=== PATIENT | female | born 1930 | race Caucasian/White ===

== ENCOUNTER 2016-06-25 04:08 | Emergency (ER) | payer MEDICARE, OTHER ==
[2016-06-25] MEDS ORDERED: ONDANSETRON 4 MG/2 ML VIAL IVP STA (04:25)
[2016-06-25] MEDS ORDERED: SODIUM CHLORIDE 0.9% 1,000 ML IV ONE (04:25)
--- NOTE | 2016-06-25 04:28 | ED ---
General Adult HPI - General Chief complaint: Nausea/Vomiting/Diarrhea Stated complaint: N/V/D, headache, weakness Time Seen by Provider: 06/25/16 04:12 Source: patient, family Mode of arrival: ambulatory Limitations: no limitations - History of Present Illness Initial comments: Is an 86-year-old female with a history of CAD who presents emergency department for generalized fatigue, nausea, vomiting, and diarrhea. She states that she has been feeling ill over the last couple of days however the vomiting and diarrhea started tonight. She states that she's had too many episodes of vomiting that she can count. She states the same with diarrhea. No dark or bloody stools. No blood in the vomit. She denies any abdominal discomfort however does admit to some cramping at times. No pain. She states that she has not had any syncopal episodes. No chest pain or shortness of breath. No fevers or chills. No dysuria or hematuria. She admits to normal urinary output. No recent antibiotic use. No other complaints. - Related Data Home Medications Medication Instructions Recorded Confirmed Levothyroxine Sodium [Synthroid] 88 mcg PO AC-BRKFST 07/19/14 10/03/15 Warfarin Sodium [Coumadin] 3 mg PO HS 01/30/15 10/03/15 Lisinopril [Zestril] 2.5 mg PO AC-LUNCH 01/31/15 10/03/15 amLODIPine [Norvasc] 1.25 mg PO DAILY 01/31/15 10/03/15 Aspirin 81 mg PO Q2D 09/29/15 10/03/15 Atorvastatin [Lipitor] 40 mg PO AC-LUNCH 09/29/15 10/03/15 Metoprolol Tartrate 25 mg PO DAILY 09/29/15 10/03/15 Warfarin Sodium [Coumadin] 4.5 mg PO SUWE 09/29/15 10/03/15 Previous Rx's Medication Instructions Recorded Clopidogrel [Plavix] 75 mg PO DAILY #90 tab 08/18/14 Escitalopram [Lexapro] 5 mg PO DAILY #30 tab 01/31/15 Meclizine [Antivert] 25 mg PO TID PRN #20 tab 06/25/16 Ondansetron Odt [Zofran Odt] 4 mg PO Q8HR PRN #12 tab 06/25/16 Allergies Allergy/AdvReac Type Severity Reaction Status Date / Time No Known Allergies Allergy Verified 06/25/16 04:15 Review of Systems ROS Statement: Those systems with pertinent positive or pertinent negative responses have been documented in the HPI. ROS Other: All systems not noted in ROS Statement are negative. Past Medical History Past Medical History: Atrial Fibrillation, Coronary Artery Disease (CAD), Chest Pain / Angina, Hyperlipidemia, Hypertension, Thyroid Disorder Additional Past Medical History / Comment(s): Pt has IBS. 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 Bruising on skin. Cataract L eye. History of Any Multi-Drug Resistant Organisms: None Reported Past Surgical History: Appendectomy, Section, Heart Catheterization With Stent, Hysterectomy Additional Past Surgical History / Comment(s): Hx. of left breast biopsy, HEART CATH WITH STENT. RT FEMORAL endartrectomy,HEMATOMA REMOVAL. Past Anesthesia/Blood Transfusion Reactions: No Reported Reaction Date of Last Stent Placement:: 08-17-14 Past Psychological History: No Psychological Hx Reported Smoking Status: Never smoker Past Alcohol Use History: None Reported Past Drug Use History: None Reported - Past Family History Son(s) Family Medical History: Hearing Disorder / Deafness Daughter(s) Family Medical History: Hearing Disorder / Deafness Father Family Medical History: Cancer Additional Family Medical History / Comment(s): Unknown General Exam - General Exam Comments Initial Comments: Constitutional: Awake alert Appears comfortable Head: Normocephalic atraumatic Eyes: no conjunctival injection No scleral icterus EOMI Neck: No JVD Supple Heart: Tachycardia normal S1-S2 no murmurs Lungs: Clear to auscultation bilaterally No wheezing No rales Abdomen: Soft nondistended nontender Extremities: Non edematous DP pulses intact Radial pulses intact Neuro: A&Ox3 No focal neurologic deficits Psych: Appropriate mood and affect Limitations: no limitations Course Vital Signs 06/25/16 04:12 Temperature 98.7 F Pulse Rate 117 H Respiratory 22 Rate Blood Pressure 137/74 O2 Sat by Pulse 96 Oximetry EKG Findings - EKG Comments: EKG Findings:: EKG showing atrial fibrillation with a rate of 92. Right bundle branch block. No ST segment changes or T-wave inversions. QTC 504. Other intervals are normal. QRS is slightly widened 138. No ectopy. Medical Decision Making - Medical Decision Making This is an 86-year-old female presents emergency department for nausea, vomiting , or diarrhea. She is given 1 L of fluid, Zofran. She had complete resolution of her nausea. She was able tolerate sipping on fluids at bedside. The patient did ambulate to the bathroom and back under her own power. Urinalysis was unremarkable. Labwork was also unremarkable except for elevated INR. The patient was advised to skip her next 1-2 doses of Coumadin and have her INR rechecked her primary doctor. Patient does complain of having intermittent episodes of vertigo and also her legs giving out which of been going on for months. I did give her an Antivert which she stated helped improve her symptoms slightly. I'm going to give her Dr. De Leon to follow-up with for these complaints. This time I feel that the patient is likely suffering from a viral illness. A mini give her Zofran for home. She has no abdominal tenderness on examination and thus imaging is not warranted at this time. The patient's heart rate did improve to the 80s to 90s on monitoring. It would occasionally going to the low 100s however this is likely due to the atrial fibrillation. I did tell her that if she has worsening or changing symptoms she can return the emergency Department. Otherwise she is to follow-up with her primary doctor. All questions were answered. - Lab Data Result diagrams: 06/25/16 04:44 06/25/16 04:44 Lab Results 06/25/16 06/25/16 06/25/16 Range/Units 04:44 04:44 04:44 WBC 7.2 (3.8-10.6) k/uL RBC 4.88 (3.80-5.40) m/uL Hgb 14.5 (11.4-16.0) gm/dL Hct 45.1 (34.0-46.0) % MCV 92.6 (80.0-100.0) fL MCH 29.7 (25.0-35.0) pg MCHC 32.1 (31.0-37.0) g/dL RDW 14.1 (11.5-15.5) % Plt Count 252 (150-450) k/uL Neutrophils % 88 % Lymphocytes % 6 % Monocytes % 5 % Eosinophils % 1 % Basophils % 0 % Neutrophils # 6.3 (1.3-7.7) k/uL Lymphocytes # 0.4 L (1.0-4.8) k/uL Monocytes # 0.3 (0-1.0) k/uL Eosinophils # 0.1 (0-0.7) k/uL Basophils # 0.0 (0-0.2) k/uL PT (9.0-12.0) sec INR (<1.1) APTT (22.0-30.0) sec Sodium 143 (137-145) mmol/L Potassium 3.9 (3.5-5.1) mmol/L Chloride 105 (98-107) mmol/L Carbon Dioxide 27 (22-30) mmol/L Anion Gap 11 mmol/L BUN 19 H (7-17) mg/dL Creatinine 0.79 (0.52-1.04) mg/dL Est GFR (MDRD) Af Amer >60 (>60 ml/min/1.73 sqM) Est GFR (MDRD) Non-Af >60 (>60 ml/min/1.73 sqM) Glucose 154 H (74-99) mg/dL Plasma Lactic Acid [place] 1.7 (0.7-2.0) mmol/L Calcium 8.5 (8.4-10.2) mg/dL Magnesium 1.9 (1.6-2.3) mg/dL Total Bilirubin 1.1 (0.2-1.3) mg/dL AST 40 H (14-36) U/L ALT 46 (9-52) U/L Alkaline Phosphatase 64 (38-126) U/L Total Protein 6.7 (6.3-8.2) g/dL Albumin 3.7 (3.5-5.0) g/dL Amylase 43 (30-110) U/L Lipase 59 (23-300) U/L Urine Color Urine Appearance (Clear) Urine pH (5.0-8.0) Ur Specific [place] (1.001-1.035) Urine Protein (Negative) Urine Glucose (UA) (Negative) Urine Ketones (Negative) Urine Blood (Negative) Urine Nitrate (Negative) Urine Bilirubin (Negative) Urine Urobilinogen (<2.0) mg/dL Ur Leukocyte Esterase (Negative) Urine RBC (0-5) /hpf Urine WBC (0-5) /hpf Ur Squamous Epith Cells (0-4) /hpf Urine Mucus (None) /hpf 06/25/16 06/25/16 Range/Units 04:44 05:20 WBC (3.8-10.6) k/uL RBC (3.80-5.40) m/uL Hgb (11.4-16.0) gm/dL Hct (34.0-46.0) % MCV (80.0-100.0) fL MCH (25.0-35.0) pg MCHC (31.0-37.0) g/dL RDW (11.5-15.5) % Plt Count (150-450) k/uL Neutrophils % % Lymphocytes % % Monocytes % % Eosinophils % % Basophils % % Neutrophils # (1.3-7.7) k/uL Lymphocytes # (1.0-4.8) k/uL Monocytes # (0-1.0) k/uL Eosinophils # (0-0.7) k/uL Basophils # (0-0.2) k/uL PT 80.2 H (9.0-12.0) sec INR 7.7 H* (<1.1) APTT 32.9 H (22.0-30.0) sec Sodium (137-145) mmol/L Potassium (3.5-5.1) mmol/L Chloride (98-107) mmol/L Carbon Dioxide (22-30) mmol/L Anion Gap mmol/L BUN (7-17) mg/dL Creatinine (0.52-1.04) mg/dL Est GFR (MDRD) Af Amer (>60 ml/min/1.73 sqM) Est GFR (MDRD) Non-Af (>60 ml/min/1.73 sqM) Glucose (74-99) mg/dL Plasma Lactic Acid [place] (0.7-2.0) mmol/L Calcium (8.4-10.2) mg/dL Magnesium (1.6-2.3) mg/dL Total Bilirubin (0.2-1.3) mg/dL AST (14-36) U/L ALT (9-52) U/L Alkaline Phosphatase (38-126) U/L Total Protein (6.3-8.2) g/dL Albumin (3.5-5.0) g/dL Amylase (30-110) U/L Lipase (23-300) U/L Urine Color Yellow Urine Appearance Clear (Clear) Urine pH 5.5 (5.0-8.0) Ur Specific [place] 1.019 (1.001-1.035) Urine Protein Negative (Negative) Urine Glucose (UA) Negative (Negative) Urine Ketones Negative (Negative) Urine Blood Small H (Negative) Urine Nitrate Negative (Negative) Urine Bilirubin Negative (Negative) Urine Urobilinogen <2.0 (<2.0) mg/dL Ur Leukocyte Esterase Trace H (Negative) Urine RBC 8 H (0-5) /hpf Urine WBC 5 (0-5) /hpf Ur Squamous Epith Cells 2 (0-4) /hpf Urine Mucus Rare H (None) /hpf Disposition Clinical Impression: Nausea vomiting and diarrhea, Vertigo Disposition: HOME SELF-CARE Condition: Stable Instructions: Acute Nausea and Vomiting (ED), Vertigo (ED) Prescriptions: Meclizine [Antivert] 25 mg PO TID PRN #20 tab PRN Reason: Dizziness Ondansetron Odt [Zofran Odt] 4 mg PO Q8HR PRN #12 tab PRN Reason: Nausea Referrals: Jennyfer Cabello MD [Primary Care Provider] - 1-2 days Uri De Leon MD [STAFF PHYSICIAN] - 1-2 days
[2016-06-25 04:55] LABS: Basophils % (A) 0 %; CH 30.3; CHCM 32.9; Eosinophils # (A) 0.1 k/uL (0-0.7); Eosinophils % (A) 1 %; HCT 45.1 % (34.0-46.0); HDW 2.34; HGB 14.5 gm/dL (11.4-16.0); Luc # (Auto) 0.05; Luc % (Auto) 1; Lymphocytes # (A) 0.4 k/uL (1.0-4.8); Lymphocytes % (A) 6 %; MCH 29.7 pg (25.0-35.0); MCHC 32.1 g/dL (31.0-37.0); MCV 92.6 fL (80.0-100.0); Mean Platelet Volume 7.5; Monocytes # (A) 0.3 k/uL (0-1.0); Monocytes % (A) 5 %; Neutrophils # (A) 6.3 k/uL (1.3-7.7); Neutrophils % (A) 88 %; RBC 4.88 m/uL (3.80-5.40); RDW 14.1 % (11.5-15.5); WBC 7.2 k/uL (3.8-10.6); WBC (Perox) 7.18
[2016-06-25 05:06] LABS: ALT 46 U/L (9-52); AST 40 U/L (14-36); Alkaline Phosphatase 64 U/L (38-126); Amylase 43 U/L (30-110); Anion Gap 11 mmol/L; Blood Urea Nitrogen 19 mg/dL (7-17); Calcium 8.5 mg/dL (8.4-10.2); Carbon Dioxide 27 mmol/L (22-30); Chloride 105 mmol/L (98-107); Glucose 154 mg/dL (74-99); Magnesium 1.9 mg/dL (1.6-2.3); Non-African American GFR(MDRD) >60 (>60 ml/min/1.73 sqM); Potassium 3.9 mmol/L (3.5-5.1); Sodium 143 mmol/L (137-145); Total Bilirubin 1.1 mg/dL (0.2-1.3); Total Protein 6.7 g/dL (6.3-8.2)
[2016-06-25 05:11] LABS: Partial Thromboplastin Time 32.9 sec (22.0-30.0); Prothrombin Time 80.2 sec (9.0-12.0)
[2016-06-25 05:15] LABS: INR 7.7 (<1.1)
[2016-06-25] MEDS ORDERED: MECLIZINE 12.5 MG TAB PO STA (05:29)
[2016-06-25 05:34] LABS: Appearance,Urine Clear (Clear); Bilirubin,Urine Negative (Negative); Glucose,Urine (UA) Negative (Negative); Ketones,Urine Negative (Negative); Leukocyte Esterase,Urine Trace (Negative); Mucus,Urine Rare /hpf; Nitrite,Urine Negative (Negative); PH, Urine 5.5 (5.0-8.0); Particle Count 2085; Protein,Urine Negative (Negative); RBC,Urine 8 /hpf (0-5); Specific Gravity,Urine 1.019 (1.001-1.035); Squamous Epithelial Cell,Urine 2 /hpf (0-4); UA Billing (MACRO vs. MICRO) MICRO; Urobilinogen,Urine <2.0 mg/dL (<2.0); WBC,Urine 5 /hpf (0-5)
[2016-06-25 06:03] VITALS: BP 167/78; PULSE 78; RESP 18; TEMP 98
== END 2016-06-25 06:08 | disposition home or self-care (01) ==
LOC: EC 04:08
DX: R11.2 Nausea with vomiting, unspecified (principal); R19.7 Diarrhea, unspecified; R42 Dizziness and giddiness; I25.10 Atherosclerotic heart disease of native coronary artery without angina pectoris; I11.9 Hypertensive heart disease without heart failure; Z95.5 Presence of coronary angioplasty implant and graft; Z79.899 Other long term (current) drug therapy; Z79.01 Long term (current) use of anticoagulants; Z79.82 Long term (current) use of aspirin; Z79.02 Long term (current) use of antithrombotics/antiplatelets; I48.91 Unspecified atrial fibrillation; E07.9 Disorder of thyroid, unspecified; E78.5 Hyperlipidemia, unspecified
CPT/HCPCS: 36415; 93005; 80053; 82150; 83605; 83690; 83735; 85025; 85610; 85730; 81001; 87086; 99284; 96374; 96361; J2405

== ENCOUNTER 2016-06-26 18:26 | Inpatient (IN) | payer MEDICARE, OTHER ==
[2016-06-26] MEDS ORDERED: IPRATROPIUM-ALBUTEROL 3 ML NEB INHALATION STA (18:47)
[2016-06-26] MEDS ORDERED: ACETAMINOPHEN IV (For NPO) 1,000 MG in SALINE 100 100ML.BAG IVPB STA (18:47)
[2016-06-26] MEDS ORDERED: IBUPROFEN IV 600 MG in SODIUM CHLORIDE 0.9% 250 ML IV STA (18:47)
--- NOTE | 2016-06-26 18:56 | ED ---
General Adult HPI - General Source: patient, RN notes reviewed Mode of arrival: wheelchair Limitations: no limitations <Willy Lozano - Last Filed: 06/26/16 21:02> <Willy Cesar - Last Filed: 06/27/16 00:03> - General Chief complaint: Chest Pain Stated complaint: SVETLANA Time Seen by Provider: 06/26/16 18:40 - History of Present Illness Initial comments: This is an 86-year-old female who presents to the emergency department complaining of difficulty breathing and feeling extremely weak. Patient states she was in the emergency department yesterday for nausea vomiting and diarrhea. Patient also complete of dizziness chest today. Patient states those symptoms have resolved however today she started having significant discomfort breath and started feeling extremely weak and fatigued. Patient states she has had a slight cough but no sputum production. Patient denies any knowledge of a fever. Patient states she does have some chest discomfort at this time. Patient states she has a past medical history of atrial fibrillation for which she is on Coumadin. Patient states she was told to stop the Coumadin and she has stopped currently. Patient denies any lightheadedness or dizziness. Patient states she does have aches all over her body. She denies any current abdominal pain or nausea. (Willy Lozano) - Related Data Home Medications Medication Instructions Recorded Confirmed Levothyroxine Sodium [Synthroid] 88 mcg PO AC-BRKFST 07/19/14 10/03/15 Lisinopril [Zestril] 2.5 mg PO AC-LUNCH 01/31/15 10/03/15 amLODIPine [Norvasc] 1.25 mg PO DAILY 01/31/15 10/03/15 Aspirin 81 mg PO DAILY PRN 09/29/15 06/26/16 Atorvastatin [Lipitor] 40 mg PO AC-LUNCH 09/29/15 10/03/15 Metoprolol Tartrate 25 mg PO DAILY 09/29/15 10/03/15 Previous Rx's Medication Instructions Recorded Clopidogrel [Plavix] 75 mg PO DAILY #90 tab 08/18/14 Escitalopram [Lexapro] 5 mg PO DAILY #30 tab 01/31/15 Meclizine [Antivert] 25 mg PO TID PRN #20 tab 06/25/16 Ondansetron Odt [Zofran Odt] 4 mg PO Q8HR PRN #12 tab 06/25/16 Allergies Allergy/AdvReac Type Severity Reaction Status Date / Time No Known Allergies Allergy Verified 06/26/16 18:38 Review of Systems ROS Other: All systems not noted in ROS Statement are negative. <Willy Lozano - Last Filed: 06/26/16 21:02> ROS Other: All systems not noted in ROS Statement are negative. <Willy Cesar - Last Filed: 06/27/16 00:03> ROS Statement: Those systems with pertinent positive or pertinent negative responses have been documented in the HPI. Past Medical History Past Medical History: Atrial Fibrillation, Coronary Artery Disease (CAD), Chest Pain / Angina, Hyperlipidemia, Hypertension, Thyroid Disorder Additional Past Medical History / Comment(s): Pt has IBS. 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 Bruising on skin. Cataract L eye. History of Any Multi-Drug Resistant Organisms: None Reported Past Surgical History: Appendectomy, Section, Heart Catheterization With Stent, Hysterectomy Additional Past Surgical History / Comment(s): Hx. of left breast biopsy, HEART CATH WITH STENT. RT FEMORAL endartrectomy,HEMATOMA REMOVAL. Past Anesthesia/Blood Transfusion Reactions: No Reported Reaction Date of Last Stent Placement:: 08-17-14 Past Psychological History: No Psychological Hx Reported Smoking Status: Never smoker Past Alcohol Use History: None Reported Past Drug Use History: None Reported - Past Family History Son(s) Family Medical History: Hearing Disorder / Deafness Daughter(s) Family Medical History: Hearing Disorder / Deafness Father Family Medical History: Cancer Additional Family Medical History / Comment(s): Unknown <Willy Lozano - Last Filed: 06/26/16 21:02> General Exam Limitations: no limitations <Willy Lozano - Last Filed: 06/26/16 21:02> General appearance: alert, in no apparent distress Head exam: Present: atraumatic, normocephalic, normal inspection Eye exam: Present: normal appearance, PERRL, EOMI. Absent: scleral icterus, conjunctival injection, periorbital swelling ENT exam: Present: normal exam, mucous membranes moist Neck exam: Present: normal inspection. Absent: tenderness, meningismus, lymphadenopathy Respiratory exam: Present: normal lung sounds bilaterally. Absent: respiratory distress, wheezes, rales, rhonchi, stridor Cardiovascular Exam: Present: regular rate, normal rhythm, normal heart sounds. Absent: systolic murmur, diastolic murmur, rubs, gallop, clicks GI/Abdominal exam: Present: soft, normal bowel sounds. Absent: distended, tenderness, guarding, rebound, rigid Extremities exam: Present: normal inspection, full ROM, normal capillary refill. Absent: tenderness, pedal edema, joint swelling, calf tenderness Back exam: Present: normal inspection Neurological exam: Present: alert, oriented X3, CN II-XII intact Psychiatric exam: Present: normal affect, normal mood Skin exam: Present: warm, dry, intact, normal color. Absent: rash <Willy Cesar - Last Filed: 06/27/16 00:03> - General Exam Comments Initial Comments: GENERAL: Patient is well-developed and well-nourished. Patient is nontoxic and well- hydrated and is in moderate distress. ENT: Neck is soft and supple. No significant lymphadenopathy is noted. Oropharynx is clear. Moist mucous membranes. Neck has full range of motion without eliciting any pain. EYES: The sclera were anicteric and conjunctiva were pink and moist. Extraocular movements were intact and pupils were equal round and reactive to light. Eyelids were unremarkable. PULMONARY: Unlabored respirations. Good breath sounds bilaterally. No audible rales rhonchi or wheezing was noted. CARDIOVASCULAR: She is tachycardic at about 130 beats a minute ABDOMEN: Soft and nontender with normal bowel sounds. No palpable organomegaly was noted. There is no palpable pulsatile mass. SKIN: Skin is clear with no lesions or rashes and otherwise unremarkable. NEUROLOGIC: Patient is alert and oriented x3. Cranial nerves II through XII are grossly intact. Motor and sensory are also intact. Normal speech, volume and content. Symmetrical smile. MUSCULOSKELETAL: Normal extremities with adequate strength and full range of motion. No lower extremity swelling or edema. No calf tenderness. LYMPHATICS: No significant lymphadenopathy is noted PSYCHIATRIC: Normal psychiatric evaluation. (Willy Lozano) Course <Willy Lozano - Last Filed: 06/26/16 21:02> <Willy Cesar - Last Filed: 06/27/16 00:03> Vital Signs 06/26/16 06/26/16 06/26/16 18:39 18:56 19:09 Temperature 105.0 F H Pulse Rate 130 H 116 H 114 H Respiratory 24 20 Rate Blood Pressure 176/118 170/77 O2 Sat by Pulse 91 L 96 Oximetry 06/26/16 06/26/16 06/26/16 19:27 20:09 20:51 Temperature 104.3 F H 102.6 F H 101 F H Pulse Rate 115 H 100 95 Respiratory 16 16 16 Rate Blood Pressure 139/63 120/55 123/57 O2 Sat by Pulse 95 95 96 Oximetry 06/26/16 06/26/16 21:42 23:21 Temperature 100.8 F H 98.6 F Pulse Rate 84 90 Respiratory 16 16 Rate Blood Pressure 131/66 130/58 O2 Sat by Pulse 96 97 Oximetry - Reevaluation(s) Reevaluation #1: 06/27/16 00:02 Patient ER from yesterday day and visit from yesterday evaluated (Willy Cesar) Reevaluation #2: 06/27/16 00:02 Patient feeling better with fever control symptom control (Willy Cesar) Medical Decision Making - Lab Data Result diagrams: 06/26/16 18:50 06/26/16 18:50 <Willy Lozano - Last Filed: 06/26/16 21:02> - Lab Data Result diagrams: 06/26/16 18:50 06/26/16 18:50 - Radiology Data Radiology results: report reviewed (Chest x-ray two-view shows multiple pulmonary edema, CT pelvis shows air in the biliary tree, ultrasounds with no cholecystitis also with evidential air in the biliary tree), image reviewed <Willy Cesar - Last Filed: 06/27/16 00:03> - Medical Decision Making EKG shows atrial fibrillation with rapid ventricular response at 121 bpm QRS is under 28 QT interval 3:30 QTC is 468. Compared to an old EKG patient had a trip fibrillation the past. I went back in to reevaluate the patient she was having no pain and she stated she felt considerably better but certainly not back to her baseline. Dr. Cesar taking over the care of this patient at 9 PM (Willy Lozano) 86 female female in the ER for evaluation. Patient with chest pain will admit for evaluation and and reevaluation of chest pain, cardiac evaluation and repeat troponins, no ST elevation at this time. Patient's fundi fever of unknown origin, there the biliary tree which we'll consult surgery, facial be admitted for prophylactic antibiotics IV fluid and kept nothing by mouth ( Willy Cesar) - Lab Data Lab Results 06/26/16 06/26/16 06/26/16 Range/Units 18:50 18:50 18:50 WBC 8.0 (3.8-10.6) k/uL RBC 4.65 (3.80-5.40) m/uL Hgb 13.9 (11.4-16.0) gm/dL Hct 42.5 (34.0-46.0) % MCV 91.4 (80.0-100.0) fL MCH 29.9 (25.0-35.0) pg MCHC 32.7 (31.0-37.0) g/dL RDW 14.2 (11.5-15.5) % Plt Count 203 (150-450) k/uL Neutrophils % 84 % Lymphocytes % 11 % Monocytes % 4 % Eosinophils % 0 % Basophils % 0 % Neutrophils # 6.7 (1.3-7.7) k/uL Lymphocytes # 0.9 L (1.0-4.8) k/uL Monocytes # 0.3 (0-1.0) k/uL Eosinophils # 0.0 (0-0.7) k/uL Basophils # 0.0 (0-0.2) k/uL PT (9.0-12.0) sec INR (<1.1) APTT (22.0-30.0) sec Sodium (137-145) mmol/L Potassium (3.5-5.1) mmol/L Chloride (98-107) mmol/L Carbon Dioxide (22-30) mmol/L Anion Gap mmol/L BUN (7-17) mg/dL Creatinine (0.52-1.04) mg/dL Est GFR (MDRD) Af Amer (>60 ml/min/1.73 sqM) Est GFR (MDRD) Non-Af (>60 ml/min/1.73 sqM) Glucose (74-99) mg/dL Plasma Lactic Acid [place]um[place] 1.2 (0.7-2.0) mmol/L Calcium (8.4-10.2) mg/dL Total Bilirubin (0.2-1.3) mg/dL AST (14-36) U/L ALT (9-52) U/L Alkaline Phosphatase (38-126) U/L Total Creatine Kinase 72 (30-135) U/L CK-MB (CK-2) 1.2 (0.0-2.4) ng/mL CK-MB (CK-2) Rel Index 1.7 Troponin I 0.051 H* (0.000-0.034) ng/mL NT-Pro-B Natriuret Pep pg/mL Total Protein (6.3-8.2) g/dL Albumin (3.5-5.0) g/dL Cortisol ug/dL Urine Color Urine Appearance (Clear) Urine pH (5.0-8.0) Ur Specific [place] (1.001-1.035) Urine Protein (Negative) Urine Glucose (UA) (Negative) Urine Ketones (Negative) Urine Blood (Negative) Urine Nitrate (Negative) Urine Bilirubin (Negative) Urine Urobilinogen (<2.0) mg/dL Ur Leukocyte Esterase (Negative) Urine RBC (0-5) /hpf Urine WBC (0-5) /hpf Urine Bacteria (None) /hpf Hyaline Casts (0-2) /lpf Urine Mucus (None) /hpf Influenza Type A RNA (Not Detectd) Influenza Type B (PCR) (Not Detectd) 06/26/16 06/26/16 06/26/16 Range/Units 18:50 18:50 18:50 WBC (3.8-10.6) k/uL RBC (3.80-5.40) m/uL Hgb (11.4-16.0) gm/dL Hct (34.0-46.0) % MCV (80.0-100.0) fL MCH (25.0-35.0) pg MCHC (31.0-37.0) g/dL RDW (11.5-15.5) % Plt Count (150-450) k/uL Neutrophils % % Lymphocytes % % Monocytes % % Eosinophils % % Basophils % % Neutrophils # (1.3-7.7) k/uL Lymphocytes # (1.0-4.8) k/uL Monocytes # (0-1.0) k/uL Eosinophils # (0-0.7) k/uL Basophils # (0-0.2) k/uL PT 42.6 H (9.0-12.0) sec INR 4.3 (<1.1) APTT 32.8 H (22.0-30.0) sec Sodium 136 L (137-145) mmol/L Potassium 3.6 (3.5-5.1) mmol/L Chloride 102 (98-107) mmol/L Carbon Dioxide 24 (22-30) mmol/L Anion Gap 10 mmol/L BUN 12 (7-17) mg/dL Creatinine 0.80 (0.52-1.04) mg/dL Est GFR (MDRD) Af Amer >60 (>60 ml/min/1.73 sqM) Est GFR (MDRD) Non-Af >60 (>60 ml/min/1.73 sqM) Glucose 129 H (74-99) mg/dL Plasma Lactic Acid [place] (0.7-2.0) mmol/L Calcium 7.9 L (8.4-10.2) mg/dL Total Bilirubin 0.8 (0.2-1.3) mg/dL AST 31 (14-36) U/L ALT 38 (9-52) U/L Alkaline Phosphatase 55 (38-126) U/L Total Creatine Kinase (30-135) U/L CK-MB (CK-2) (0.0-2.4) ng/mL CK-MB (CK-2) Rel Index Troponin I (0.000-0.034) ng/mL NT-Pro-B Natriuret Pep 3320 pg/mL Total Protein 6.3 (6.3-8.2) g/dL Albumin 3.5 (3.5-5.0) g/dL Cortisol 40 ug/dL Urine Color Urine Appearance (Clear) Urine pH (5.0-8.0) Ur Specific [place] (1.001-1.035) Urine Protein (Negative) Urine Glucose (UA) (Negative) Urine Ketones (Negative) Urine Blood (Negative) Urine Nitrate (Negative) Urine Bilirubin (Negative) Urine Urobilinogen (<2.0) mg/dL Ur Leukocyte Esterase (Negative) Urine RBC (0-5) /hpf Urine WBC (0-5) /hpf Urine Bacteria (None) /hpf Hyaline Casts (0-2) /lpf Urine Mucus (None) /hpf Influenza Type A RNA (Not Detectd) Influenza Type B (PCR) (Not Detectd) 06/26/16 06/26/16 06/26/16 Range/Units 19:00 19:25 20:08 WBC (3.8-10.6) k/uL RBC (3.80-5.40) m/uL Hgb (11.4-16.0) gm/dL Hct (34.0-46.0) % MCV (80.0-100.0) fL MCH (25.0-35.0) pg MCHC (31.0-37.0) g/dL RDW (11.5-15.5) % Plt Count (150-450) k/uL Neutrophils % % Lymphocytes % % Monocytes % % Eosinophils % % Basophils % % Neutrophils # (1.3-7.7) k/uL Lymphocytes # (1.0-4.8) k/uL Monocytes # (0-1.0) k/uL Eosinophils # (0-0.7) k/uL Basophils # (0-0.2) k/uL PT (9.0-12.0) sec INR (<1.1) APTT (22.0-30.0) sec Sodium (137-145) mmol/L Potassium (3.5-5.1) mmol/L Chloride (98-107) mmol/L Carbon Dioxide (22-30) mmol/L Anion Gap mmol/L BUN (7-17) mg/dL Creatinine (0.52-1.04) mg/dL Est GFR (MDRD) Af Amer (>60 ml/min/1.73 sqM) Est GFR (MDRD) Non-Af (>60 ml/min/1.73 sqM) Glucose (74-99) mg/dL Plasma Lactic Acid [place] (0.7-2.0) mmol/L Calcium (8.4-10.2) mg/dL Total Bilirubin (0.2-1.3) mg/dL AST (14-36) U/L ALT (9-52) U/L Alkaline Phosphatase (38-126) U/L Total Creatine Kinase (30-135) U/L CK-MB (CK-2) (0.0-2.4) ng/mL CK-MB (CK-2) Rel Index Troponin I (0.000-0.034) ng/mL NT-Pro-B Natriuret Pep pg/mL Total Protein (6.3-8.2) g/dL Albumin (3.5-5.0) g/dL Cortisol ug/dL Urine Color Yellow Urine Appearance Cloudy H (Clear) Urine pH 5.0 (5.0-8.0) Ur Specific [place] 1.011 (1.001-1.035) Urine Protein Trace H (Negative) Urine Glucose (UA) Negative (Negative) Urine Ketones Negative (Negative) Urine Blood Small H (Negative) Urine Nitrate Negative (Negative) Urine Bilirubin Negative (Negative) Urine Urobilinogen <2.0 (<2.0) mg/dL Ur Leukocyte Esterase Negative (Negative) Urine RBC 1 (0-5) /hpf Urine WBC 1 (0-5) /hpf Urine Bacteria Occasional H (None) /hpf Hyaline Casts 1 (0-2) /lpf Urine Mucus Rare H (None) /hpf Influenza Type A RNA Not Detected Not Detected (Not Detectd) Influenza Type B (PCR) Not Detected Not Detected (Not Detectd) Critical Care Time Critical Care Time: Yes Total Critical Care Time: 31 <Willy Cesar - Last Filed: 06/27/16 00:03> Disposition <Willy Lozano - Last Filed: 06/26/16 21:02> <Willy Cesar - Last Filed: 06/27/16 00:03> Clinical Impression: Fever, Fever of unknown origin, Pneumobilia, Hx of cardiac catheterization, Chest pain Disposition: ADMITTED IP TO THIS HOSP Condition: Fair Referrals: Jennyfer Cabello MD [Primary Care Provider] - 1-2 days
[2016-06-26] MEDS: SODIUM CHLORIDE 0.9% 500 ML IV SCH ×2 (19:00→20:15)
[2016-06-26 19:17] LABS: Basophils % (A) 0 %; CH 30.2; CHCM 33.2; Eosinophils % (A) 0 %; HCT 42.5 % (34.0-46.0); HDW 2.41; HGB 13.9 gm/dL (11.4-16.0); INR 4.3 (<1.1); Luc # (Auto) 0.04; Luc % (Auto) 1; Lymphocytes # (A) 0.9 k/uL (1.0-4.8); Lymphocytes % (A) 11 %; MCH 29.9 pg (25.0-35.0); MCHC 32.7 g/dL (31.0-37.0); MCV 91.4 fL (80.0-100.0); Mean Platelet Volume 7.3; Monocytes # (A) 0.3 k/uL (0-1.0); Monocytes % (A) 4 %; Neutrophils # (A) 6.7 k/uL (1.3-7.7); Neutrophils % (A) 84 %; Partial Thromboplastin Time 32.8 sec (22.0-30.0); Prothrombin Time 42.6 sec (9.0-12.0); RBC 4.65 m/uL (3.80-5.40); RDW 14.2 % (11.5-15.5)
[2016-06-26 19:28] LABS: ALT 38 U/L (9-52); AST 31 U/L (14-36); Alkaline Phosphatase 55 U/L (38-126); Anion Gap 10 mmol/L; Blood Urea Nitrogen 12 mg/dL (7-17); Calcium 7.9 mg/dL (8.4-10.2); Carbon Dioxide 24 mmol/L (22-30); Chloride 102 mmol/L (98-107); Glucose 129 mg/dL (74-99); Non-African American GFR(MDRD) >60 (>60 ml/min/1.73 sqM); Potassium 3.6 mmol/L (3.5-5.1); Sodium 136 mmol/L (137-145); Total Bilirubin 0.8 mg/dL (0.2-1.3); Total Protein 6.3 g/dL (6.3-8.2)
[2016-06-26 19:33] LABS: Appearance,Urine Cloudy (Clear); Bacteria,Urine Occasional /hpf; Bilirubin,Urine Negative (Negative); Glucose,Urine (UA) Negative (Negative); Ketones,Urine Negative (Negative); Leukocyte Esterase,Urine Negative (Negative); Mucus,Urine Rare /hpf; Nitrite,Urine Negative (Negative); Particle Count 12296; Protein,Urine Trace (Negative); RBC,Urine 1 /hpf (0-5); Specific Gravity,Urine 1.011 (1.001-1.035); UA Billing (MACRO vs. MICRO) MICRO; Urobilinogen,Urine <2.0 mg/dL (<2.0); WBC,Urine 1 /hpf (0-5)
[2016-06-26] MEDS ORDERED: LEVOFLOXACIN 750MG-D5W PMX 750 MG in DEXTROSE/WATER 1 150ML.BAG IVPB STA (19:49)
[2016-06-26 19:58] LABS: Creatine Kinase MB 1.2 ng/mL (0.0-2.4)
--- NOTE | 2016-06-26 19:59 | XR ---
EXAMINATION TYPE: XR chest 2V DATE OF EXAM: 06/26/2016 7:49 PM HISTORY: Chest pain and shortness of breath. REFERENCE: Previous study dated 01/30/2015. FINDINGS: Lung volumes are prominent. The heart is enlarged. Pleural spaces are clear. There is vascu lar congestion without mini edema. IMPRESSION: 1. COPD. 2. CARDIOMEGALY. 3. MILD VASCULAR CONGESTION.
[2016-06-26 20:03] LABS: Troponin I 0.051 ng/mL (0.000-0.034)
[2016-06-26] MEDS ORDERED: FUROSEMIDE 10 MG/ML 2 ML VIAL IV STA (20:52)
[2016-06-26] MEDS ORDERED: RX INFO: IV CONTRAST WAS GIVEN 1 EACH MISC MISCELLANE PRN (21:00)
--- NOTE | 2016-06-26 21:54 | CT ---
EXAMINATION TYPE: CT abdomen pelvis w con DATE OF EXAM: 06/26/2016 9:42 PM REFERENCE: Previous study dated 03/03/2013. HISTORY: Pain HISTORY: generalized pain REFERENCE: NONE CT DLP: 516.3 mGy Automated exposure control for dose reduction was used. TECHNIQUE: Helical acquisition through the abdomen and pelvis was obtained following the oral ingesti on of without Oral Contrast and following intravenous administration of 100 mL of Omnipaque 300. The data was reformatted in axial, coronal and sagittal projections. Delayed images were also obtained. FINDINGS: There are very small, bilateral pleural effusions. There is atelectatic change present at both lung bases. There is some groundglass opacity in the right middle lobe. There is cardiomegaly. There is no pericardial fluid. Within the abdomen, there is evidence of pneumobilia. This was not present previously. The spleen and gallbladder appear normal. Both adrenal glands appear normal. Both kidneys demonstrate function and appear morphologically normal. The pancreas is somewhat atrophic. There is extensive vascular calcification throughout the visualized arterial tree. There is no signif icant retroperitoneal, iliac or inguinal adenopathy. The uterus and ovaries are not visualized. The bladder is unremarkable. There is some mucosal thickening involving the distal sigmoid colon. There is no significant divertic ular change and I do not see radiographic evidence of diverticulosis. The appendix is not visualized. There is mild gaseous distention of the right side of the colon and to a lesser extent the left side of the colon. No obstructing lesion is seen. Small bowel loops are unremarkable. No free fluid and no free air is seen. There is minor hypertrophic spondylosis within the spine. IMPRESSION: 1. PNEUMOBILIA. THE ETIOLOGY OF THIS IS NOT READILY APPARENT BASED ON THIS EXAMINATION. 2. CARDIOMEGALY. 3. MUCOSAL THICKENING INVOLVING THE DISTAL SIGMOID COLON. PLEASE CORRELATE CLINICALLY TO EXCLUDE COLI TIS. 4. DEGENERATIVE CHANGES WITHIN THE SPINE. 6. CARDIOMEGALY. 7. MINIMAL GROUNDGLASS OPACITY IN THE RIGHT MIDDLE LOBE MAY REPRESENT EARLY PNEUMONITIS. 8. TINY, BILATERAL PLEURAL EFFUSIONS.
[2016-06-26] MEDS ORDERED: AMPICILLIN-SULBACTAM 3 GM in SODIUM CHLORIDE 0.9% 100 ML IVPB STA (22:23)
[2016-06-26] MEDS ORDERED: SODIUM CHLORIDE 0.9% 500 ML IV STA (22:23)
[2016-06-26] MEDS ORDERED: SODIUM CHLORIDE 0.9% 1,000 ML IV STA ×2 (22:23)
--- NOTE | 2016-06-26 23:33 | US ---
EXAMINATION TYPE: US abdomen limited DATE OF EXAM: 06/26/2016 11:15 PM COMPARISON: 09/15/2014 CLINICAL HISTORY: Pain. 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 Echogenic areas throughout the liver probably related to air in the biliary tree that is evident on t he CT scan of 06/26/2016. Hepatic metastatic disease is not excluded but this is not evident on the re cent CT scan. There is a hyperechoic rounded area in the upper pole right kidney consistent with a lipoma that is e vident on the recent CT scan. No hydronephrosis in the right kidney.
[2016-06-27] MEDS ORDERED: SODIUM CHLORIDE 0.9% 1,000 ML IV STA
[2016-06-27] MEDS ORDERED: SODIUM CHLORIDE 0.9% 500 ML IV STA
[2016-06-27] MEDS ORDERED: NITROGLYCERIN SL TABS 0.4 MG TAB SUBLINGUAL PRN (00:03)
[2016-06-27] MEDS ORDERED: MORPHINE SULFATE 4 MG/ML SYRINGE IV PRN (00:03)
[2016-06-27] MEDS ORDERED: ASPIRIN 81 MG CHEW PO STA (00:03)
[2016-06-27 01:07] LABS: Glucose,Whole Blood 119 mg/dL (75-99)
[2016-06-27 01:25] LABS: Creatine Kinase MB 1.3 ng/mL (0.0-2.4)
[2016-06-27 01:49] LABS: Troponin I 0.062 ng/mL (0.000-0.034)
[2016-06-27] MEDS: ACETAMINOPHEN IV (For NPO) 1,000 MG in EMPTY BAG 1 BAG IVPB SCH ×3 (03:22→11:49)
[2016-06-27 06:56] LABS: CH 29.9; CHCM 32.1; HCT 39.6 % (34.0-46.0); HDW 2.42; HGB 12.8 gm/dL (11.4-16.0); Immature Gran Flag Marked; MCH 30.3 pg (25.0-35.0); MCHC 32.4 g/dL (31.0-37.0); MCV 93.6 fL (80.0-100.0); Mean Platelet Volume 7.7; RBC 4.23 m/uL (3.80-5.40); RDW 14.1 % (11.5-15.5); WBC 7.6 k/uL (3.8-10.6); WBC (Perox) 7.83
[2016-06-27 07:36] LABS: Anion Gap 10 mmol/L; Blood Urea Nitrogen 11 mg/dL (7-17); Calcium 7.1 mg/dL (8.4-10.2); Carbon Dioxide 22 mmol/L (22-30); Chloride 104 mmol/L (98-107); Glucose 98 mg/dL (74-99); Magnesium 1.4 mg/dL (1.6-2.3); Non-African American GFR(MDRD) >60 (>60 ml/min/1.73 sqM); Phosphorous 2.3 mg/dL (2.5-4.5); Potassium 3.2 mmol/L (3.5-5.1); Sodium 136 mmol/L (137-145)
[2016-06-27 07:41] LABS: Creatine Kinase MB 1.6 ng/mL (0.0-2.4)
[2016-06-27 07:45] LABS: Troponin I 0.049 ng/mL (0.000-0.034)
[2016-06-27] MEDS: AMPICILLIN-SULBACTAM 3 GM in SODIUM CHLORIDE 0.9% 100 ML IVPB SCH ×4 (07:45→23:03)
[2016-06-27] MEDS ORDERED: Magnesium Replacement Protocol 1 EACH MISC MISCELLANE PRN (08:19)
[2016-06-27] MEDS ORDERED: Potassium Replacement Protocol 1 EACH MISC MISCELLANE PRN (08:20)
[2016-06-27 08:21] LABS: Add Differential Manual Differential
[2016-06-27 08:27] LABS: Nucleated Red Blood Cells 0 /100 WBC (0-0); Total Cells Counted 200
[2016-06-27 08:28] LABS: Polychromasia Present; Toxic Granulation Present; Toxic Vacuolation Present
[2016-06-27] MEDS: MAGNESIUM SULFATE-D5W PMX 1 GM in DEXTROSE/WATER 1 100ML.BAG IVPB SCH ×3 (09:00→11:02)
[2016-06-27] MEDS: POTASSIUM CHLORIDE 10 MEQ in WATER FOR INJECTION 1 100ML.BAG IVPB SCH (09:00)
[2016-06-27] MEDS: POTASSIUM CHLORIDE 10 MEQ, LIDOCAINE 2% INJ 10 MG in SODIUM CHLORIDE 0.9% 100 ML IV SCH ×2 (10:03→11:02)
--- NOTE | 2016-06-27 10:32 | ECHOF ---
Referral Reason:chf MEASUREMENTS -------- HEIGHT: 167.6 cm WEIGHT: 72.6 kg BP: 95/49 IVSd: 1.2 cm (0.6 - 1.1) LVIDd: 4.8 cm (3.9 - 5.3) LVPWd: 1.3 cm (0.6 - 1.1) IVSs: 2.1 cm LVIDs: 2.3 cm LVPWs: 1.6 cm Ao Diam: 2.7 cm (2.0 - 3.7) AV Cusp: 1.4 cm (1.5 - 2.6) LA Diam: 3.9 cm (2.7 - 3.8) MV EXCURSION: 14.924 mm (> 18.000) MV EF SLOPE: 112 mm/s (70 - 150) EPSS: 0.5 cm MV E Michael: 1.14 m/s MV DecT: 300 ms MV A Michael: 0.21 m/s MV E/A Ratio: 5.41 AV maxP.60 mmHg AV meanP.52 mmHg AR PHT: 473 ms RAP: 5.00 mmHg RVSP: 33.70 mmHg FINDINGS -------- Sinus rhythm. This was a technically good study. There is mild concentric left ventricular hypertrophy. Overall left ventricular systolic function is low-normal with, an EF between 50 - 55 %. The right ventricle is normal in size and function. The left atrium is normal in size. The right atrium is normal in size. There is mild aortic regurgitation. There is mild aortic stenosis present. Peak/mean gradient across the Aortic Valve is 20.60mmHg / 12.52mmHg. The mitral valve leaflets are mildly thickened. Mild mitral regurgitation is present. Severe tricuspid regurgitation present. The right ventricular systolic pressure, as measured by Doppler, is 33.70mmHg. Pulmonic valve appears structurally normal. The aortic root size is normal. The pericardium is normal. CONCLUSIONS -------- 1. Sinus rhythm. 2. Peak/mean gradient across the Aortic Valve is 20.60mmHg / 12.52mmHg. 3. The mitral valve leaflets are mildly thickened. 4. Mild mitral regurgitation is present. 5. Severe tricuspid regurgitation present. 6. The right ventricular systolic pressure, as measured by Doppler, is 33.70mmHg. 7. Pulmonic valve appears structurally normal. 8. The aortic root size is normal. 9. The pericardium is normal. 10. This was a technically good study. 11. There is mild concentric left ventricular hypertrophy. 12. Overall left ventricular systolic function is low-normal with, an EF between 50 - 55 %. 13. The right ventricle is normal in size and function. 14. The left atrium is normal in size. 15. The right atrium is normal in size. 16. There is mild aortic regurgitation. 17. There is mild aortic stenosis present. INVENTORY AND PRICING ASSOCIATE: Rosio Davey RDCS
[2016-06-27] MEDS ORDERED: LACTATED RINGERS 1,000 ML IV SCH ×2 (12:15→19:30)
--- NOTE | 2016-06-27 12:26 | P.GSCN ---
History of Present Illness Consult date: 06/27/16 Reason for Consult: Acute abdominal pain, hypotension History of present illness: This 86-year-old female who is admitted Dr. karin olvera. Patient had complaints of abdominal pain and nausea on admission through the emergency room last night. She is in the ICU as a selective care overflow. Patient has developed significant abdominal pain. She states it hurts when she moves. The pain is she worse compared to her admission. Past Medical History Past Medical History: Atrial Fibrillation, Coronary Artery Disease (CAD), Chest Pain / Angina, Hyperlipidemia, Hypertension, Thyroid Disorder Additional Past Medical History / Comment(s): Pt has IBS. 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 Bruising on skin. Cataract L eye. History of Any Multi-Drug Resistant Organisms: None Reported Past Surgical History: Appendectomy, Section, Heart Catheterization With Stent, Hysterectomy Additional Past Surgical History / Comment(s): Hx. of left breast biopsy, HEART CATH WITH STENT. RT FEMORAL endartrectomy,HEMATOMA REMOVAL. Past Anesthesia/Blood Transfusion Reactions: No Reported Reaction Date of Last Stent Placement:: 08-17-14 Past Psychological History: No Psychological Hx Reported Smoking Status: Never smoker Past Alcohol Use History: None Reported Past Drug Use History: None Reported - Past Family History Son(s) Family Medical History: Hearing Disorder / Deafness Daughter(s) Family Medical History: Hearing Disorder / Deafness Father Family Medical History: Cancer Additional Family Medical History / Comment(s): Unknown Medications and Allergies Home Medications Medication Instructions Recorded Confirmed Type Levothyroxine Sodium [Synthroid] 88 mcg PO AC-BRKFST 07/19/14 06/27/16 History Aspirin 81 mg PO DAILY PRN 09/29/15 06/26/16 History Metoprolol Tartrate 12.5 mg PO BID 09/29/15 06/27/16 History Rosuvastatin Calcium [Crestor] 10 mg PO HS 06/27/16 06/27/16 History Allergies Allergy/AdvReac Type Severity Reaction Status Date / Time No Known Allergies Allergy Verified 06/26/16 18:38 Surgical - Exam Vital Signs Temp Pulse Resp BP Pulse Ox 105.0 F H 130 H 24 176/118 91 L 06/26/16 18:39 06/26/16 18:39 06/26/16 18:39 06/26/16 18:39 06/26/16 18:39 - General well developed, no distress - Eyes PERRL - ENT normal pinna - Neck no masses - Respiratory normal expansion - Cardiovascular Rhythm: regular - Abdomen Abdomen soft. There is rebound tenderness. There is pain when the bed is removed. Abdomen: soft Results - Labs 06/27/16 06:27 06/27/16 06:27 Abnormal Lab Results - Last 24 Hours (Table) 06/27/16 06/27/16 06/27/16 Range/Units 00:29 01:04 06:27 Plt Count (150-450) k/uL Lymphocytes # (Manual) (1.0-4.8) k/uL Sodium (137-145) mmol/L Potassium (3.5-5.1) mmol/L POC Glucose (mg/dL) 119 H (75-99) mg/dL Calcium (8.4-10.2) mg/dL Phosphorus (2.5-4.5) mg/dL Magnesium (1.6-2.3) mg/dL Troponin I 0.062 H* 0.049 H* (0.000-0.034) ng/mL 06/27/16 06/27/16 Range/Units 06:27 06:27 Plt Count 140 L (150-450) k/uL Lymphocytes # (Manual) 0.4 L (1.0-4.8) k/uL Sodium 136 L (137-145) mmol/L Potassium 3.2 L (3.5-5.1) mmol/L POC Glucose (mg/dL) (75-99) mg/dL Calcium 7.1 L (8.4-10.2) mg/dL Phosphorus 2.3 L (2.5-4.5) mg/dL Magnesium 1.4 L (1.6-2.3) mg/dL Troponin I (0.000-0.034) ng/mL Diabetes panel 06/27/16 Range/Units 06:27 Sodium 136 L (137-145) mmol/L Potassium 3.2 L (3.5-5.1) mmol/L Chloride 104 (98-107) mmol/L Carbon Dioxide 22 (22-30) mmol/L BUN 11 (7-17) mg/dL Creatinine 0.79 (0.52-1.04) mg/dL Glucose 98 (74-99) mg/dL Calcium 7.1 L (8.4-10.2) mg/dL Calcium panel 06/27/16 Range/Units 06:27 Calcium 7.1 L (8.4-10.2) mg/dL Phosphorus 2.3 L (2.5-4.5) mg/dL Pituitary panel 06/27/16 Range/Units 06:27 Sodium 136 L (137-145) mmol/L Potassium 3.2 L (3.5-5.1) mmol/L Chloride 104 (98-107) mmol/L Carbon Dioxide 22 (22-30) mmol/L BUN 11 (7-17) mg/dL Creatinine 0.79 (0.52-1.04) mg/dL Glucose 98 (74-99) mg/dL Calcium 7.1 L (8.4-10.2) mg/dL Adrenal panel 06/27/16 Range/Units 06:27 Sodium 136 L (137-145) mmol/L Potassium 3.2 L (3.5-5.1) mmol/L Chloride 104 (98-107) mmol/L Carbon Dioxide 22 (22-30) mmol/L BUN 11 (7-17) mg/dL Creatinine 0.79 (0.52-1.04) mg/dL Glucose 98 (74-99) mg/dL Calcium 7.1 L (8.4-10.2) mg/dL - Imaging CT scan - abdomen: report reviewed Assessment and Plan Plan: Hypotension, sepsis. Patient will receive IV fluid bolus. Her coagulopathy will be repaired. Given the fact that she's had some diarrhea stool for C. diff should be checked. Once the patient is fluid resuscitation be reevaluated. If she still shows evidence of peritoneal signs we will take her to the operating room for exposure laparotomy..
--- NOTE | 2016-06-27 12:48 | P.HPIM ---
History of Present Illness H&P Date: 06/27/16 Chief Complaint: Abdominal pain and diarrhea Patient is an 86-year-old female who presented to [facility] emergency room due to abdominal pain and diarrhea, patient states that her symptoms started 5 days prior to admission and has been worsening. She denies any nausea or vomiting, she was complaining of feeling weak and fatigued she had occasional cough. Patient has a known history of atrial fibrillation she was maintained on Coumadin however 4 days ago she was told her INR was elevated and she was told to stop Coumadin her INR on presentation to emergency room was still slightly elevated at 4. Past Medical History Past Medical History: Atrial Fibrillation, Coronary Artery Disease (CAD), Chest Pain / Angina, Hyperlipidemia, Hypertension, Thyroid Disorder Additional Past Medical History / Comment(s): Pt has IBS. 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 Bruising on skin. Cataract L eye. History of Any Multi-Drug Resistant Organisms: None Reported Past Surgical History: Appendectomy, Section, Heart Catheterization With Stent, Hysterectomy Additional Past Surgical History / Comment(s): Hx. of left breast biopsy, HEART CATH WITH STENT. RT FEMORAL endartrectomy,HEMATOMA REMOVAL. Past Anesthesia/Blood Transfusion Reactions: No Reported Reaction Date of Last Stent Placement:: 08-17-14 Past Psychological History: No Psychological Hx Reported Smoking Status: Never smoker Past Alcohol Use History: None Reported Past Drug Use History: None Reported - Past Family History Son(s) Family Medical History: Hearing Disorder / Deafness Daughter(s) Family Medical History: Hearing Disorder / Deafness Father Family Medical History: Cancer Additional Family Medical History / Comment(s): Unknown Medications and Allergies Home Medications Medication Instructions Recorded Confirmed Type Levothyroxine Sodium [Synthroid] 88 mcg PO AC-BRKFST 07/19/14 06/27/16 History Aspirin 81 mg PO DAILY PRN 09/29/15 06/26/16 History Metoprolol Tartrate 12.5 mg PO BID 09/29/15 06/27/16 History Rosuvastatin Calcium [Crestor] 10 mg PO HS 06/27/16 06/27/16 History Allergies Allergy/AdvReac Type Severity Reaction Status Date / Time No Known Allergies Allergy Verified 06/26/16 18:38 Physical Exam Vitals: Vital Signs Temp Pulse Pulse Resp BP BP Pulse Ox 06/27/16 08:00 99.4 F 93 18 96/56 96 06/27/16 06:10 98 22 85/55 98 06/27/16 06:00 103 H 23 85/55 99 06/27/16 05:50 102 H 22 85/51 98 06/27/16 05:40 95 21 87/54 98 06/27/16 05:30 99 20 87/54 98 06/27/16 05:20 102 H 22 100/60 98 06/27/16 05:10 103 H 20 91/50 99 06/27/16 05:00 100 19 91/50 99 06/27/16 04:50 102 H 21 99/48 99 06/27/16 04:40 93 21 92/41 98 06/27/16 04:30 100 16 92/41 98 06/27/16 04:20 99 27 H 87/48 100 06/27/16 04:10 100 25 H 78/42 94 L 06/27/16 04:00 98.3 F 95 87 18 94 L 06/27/16 03:50 103 H 20 95 06/27/16 03:40 104 H 23 98 06/27/16 03:36 100 33 H 06/27/16 03:20 103 H 21 99 06/27/16 03:10 95 21 98 06/27/16 03:00 99 19 99 06/27/16 02:50 83 19 99 06/27/16 02:40 96 19 100 06/27/16 02:30 100 21 100 06/27/16 02:20 77 22 99 06/27/16 02:10 88 24 99 06/27/16 02:00 99 22 99 06/27/16 01:50 84 21 99 06/27/16 01:40 94 20 113/48 98 06/27/16 01:30 76 20 113/48 99 06/27/16 01:20 87 28 H 113/48 99 06/27/16 01:10 98.3 F 94 87 24 113/48 98 06/27/16 01:08 91 23 99 06/27/16 01:04 97.6 F 85 16 110/54 06/27/16 00:37 98.3 F 87 20 113/48 99 Intake and Output 06/26/16 06/27/16 06/27/16 22:59 06:59 14:59 Intake Total 500 Balance 500 Intake: IV 500 Sodium Chloride 0.9% 1, 500 000 ml @ 100 mls/hr IV . Q10H STA Rx#:[id number] Other: Voiding Method Toilet Toilet # Voids 1 # Bowel Movements 1 Weight 73.1 kg 73.1 kg Patient Weight 06/28/16 06:59 Weight 73.1 kg In general patient is alert and oriented 3 in no apparent distress HEENT head normocephalic and atraumatic Neck is supple no JVD no goiter no lymphadenopathy Chest exam reveals a clear respiratory sounds no crackles no wheezing Cardiac exam reveals regular heart sounds S1 and S2 no gallops no murmurs Abdomen exam reveals significant tenderness, diffuse, there is some rebound and guarding no rigidity, bowel sounds present in all 4 quadrants Extremity exam reveals no edema no cyanosis or clubbing Neurological examination reveals no gross focal deficits Results CBC & Chem 7: 06/27/16 06:27 06/27/16 06:27 Labs: Abnormal Lab Results - Last 24 Hours (Table) 06/27/16 06/27/16 06/27/16 Range/Units 00:29 01:04 06:27 Plt Count (150-450) k/uL Lymphocytes # (Manual) (1.0-4.8) k/uL Sodium (137-145) mmol/L Potassium (3.5-5.1) mmol/L POC Glucose (mg/dL) 119 H (75-99) mg/dL Calcium (8.4-10.2) mg/dL Phosphorus (2.5-4.5) mg/dL Magnesium (1.6-2.3) mg/dL Troponin I 0.062 H* 0.049 H* (0.000-0.034) ng/mL 06/27/16 06/27/16 Range/Units 06:27 06:27 Plt Count 140 L (150-450) k/uL Lymphocytes # (Manual) 0.4 L (1.0-4.8) k/uL Sodium 136 L (137-145) mmol/L Potassium 3.2 L (3.5-5.1) mmol/L POC Glucose (mg/dL) (75-99) mg/dL Calcium 7.1 L (8.4-10.2) mg/dL Phosphorus 2.3 L (2.5-4.5) mg/dL Magnesium 1.4 L (1.6-2.3) mg/dL Troponin I (0.000-0.034) ng/mL Thrombosis Risk Factor Assmnt - Choose All That Apply Any of the Below Risk Factors Present?: Yes Each Factor Represents 1 point: Age 41-60 years Thrombosis Risk Factor Assessment Total Risk Factor Score: 1 Thrombosis Risk Factor Assessment Level: Low Risk Assessment and Plan Plan: #1 abdominal pain, with diarrhea, apparently patient had nausea and vomiting few days prior at this time there is no diarrhea no nausea or vomiting patient is still having significant abdominal pain with guarding computed tomography scan of the abdomen and pelvis revealed evidence of pneumobilia. Patient is maintained on IV antibiotic Unasyn and Levaquin, surgical consultation has been requested. #2 hypotension patient is receiving IV fluid she has good renal output will monitor closely, critical care consultation was requested #3 slightly elevated troponin level, echo cardiogram done reveals good ejection fraction of 50-60% cardiology consult was requested #4 underlying history of atrial fibrillation maintained on Coumadin INR slightly elevated at 4 will be corrected prior to any surgical procedure #5 CODE STATUS full code discussed with patient
[2016-06-27] MEDS: MORPHINE SULFATE 2 MG/ML SYRINGE IVP PRN ×2 (12:51→15:58)
[2016-06-27 13:28] LABS: CH 30.3; CHCM 32.6; HCT 37.2 % (34.0-46.0); HDW 2.47; Immature Gran Flag Moderate; MCH 30.1 pg (25.0-35.0); MCHC 32.2 g/dL (31.0-37.0); MCV 93.3 fL (80.0-100.0); RBC 3.98 m/uL (3.80-5.40); RDW 14.2 % (11.5-15.5); WBC (Perox) 11.04
[2016-06-27 13:41] LABS: ALT 35 U/L (9-52); AST 22 U/L (14-36); Alkaline Phosphatase 40 U/L (38-126); Anion Gap 8 mmol/L; Blood Urea Nitrogen 11 mg/dL (7-17); Calcium 7.1 mg/dL (8.4-10.2); Carbon Dioxide 22 mmol/L (22-30); Chloride 104 mmol/L (98-107); Glucose 141 mg/dL (74-99); Non-African American GFR(MDRD) >60 (>60 ml/min/1.73 sqM); Potassium 3.8 mmol/L (3.5-5.1); Sodium 134 mmol/L (137-145); Total Protein 4.7 g/dL (6.3-8.2)
[2016-06-27 13:50] LABS: Partial Thromboplastin Time 51.1 sec (22.0-30.0); Prothrombin Time 52.7 sec (9.0-12.0)
[2016-06-27 13:57] LABS: INR 5.3 (<1.1)
[2016-06-27] MEDS ORDERED: PHYTONADIONE 10 MG in SODIUM CHLORIDE 0.9% 50 ML IVPB STA ×2 (14:21→14:32)
--- NOTE | 2016-06-27 14:29 | P.CNPUL ---
History of Present Illness Consult date: 06/27/16 Requesting physician: Mik Daniel Reason for consult: other (Critical care management) Chief complaint: Abdominal pain, weakness History of present illness: This is a very pleasant 86-year-old female patient who follows with Dr. Cabello as her primary care physician. She does have a history of coronary artery disease with previous cardiac catheterization and stent placement, atrial fibrillation anticoagulated with warfarin, hypertension, hyperlipidemia, hypothyroidism. No previous pulmonary disease. She is a lifelong nonsmoker. No history of asthma or emphysema. She had presented here to the emergency room 2 days in a row for complaints of abdominal discomfort lower extremity weakness and fatigue. She also had issues with nausea, vomiting and diarrhea. Her chest x-ray revealed evidence of cardiomegaly and mild vascular congestion. Small bilateral pleural effusions with atelectatic changes at the bases and some groundglass opacity in the right middle lobe. There is noted mucosal thickening involving the distal sigmoid colon. An ultrasound of the abdomen revealed no evidence of gallstones or dilated ducts. There was some echogenic areas throughout the liver probably related to air in the biliary tree. Hepatic metastatic disease is not entirely excluded. She is seen in consultation today in the intensive care unit. She has been seen and evaluated by Dr. Vergara. She did require some IV fluid boluses for hypotension and suspected sepsis. Her INR was supratherapeutic and is currently 5.3. She may require exploratory laparotomy and her INR will be reversed with vitamin K and fresh frozen plasma. Review of Systems 14 point review of system was conducted. All negative other than as mentioned in the HPI. Past Medical History Past Medical History: Atrial Fibrillation, Coronary Artery Disease (CAD), Chest Pain / Angina, Hyperlipidemia, Hypertension, Thyroid Disorder Additional Past Medical History / Comment(s): Pt has IBS. 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 Bruising on skin. Cataract L eye. History of Any Multi-Drug Resistant Organisms: None Reported Past Surgical History: Appendectomy, Section, Heart Catheterization With Stent, Hysterectomy Additional Past Surgical History / Comment(s): Hx. of left breast biopsy, HEART CATH WITH STENT. RT FEMORAL endartrectomy,HEMATOMA REMOVAL. Past Anesthesia/Blood Transfusion Reactions: No Reported Reaction Date of Last Stent Placement:: 08-17-14 Past Psychological History: No Psychological Hx Reported Smoking Status: Never smoker Past Alcohol Use History: None Reported Past Drug Use History: None Reported - Past Family History Son(s) Family Medical History: Hearing Disorder / Deafness Daughter(s) Family Medical History: Hearing Disorder / Deafness Father Family Medical History: Cancer Additional Family Medical History / Comment(s): Unknown Medications and Allergies Home Medications Medication Instructions Recorded Confirmed Type Levothyroxine Sodium [Synthroid] 88 mcg PO AC-BRKFST 07/19/14 06/27/16 History Aspirin 81 mg PO DAILY PRN 09/29/15 06/26/16 History Metoprolol Tartrate 12.5 mg PO BID 09/29/15 06/27/16 History Rosuvastatin Calcium [Crestor] 10 mg PO HS 06/27/16 06/27/16 History Allergies Allergy/AdvReac Type Severity Reaction Status Date / Time No Known Allergies Allergy Verified 06/26/16 18:38 Physical Exam Vitals: Vital Signs Temp Pulse Pulse Resp BP BP Pulse Ox 06/27/16 13:00 84 18 104/51 98 06/27/16 12:00 98.6 F 86 20 93/54 98 06/27/16 11:00 76 19 98/53 98 06/27/16 10:00 87 17 83/50 97 06/27/16 09:00 89 14 87/48 96 06/27/16 08:00 99.4 F 93 18 96/56 96 06/27/16 06:10 98 22 85/55 98 06/27/16 06:00 103 H 23 85/55 99 06/27/16 05:50 102 H 22 85/51 98 06/27/16 05:40 95 21 87/54 98 06/27/16 05:30 99 20 87/54 98 06/27/16 05:20 102 H 22 100/60 98 06/27/16 05:10 103 H 20 91/50 99 06/27/16 05:00 100 19 91/50 99 06/27/16 04:50 102 H 21 99/48 99 06/27/16 04:40 93 21 92/41 98 06/27/16 04:30 100 16 92/41 98 06/27/16 04:20 99 27 H 87/48 100 06/27/16 04:10 100 25 H 78/42 94 L 06/27/16 04:00 98.3 F 95 87 18 94 L 06/27/16 03:50 103 H 20 95 06/27/16 03:40 104 H 23 98 06/27/16 03:36 100 33 H 06/27/16 03:20 103 H 21 99 06/27/16 03:10 95 21 98 06/27/16 03:00 99 19 99 06/27/16 02:50 83 19 99 06/27/16 02:40 96 19 100 06/27/16 02:30 100 21 100 06/27/16 02:20 77 22 99 06/27/16 02:10 88 24 99 06/27/16 02:00 99 22 99 06/27/16 01:50 84 21 99 06/27/16 01:40 94 20 113/48 98 06/27/16 01:30 76 20 113/48 99 06/27/16 01:20 87 28 H 113/48 99 06/27/16 01:10 98.3 F 94 87 24 113/48 98 06/27/16 01:08 91 23 99 06/27/16 01:04 97.6 F 85 16 110/54 06/27/16 00:37 98.3 F 87 20 113/48 99 Intake and Output 06/26/16 06/27/16 06/27/16 22:59 06:59 14:59 Intake Total 500 2000 Output Total 575 Balance 500 1425 Intake: IV 500 400 Sodium Chloride 0.9% 1, 500 400 000 ml @ 100 mls/hr IV . Q10H [facility] Rx#:[id number] Intake, IV Titration 1600 Amount ACETAMINOPHEN IV (For NPO 100 ) 1,000 mg In Empty Bag 1 bag @ 400 mls/hr IVPB Q6HR [facility] Rx#:[id number] Lactated Ringers 1,000 ml 1000 @ 999 mls/hr IV .Q1H1M [facility] Rx#:[id number] Magnesium Sulfate-D5w Pmx 300 1 gm In Dextrose/Water 1 100ml.bag @ 100 mls/hr IVPB Q1H [facility] Rx#: [id number] Potassium Chloride 10 meq 200 Lidocaine 2% Inj 10 mg In Sodium Chloride 0.9% 100 ml @ 100 mls/hr IV Q1HR [facility] Rx#:[id number] Output: Urine 575 Other: Voiding Method Toilet Indwelling Catheter # Voids 1 # Bowel Movements 1 Weight 73.1 kg 73.1 kg Patient Weight 06/28/16 06:59 Weight 73.1 kg GENERAL EXAM: Alert, in slight distress secondary to abdominal pain. HEAD: Normocephalic. EYES: Normal reaction of pupils, equal size. NOSE: Clear with pink turbinates. THROAT: No erythema or exudates. NECK: No masses, no JVD. CHEST: No chest wall deformity. LUNGS: Equal air entry with no crackles, wheeze, rhonchi or dullness. CVS: S1 and S2 normal with no audible murmurs, irregular rhythm. ABDOMEN: Soft, tender to palpation, positive guarding. Extremities: There is no significant peripheral edema. No clubbing, no cyanosis. Peripheral pulses are intact. Results - Laboratory Findings CBC and BMP: 06/27/16 13:10 06/27/16 13:10 PT/INR, D-dimer PT 52.7 sec (9.0-12.0) H 06/27/16 13:10 INR 5.3 (<1.1) H* 06/27/16 13:10 Abnormal lab findings: Abnormal Labs 06/27/16 06/27/16 06/27/16 00:29 01:04 06:27 Plt Count Lymphocytes # (Manual) PT INR APTT Sodium Potassium Glucose POC Glucose (mg/dL) 119 H Calcium Phosphorus Magnesium Troponin I 0.062 H* 0.049 H* Total Protein Albumin 06/27/16 06/27/16 06/27/16 06:27 06:27 13:10 Plt Count 140 L 138 L Lymphocytes # (Manual) 0.4 L PT INR APTT Sodium 136 L Potassium 3.2 L Glucose POC Glucose (mg/dL) Calcium 7.1 L Phosphorus 2.3 L Magnesium 1.4 L Troponin I Total Protein Albumin 06/27/16 06/27/16 13:10 13:10 Plt Count Lymphocytes # (Manual) PT 52.7 H INR 5.3 H* APTT 51.1 H Sodium 134 L Potassium Glucose 141 H POC Glucose (mg/dL) Calcium 7.1 L Phosphorus Magnesium Troponin I Total Protein 4.7 L Albumin 2.3 L - Diagnostic Findings Chest x-ray: image reviewed Assessment and Plan Plan: Impression: #1 Acute abdominal pain possibly related to colitis. #2 Hypotension secondary to sepsis. #3 Atrial fibrillation anticoagulated with warfarin, supra therapeutic. #4 Coagulopathy secondary to warfarin. #5 Coronary artery disease with previous stent placement. #6 Hyperlipidemia. #7 Hypertension. #8 Hypothyroidism. Plan: The patient was seen and evaluated by Dr. Smith. Her chest x-ray, abdominal CAT scans and labs were reviewed. Surgical services is on the case and may be taking her to the OR for exploratory laparotomy. Her INR will be reversed with vitamin K 10 mg and fresh frozen plasma. In the interim we'll continue to follow make further recommendations based on her clinical status. We'll continue to monitor her here closely in the intensive care unit.
[2016-06-27 14:32] LABS: Add Differential Manual Differential
[2016-06-27 14:37] LABS: Manual Review Performed; Metamyelocytes % 7.5 %; Nucleated Red Blood Cells 0 /100 WBC (0-0); Total Cells Counted 200
[2016-06-27 14:38] LABS: Toxic Granulation Present; Toxic Vacuolation Present
--- NOTE | 2016-06-27 16:41 | PN ---
Sonny Hess was admitted to the hospital with abdominal and upper chest discomfort, finally her discomfort is now settled in the abdomen. She appears to have an acute abdomen. Cardiology was consulted because she complained of chest discomfort. Troponins are borderline at 0.062 and 0.049. Electrolytes have been normal. Renal function has been normal. Liver function is normal. White count is normal. Hemoglobin is normal. At this time, she denies any chest discomfort. Her main complaint is severe abdominal pain and diarrhea which started 5 days prior to admission and this has been gradually worsening. Currently she does not complain of any nausea or vomiting but she feels weak. In addition, her Coumadin level was high and she has a hematoma in her leg. Past history of atrial fibrillation and coronary artery disease, coronary stenting and dyslipidemia. She also has history of pulmonary hypertension. LV function has been normal. PAST SURGICAL HISTORY: Appendectomy, section. Cardiac catheterization with stenting. She also had a stent in the right femoral ( ) endarterectomy and hematoma. Home medications are: 1. Levothyroxine. 2. Aspirin. 3. Metoprolol. 4. Crestor. ALLERGIES: No known drug allergies. On examination, her blood pressure is around 96( ) mm of Hg. Normal heart rate. No arrhythmia. Head and neck examination normal. Heart sounds S1, S2 are soft. Breath sounds are normal. ABDOMEN: Quite tender with guarding and rebound. ( ) in the lower right quadrant. IMPRESSION: 1. Borderline troponins ( ). 2. Known coronary disease, status post coronary stenting. 3. Acute abdomen. Suggest: Proceed with abdominal surgery. Coumadin may be reversed for the surgery. Continue cardiac medications for now and jody and postoperatively.
[2016-06-27] MEDS: HYDROmorphone 1 MG/ML 1 ML SYRINGE IVP PRN ×2 (18:36→20:54)
[2016-06-27 19:09] LABS: INR 1.9 (<1.1); Prothrombin Time 18.4 sec (9.0-12.0)
[2016-06-27] MEDS: SODIUM CHLORIDE 0.9% 1,000 ML IV SCH (19:57)
[2016-06-27] MEDS ORDERED: LEVOFLOXACIN 750MG-D5W PMX 750 MG in DEXTROSE/WATER 1 150ML.BAG IVPB SCH (20:00)
[2016-06-28] MEDS: HYDROmorphone 1 MG/ML 1 ML SYRINGE IVP PRN ×3 (03:22→19:59)
[2016-06-28] MEDS: SODIUM CHLORIDE 0.9% 1,000 ML IV SCH ×2 (03:22→12:10)
[2016-06-28] MEDS: AMPICILLIN-SULBACTAM 3 GM in SODIUM CHLORIDE 0.9% 100 ML IVPB SCH ×3 (05:17→17:41)
[2016-06-28 08:21] LABS: INR 1.3 (<1.1); Prothrombin Time 12.6 sec (9.0-12.0)
[2016-06-28] MEDS: PANTOPRAZOLE 40 MG/10 ML VIAL IVP SCH (08:21)
--- NOTE | 2016-06-28 08:26 | P.PN ---
Progress Note - Text The patient received FFP and fluid hydration overnight. She states her pain is still significant. The pain is now localized in the epigastric and right upper quadrant. She still has rebound and guarding with her pain. The patient was taken for exploratory laparotomy this morning.
[2016-06-28 08:44] LABS: ALT 37 U/L (9-52); AST 23 U/L (14-36); Alkaline Phosphatase 59 U/L (38-126); Amylase 65 U/L (30-110); Anion Gap 8 mmol/L; Blood Urea Nitrogen 14 mg/dL (7-17); Calcium 7.9 mg/dL (8.4-10.2); Carbon Dioxide 27 mmol/L (22-30); Chloride 106 mmol/L (98-107); Cholesterol 98 mg/dL (<200); Glucose 100 mg/dL (74-99); HDL Cholesterol 41 mg/dL (40-60); Magnesium 2.2 mg/dL (1.6-2.3); Non-African American GFR(MDRD) >60 (>60 ml/min/1.73 sqM); Potassium 3.7 mmol/L (3.5-5.1); Sodium 141 mmol/L (137-145); Total Bilirubin 1.1 mg/dL (0.2-1.3); Total Protein 5.4 g/dL (6.3-8.2); Triglycerides 82 mg/dL (<150)
[2016-06-28] MEDS ORDERED: ASPIRIN 325 MG TAB PO SCH (09:00)
[2016-06-28 09:14] LABS: CH 30.1; CHCM 32.3; HCT 34.6 % (34.0-46.0); HDW 2.54; HGB 11.2 gm/dL (11.4-16.0); Immature Gran Flag Marked; MCH 30.1 pg (25.0-35.0); MCHC 32.2 g/dL (31.0-37.0); MCV 93.5 fL (80.0-100.0); RDW 14.4 % (11.5-15.5); WBC (Perox) 8.58
[2016-06-28] MEDS ORDERED: MIDAZOLAM 2 MG/2 ML VIAL ONE (10:24)
[2016-06-28] MEDS ORDERED: ROCURONIUM BROMIDE 10 MG/ML 10 ML VIAL IV ONE (10:24)
[2016-06-28] MEDS ORDERED: LIDOCAINE 1% INJ 10MG/ML (20 ML MDV) ONE (10:24)
[2016-06-28] MEDS ORDERED: PROPOFOL 10 MG/ML 20 ML VIAL IV ONE (10:24)
[2016-06-28] MEDS ORDERED: LACTATED RINGERS 1,000 ML IV ONE ×2 (10:24)
[2016-06-28] MEDS ORDERED: fentaNYL (PF) 50 MCG/ML 2 ML AMP ONE (10:24)
[2016-06-28] MEDS ORDERED: SUCCINYLCHOLINE CHLORIDE 100 MG/5 ML SYR IV ONE (10:24)
--- NOTE | 2016-06-28 10:27 | P.PN ---
Subjective Principal diagnosis: Pneumobilia This is a very pleasant 86-year-old female patient who follows with Dr. Cabello as her primary care physician. She does have a history of coronary artery disease with previous cardiac catheterization and stent placement, atrial fibrillation anticoagulated with warfarin, hypertension, hyperlipidemia, hypothyroidism. No previous pulmonary disease. She is a lifelong nonsmoker. No history of asthma or emphysema. She had presented here to the emergency room 2 days in a row for complaints of abdominal discomfort lower extremity weakness and fatigue. She also had issues with nausea, vomiting and diarrhea. Her chest x-ray revealed evidence of cardiomegaly and mild vascular congestion. Small bilateral pleural effusions with atelectatic changes at the bases and some groundglass opacity in the right middle lobe. There is noted mucosal thickening involving the distal sigmoid colon. An ultrasound of the abdomen revealed no evidence of gallstones or dilated ducts. There was some echogenic areas throughout the liver probably related to air in the biliary tree. Hepatic metastatic disease is not entirely excluded. She is seen again today 06/28/2016 in follow-up. She is awake and alert in no acute distress. She still has some lingering abdominal discomfort. Her INR is been corrected to 1.3. The plan is for exploratory laparotomy this morning. She denies any worsening shortness of breath, cough or congestion. She is maintaining good O2 saturations on the upper 90s on 2 L/m per nasal cannula. Currently afebrile. Dynamically stable. Not on pressors. He is eating 0.9 normal saline at 100 mL's per hour. Currently treated with Unasyn and Levaquin. Objective - Vital Signs Vital signs: Vital Signs Temp 98.5 F 06/28/16 08:30 Pulse 92 06/28/16 09:00 Resp 14 06/28/16 09:00 BP 124/65 06/28/16 09:00 Pulse Ox 98 06/28/16 09:00 Intake & Output 06/27/16 06/28/16 06/28/16 18:59 06:59 18:59 Intake Total 3578 3289 703 Output Total 1325 415 85 Balance 2826 5169 618 Weight 73.1 kg 78.2 kg Intake: IV 750 1575 375 Ampicillin-Sulbactam 3 gm 100 In Sodium Chloride 0.9% 100 ml @ 100 mls/hr IVPB Q6HR [facility] Rx#:[id number] Sodium Chloride 0.9% 1, 750 100 000 ml @ 100 mls/hr IV . Q10H [facility] Rx#:[id number] Sodium Chloride 0.9% 1, 1375 375 000 ml @ 125 mls/hr IV . Q8H [facility] Rx#:[id number] Intake, IV Titration 1750 1100 Amount ACETAMINOPHEN IV (For NPO 100 ) 1,000 mg In Empty Bag 1 bag @ 400 mls/hr IVPB Q6HR [facility] Rx#:[id number] Ampicillin-Sulbactam 3 gm 100 100 In Sodium Chloride 0.9% 100 ml @ 100 mls/hr IVPB Q6HR [facility] Rx#:[id number] Lactated Ringers 1,000 ml 1000 @ 999 mls/hr IV .Q1H1M [facility] Rx#:[id number] Lactated Ringers 1,000 ml 1000 @ 999 mls/hr IV .Q1H1M [facility] Rx#:[id number] Magnesium Sulfate-D5w Pmx 300 1 gm In Dextrose/Water 1 100ml.bag @ 100 mls/hr IVPB Q1H [facility] Rx#: [id number] Phytonadione 10 mg In 50 Sodium Chloride 0.9% 50 ml @ 100 mls/hr IVPB ONCE [facility] Rx#:[id number] Potassium Chloride 10 meq 200 Lidocaine 2% Inj 10 mg In Sodium Chloride 0.9% 100 ml @ 100 mls/hr IV Q1HR [facility] Rx#:[id number] Blood Product 1078 614 328 Ffp 24 Cpd Unit 312 [id number] Ffp 24 Cpd Unit 307 [id number] Ffp 24 Cpd Unit 327 [id number] Ffp 24 Cpd Unit 0 328 [id number] Output: Urine 1325 415 85 Other: Voiding Method Indwelling Catheter Indwelling Catheter Indwelling Catheter - Exam GENERAL EXAM: Alert, comfortable in no apparent distress. HEAD: Normocephalic. EYES: Normal reaction of pupils, equal size. NOSE: Clear with pink turbinates. THROAT: No erythema or exudates. NECK: No masses, no JVD. CHEST: No chest wall deformity. LUNGS: Equal air entry with no crackles, wheeze, rhonchi or dullness. CVS: S1 and S2 normal with no audible murmurs, regular rhythm. ABDOMEN: Slightly distended, normal bowel sounds, no guarding or rigidity. SPINE: No scoliosis or deformity SKIN: No rashes CENTRAL NERVOUS SYSTEM: No focal deficits, tone is normal in all 4 extremities. Extremities: There is no significant peripheral edema. No clubbing, no cyanosis. Peripheral pulses are intact - Labs CBC & Chem 7: 06/28/16 07:57 06/28/16 07:57 Labs: Abnormal Lab Results - Last 24 Hours (Table) 06/27/16 06/27/16 06/27/16 Range/Units 13:10 13:10 13:10 RBC (3.80-5.40) m/uL Hgb (11.4-16.0) gm/dL Plt Count 138 L (150-450) k/uL PT 52.7 H (9.0-12.0) sec INR 5.3 H* (<1.1) APTT 51.1 H (22.0-30.0) sec Sodium 134 L (137-145) mmol/L Glucose 141 H (74-99) mg/dL Calcium 7.1 L (8.4-10.2) mg/dL Total Protein 4.7 L (6.3-8.2) g/dL Albumin 2.3 L (3.5-5.0) g/dL 06/27/16 06/28/16 06/28/16 Range/Units 18:46 07:57 07:57 RBC (3.80-5.40) m/uL Hgb (11.4-16.0) gm/dL Plt Count (150-450) k/uL PT 18.4 H 12.6 H (9.0-12.0) sec INR (<1.1) APTT (22.0-30.0) sec Sodium (137-145) mmol/L Glucose 100 H (74-99) mg/dL Calcium 7.9 L (8.4-10.2) mg/dL Total Protein 5.4 L (6.3-8.2) g/dL Albumin 2.8 L (3.5-5.0) g/dL 06/28/16 Range/Units 07:57 RBC 3.70 L (3.80-5.40) m/uL Hgb 11.2 L (11.4-16.0) gm/dL Plt Count 113 L (150-450) k/uL PT (9.0-12.0) sec INR (<1.1) APTT (22.0-30.0) sec Sodium (137-145) mmol/L Glucose (74-99) mg/dL Calcium (8.4-10.2) mg/dL Total Protein (6.3-8.2) g/dL Albumin (3.5-5.0) g/dL Assessment and Plan Plan: Impression: #1 Acute abdominal pain possibly related to pneumobilia and suspected colitis. #2 Hypotension secondary to sepsis, stable. #3 Atrial fibrillation anticoagulated with warfarin, currently on hold, reversed for pending surgery. #4 Coagulopathy secondary to warfarin, reverse. #5 Coronary artery disease with previous stent placement. #6 Hyperlipidemia. #7 Hypertension. #8 Hypothyroidism. Plan: The patient was seen and evaluated by Dr. Howard. Her INR has been reversed to normal currently at 1.3. The plan is for exploratory laparotomy today. We'll continue to follow her postoperatively as well. She remains on bronchodilators as needed. Continue IV antibiotics in the form of Levaquin and Unasyn. We'll continue to follow make further recommendations based on her clinical status.
[2016-06-28 10:34] LABS: Add Differential Manual Differential
[2016-06-28 10:36] LABS: Nucleated Red Blood Cells 0 /100 WBC (0-0); Total Cells Counted 100
[2016-06-28 10:38] LABS: Manual Review Performed
[2016-06-28 11:35] LABS: ABG Base Excess -4.2 mmol/L; ABG HCO3 18 mmol/L (21-25); ABG Oxygen Saturation 99.7 % (94-97); ABG PCO2 23 mmHg (35-45); ABG PO2 238 mmHg (83-108)
--- NOTE | 2016-06-28 11:37 | P.PN ---
Subjective Patient presented to emergency room with abdominal pain and diarrhea. Computed tomography scan of the and pelvis revealed evidence of pneumobilia. Patient is scheduled for an exploratory laparotomy today. She remains in the ICU. She received vitamin K and FFP to reverse her INR. Patient still complaining of abdominal pain. Denies any vomiting. Denies any further episodes diarrhea. Denies any chest pain or shortness of breath. Objective - Vital Signs Vital signs: Vital Signs Temp 98.5 F 06/28/16 08:30 Pulse 98 06/28/16 10:00 Resp 13 06/28/16 10:00 BP 143/84 06/28/16 10:00 Pulse Ox 98 06/28/16 10:00 Intake & Output 06/27/16 06/28/16 06/28/16 18:59 06:59 18:59 Intake Total 3578 3289 828 Output Total 1325 415 115 Balance 2253 2874 713 Weight 73.1 kg 78.2 kg Intake: IV 750 1575 500 Ampicillin-Sulbactam 3 gm 100 In Sodium Chloride 0.9% 100 ml @ 100 mls/hr IVPB Q6HR [facility] Rx#:[id number] Sodium Chloride 0.9% 1, 750 100 000 ml @ 100 mls/hr IV . Q10H [facility] Rx#:[id number] Sodium Chloride 0.9% 1, 1375 500 000 ml @ 125 mls/hr IV . Q8H [facility] Rx#:[id number] Intake, IV Titration 1750 1100 Amount ACETAMINOPHEN IV (For NPO 100 ) 1,000 mg In Empty Bag 1 bag @ 400 mls/hr IVPB Q6HR [facility] Rx#:[id number] Ampicillin-Sulbactam 3 gm 100 100 In Sodium Chloride 0.9% 100 ml @ 100 mls/hr IVPB Q6HR [facility] Rx#:[id number] Lactated Ringers 1,000 ml 1000 @ 999 mls/hr IV .Q1H1M [facility] Rx#:[id number] Lactated Ringers 1,000 ml 1000 @ 999 mls/hr IV .Q1H1M [facility] Rx#:[id number] Magnesium Sulfate-D5w Pmx 300 1 gm In Dextrose/Water 1 100ml.bag @ 100 mls/hr IVPB Q1H [facility] Rx#: [id number] Phytonadione 10 mg In 50 Sodium Chloride 0.9% 50 ml @ 100 mls/hr IVPB ONCE [facility] Rx#:[id number] Potassium Chloride 10 meq 200 Lidocaine 2% Inj 10 mg In Sodium Chloride 0.9% 100 ml @ 100 mls/hr IV Q1HR [facility] Rx#:[id number] Blood Product 1078 614 328 Ffp 24 Cpd Unit 312 [id number] Ffp 24 Cpd Unit 307 [id number] Ffp 24 Cpd Unit 327 [id number] Ffp 24 Cpd Unit 0 328 [id number] Output: Urine 1325 415 115 Other: Voiding Method Indwelling Catheter Indwelling Catheter Indwelling Catheter - Exam Head normocephalic Neck supple Lungs clear to auscultation bilaterally no wheezing or crackles Heart regular rate and rhythm S1-S2, no rub or gallop Abdomen is soft nondistended positive bowel sounds diffuse tenderness with guarding present Extremities no edema Neuro alert and orientated to 3 - Labs CBC & Chem 7: 06/28/16 07:57 06/28/16 07:57 Labs: Abnormal Lab Results - Last 24 Hours (Table) 06/27/16 06/27/16 06/27/16 Range/Units 13:10 13:10 13:10 RBC (3.80-5.40) m/uL Hgb (11.4-16.0) gm/dL Plt Count 138 L (150-450) k/uL Lymphocytes # (Manual) (1.0-4.8) k/uL PT 52.7 H (9.0-12.0) sec INR 5.3 H* (<1.1) APTT 51.1 H (22.0-30.0) sec Sodium 134 L (137-145) mmol/L Glucose 141 H (74-99) mg/dL Calcium 7.1 L (8.4-10.2) mg/dL Total Protein 4.7 L (6.3-8.2) g/dL Albumin 2.3 L (3.5-5.0) g/dL 06/27/16 06/28/16 06/28/16 Range/Units 18:46 07:57 07:57 RBC (3.80-5.40) m/uL Hgb (11.4-16.0) gm/dL Plt Count (150-450) k/uL Lymphocytes # (Manual) (1.0-4.8) k/uL PT 18.4 H 12.6 H (9.0-12.0) sec INR (<1.1) APTT (22.0-30.0) sec Sodium (137-145) mmol/L Glucose 100 H (74-99) mg/dL Calcium 7.9 L (8.4-10.2) mg/dL Total Protein 5.4 L (6.3-8.2) g/dL Albumin 2.8 L (3.5-5.0) g/dL 06/28/16 Range/Units 07:57 RBC 3.70 L (3.80-5.40) m/uL Hgb 11.2 L (11.4-16.0) gm/dL Plt Count 113 L (150-450) k/uL Lymphocytes # (Manual) 0.8 L (1.0-4.8) k/uL PT (9.0-12.0) sec INR (<1.1) APTT (22.0-30.0) sec Sodium (137-145) mmol/L Glucose (74-99) mg/dL Calcium (8.4-10.2) mg/dL Total Protein (6.3-8.2) g/dL Albumin (3.5-5.0) g/dL Assessment and Plan Plan: #1 abdominal pain, with diarrhea, apparently patient had nausea and vomiting few days prior at this time there is no diarrhea no nausea or vomiting patient is still having significant abdominal pain with guarding computed tomography scan of the abdomen and pelvis revealed evidence of pneumobilia. Patient is maintained on IV antibiotic Unasyn and Levaquin. Scheduled for exploratory laparotomy today #2 hypotension secondary to sepsis: Stable. Improved with IV fluids #3 slightly elevated troponin level, echo cardiogram done reveals good ejection fraction of 50-60% . Evaluated by cardiology and cleared to proceed with surgery. #4 underlying history of atrial fibrillation maintained on Coumadin in at home. Coumadin currently on hold. Coagulopathy resolved. INR reversed with FFP and vitamin K #5 CODE STATUS full code
--- NOTE | 2016-06-28 12:57 | P.OP ---
Date of Procedure: 06/28/16 Preoperative Diagnosis: Acute abdomen Postoperative Diagnosis: Ischemic hepatic flexure of the right colon Procedure(s) Performed: Repair of umbilical hernia Lysis of adhesions Small bowel resection Right colectomy Anesthesia: SANDRA Surgeon: Dex Butler Estimated Blood Loss (ml): 100 Pathology: other (Small bowel, right colon) Condition: stable Disposition: ICU Operative Findings: Ischemia with necrosis of retroperitoneal hepatic flexure of the right colon Description of Procedure: Patient's placed on the operative table in the supine position. She received general anesthesia. Her abdomen was prepped and draped usual sterile fashion. The abdomen was entered through midline incision. The patient a previous midline scar. There were dense adhesions to the anterior abdominal wall. These were lysed using sharp dissection. An enterotomy was made in the small bowel. This was repaired with 3-0 silk. There were extensive adhesions throughout the abdomen. Using sharp dissection the adhesions were lysed. There was some serosanguineous ascites. There was no obvious perforation. At this point the stomach was examined this appeared normal. The posterior aspect of the stomach and lesser sac were entered. This appeared viable. At this point the small bowel was run. There was an area where the small bowel seromuscular appeared to be nonviable from the enteral lysis. At this point a 3 cm section of small bowel resected. The bowel was transected proximally distally with the [place] stapler. And then a [id number] functional end-to-end staple anastomosis created using the [place] and TA stapler. The cecum appeared normal. In the hepatic flexure area there appeared to be edema. The hepatic flexure was taken down and there appeared to be necrosis of the retroperitoneal portion of the hepatic flexure. At this point the transverse colon was proximally transected and then the terminal ileum was transected with the GI stapler. The mesentery the bowel was taken between the LigaSure device. The terminal ileum and proximal transverse colon were then reanastomosed in a [id number] functional end-to-end staple anastomosis. The [place] and TA stapler was used. This point the abdomen was irrigated. There is no bleeding seen. The fascia was closed loop #1 PDS suture. The skin was closed biju. Patient was sent to the ICU on the ventilator in stable condition.
[2016-06-28] MEDS ORDERED: D5-0.45% NACL WITH KCL 20MEQ/L 1,000 ML IV SCH (13:30)
--- NOTE | 2016-06-28 13:49 | XR ---
EXAMINATION TYPE: XR chest 1V confirm line plcmt DATE OF EXAM: 06/28/2016 1:37 PM COMPARISON: 06/26/2016 HISTORY: Line placement TECHNIQUE: Single frontal view of the chest is obtained. FINDINGS: ET tube is approximately 4 cm above petra. NG tube noted. Central line seen overlying the SVC. Surgical biju overlying the abdomen. No pneumothorax. Bilateral infiltrate and small effusions, underlying COPD, cardiomegaly noted. Arthr opathy of the shoulders and diffuse osteopenia noted. IMPRESSION: 1. Central line and ET tube appear in good position. 2. Bilateral infiltrate and small effusion.
[2016-06-28 13:50] LABS: ABG Base Excess -2.1 mmol/L; ABG HCO3 22 mmol/L (21-25); ABG PCO2 34 mmHg (35-45); ABG PH 7.42 (7.35-7.45); ABG PO2 393 mmHg (83-108); ABG TCO2 23 mmol/L (19-24)
[2016-06-28 14:02] LABS: Anion Gap 9 mmol/L; Basophils % (A) 0 %; Blood Urea Nitrogen 15 mg/dL (7-17); CH 30.4; CHCM 32.9; Calcium 7.8 mg/dL (8.4-10.2); Carbon Dioxide 24 mmol/L (22-30); Chloride 108 mmol/L (98-107); Eosinophils % (A) 0 %; Glucose 104 mg/dL (74-99); HDW 2.62; Luc # (Auto) 0.07; Luc % (Auto) 1; Lymphocytes # (A) 1.3 k/uL (1.0-4.8); Lymphocytes % (A) 16 %; MCH 31.1 pg (25.0-35.0); MCHC 33.4 g/dL (31.0-37.0); MCV 93.2 fL (80.0-100.0); Mean Platelet Volume 8.8; Monocytes # (A) 0.3 k/uL (0-1.0); Monocytes % (A) 4 %; Neutrophils # (A) 6.2 k/uL (1.3-7.7); Neutrophils % (A) 79 %; Non-African American GFR(MDRD) >60 (>60 ml/min/1.73 sqM); Potassium 3.7 mmol/L (3.5-5.1); RBC 3.86 m/uL (3.80-5.40); RDW 14.5 % (11.5-15.5); Sodium 141 mmol/L (137-145); WBC 7.9 k/uL (3.8-10.6); WBC (Perox) 8.32
[2016-06-28] MEDS ORDERED: HYDROmorphone 1 MG/ML 1 ML SYRINGE IVP STA (14:29)
[2016-06-28] MEDS ORDERED: LACTATED RINGERS 1,000 ML IV SCH (15:15)
[2016-06-28] MEDS: LEVOTHYROXINE IVP 100 MCG/5 ML VIAL IV SCH (16:08)
[2016-06-28] MEDS: SODIUM CHLORIDE 0.9% 1,000 ML with POTASSIUM CHLORIDE 20 MEQ IV SCH ×2 (17:40)
[2016-06-28 19:10] LABS: ABG Base Excess -0.6 mmol/L; ABG HCO3 24 mmol/L (21-25); ABG PCO2 42 mmHg (35-45); ABG PH 7.37 (7.35-7.45); ABG PO2 107 mmHg (83-108); ABG TCO2 25 mmol/L (19-24)
[2016-06-28] MEDS: IPRATROPIUM-ALBUTEROL 3 ML NEB INHALATION PRN (19:25)
[2016-06-28] MEDS: FAMOTIDINE 20 MG/2 ML VIAL IV SCH (19:59)
[2016-06-28] MEDS: HEPARIN SODIUM,PORCINE 5,000 UNIT/ML 1 ML VIAL SQ SCH (19:59)
[2016-06-28] MEDS: LEVOFLOXACIN 750MG-D5W PMX 750 MG in DEXTROSE/WATER 1 150ML.BAG IVPB SCH (20:00)
[2016-06-28] MEDS ORDERED: CHLORHEXIDINE GLUCONATE 15 ML CUP MUCOUS MEM SCH (21:00)
[2016-06-28] MEDS: DILTIAZEM 125 MG in SODIUM CHLORIDE 0.9% 100 ML IV SCH (21:25)
[2016-06-29] MEDS: HYDROmorphone 1 MG/ML 1 ML SYRINGE IVP PRN (01:47)
[2016-06-29] MEDS: SODIUM CHLORIDE 0.9% 1,000 ML with POTASSIUM CHLORIDE 20 MEQ IV SCH ×4 (01:47→10:51)
[2016-06-29] MEDS: AMPICILLIN-SULBACTAM 3 GM in SODIUM CHLORIDE 0.9% 100 ML IVPB SCH ×4 (01:47→17:28)
[2016-06-29 05:40] LABS: Basophils % (A) 0 %; CH 29.8; Eosinophils % (A) 0 %; HCT 31.5 % (34.0-46.0); HDW 2.63; HGB 10.2 gm/dL (11.4-16.0); Luc # (Auto) 0.13; Luc % (Auto) 2; Lymphocytes # (A) 0.9 k/uL (1.0-4.8); Lymphocytes % (A) 10 %; MCH 30.4 pg (25.0-35.0); MCHC 32.3 g/dL (31.0-37.0); MCV 93.8 fL (80.0-100.0); Mean Platelet Volume 8.3; Monocytes # (A) 0.4 k/uL (0-1.0); Monocytes % (A) 5 %; Neutrophils # (A) 6.8 k/uL (1.3-7.7); Neutrophils % (A) 83 %; RBC 3.36 m/uL (3.80-5.40); RDW 14.4 % (11.5-15.5); WBC 8.2 k/uL (3.8-10.6); WBC (Perox) 9.05
[2016-06-29 05:49] LABS: INR 1.2 (<1.1)
[2016-06-29 06:07] LABS: Anion Gap 5 mmol/L; Blood Urea Nitrogen 15 mg/dL (7-17); Calcium 7.5 mg/dL (8.4-10.2); Carbon Dioxide 27 mmol/L (22-30); Chloride 108 mmol/L (98-107); Glucose 114 mg/dL (74-99); Magnesium 2.1 mg/dL (1.6-2.3); Non-African American GFR(MDRD) >60 (>60 ml/min/1.73 sqM); Phosphorous 2.2 mg/dL (2.5-4.5); Potassium 4.2 mmol/L (3.5-5.1); Sodium 140 mmol/L (137-145)
[2016-06-29] MEDS: LEVOTHYROXINE IVP 100 MCG/5 ML VIAL IV SCH (06:37)
--- NOTE | 2016-06-29 07:32 | XR ---
EXAMINATION TYPE: XR chest 1V portable DATE OF EXAM: 06/29/2016 6:31 AM COMPARISON: 06/28/2016 HISTORY: Shortness of breath TECHNIQUE: Single frontal view of the chest is obtained. FINDINGS: ET tube removed. NG tube stable and good position. Bilateral infiltrate and pleural effusi on noted. Cardiomegaly and COPD noted. Diffuse osteopenia and arthropathy of the shoulders. Central l ine stable. IMPRESSION: 1. ET tube removal. 2. COPD with bilateral infiltrate and small effusion stable. Mild central venous congestion not exclu ded. Correlate clinically.
[2016-06-29] MEDS: FAMOTIDINE 20 MG/2 ML VIAL IV SCH ×2 (09:16→09:22)
[2016-06-29] MEDS: PANTOPRAZOLE 40 MG/10 ML VIAL IVP SCH (09:16)
[2016-06-29] MEDS: HEPARIN SODIUM,PORCINE 5,000 UNIT/ML 1 ML VIAL SQ SCH ×2 (09:16→20:13)
[2016-06-29] MEDS ORDERED: SODIUM PHOSPHATE 10 MMOL in SODIUM CHLORIDE 0.9% 250 ML IVPB ONE (10:00)
--- NOTE | 2016-06-29 10:08 | P.PN ---
Progress Note - Text Patient underwent right colectomy with small bowel resection yesterday. She is awake alert. Vitals are stable. No fever. Abdomen shows usual postoperative tenderness but mild distention. INR. Her graft wbc's normal. Hemoglobin 10.2. Urine output is improving especially this morning. Impression stable postop. Critical condition yet in view of her advanced age and major surgery. Recommendation continued NG tube IV fluids and close monitoring.
--- NOTE | 2016-06-29 11:34 | P.PN ---
Subjective Principal diagnosis: Pneumobilia This is a very pleasant 86-year-old female patient who follows with Dr. Cabello as her primary care physician. She does have a history of coronary artery disease with previous cardiac catheterization and stent placement, atrial fibrillation anticoagulated with warfarin, hypertension, hyperlipidemia, hypothyroidism. No previous pulmonary disease. She is a lifelong nonsmoker. No history of asthma or emphysema. She had presented here to the emergency room 2 days in a row for complaints of abdominal discomfort lower extremity weakness and fatigue. She also had issues with nausea, vomiting and diarrhea. Her chest x-ray revealed evidence of cardiomegaly and mild vascular congestion. Small bilateral pleural effusions with atelectatic changes at the bases and some groundglass opacity in the right middle lobe. There is noted mucosal thickening involving the distal sigmoid colon. An ultrasound of the abdomen revealed no evidence of gallstones or dilated ducts. There was some echogenic areas throughout the liver probably related to air in the biliary tree. Hepatic metastatic disease is not entirely excluded. She is seen again today 06/29/2016 in follow-up. She was found to have ischemia with necrosis of the retroperitoneal hepatic flexure of the right colon and is status post right colectomy, small bowel resection lysis of adhesions and repair of a umbilical hernia. This is postoperative day #1. She is seen again today in follow-up in the intensive care unit. She is awake and alert in no acute distress. Blood and urine cultures reveal no growth to date. No leukocytosis. Hemoglobin stable at 10.2. She is on Unasyn and Levaquin. He is afebrile. Hemodynamically stable. Maintaining good O2 saturations in the high 90s on 2 L/m per nasal cannula. She is pulling approximately 750 MLS on her incentive spirometer. She did require Cardizem drip at 5 mg per hour for nature fibrillation with a rapid ventricular response. She does have a history of atrial fibrillation. She is maintained on 0.9 normal saline with 20 mEq of potassium at 125 MLS per hour. Nasogastric tube remains in place. Objective - Vital Signs Vital signs: Vital Signs Temp 98.2 F 06/29/16 08:00 Pulse 93 06/29/16 10:00 Resp 12 06/29/16 10:00 BP 117/70 06/29/16 10:00 Pulse Ox 96 06/29/16 10:00 Intake & Output 06/28/16 06/29/16 06/29/16 18:59 06:59 18:59 Intake Total 3453 646 39 Output Total 440 315 110 Balance 3013 331 -71 Weight 83.6 kg Intake: IV 1500 146 39 0.9 normal saline at KVO 50 110 30 0.9 normal saline for 30 36 9 pressure bag Ampicillin-Sulbactam 3 gm 100 In Sodium Chloride 0.9% 100 ml @ 100 mls/hr IVPB Q6HR [facility] Rx#:[id number] Sodium Chloride 0.9% 1, 520 000 ml @ 125 mls/hr IV . Q8H [facility] Rx#:[id number] Intake, IV Titration 1625 500 Amount D5-0.45% NaCl with KCl 500 20Meq/l 1,000 ml @ 125 mls/hr IV .Q8H [facility] Rx#: [id number] Lactated Ringers 1,000 ml 1000 @ 999 mls/hr IV .Q1H1M [facility] Rx#:[id number] Sodium Chloride 0.9% 1, 125 500 000 ml @ 125 mls/hr IV . Q8H5M [facility] with Potassium Chloride 20 meq Rx#: [id number] Blood Product 328 Ffp 24 Cpd Unit 328 [id number] Output: Urine 390 315 110 Estimated Blood Loss 50 Other: Voiding Method Indwelling Catheter Indwelling Catheter Indwelling Catheter ABP, PAP, CO, CI - Last Documented Arterial Blood Pressure 122/115 - Exam GENERAL EXAM: Alert, comfortable in no apparent distress. HEAD: Normocephalic. EYES: Normal reaction of pupils, equal size. NOSE: Clear with pink turbinates. Left nare nasogastric tube secured in place. THROAT: No erythema or exudates. NECK: No masses, no JVD. CHEST: No chest wall deformity. LUNGS: Equal air entry with no crackles, wheeze, rhonchi or dullness. CVS: S1 and S2 normal with no audible murmurs, irregular rhythm. ABDOMEN: Slightly distended, hypoactive bowel sounds, no guarding or rigidity. Dressing dry and intact. SPINE: No scoliosis or deformity SKIN: No rashes CENTRAL NERVOUS SYSTEM: No focal deficits, tone is normal in all 4 extremities. Extremities: There is no significant peripheral edema. No clubbing, no cyanosis. Peripheral pulses are intact - Labs CBC & Chem 7: 06/29/16 05:30 06/29/16 05:30 Labs: Abnormal Lab Results - Last 24 Hours (Table) 06/28/16 06/28/16 06/28/16 Range/Units 11:15 13:40 13:40 RBC (3.80-5.40) m/uL Hgb (11.4-16.0) gm/dL Hct (34.0-46.0) % Plt Count 141 L (150-450) k/uL Lymphocytes # (1.0-4.8) k/uL ABG pH 7.50 H (7.35-7.45) ABG pCO2 23 L (35-45) mmHg ABG pO2 238 H (83-108) mmHg ABG HCO3 18 L (21-25) mmol/L ABG Total CO2 (19-24) mmol/L ABG O2 Saturation 99.7 H (94-97) % ABG Hematocrit 24 L (34.0-46.0) % Chloride 108 H (98-107) mmol/L Glucose 104 H (74-99) mg/dL Calcium 7.8 L (8.4-10.2) mg/dL Phosphorus (2.5-4.5) mg/dL 06/28/16 06/28/16 06/29/16 Range/Units 13:40 18:57 05:30 RBC 3.36 L (3.80-5.40) m/uL Hgb 10.2 L (11.4-16.0) gm/dL Hct 31.5 L (34.0-46.0) % Plt Count (150-450) k/uL Lymphocytes # 0.9 L (1.0-4.8) k/uL ABG pH (7.35-7.45) ABG pCO2 34 L (35-45) mmHg ABG pO2 393 H (83-108) mmHg ABG HCO3 (21-25) mmol/L ABG Total CO2 25 H (19-24) mmol/L ABG O2 Saturation 100.0 H 98.0 H (94-97) % ABG Hematocrit (34.0-46.0) % Chloride (98-107) mmol/L Glucose (74-99) mg/dL Calcium (8.4-10.2) mg/dL Phosphorus (2.5-4.5) mg/dL 06/29/16 Range/Units 05:30 RBC (3.80-5.40) m/uL Hgb (11.4-16.0) gm/dL Hct (34.0-46.0) % Plt Count (150-450) k/uL Lymphocytes # (1.0-4.8) k/uL ABG pH (7.35-7.45) ABG pCO2 (35-45) mmHg ABG pO2 (83-108) mmHg ABG HCO3 (21-25) mmol/L ABG Total CO2 (19-24) mmol/L ABG O2 Saturation (94-97) % ABG Hematocrit (34.0-46.0) % Chloride 108 H (98-107) mmol/L Glucose 114 H (74-99) mg/dL Calcium 7.5 L (8.4-10.2) mg/dL Phosphorus 2.2 L (2.5-4.5) mg/dL Assessment and Plan Plan: Impression: #1 Acute abdominal pain possibly related to pneumobilia and suspected colitis. Status post exploratory laparotomy and was found to have ischemia with necrosis of retroperitoneal hepatic flexure of the right colon. She is status post right colectomy, small bowel resection, lysis of adhesions and repair of umbilical hernia. This is postoperative day #1. #2 Hypotension secondary to sepsis, stable. #3 Atrial fibrillation anticoagulated with warfarin, currently on hold, reversed for pending surgery. #4 Coagulopathy secondary to warfarin, reverse. #5 Coronary artery disease with previous stent placement. #6 Hyperlipidemia. #7 Hypertension. #8 Hypothyroidism. Plan: The patient was seen and evaluated by Dr. Howard. She was successfully extubated yesterday afternoon. This morning's chest x-ray was reviewed. There is some mild central venous congestion and small bilateral effusions. We'll continue with bronchodilators, antibiotics. She remains on heparin subcutaneous for DVT prophylaxis and Protonix for GI prophylaxis. Her anticoagulation will need to be addressed once cleared by surgical services to resume her warfarin. She remains on a Cardizem drip for rate control. We'll continue to monitor her here in the intensive care unit another 24 hours. We' ll continue to follow make further recommendations based on her clinical status. She is again encouraged regarding the increased use of the incentive spirometer and cough and deep breathing exercises.
--- NOTE | 2016-06-29 13:09 | P.PN ---
Subjective Principal diagnosis: abdominal pain Patient is an 86-year-old female admitted to [facility] with abdominal pain and diarrhea computed tomography scan of the abdomen and pelvis revealed evidence of pneumobilia. Patient underwent exploratory laparotomy and was found to have necrosis of the hepatic flexure of the right colon, she underwent right colectomy, partial small bowel resection and lysis of adhesions and repair of umbilical hernia. Today patient remains in the intensive care unit, she had atrial fibrillation was rapid ventricular response she was given Cardizem drip. Currently she is maintained on oxygen 2 L via nasal cannula and is tolerating well Objective - Vital Signs Vital signs: Vital Signs Temp 98.2 F 06/29/16 08:00 Pulse 95 06/29/16 13:00 Resp 27 H 06/29/16 13:00 BP 139/67 06/29/16 13:00 Pulse Ox 97 06/29/16 13:00 Intake & Output 06/28/16 06/29/16 06/29/16 18:59 06:59 18:59 Intake Total 3453 646 328 Output Total 440 315 190 Balance 3013 331 138 Weight 83.6 kg Intake: IV 1500 146 78 0.9 normal saline at KVO 50 110 60 0.9 normal saline for 30 36 18 pressure bag Ampicillin-Sulbactam 3 gm 100 In Sodium Chloride 0.9% 100 ml @ 100 mls/hr IVPB Q6HR [facility] Rx#:[id number] Sodium Chloride 0.9% 1, 520 000 ml @ 125 mls/hr IV . Q8H [facility] Rx#:[id number] Intake, IV Titration 1625 500 250 Amount D5-0.45% NaCl with KCl 500 20Meq/l 1,000 ml @ 125 mls/hr IV .Q8H [facility] Rx#: [id number] Lactated Ringers 1,000 ml 1000 @ 999 mls/hr IV .Q1H1M [facility] Rx#:[id number] Sodium Chloride 0.9% 1, 125 500 000 ml @ 125 mls/hr IV . Q8H5M [facility] with Potassium Chloride 20 meq Rx#: [id number] Sodium Phosphate 10 mmol 250 In Sodium Chloride 0.9% 250 ml @ 125 mls/hr IVPB ONCE ONE Rx#:[id number] Blood Product 328 Ffp 24 Cpd Unit 328 [id number] Output: Urine 390 315 190 Estimated Blood Loss 50 Other: Voiding Method Indwelling Catheter Indwelling Catheter Indwelling Catheter ABP, PAP, CO, CI - Last Documented Arterial Blood Pressure 122/115 - Exam In general patient is alert and oriented 3 answering questions appropriately HEENT head normocephalic and atraumatic Neck is supple no JVD no goiter no lymphadenopathy Chest exam reveals a few scattered crackles no wheezing Cardiac exam reveals regular heart sounds no gallops no murmurs Abdomen is soft nontender no organomegaly was normal bowel sounds Extremity exam reveals no edema no cyanosis or clubbing - Labs CBC & Chem 7: 06/29/16 05:30 06/29/16 05:30 Labs: Abnormal Lab Results - Last 24 Hours (Table) 06/28/16 06/28/16 06/28/16 Range/Units 13:40 13:40 13:40 RBC (3.80-5.40) m/uL Hgb (11.4-16.0) gm/dL Hct (34.0-46.0) % Plt Count 141 L (150-450) k/uL Lymphocytes # (1.0-4.8) k/uL ABG pCO2 34 L (35-45) mmHg ABG pO2 393 H (83-108) mmHg ABG Total CO2 (19-24) mmol/L ABG O2 Saturation 100.0 H (94-97) % Chloride 108 H (98-107) mmol/L Glucose 104 H (74-99) mg/dL Calcium 7.8 L (8.4-10.2) mg/dL Phosphorus (2.5-4.5) mg/dL 06/28/16 06/29/16 06/29/16 Range/Units 18:57 05:30 05:30 RBC 3.36 L (3.80-5.40) m/uL Hgb 10.2 L (11.4-16.0) gm/dL Hct 31.5 L (34.0-46.0) % Plt Count (150-450) k/uL Lymphocytes # 0.9 L (1.0-4.8) k/uL ABG pCO2 (35-45) mmHg ABG pO2 (83-108) mmHg ABG Total CO2 25 H (19-24) mmol/L ABG O2 Saturation 98.0 H (94-97) % Chloride 108 H (98-107) mmol/L Glucose 114 H (74-99) mg/dL Calcium 7.5 L (8.4-10.2) mg/dL Phosphorus 2.2 L (2.5-4.5) mg/dL Assessment and Plan Plan: #1 abdominal pain, with diarrhea, apparently patient had nausea and vomiting few days prior at this time there is no diarrhea no nausea or vomiting patient is still having significant abdominal pain with guarding computed tomography scan of the abdomen and pelvis revealed evidence of pneumobilia. Patient is maintained on IV antibiotic Unasyn and Levaquin, surgical consultation has been requested. She underwent exploratory laparotomy and had evidence of necrosis of the right colon and underwent right colectomy, partial small bowel resection , axis of adhesions, and repair of the umbilical hernia. Patient is doing well postoperatively #2 hypotension, resolved patient is receiving IV fluid she has good renal output will monitor closely, critical care consultation was requested #3 slightly elevated troponin level, echo cardiogram done reveals good ejection fraction of 50-60% cardiology consult was requested, patient was evaluated by cardiology and cleared for surgery #4 underlying history of atrial fibrillation maintained on Coumadin INR slightly elevated at 4 will be corrected prior to any surgical procedure #6 atrial fibrillation was rapid ventricular response requiring Cardizem drip, heart rate is well-controlled at this time #5 CODE STATUS full code
[2016-06-29] MEDS: 0.9% NACL WITH KCL 20 MEQ/L 1,000 ML IV SCH (18:46)
[2016-06-29] MEDS: DILTIAZEM 125 MG in SODIUM CHLORIDE 0.9% 100 ML IV SCH (18:46)
[2016-06-30] MEDS: AMPICILLIN-SULBACTAM 3 GM in SODIUM CHLORIDE 0.9% 100 ML IVPB SCH ×4 (00:30→18:47)
[2016-06-30] MEDS: 0.9% NACL WITH KCL 20 MEQ/L 1,000 ML IV SCH ×3 (00:30→12:43)
[2016-06-30] MEDS: HYDROmorphone 1 MG/ML 1 ML SYRINGE IVP PRN ×4 (00:45→20:39)
[2016-06-30] MEDS: LEVOTHYROXINE IVP 100 MCG/5 ML VIAL IV SCH (05:08)
[2016-06-30 05:17] LABS: Basophils % (A) 0 %; CH 29.8; CHCM 31.6; Eosinophils % (A) 0 %; HCT 29.7 % (34.0-46.0); HDW 2.71; HGB 9.1 gm/dL (11.4-16.0); Hypochromasia Slight; Luc # (Auto) 0.15; Luc % (Auto) 2; Lymphocytes # (A) 0.8 k/uL (1.0-4.8); Lymphocytes % (A) 11 %; MCH 29.2 pg (25.0-35.0); MCHC 30.8 g/dL (31.0-37.0); MCV 94.8 fL (80.0-100.0); Mean Platelet Volume 8.3; Monocytes # (A) 0.4 k/uL (0-1.0); Monocytes % (A) 5 %; Neutrophils % (A) 82 %; RBC 3.13 m/uL (3.80-5.40); RDW 14.5 % (11.5-15.5); WBC 7.4 k/uL (3.8-10.6); WBC (Perox) 7.45
[2016-06-30 05:30] LABS: Anion Gap 8 mmol/L; Blood Urea Nitrogen 15 mg/dL (7-17); Calcium 7.8 mg/dL (8.4-10.2); Carbon Dioxide 25 mmol/L (22-30); Chloride 114 mmol/L (98-107); Glucose 104 mg/dL (74-99); Magnesium 2.1 mg/dL (1.6-2.3); Non-African American GFR(MDRD) >60 (>60 ml/min/1.73 sqM); Potassium 4.2 mmol/L (3.5-5.1); Sodium 147 mmol/L (137-145)
[2016-06-30 05:36] LABS: INR 1.2 (<1.1); Prothrombin Time 11.6 sec (9.0-12.0)
--- NOTE | 2016-06-30 07:49 | XR ---
EXAMINATION TYPE: XR chest 1V portable DATE OF EXAM: 06/30/2016 7:11 AM COMPARISON: 06/29/2016 HISTORY: Tube placement TECHNIQUE: Single frontal view of the chest is obtained. FINDINGS: ET tube removed. NG tube stable and good position. Bilateral infiltrate and pleural effusi on noted. Cardiomegaly and COPD noted. Diffuse osteopenia and arthropathy of the shoulders. Central l ine stable. IMPRESSION: 1. COPD with bilateral infiltrate and small effusion stable. Mild central venous congestion not exclu ded. Correlate clinically
[2016-06-30] MEDS: HEPARIN SODIUM,PORCINE 5,000 UNIT/ML 1 ML VIAL SQ SCH ×2 (08:11→21:15)
[2016-06-30] MEDS: PANTOPRAZOLE 40 MG/10 ML VIAL IVP SCH (08:12)
[2016-06-30] MEDS ORDERED: cloNIDine 0.1 MG/24HR PATCH 1 PATCH PATCH TRANSDERM SCH (09:00)
--- NOTE | 2016-06-30 10:06 | P.PN ---
Subjective Progress note dated 06/30/2016 This is a 86-year-old female who was found have ischemia with necrosis of the of breath. He'll hepatic flexure of the right colon. Status post colectomy. Postop day #2. Doing relatively well. We will cut her IVs down to 50 mL now her pH is got lots of fluid retention. We'll give her 1 shot of Lasix 40 iv. currently she is getting o2 at 2 l. her 0.9 iv use with 20 of kcl at 125. we' ll cut back to 50. she's also on cardizem drip for a. fib of 5 mg an hour. he can be transferred out to [address] [place] [id number]. again and turn down her iv fluids and give her lasix 40 mg iv push 1. other that she doing relatively well. doing pretty well on her incentive spirometer. Objective - Vital Signs Vital signs: Vital Signs Temp 98.4 F 06/30/16 04:00 Pulse 85 06/30/16 07:00 Resp 16 06/30/16 07:00 BP 173/91 06/30/16 07:00 Pulse Ox 93 L 06/30/16 07:00 Intake & Output 06/29/16 06/30/16 06/30/16 18:59 06:59 18:59 Intake Total 1910.75 1706.750 138 Output Total 408 705 60 Balance 1502.75 1001.750 78 Weight 86.9 kg Intake: IV 1554 1529 138 0.9 normal saline at KVO 120 111 10 0.9 normal saline for 64 43 3 pressure bag 0.9% NaCl with KCl 20 Meq 1370 1375 125 /l 1,000 ml @ 125 mls/hr IV .Q8H [facility] Rx#:[id number] Intake, IV Titration 356.75 177.750 Amount Diltiazem 125 mg In 106.75 52.750 Sodium Chloride 0.9% 100 ml @ 5 MG/HR 5 mls/hr IV .Q24H [facility]NA Rx#:[id number] Sodium Phosphate 10 mmol 250 125 In Sodium Chloride 0.9% 250 ml @ 125 mls/hr IVPB ONCE ONE Rx#:[id number] Output: Urine 408 705 60 Other: Voiding Method Indwelling Catheter Indwelling Catheter ABP, PAP, CO, CI - Last Documented Arterial Blood Pressure 122/115 - Exam No acute distress, oriented 3. Next Wearing nasal O2. HEENT examination is grossly unremarkable. Mucous membranes are moist. Neck supple. Full range of motion. No adenopathy. Cardiovascular examination reveals regular rhythm rate. S1-S2 normal. Heart rate about 80. Lungs reveal some bibasilar crackles. Breath sounds slightly diminished. Abdomen soft. Extremities reveal some edema. She's got some upper semi-and lower extremities edema with anasarca. - Labs CBC & Chem 7: 06/30/16 05:00 06/30/16 05:15 Labs: Abnormal Lab Results - Last 24 Hours (Table) 06/30/16 06/30/16 Range/Units 05:00 05:15 RBC 3.13 L (3.80-5.40) m/uL Hgb 9.1 L (11.4-16.0) gm/dL Hct 29.7 L (34.0-46.0) % MCHC 30.8 L (31.0-37.0) g/dL Lymphocytes # 0.8 L (1.0-4.8) k/uL Sodium 147 H (137-145) mmol/L Chloride 114 H (98-107) mmol/L Glucose 104 H (74-99) mg/dL Calcium 7.8 L (8.4-10.2) mg/dL Assessment and Plan (1) S/P colectomy Status: Acute (2) Hypercholesterolemia Status: Acute (3) Hypertension Status: Acute (4) Unstable angina pectoris Status: Acute Plan: Plan The patient can be transferred out of the unit. Will get her a bit over on 6 selective. The patient was IV will be turned on the 50 mL an hour. We'll give the Lasix to give the patient Lasix 40 iv push times one. Additional recommendations suggestions are forthcoming. Prognosis is guarded. No pulmonary issues at this time. Time with Patient: Less than 30
[2016-06-30] MEDS ORDERED: FUROSEMIDE 10 MG/ML 4 ML VIAL IV STA (10:32)
--- NOTE | 2016-06-30 12:59 | P.PN ---
Subjective Principal diagnosis: abdominal pain Patient is an 86-year-old female admitted to [facility] with abdominal pain and diarrhea computed tomography scan of the abdomen and pelvis revealed evidence of pneumobilia. Patient underwent exploratory laparotomy and was found to have necrosis of the hepatic flexure of the right colon, she underwent right colectomy, partial small bowel resection and lysis of adhesions and repair of umbilical hernia. Today patient remains in the intensive care unit, she had atrial fibrillation was rapid ventricular response she was given Cardizem drip. Currently she is maintained on oxygen 2 L via nasal cannula and is tolerating well Objective - Vital Signs Vital signs: Vital Signs Temp 97.9 F 06/30/16 08:00 Pulse 101 H 06/30/16 11:00 Resp 10 L 06/30/16 11:00 BP 156/65 06/30/16 11:00 Pulse Ox 93 L 06/30/16 11:00 Intake & Output 06/29/16 06/30/16 06/30/16 18:59 06:59 18:59 Intake Total 1910.75 1706.750 678 Output Total 408 705 840 Balance 1502.75 1001.750 -162 Weight 86.9 kg Intake: IV 1554 1529 678 0.9 normal saline at KVO 120 111 60 0.9 normal saline for 64 43 18 pressure bag 0.9% NaCl with KCl 20 Meq 1370 1375 600 /l 1,000 ml @ 125 mls/hr IV .Q8H [facility]NA Rx#:[id number] Intake, IV Titration 356.75 177.750 Amount Diltiazem 125 mg In 106.75 52.750 Sodium Chloride 0.9% 100 ml @ 5 MG/HR 5 mls/hr IV .Q24H [facility]NA Rx#:[id number] Sodium Phosphate 10 mmol 250 125 In Sodium Chloride 0.9% 250 ml @ 125 mls/hr IVPB ONCE ONE Rx#:[id number] Output: Urine 408 705 840 Other: Voiding Method Indwelling Catheter Indwelling Catheter ABP, PAP, CO, CI - Last Documented Arterial Blood Pressure 122/115 - Exam In general patient is alert and oriented 3 answering questions appropriately HEENT head normocephalic and atraumatic Neck is supple no JVD no goiter no lymphadenopathy Chest exam reveals a few scattered crackles no wheezing Cardiac exam reveals regular heart sounds no gallops no murmurs Abdomen is soft, with mild diffuse tenderness, no organomegaly was normal bowel sounds Extremity exam reveals mild edema no cyanosis or clubbing - Labs CBC & Chem 7: 06/30/16 05:00 06/30/16 05:15 Labs: Abnormal Lab Results - Last 24 Hours (Table) 06/30/16 06/30/16 Range/Units 05:00 05:15 RBC 3.13 L (3.80-5.40) m/uL Hgb 9.1 L (11.4-16.0) gm/dL Hct 29.7 L (34.0-46.0) % MCHC 30.8 L (31.0-37.0) g/dL Lymphocytes # 0.8 L (1.0-4.8) k/uL Sodium 147 H (137-145) mmol/L Chloride 114 H (98-107) mmol/L Glucose 104 H (74-99) mg/dL Calcium 7.8 L (8.4-10.2) mg/dL Assessment and Plan Plan: #1 abdominal pain, with diarrhea, apparently patient had nausea and vomiting few days prior at this time there is no diarrhea no nausea or vomiting patient is still having significant abdominal pain with guarding computed tomography scan of the abdomen and pelvis revealed evidence of pneumobilia. Patient is maintained on IV antibiotic Unasyn and Levaquin, surgical consultation has been requested. She underwent exploratory laparotomy and had evidence of necrosis of the right colon and underwent right colectomy, partial small bowel resection , axis of adhesions, and repair of the umbilical hernia. Patient is doing well postoperatively #2 hypotension, resolved patient is receiving IV fluid she has good renal output will monitor closely, critical care consultation was requested #3 slightly elevated troponin level, echo cardiogram done reveals good ejection fraction of 50-60% cardiology consult was requested, patient was evaluated by cardiology and cleared for surgery #4 underlying history of atrial fibrillation maintained on Coumadin INR slightly elevated at 4 will be corrected prior to any surgical procedure #5 CODE STATUS full code #6 atrial fibrillation was rapid ventricular response requiring Cardizem drip, heart rate is well-controlled at this time #7 poor nutritional status was discussed with surgery starting treatment TPN patient still has NG tube in
--- NOTE | 2016-06-30 15:53 | P.PN ---
Progress Note - Text The patient is stable. Does have A. fib with rapid rate at about 100 beats a minute. She is otherwise awake. No fever. Abdomen is soft. Mild diffuse tenderness but no guarding or rebound. Incision looks good. Urine output is good about 500 amalgams last 8 hours. WBC is normal at 7400 hemoglobin 9.1. Recommendation continued medical management. Cardiology wishes to placed the patient on low-dose heparin which is reasonable particularly that she's had ischemic changes the to the colon.
--- NOTE | 2016-06-30 16:24 | PN ---
Sonny Hess underwent abdominal surgery yesterday. She underwent a right colectomy with small bowel resection. She is alert and oriented, but her blood pressure is quite elevated. She otherwise is reasonably comfortable. She is extubated. Breath sounds are reduced bilaterally. Heart sounds S1, S2 are normal, but irregular. Extremities are warm. She has lower extremity sequential compressions for DVT prophylaxis. She is also on heparin 5000 q.12. The main issue at this time has been hypertension and blood pressure control. Since she is unable to swallow she has not received any of her medications. IMPRESSION: 1. Hypertension. 2. Known coronary artery disease status post coronary stenting. SUGGEST: Clonidine patch TTS 1 until she can swallow and then we will switch to her oral medications once again. Her rhythm is irregular and she is in atrial fibrillation and is on low-dose IV Cardizem 5 mg an hour. I will continue this for now.
[2016-06-30] MEDS: DILTIAZEM 125 MG in SODIUM CHLORIDE 0.9% 100 ML IV SCH (18:50)
[2016-06-30] MEDS: LEVOFLOXACIN 750MG-D5W PMX 750 MG in DEXTROSE/WATER 1 150ML.BAG IVPB SCH (20:39)
[2016-07-01] MEDS: AMPICILLIN-SULBACTAM 3 GM in SODIUM CHLORIDE 0.9% 100 ML IVPB SCH ×4 (00:30→18:51)
[2016-07-01] MEDS: LEVOTHYROXINE IVP 100 MCG/5 ML VIAL IV SCH (05:09)
[2016-07-01 05:11] LABS: Basophils % (A) 0 %; CH 29.7; CHCM 31.6; Eosinophils % (A) 0 %; HDW 2.72; HGB 9.8 gm/dL (11.4-16.0); Hypochromasia Slight; Luc # (Auto) 0.21; Luc % (Auto) 3; Lymphocytes # (A) 0.9 k/uL (1.0-4.8); Lymphocytes % (A) 13 %; MCH 29.8 pg (25.0-35.0); MCHC 31.6 g/dL (31.0-37.0); MCV 94.4 fL (80.0-100.0); Mean Platelet Volume 7.6; Monocytes # (A) 0.4 k/uL (0-1.0); Monocytes % (A) 6 %; Neutrophils # (A) 5.2 k/uL (1.3-7.7); Neutrophils % (A) 77 %; RBC 3.29 m/uL (3.80-5.40); RDW 14.5 % (11.5-15.5); WBC 6.7 k/uL (3.8-10.6); WBC (Perox) 6.85
[2016-07-01] MEDS: HYDROmorphone 1 MG/ML 1 ML SYRINGE IVP PRN ×4 (05:11→18:54)
[2016-07-01 05:18] LABS: INR 1.4 (<1.1); Prothrombin Time 13.4 sec (9.0-12.0)
[2016-07-01 05:23] LABS: ALT 53 U/L (9-52); AST 80 U/L (14-36); Alkaline Phosphatase 65 U/L (38-126); Anion Gap 10 mmol/L; Blood Urea Nitrogen 15 mg/dL (7-17); Carbon Dioxide 29 mmol/L (22-30); Chloride 110 mmol/L (98-107); Glucose 99 mg/dL (74-99); Non-African American GFR(MDRD) >60 (>60 ml/min/1.73 sqM); Phosphorous 2.4 mg/dL (2.5-4.5); Potassium 3.5 mmol/L (3.5-5.1); Sodium 149 mmol/L (137-145); Total Bilirubin 2.2 mg/dL (0.2-1.3); Total Protein 5.1 g/dL (6.3-8.2)
[2016-07-01] MEDS ORDERED: Potassium Replacement Protocol 1 EACH MISC MISCELLANE PRN (05:39)
[2016-07-01] MEDS ORDERED: POTASSIUM CHLORIDE 20 MEQ in WATER FOR INJECTION 1 100ML.BAG IVPB ONE (05:39)
[2016-07-01] MEDS: IPRATROPIUM-ALBUTEROL 3 ML NEB INHALATION PRN ×4 (07:27→21:02)
[2016-07-01] MEDS ORDERED: cloNIDine 0.1 MG/24HR PATCH 1 PATCH PATCH TRANSDERM SCH (08:00)
--- NOTE | 2016-07-01 08:45 | XR ---
EXAMINATION TYPE: XR chest 1V portable DATE OF EXAM: 07/01/2016 6:37 AM COMPARISON: 06/30/2016 HISTORY: Tube placement TECHNIQUE: Single frontal view of the chest is obtained. FINDINGS: Heart is enlarged bilateral pleural effusion and consolidation. NG tube and central line n oted. No pneumothorax. Arthropathy of the shoulders. IMPRESSION: 1. Bilateral infiltrate and small effusion. Findings stable.
[2016-07-01] MEDS: 0.9% NACL WITH KCL 20 MEQ/L 1,000 ML IV SCH (09:04)
[2016-07-01] MEDS: HEPARIN SODIUM,PORCINE 5,000 UNIT/ML 1 ML VIAL SQ SCH ×2 (09:05→21:20)
[2016-07-01] MEDS: PANTOPRAZOLE 40 MG/10 ML VIAL IVP SCH (09:05)
--- NOTE | 2016-07-01 11:49 | P.PN ---
Subjective Patient is an 86-year-old female admitted with acute abdomen and found to have ischemic hepatic flexure of the right colon. Patient is status post repair of umbilical hernia; lysis of adhesions; small bowel resection; and right colectomy , postop day #3. Patient is evaluated and intensive care unit where she is currently lying in bed. Patient denies chills, fevers, nausea, or vomiting. Incisional pain controlled. Patient denies flatus or bowel movements. Nasogastric tube to low intermittent suction with minimal output per nurse, no documented output noted in chart. Urine output adequate. Afebrile. WBC 6.7. Hemoglobin stable at 9.8. Objective - Vital Signs Vital signs: Vital Signs Temp 97.7 F 07/01/16 08:00 Pulse 100 07/01/16 11:13 Resp 12 07/01/16 09:00 BP 176/92 07/01/16 09:00 Pulse Ox 95 07/01/16 09:00 Intake & Output 06/30/16 07/01/16 07/01/16 18:59 06:59 18:59 Intake Total 1128.25 654 70 Output Total 3890 860 125 Balance -2761.75 -206 -55 Weight 98.6 kg 98.6 kg Intake: IV 1056 654 70 0.9 normal saline at KVO 120 80 20 0.9 normal saline for 36 24 pressure bag 0.9% NaCl with KCl 20 Meq 900 550 50 /l 1,000 ml @ 125 mls/hr IV .Q8H [facility] Rx#:[id number] Intake, IV Titration 72.25 Amount Diltiazem 125 mg In 72.25 Sodium Chloride 0.9% 100 ml @ 5 MG/HR 5 mls/hr IV .Q24H [facility] Rx#:[id number] Output: Urine 3890 860 125 Other: Voiding Method Indwelling Catheter Indwelling Catheter Indwelling Catheter ABP, PAP, CO, CI - Last Documented Arterial Blood Pressure 122/115 - Exam GENERAL: Pt awake and alert, well-nourished, and in no acute distress. ENT: Dry mucous membranes. Nasogastric tube to low intermittent suction. LUNGS: Breath sounds with rhonchi and faint expiratory wheezes to auscultation bilaterally. HEART: Heart S1, S2, no S3 or S4. Irregularly irregular. No murmurs, rubs or gallops. ABDOMEN: Soft, obese, mild incisional tenderness, nondistended, active bowel sounds. No guarding, no rebound. No masses or organomegaly appreciated. Abdominal incision intact. NEUROLOGICAL: Pt oriented x 3. - Labs CBC & Chem 7: 07/01/16 05:00 07/01/16 05:00 Labs: Abnormal Lab Results - Last 24 Hours (Table) 07/01/16 07/01/16 07/01/16 Range/Units 05:00 05:00 05:00 RBC 3.29 L (3.80-5.40) m/uL Hgb 9.8 L (11.4-16.0) gm/dL Hct 31.0 L (34.0-46.0) % Lymphocytes # 0.9 L (1.0-4.8) k/uL PT 13.4 H (9.0-12.0) sec Sodium 149 H (137-145) mmol/L Chloride 110 H (98-107) mmol/L Calcium 8.0 L (8.4-10.2) mg/dL Phosphorus 2.4 L (2.5-4.5) mg/dL Total Bilirubin 2.2 H (0.2-1.3) mg/dL AST 80 H (14-36) U/L ALT 53 H (9-52) U/L Total Protein 5.1 L (6.3-8.2) g/dL Albumin 2.4 L (3.5-5.0) g/dL Assessment and Plan Plan: Impression: 1. Acute abdominal pain, present on admission, secondary to ischemic hepatic flexure of the right colon status post repair of umbilical hernia; lysis of adhesions; small bowel resection; and right colectomy on 06/28/2016. Plan: 1. Discontinue nasogastric tube. Start patient on a full liquid diet. Increase activity. Continue supportive treatment and pain management. Continue incentive spirometry 10 times an hour while awake. Continue medical management. The above impression and plan have been discussed and directed by Dr. Butler. Nicol AYALA acting as scribe for Dr. Butler.
--- NOTE | 2016-07-01 12:28 | P.PN ---
Subjective Patient is doing fairly well today. Her pain is well controlled. Heart rate remained well-controlled currently on IV Cardizem. Objective - Vital Signs Vital signs: Vital Signs Temp 97.7 F 07/01/16 08:00 Pulse 100 07/01/16 11:13 Resp 12 07/01/16 09:00 BP 176/92 07/01/16 09:00 Pulse Ox 95 07/01/16 09:00 Intake & Output 06/30/16 07/01/16 07/01/16 18:59 06:59 18:59 Intake Total 1128.25 654 70 Output Total 3890 860 125 Balance -2761.75 -206 -55 Weight 98.6 kg 98.6 kg Intake: IV 1056 654 70 0.9 normal saline at KVO 120 80 20 0.9 normal saline for 36 24 pressure bag 0.9% NaCl with KCl 20 Meq 900 550 50 /l 1,000 ml @ 125 mls/hr IV .Q8H [facility] Rx#:[id number] Intake, IV Titration 72.25 Amount Diltiazem 125 mg In 72.25 Sodium Chloride 0.9% 100 ml @ 5 MG/HR 5 mls/hr IV .Q24H [facility] Rx#:[id number] Output: Urine 3890 860 125 Other: Voiding Method Indwelling Catheter Indwelling Catheter Indwelling Catheter ABP, PAP, CO, CI - Last Documented Arterial Blood Pressure 122/115 - Exam General: The patient is awake and alert, in no distress Eye: there is normal conjunctiva bilaterally. Neck: The neck is supple, there is no JVD. Cardiovascular: Normal S1-S2, no S3-S4, no murmurs. Respiratory: Lungs clear to auscultation bilaterally Gastrointestinal: Abdomen is soft, nontender. Abdominal binder in place. Surgical incision appears healing well. Musculoskeletal: There is no pedal edema. Neurological:. Speech is normal. Skin: Skin is warm and dry - Labs CBC & Chem 7: 07/01/16 05:00 07/01/16 05:00 Labs: Abnormal Lab Results - Last 24 Hours (Table) 07/01/16 07/01/16 07/01/16 Range/Units 05:00 05:00 05:00 RBC 3.29 L (3.80-5.40) m/uL Hgb 9.8 L (11.4-16.0) gm/dL Hct 31.0 L (34.0-46.0) % Lymphocytes # 0.9 L (1.0-4.8) k/uL PT 13.4 H (9.0-12.0) sec Sodium 149 H (137-145) mmol/L Chloride 110 H (98-107) mmol/L Calcium 8.0 L (8.4-10.2) mg/dL Phosphorus 2.4 L (2.5-4.5) mg/dL Total Bilirubin 2.2 H (0.2-1.3) mg/dL AST 80 H (14-36) U/L ALT 53 H (9-52) U/L Total Protein 5.1 L (6.3-8.2) g/dL Albumin 2.4 L (3.5-5.0) g/dL Assessment and Plan Plan: #1 right colon ischemia with necrosis status post exploratory laparotomy and right colectomy, partial small bowel resection, and repair of the umbilical hernia. Patient is doing well postoperatively #2 hypotension, resolved patient is receiving IV fluid which will be switched to D5 half-normal saline secondary to hypernatremia #3 slightly elevated troponin level on presentation most likely thrombotic troponin leak , echo cardiogram done reveals good ejection fraction of 50-60% cardiology consult was requested, patient was evaluated by cardiology #4 underlying history of atrial fibrillation maintained on Coumadin at home currently heart rate not well controlled maintained on IV Cardizem. Cardiology following #5 CODE STATUS full code Plan for today: Discontinue NG tube and consider starting clear liquids. Change IV fluid to D5/half-normal saline. Replaced electrolytes as needed. Continue ICU care. Wean off Cardizem drip as directed by cardiology. Repeat lab work in the morning.
[2016-07-01] MEDS ORDERED: ENALAPRILAT 1.25 MG/ML 1 ML VIAL IVP PRN (13:55)
--- NOTE | 2016-07-01 14:01 | P.PN ---
Subjective 86-year-old female patient who is postop day #3 following a right colectomy. 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 The estimated blood loss was 100 mL. Postop, the patient was brought into the intensive care unit and the patient was extubated without any major difficulties. The patient was briefly hypotensive and the patient responded to IV fluids and she is on no pressors. In fact she has hypertensive at this point. She has an underlying chronic atrial fibrillation and she is still on a Cardizem drip for now at 5 mg an hour. NG tube is still in place and the total amount of output from the NG tube is around 100 over the past 24 hours. Bowel sounds are hypoactive the surgical wound site is currently intact and clean. No drains are present in the abdomen. The right second is not elevated at 6.7. Hemoglobin stable at 9.8. The patient is on a combination of Levaquin and Unasyn he had the patient was diuresed yesterday with a 40 mg of IV Lasix and she is a negative balance of 2.9 L over the past 24 hours. She is currently on a maintenance fluids of 50 mL an hour of half normal saline with D5 water. No flatus. Hypoactive bowel sounds. Objective - Vital Signs Vital signs: Vital Signs Temp 98.0 F 07/01/16 12:00 Pulse 119 H 07/01/16 13:00 Resp 16 07/01/16 13:00 BP 160/77 07/01/16 11:00 Pulse Ox 94 L 07/01/16 13:00 Intake & Output 06/30/16 07/01/16 07/01/16 18:59 06:59 18:59 Intake Total 1128.25 654 370 Output Total 3890 860 325 Balance -2761.75 -206 45 Weight 98.6 kg 98.6 kg Intake: IV 1056 654 370 0.9 normal saline at KVO 120 80 20 0.9 normal saline for 36 24 pressure bag 0.9% NaCl with KCl 20 Meq 900 550 50 /l 1,000 ml @ 125 mls/hr IV .Q8H [facility] Rx#:[id number] 0.9% NaCl with KCl 20 Meq 200 /l 1,000 ml @ 50 mls/hr IV .Q20H [facility] Rx#: [id number] Potassium Chloride 20 meq 100 In Water For Injection 1 100ml.bag @ 50 mls/hr IVPB ONCE ONE Rx#: [id number] Intake, IV Titration 72.25 Amount Diltiazem 125 mg In 72.25 Sodium Chloride 0.9% 100 ml @ 5 MG/HR 5 mls/hr IV .Q24H [facility] Rx#:[id number] Output: Urine 3890 860 325 Other: Voiding Method Indwelling Catheter Indwelling Catheter Indwelling Catheter ABP, PAP, CO, CI - Last Documented Arterial Blood Pressure 122/115 - Exam Head exam was generally normal. There was no scleral icterus or corneal arcus. Mucous membranes were moist.Neck was supple and without jugular venous distension, thyromegaly, or carotid bruits. Carotids were easily palpable bilaterally. There was no adenopathy. The patient has a right IJ triple-lumen catheter in place and the patient also has an NG tube in place. Lung sounds are diminished in lung bases bilaterally along with some scattered rhonchi and some scattered external wheeze.Cardiac exam revealed the PMI to be normally situated and sized. The rhythm was irregular and no extrasystoles were noted during several minutes of auscultation. The first and second heart sounds were normal and physiologic splitting of the second heart sound was noted. There were no murmurs, rubs, clicks, or gallops. The heart rhythm is irregular secondary to atrial fibrillation. Abdomen is soft and nontender. Surgical wound site is dry clean and intact. Bowel sounds are hypoactive. There is no direct tenderness. No rebound tenderness or guarding.Examination of the extremities revealed easily palpable radial, femoral and pedal pulses. There was no cyanosis, clubbing and there is +1 edema in both upper and lower oximetry is bilaterally. Neurologically the patient is awake and alert and her exam is nonfocal. - Labs CBC & Chem 7: 07/01/16 05:00 07/01/16 05:00 Labs: Abnormal Lab Results - Last 24 Hours (Table) 07/01/16 07/01/16 07/01/16 Range/Units 05:00 05:00 05:00 RBC 3.29 L (3.80-5.40) m/uL Hgb 9.8 L (11.4-16.0) gm/dL Hct 31.0 L (34.0-46.0) % Lymphocytes # 0.9 L (1.0-4.8) k/uL PT 13.4 H (9.0-12.0) sec Sodium 149 H (137-145) mmol/L Chloride 110 H (98-107) mmol/L Calcium 8.0 L (8.4-10.2) mg/dL Phosphorus 2.4 L (2.5-4.5) mg/dL Total Bilirubin 2.2 H (0.2-1.3) mg/dL AST 80 H (14-36) U/L ALT 53 H (9-52) U/L Total Protein 5.1 L (6.3-8.2) g/dL Albumin 2.4 L (3.5-5.0) g/dL Assessment and Plan Plan: Assessment #1 right colon ischemia with necrosis status post exploratory laparotomy and right colectomy, partial small bowel resection, and repair of the umbilical hernia. Patient is doing well postoperatively. #2 hypotension, resolved and the patient is hypertensive at this point #3 slightly elevated troponin level on presentation most likely thrombotic troponin leak , echo cardiogram done reveals good ejection fraction of 50-60% cardiology consult was requested, patient was evaluated by cardiology #4 atrial fibrillation maintained on Coumadin at home currently heart rate not well controlled maintained on IV Cardizem. #5 hyperchloremic hypernatremia, currently on D5 water at the rate of 50 mL an hour. #6 edema involving the upper and lower extremity, improved with Lasix and the patient is negative fluid balance #7 postoperative bilateral pleural effusions #8 coronary artery disease #9 hyperlipidemia #10 hypothyroidism # 11 irritable bowel disease Plan Agree on the fluid changed to D5 half-normal. Monitor the sodium level. Keep the patient nothing by mouth for another 24 hours. Keep the NG tube in place. Assess for bowel activity and flatus. Continue the Unasyn and Levaquin as broad -spectrum antibiotic coverage. Continue the Cardizem drip at 5 mg an hour. Add Vasotec for blood pressure control at a dose of 2.5 mg every 6 hours. Continue clonidine patch. Keep the patient ICU for another 24 hours.
[2016-07-01] MEDS: DEXTROSE 5%-0.45% NACL 1,000 ML IV SCH (14:44)
--- NOTE | 2016-07-01 15:34 | CDI ---
In responding to this query, please exercise your independent professional judgment. The [facility] Coding Staff and Clinical Documentation Specialists appreciate your assistance in clarifying documentation, maintaining compliance with coding guidelines, accurately documenting patients condition and capturing severity of illness. The fact that a question is asked does not imply that any particular answer is desired or expected. Communication forms are a method of clarifying documentation and are not made part of the Legal Health Record. Thank you in advance for your clarification. Last Revision, April [address] [place] [address] Documentation Clarification Form Date: 07/01/2016 3:17:00 PM From: Anitra Smiley Admit Date: 06/27/2016 12:03:00 AM Patient Name: Sonny Hess Visit Number: [id number] Dr. Mary Patel Sepsis is documented in the notes by Pulmonary and Surgical consults on 06/27 thru 06/29. History/Risk Factors: Atrial Fibrillation Coumadin Clinical Indicators: Patient presented with abdominal pain, diarrhea, nausea and vomiting per H& P Patient found to have Ischemia with necrosis of hepatic flexure of right colon per Surgical Consult Vitals on admission: temp 105.0, hr 130, rr 24, bp 176/118, sats 91% on room air Blood pressure dropped on day of admission to 80's over 50's Hypotension documented in H&P WBC on admission 8.0, lactic acid 1.2 Blood cultures: negative (preliminary report) Treatment: Consult: Surgical ICU placement IV fluid boluses Antibiotics: IV Ampicillin, IV Levaquin Surgical repair of bowel In your professional opinion, can you please clarify if these findings signify one of the following conditions, whether the condition is POA, and cause, if known? SIRS, without underlying infectious process Sepsis Severe Sepsis Septic Shock Unable to determine Other, please specify Please document in your progress notes and discharge summary in order to capture severity of illness and risk of mortality. Include clinical findings that support your diagnosis. FYI: Press F11 to launch patient chart. Place X here if this finding has no clinical significance, is not applicable or if you are not able to provide any additional documentation. ANITRA
--- NOTE | 2016-07-01 21:16 | PN ---
Mrs. Hess is status post surgery. Her blood pressure diastolic blood pressure is ( ) systolic still 166 millimeters of Hg. She got IV Lasix and today on my examination she has rhonchorous breath sounds bilaterally with crackles bilaterally. She received IV fluids perioperatively. She is on clonidine patch, total of TTS 2 for her blood pressure. She was just started on oral fluids this evening. She also has atrial fibrillation and was on IV Cardizem for rate control. We have not started her oral medication at this time. She is mildly short of breath. She does not complain of any chest discomfort. She has some abdominal discomfort. On examination, heart sounds are irregular. Breath sounds are rhonchorous bilaterally with decreased breath sounds and crackles at the bases. ABDOMEN: Mildly tender. IMPRESSION: 1. The patient is status post colectomy. 2. History of atrial fibrillation. 3. History of hypertension. 4. Coronary artery disease. SUGGEST: At this time, she has just been started on oral ( ) and I would wait for at least 24 hours before starting oral medications since the absorption may be erratic. I will continue clonidine patch for at least 24 hours more. IV Cardizem for rate control and 20 mg of Lasix IV for diuresis today.
[2016-07-01] MEDS ORDERED: FUROSEMIDE 10 MG/ML 2 ML VIAL IV STA (21:23)
[2016-07-01] MEDS: DILTIAZEM 125 MG in SODIUM CHLORIDE 0.9% 100 ML IV SCH (22:48)
[2016-07-02] MEDS: AMPICILLIN-SULBACTAM 3 GM in SODIUM CHLORIDE 0.9% 100 ML IVPB SCH ×5 (01:05→22:34)
[2016-07-02] MEDS: DEXTROSE 5%-0.45% NACL 1,000 ML IV SCH (01:06)
[2016-07-02] MEDS: HYDROmorphone 1 MG/ML 1 ML SYRINGE IVP PRN ×3 (05:44→20:48)
[2016-07-02] MEDS: LEVOTHYROXINE IVP 100 MCG/5 ML VIAL IV SCH (06:52)
--- NOTE | 2016-07-02 08:17 | XR ---
EXAMINATION TYPE: XR chest 1V portable DATE OF EXAM: 07/02/2016 7:13 AM COMPARISON: Prior chest x-ray June HISTORY: Shortness of breath TECHNIQUE: Single frontal view of the chest is obtained. FINDINGS: Right jugular central venous catheter is stable, NG tube has been removed. Basilar density obscures the right and left hemidiaphragm similar to prior exam. There are overlying cardiac leads. No evident pneumothorax. Heart size is likely enlarged although patient is rotated. Interstitium is m ildly increased. Postop changes noted in the abdomen. IMPRESSION: Probable basilar atelectasis, possible associated effusion, correlate to exclude edema, pneumonia. There may be a component of volume overload, pulmonary venous hypertension and interstitia l edema. Postop changes.
[2016-07-02] MEDS: PANTOPRAZOLE 40 MG/10 ML VIAL IVP SCH (08:33)
[2016-07-02] MEDS: HEPARIN SODIUM,PORCINE 5,000 UNIT/ML 1 ML VIAL SQ SCH ×2 (08:33→20:48)
[2016-07-02 09:13] LABS: Basophils % (A) 0 %; CH 29.6; CHCM 31.5; Eosinophils % (A) 0 %; HCT 33.8 % (34.0-46.0); HDW 2.64; HGB 10.4 gm/dL (11.4-16.0); Hypochromasia Slight; Luc # (Auto) 0.25; Luc % (Auto) 3; Lymphocytes # (A) 1.1 k/uL (1.0-4.8); Lymphocytes % (A) 14 %; MCH 29.1 pg (25.0-35.0); MCHC 30.8 g/dL (31.0-37.0); MCV 94.5 fL (80.0-100.0); Mean Platelet Volume 7.1; Monocytes # (A) 0.3 k/uL (0-1.0); Monocytes % (A) 4 %; Neutrophils # (A) 6.3 k/uL (1.3-7.7); Neutrophils % (A) 79 %; RBC 3.58 m/uL (3.80-5.40); RDW 14.6 % (11.5-15.5); WBC (Perox) 9.01
[2016-07-02 09:22] LABS: ALT 57 U/L (9-52); AST 83 U/L (14-36); Alkaline Phosphatase 94 U/L (38-126); Anion Gap 9 mmol/L; Blood Urea Nitrogen 11 mg/dL (7-17); Calcium 7.7 mg/dL (8.4-10.2); Carbon Dioxide 32 mmol/L (22-30); Chloride 103 mmol/L (98-107); Glucose 153 mg/dL (74-99); Non-African American GFR(MDRD) >60 (>60 ml/min/1.73 sqM); Potassium 3.2 mmol/L (3.5-5.1); Sodium 144 mmol/L (137-145); Total Bilirubin 1.7 mg/dL (0.2-1.3); Total Protein 5.3 g/dL (6.3-8.2)
[2016-07-02] MEDS ORDERED: FUROSEMIDE 10 MG/ML 4 ML VIAL IV STA (09:57)
--- NOTE | 2016-07-02 11:22 | P.PN ---
Objective - Vital Signs Vital signs: Vital Signs Temp 98.9 F 07/02/16 04:00 Pulse 110 H 07/02/16 04:00 Resp 18 07/02/16 04:00 BP 119/98 07/02/16 04:00 Pulse Ox 92 L 07/02/16 04:00 Intake & Output 07/01/16 07/02/16 07/02/16 18:59 06:59 18:59 Intake Total 670 1140 120 Output Total 500 2825 Balance 170 -1685 120 Weight 98.6 kg 86 kg Intake: IV 670 1015 0.9 normal saline at KVO 20 0.9 normal saline for 15 pressure bag 0.9% NaCl with KCl 20 Meq 50 /l 1,000 ml @ 125 mls/hr IV .Q8H [facility] Rx#:[id number] 0.9% NaCl with KCl 20 Meq 200 /l 1,000 ml @ 50 mls/hr IV .Q20H [facility] Rx#: [id number] Ampicillin-Sulbactam 3 gm 100 In Sodium Chloride 0.9% 100 ml @ 100 mls/hr IVPB Q6HR [facility] Rx#:[id number] Dextrose 5%-0.45% NaCl 1, 300 900 000 ml @ 75 mls/hr IV . [id number] [facility] Rx#:[id number] Potassium Chloride 20 meq 100 In Water For Injection 1 100ml.bag @ 50 mls/hr IVPB ONCE ONE Rx#: [id number] Intake, IV Titration 125 Amount Diltiazem 125 mg In 125 Sodium Chloride 0.9% 100 ml @ 5 MG/HR 5 mls/hr IV .Q24H [facility] Rx#:[id number] Oral 120 Output: Urine 500 2825 Straight 500 Other: Voiding Method Indwelling Catheter Indwelling Catheter # Bowel Movements 0 ABP, PAP, CO, CI - Last Documented Arterial Blood Pressure 122/115 - Labs CBC & Chem 7: 07/02/16 08:48 07/02/16 08:48 Labs: Abnormal Lab Results - Last 24 Hours (Table) 07/02/16 07/02/16 Range/Units 08:48 08:48 RBC 3.58 L (3.80-5.40) m/uL Hgb 10.4 L (11.4-16.0) gm/dL Hct 33.8 L (34.0-46.0) % MCHC 30.8 L (31.0-37.0) g/dL Potassium 3.2 L (3.5-5.1) mmol/L Carbon Dioxide 32 H (22-30) mmol/L Glucose 153 H (74-99) mg/dL Calcium 7.7 L (8.4-10.2) mg/dL Total Bilirubin 1.7 H (0.2-1.3) mg/dL AST 83 H (14-36) U/L ALT 57 H (9-52) U/L Total Protein 5.3 L (6.3-8.2) g/dL Albumin 2.4 L (3.5-5.0) g/dL Assessment and Plan Plan: #1 right colon ischemia with necrosis status post exploratory laparotomy and right colectomy, partial small bowel resection, and repair of the umbilical hernia. Patient is doing well postoperatively #2 hypotension, with hypovolemic shock, resolved with IV fluids. #3 slightly elevated troponin level on presentation most likely thrombotic troponin leak , echo cardiogram done reveals good ejection fraction of 50-60% cardiology consult was requested, patient was evaluated by cardiology #4 underlying history of atrial fibrillation maintained on Coumadin at home currently heart rate not well controlled maintained on IV Cardizem. Cardiology following #5 CODE STATUS full code Plan for today: Discontinue IV fluids. Give 1 dose of IV Lasix secondary to pulmonary edema and congestion. Diet as directed by surgery. Incentive spirometry at bedside. Repeat lab work in the morning.
--- NOTE | 2016-07-02 13:01 | P.PN ---
Subjective 86-year-old female patient who is postop day #3 following a right colectomy. 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 The estimated blood loss was 100 mL. Postop, the patient was brought into the intensive care unit and the patient was extubated without any major difficulties. The patient was briefly hypotensive and the patient responded to IV fluids and she is on no pressors. In fact she has hypertensive at this point. She has an underlying chronic atrial fibrillation and she is still on a Cardizem drip for now at 5 mg an hour. NG tube is still in place and the total amount of output from the NG tube is around 100 over the past 24 hours. Bowel sounds are hypoactive the surgical wound site is currently intact and clean. No drains are present in the abdomen. The right second is not elevated at 6.7. Hemoglobin stable at 9.8. The patient is on a combination of Levaquin and Unasyn he had the patient was diuresed yesterday with a 40 mg of IV Lasix and she is a negative balance of 2.9 L over the past 24 hours. She is currently on a maintenance fluids of 50 mL an hour of half normal saline with D5 water. No flatus. Hypoactive bowel sounds. On 07/02/2016, the patient is being seen in follow-up in the patient is postop day 4 following a right colectomy. NG tube has been removed. She states that she has passed some liquidy bowel movement. Surgical wound site is dry clean and intact. The patient is having some noisy breathing and a congested cough lasting wheezes mainly due to upper airway secretions. The chest x-ray showing small better pleural effusion slightly worse on the right which is essentially the same compared to yesterday. The patient was given already a dose of Lasix 40 mg IV push and this is in addition to the yesterday's Lasix dose which resulted to a 2.9 L of diuresis. We'll continue diuretics follow 24 hours P monitor the sodium level. Condition is stable for now. Objective - Vital Signs Vital signs: Vital Signs Temp 97.0 F L 07/02/16 08:00 Pulse 99 07/02/16 11:52 Resp 18 07/02/16 11:52 BP 122/73 07/02/16 08:00 Pulse Ox 93 L 07/02/16 08:00 Intake & Output 07/01/16 07/02/16 07/02/16 18:59 06:59 18:59 Intake Total 670 1140 120 Output Total 500 2825 Balance 170 -1685 120 Weight 98.6 kg 86 kg 86 kg Intake: IV 670 1015 0.9 normal saline at KVO 20 0.9 normal saline for 15 pressure bag 0.9% NaCl with KCl 20 Meq 50 /l 1,000 ml @ 125 mls/hr IV .Q8H [facility] Rx#:[id number] 0.9% NaCl with KCl 20 Meq 200 /l 1,000 ml @ 50 mls/hr IV .Q20H [facility] Rx#: [id number] Ampicillin-Sulbactam 3 gm 100 In Sodium Chloride 0.9% 100 ml @ 100 mls/hr IVPB Q6HR [facility] Rx#:[id number] Dextrose 5%-0.45% NaCl 1, 300 900 000 ml @ 75 mls/hr IV . [id number] [facility] Rx#:[id number] Potassium Chloride 20 meq 100 In Water For Injection 1 100ml.bag @ 50 mls/hr IVPB ONCE ONE Rx#: [id number] Intake, IV Titration 125 Amount Diltiazem 125 mg In 125 Sodium Chloride 0.9% 100 ml @ 5 MG/HR 5 mls/hr IV .Q24H [facility] Rx#:[id number] Oral 120 Output: Urine 500 2825 Straight 500 Other: Voiding Method Indwelling Catheter Indwelling Catheter Indwelling Catheter # Bowel Movements 0 ABP, PAP, CO, CI - Last Documented Arterial Blood Pressure 122/115 - Exam Head exam was generally normal. There was no scleral icterus or corneal arcus. Mucous membranes were moist.Neck was supple and without jugular venous distension, thyromegaly, or carotid bruits. Carotids were easily palpable bilaterally. There was no adenopathy. The patient has a right IJ triple-lumen catheter in place and the patient also has an NG tube in place. Lung sounds are diminished in lung bases bilaterally along with some scattered rhonchi and some scattered external wheeze.Cardiac exam revealed the PMI to be normally situated and sized. The rhythm was irregular and no extrasystoles were noted during several minutes of auscultation. The first and second heart sounds were normal and physiologic splitting of the second heart sound was noted. There were no murmurs, rubs, clicks, or gallops. The heart rhythm is irregular secondary to atrial fibrillation. Abdomen is soft and nontender. Surgical wound site is dry clean and intact. Bowel sounds are hypoactive. There is no direct tenderness. No rebound tenderness or guarding.Examination of the extremities revealed easily palpable radial, femoral and pedal pulses. There was no cyanosis, clubbing and there is +1 edema in both upper and lower oximetry is bilaterally. Neurologically the patient is awake and alert and her exam is nonfocal. - Labs CBC & Chem 7: 07/02/16 08:48 07/02/16 08:48 Labs: Abnormal Lab Results - Last 24 Hours (Table) 07/02/16 07/02/16 Range/Units 08:48 08:48 RBC 3.58 L (3.80-5.40) m/uL Hgb 10.4 L (11.4-16.0) gm/dL Hct 33.8 L (34.0-46.0) % MCHC 30.8 L (31.0-37.0) g/dL Potassium 3.2 L (3.5-5.1) mmol/L Carbon Dioxide 32 H (22-30) mmol/L Glucose 153 H (74-99) mg/dL Calcium 7.7 L (8.4-10.2) mg/dL Total Bilirubin 1.7 H (0.2-1.3) mg/dL AST 83 H (14-36) U/L ALT 57 H (9-52) U/L Total Protein 5.3 L (6.3-8.2) g/dL Albumin 2.4 L (3.5-5.0) g/dL Assessment and Plan Plan: Assessment #1 right colon ischemia with necrosis status post exploratory laparotomy and right colectomy, partial small bowel resection, and repair of the umbilical hernia. Patient is doing well postoperatively. On 07/02/2069 the patient is being seen in follow-up. The patient is slowly recovering. Surgical wound site is clean and intact and the patient is passing flatus. We will be some gradual increase in her oral intake. She is currently on ice chips and minimal liquid intake. #2 Small bilateral pleural effusion slightly worse on the right along with some upper airway secretions, these are probably related to fluid overload and the patient is being diuresed gently. She is and is a significant negative fluid balance. #3 slightly elevated troponin level on presentation most likely thrombotic troponin leak , echo cardiogram done reveals good ejection fraction of 50-60% cardiology consult was requested, patient was evaluated by cardiology #4 atrial fibrillation maintained on Coumadin at home currently heart rate not well controlled maintained on IV Cardizem. #5 hyperchloremic hypernatremia, currently on D5 water at the rate of 50 mL an hour. #6 edema involving the upper and lower extremity, improved with Lasix and the patient is negative fluid balance, improving #7 postoperative bilateral pleural effusions, stable on today's chest x-ray #8 coronary artery disease #9 hyperlipidemia #10 hypothyroidism # 11 irritable bowel disease Plan Continue the Lasix. The patient was given a dose of Lasix 40 mg IV push. Monitor the urine output. Monitor electrolytes. Encourage use of incentive spirometer. Chest x-ray was reviewed. Advance diet slowly. Surgeries on the case. We'll continue to follow.
--- NOTE | 2016-07-02 13:21 | P.PN ---
Subjective Patient is an 86-year-old female admitted with acute abdomen and found to have ischemic hepatic flexure of the right colon. Patient is status post repair of umbilical hernia; lysis of adhesions; small bowel resection; and right colectomy , postop day #4. Patient has been moved out of the intensive care unit to [facility] care unit where she is currently sitting up in a chair. Patient complains of feeling weak. Patient complains of loose, nonproductive cough. Patient denies chills, fevers, nausea, or vomiting. Incisional pain controlled. Patient denies flatus or bowel movements. Patient tolerating a full liquid diet. Urine output adequate. Afebrile. WBC 8.0. Hemoglobin stable at 10.4. Objective - Vital Signs Vital signs: Vital Signs Temp 97.0 F L 07/02/16 08:00 Pulse 99 07/02/16 11:52 Resp 18 07/02/16 11:52 BP 122/73 07/02/16 08:00 Pulse Ox 93 L 07/02/16 08:00 Intake & Output 07/01/16 07/02/16 07/02/16 18:59 06:59 18:59 Intake Total 670 1140 120 Output Total 500 2825 Balance 170 -1685 120 Weight 98.6 kg 86 kg 86 kg Intake: IV 670 1015 0.9 normal saline at KVO 20 0.9 normal saline for 15 pressure bag 0.9% NaCl with KCl 20 Meq 50 /l 1,000 ml @ 125 mls/hr IV .Q8H [facility] Rx#:[id number] 0.9% NaCl with KCl 20 Meq 200 /l 1,000 ml @ 50 mls/hr IV .Q20H [facility] Rx#: [id number] Ampicillin-Sulbactam 3 gm 100 In Sodium Chloride 0.9% 100 ml @ 100 mls/hr IVPB Q6HR [facility] Rx#:[id number] Dextrose 5%-0.45% NaCl 1, 300 900 000 ml @ 75 mls/hr IV . [id number] [facility] Rx#:[id number] Potassium Chloride 20 meq 100 In Water For Injection 1 100ml.bag @ 50 mls/hr IVPB ONCE ONE Rx#: [id number] Intake, IV Titration 125 Amount Diltiazem 125 mg In 125 Sodium Chloride 0.9% 100 ml @ 5 MG/HR 5 mls/hr IV .Q24H [facility] Rx#:[id number] Oral 120 Output: Urine 500 2825 Straight 500 Other: Voiding Method Indwelling Catheter Indwelling Catheter Indwelling Catheter # Bowel Movements 0 ABP, PAP, CO, CI - Last Documented Arterial Blood Pressure 122/115 - Exam GENERAL: Pt awake and alert, well-nourished, and in no acute distress. ENT: Moist mucous membranes. LUNGS: Breath sounds with rhonchi and faint expiratory wheezes to auscultation bilaterally. HEART: Heart S1, S2, no S3 or S4. Irregularly irregular. No murmurs, rubs or gallops. ABDOMEN: Soft, obese, mild incisional tenderness, nondistended, active bowel sounds. No guarding, no rebound. No masses or organomegaly appreciated. Abdominal incision intact. NEUROLOGICAL: Pt oriented x 3. - Labs CBC & Chem 7: 07/02/16 08:48 07/02/16 08:48 Labs: Abnormal Lab Results - Last 24 Hours (Table) 07/02/16 07/02/16 Range/Units 08:48 08:48 RBC 3.58 L (3.80-5.40) m/uL Hgb 10.4 L (11.4-16.0) gm/dL Hct 33.8 L (34.0-46.0) % MCHC 30.8 L (31.0-37.0) g/dL Potassium 3.2 L (3.5-5.1) mmol/L Carbon Dioxide 32 H (22-30) mmol/L Glucose 153 H (74-99) mg/dL Calcium 7.7 L (8.4-10.2) mg/dL Total Bilirubin 1.7 H (0.2-1.3) mg/dL AST 83 H (14-36) U/L ALT 57 H (9-52) U/L Total Protein 5.3 L (6.3-8.2) g/dL Albumin 2.4 L (3.5-5.0) g/dL Assessment and Plan Plan: Impression: 1. Acute abdominal pain, present on admission, secondary to ischemic hepatic flexure of the right colon status post repair of umbilical hernia; lysis of adhesions; small bowel resection; and right colectomy on 06/28/2016. Plan: 1. Continue full liquid diet. Continue current medications. Increase activity. Continue supportive treatment and pain management. Continue incentive spirometry 10 times an hour while awake. Continue medical management. The above impression and plan have been discussed and directed by Dr. Butler. Nicol AYALA acting as scribe for Dr. Butler.
[2016-07-02] MEDS ORDERED: POTASSIUM CHLORIDE 20 MEQ in WATER FOR INJECTION 1 100ML.BAG IVPB ONE (15:44)
[2016-07-02] MEDS ORDERED: Potassium Replacement Protocol 1 EACH MISC MISCELLANE PRN ×2 (15:44)
--- NOTE | 2016-07-02 16:42 | P.PN ---
Subjective Principal diagnosis: Colectomy This is an 86-year-old female who is postop day 3 following a right colectomy. She was found to have bowel necrosis and ischemic bowel at the level of the right hemicolon. Patient was initially in the intensive care unit , currently is being followed on the telemetry unit. Patient has underlying chronic atrial fibrillation and is currently on a Cardizem drip at 5 mg per hour. Patient was initiated on full liquid diet today but is still not taking oral medications. Sitting up in the chair at the time of my examination, her main complaint is that she feels tired, otherwise no complaints. Objective - Vital Signs Vital signs: Vital Signs Temp 98.0 F 07/02/16 12:00 Pulse 120 H 07/02/16 12:00 Resp 16 07/02/16 12:00 BP 122/73 07/02/16 08:00 Pulse Ox 94 L 07/02/16 12:00 Intake & Output 07/01/16 07/02/16 07/02/16 18:59 06:59 18:59 Intake Total 670 1140 1320 Output Total 500 2825 Balance 170 -1685 1320 Weight 98.6 kg 86 kg 86 kg Intake: IV 670 1015 100 0.9 normal saline at KVO 20 0.9 normal saline for 15 pressure bag 0.9% NaCl with KCl 20 Meq 50 /l 1,000 ml @ 125 mls/hr IV .Q8H [facility] Rx#:[id number] 0.9% NaCl with KCl 20 Meq 200 /l 1,000 ml @ 50 mls/hr IV .Q20H [facility] Rx#: [id number] Ampicillin-Sulbactam 3 gm 100 100 In Sodium Chloride 0.9% 100 ml @ 100 mls/hr IVPB Q6HR [facility] Rx#:[id number] Dextrose 5%-0.45% NaCl 1, 300 900 000 ml @ 75 mls/hr IV . [id number] [facility] Rx#:[id number] Potassium Chloride 20 meq 100 In Water For Injection 1 100ml.bag @ 50 mls/hr IVPB ONCE ONE Rx#: [id number] Intake, IV Titration 125 180 Amount Dextrose 5%-0.45% NaCl 1, 30 000 ml @ 75 mls/hr IV . [id number] [facility] Rx#:[id number] Diltiazem 125 mg In 125 Sodium Chloride 0.9% 100 ml @ 5 MG/HR 5 mls/hr IV .Q24H [facility] Rx#:[id number] Levofloxacin 750Mg-D5w 150 Pmx 750 mg In Dextrose/ Water 1 150ml.bag @ 100 mls/hr IVPB Q48H [facility] Rx#: [id number] Oral 1040 Output: Urine 500 2825 Straight 500 Other: Voiding Method Indwelling Catheter Indwelling Catheter Indwelling Catheter # Bowel Movements 0 ABP, PAP, CO, CI - Last Documented Arterial Blood Pressure 122/115 - Exam PHYSICAL EXAMINATION: HEENT: Head is atraumatic, normocephalic. Pupils equal, round. Neck is supple. There is no elevated jugular venous pressure. HEART EXAMINATION: Heart S1 and S2 irregularly irregular CHEST EXAMINATION: Lungs reveal diminished air entry with scattered coarse rhonchi throughout. Right triple-lumen catheter in place. ABDOMEN: Soft, nontender. Bowel sounds are heard. No organomegaly noted. EXTREMITIES: 2+ peripheral pulses with 1+ evidence of peripheral edema and no calf tenderness noted. NEUROLOGIC patient is awake, alert and oriented -3. . - Labs CBC & Chem 7: 07/02/16 08:48 07/02/16 08:48 Labs: Abnormal Lab Results - Last 24 Hours (Table) 07/02/16 07/02/16 Range/Units 08:48 08:48 RBC 3.58 L (3.80-5.40) m/uL Hgb 10.4 L (11.4-16.0) gm/dL Hct 33.8 L (34.0-46.0) % MCHC 30.8 L (31.0-37.0) g/dL Potassium 3.2 L (3.5-5.1) mmol/L Carbon Dioxide 32 H (22-30) mmol/L Glucose 153 H (74-99) mg/dL Calcium 7.7 L (8.4-10.2) mg/dL Total Bilirubin 1.7 H (0.2-1.3) mg/dL AST 83 H (14-36) U/L ALT 57 H (9-52) U/L Total Protein 5.3 L (6.3-8.2) g/dL Albumin 2.4 L (3.5-5.0) g/dL Assessment and Plan (1) S/P right colectomy Status: Acute (2) Bilateral pleural effusion Status: Acute (3) Chronic a-fib Status: Acute (4) CAD (coronary artery disease) Status: Acute (5) Hyperlipemia Status: Acute (6) Hypertension Status: Acute (7) Weakness Status: Acute Plan: From cardiology's perspective, we'll continue the patient on her current medications. Once she is able to take her oral medications, we will switch her over to those. Overall she is progressing well. DNP note has been reviewed, I agree with a documented findings and plan of care. Patient was seen and examined.
[2016-07-02] MEDS: LEVOFLOXACIN 750MG-D5W PMX 750 MG in DEXTROSE/WATER 1 150ML.BAG IVPB SCH (20:47)
[2016-07-02] MEDS: METOPROLOL TARTRATE 12.5 MG TAB PO SCH (20:48)
[2016-07-02] MEDS: ATORVASTATIN 20 MG TAB PO SCH (20:48)
[2016-07-03] MEDS: HYDROmorphone 1 MG/ML 1 ML SYRINGE IVP PRN ×3 (00:03→21:49)
[2016-07-03] MEDS: LEVOTHYROXINE 88 MCG TAB PO SCH (06:26)
[2016-07-03] MEDS: AMPICILLIN-SULBACTAM 3 GM in SODIUM CHLORIDE 0.9% 100 ML IVPB SCH ×4 (06:26→23:49)
[2016-07-03] MEDS: PANTOPRAZOLE 40 MG TABLET PO SCH (08:16)
[2016-07-03] MEDS: HEPARIN SODIUM,PORCINE 5,000 UNIT/ML 1 ML VIAL SQ SCH ×2 (08:16→21:52)
[2016-07-03] MEDS: METOPROLOL TARTRATE 12.5 MG TAB PO SCH (08:16)
[2016-07-03] MEDS ORDERED: Potassium Replacement Protocol 1 EACH MISC MISCELLANE PRN ×3 (08:34→23:26)
[2016-07-03] MEDS ORDERED: POTASSIUM CHLORIDE 20 MEQ in WATER FOR INJECTION 1 100ML.BAG IVPB ONE ×2 (09:00→16:08)
[2016-07-03] MEDS: IPRATROPIUM-ALBUTEROL 3 ML NEB INHALATION PRN ×2 (11:27→21:28)
--- NOTE | 2016-07-03 12:30 | P.PN ---
Subjective Patient is doing fairly well today. No events overnight Objective - Vital Signs Vital signs: Vital Signs Temp 97.5 F L 07/03/16 11:20 Pulse 94 07/03/16 11:39 Resp 14 07/03/16 11:20 BP 124/67 07/03/16 11:20 Pulse Ox 96 07/03/16 11:20 Intake & Output 07/02/16 07/03/16 07/03/16 18:59 06:59 18:59 Intake Total 1680 560 660 Output Total 6000 400 Balance -4320 160 660 Weight 86 kg 83.8 kg Intake: IV 100 440 0.9 normal saline for 40 pressure bag Ampicillin-Sulbactam 3 gm 100 In Sodium Chloride 0.9% 100 ml @ 100 mls/hr IVPB Q6HR [facility] Rx#:[id number] Dextrose 5%-0.45% NaCl 1, 400 000 ml @ 75 mls/hr IV . [id number] [facility] Rx#:[id number] Intake, IV Titration 180 100 Amount Ampicillin-Sulbactam 3 gm 100 In Sodium Chloride 0.9% 100 ml @ 100 mls/hr IVPB Q6HR [facility] Rx#:[id number] Dextrose 5%-0.45% NaCl 1, 30 000 ml @ 75 mls/hr IV . [id number] [facility] Rx#:[id number] Levofloxacin 750Mg-D5w 150 Pmx 750 mg In Dextrose/ Water 1 150ml.bag @ 100 mls/hr IVPB Q48H [facility] Rx#: [id number] Oral 1400 120 560 Output: Urine 6000 400 Straight 400 Other: Voiding Method Indwelling Catheter Indwelling Catheter Indwelling Catheter # Bowel Movements 0 ABP, PAP, CO, CI - Last Documented Arterial Blood Pressure 122/115 - Exam General: The patient is awake and alert, in no distress Eye: there is normal conjunctiva bilaterally. Neck: The neck is supple, there is no JVD. Cardiovascular: Normal S1-S2, no S3-S4, no murmurs. Respiratory: Lungs clear to auscultation bilaterally Gastrointestinal: Abdomen is soft, nontender. Abdominal binder in place. Surgical incision appears healing well. Musculoskeletal: There is no pedal edema. Neurological:. Speech is normal. Skin: Skin is warm and dry - Labs CBC & Chem 7: 07/02/16 08:48 07/03/16 05:50 Labs: Abnormal Lab Results - Last 24 Hours (Table) 07/03/16 Range/Units 05:50 Potassium 3.2 L (3.5-5.1) mmol/L Assessment and Plan Plan: #1 right colon ischemia with necrosis status post exploratory laparotomy and right colectomy, partial small bowel resection, and repair of the umbilical hernia. Patient is doing well postoperatively #2 hypotension, with hypovolemic shock, resolved with IV fluids. #3 slightly elevated troponin level on presentation most likely thrombotic troponin leak , echo cardiogram done reveals good ejection fraction of 50-60% cardiology consult was requested, patient was evaluated by cardiology #4 underlying history of atrial fibrillation maintained on Coumadin at home. Cardiology following and adjusting her regimen as needed #5 CODE STATUS full code Plan for today: Will be given 1 dose of IV Lasix as ordered by cardiology. PT/ OT evaluation. Replace potassium per protocol. Diet as directed by surgery. Incentive spirometry at bedside. Repeat lab work in the morning.
--- NOTE | 2016-07-03 14:03 | P.PN ---
Subjective Principal diagnosis: Colectomy This is an 86-year-old female who is postop day 3 following a right colectomy. She was found to have bowel necrosis and ischemic bowel at the level of the right hemicolon. Patient was initially in the intensive care unit , currently is being followed on the telemetry unit. Patient has underlying chronic atrial fibrillation. She is taking oral medications today. We will increase her beta sary to 25 mg one tablet by mouth twice a day, give her 40 mg of IV Lasix now and start her on Lasix 40 mg a daily. Decrease the clonidine as well today. Objective - Vital Signs Vital signs: Vital Signs Temp 97.5 F L 07/03/16 11:20 Pulse 97 07/03/16 12:00 Resp 14 07/03/16 12:00 BP 124/67 07/03/16 11:20 Pulse Ox 96 07/03/16 11:20 Intake & Output 07/02/16 07/03/16 07/03/16 18:59 06:59 18:59 Intake Total 1680 560 660 Output Total 6000 400 Balance -4320 160 660 Weight 86 kg 83.8 kg Intake: IV 100 440 0.9 normal saline for 40 pressure bag Ampicillin-Sulbactam 3 gm 100 In Sodium Chloride 0.9% 100 ml @ 100 mls/hr IVPB Q6HR [facility] Rx#:[id number] Dextrose 5%-0.45% NaCl 1, 400 000 ml @ 75 mls/hr IV . [id number] [facility] Rx#:[id number] Intake, IV Titration 180 100 Amount Ampicillin-Sulbactam 3 gm 100 In Sodium Chloride 0.9% 100 ml @ 100 mls/hr IVPB Q6HR [facility] Rx#:[id number] Dextrose 5%-0.45% NaCl 1, 30 000 ml @ 75 mls/hr IV . [id number] [facility] Rx#:[id number] Levofloxacin 750Mg-D5w 150 Pmx 750 mg In Dextrose/ Water 1 150ml.bag @ 100 mls/hr IVPB Q48H [facility] Rx#: [id number] Oral 1400 120 560 Output: Urine 6000 400 Straight 400 Other: Voiding Method Indwelling Catheter Indwelling Catheter Indwelling Catheter # Bowel Movements 0 ABP, PAP, CO, CI - Last Documented Arterial Blood Pressure 122/115 - Exam PHYSICAL EXAMINATION: HEENT: Head is atraumatic, normocephalic. Pupils equal, round. Neck is supple. There is no elevated jugular venous pressure. HEART EXAMINATION: Heart S1 and S2 irregularly irregular CHEST EXAMINATION: Lungs reveal diminished air entry with scattered coarse rhonchi throughout. Right triple-lumen catheter in place. ABDOMEN: Soft, nontender. Bowel sounds are heard. No organomegaly noted. EXTREMITIES: 2+ peripheral pulses with 1+ evidence of peripheral edema and no calf tenderness noted. NEUROLOGIC patient is awake, alert and oriented -3. . - Labs CBC & Chem 7: 07/02/16 08:48 07/03/16 05:50 Labs: Abnormal Lab Results - Last 24 Hours (Table) 07/03/16 Range/Units 05:50 Potassium 3.2 L (3.5-5.1) mmol/L Assessment and Plan (1) S/P right colectomy Status: Acute (2) Bilateral pleural effusion Status: Acute (3) Chronic a-fib Status: Acute (4) CAD (coronary artery disease) Status: Acute (5) Hyperlipemia Status: Acute (6) Hypertension Status: Acute (7) Weakness Status: Acute Plan: From cardiology's perspective, we'll continue the patient on her current medications we will increase beta sary to 25 twice a day, give 40 mg of IV Lasix now, start the patient on Lasix 40 mg daily. Add losartan to her medication regime and decrease the dose of clonidine. DNP note has been reviewed, I agree with a documented findings and plan of care. Patient was seen and examined.
[2016-07-03] MEDS ORDERED: FUROSEMIDE 10 MG/ML 4 ML VIAL IV STA (14:04)
--- NOTE | 2016-07-03 15:12 | P.PN ---
Subjective 86-year-old female patient who is postop day #3 following a right colectomy. 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 The estimated blood loss was 100 mL. Postop, the patient was brought into the intensive care unit and the patient was extubated without any major difficulties. The patient was briefly hypotensive and the patient responded to IV fluids and she is on no pressors. In fact she has hypertensive at this point. She has an underlying chronic atrial fibrillation and she is still on a Cardizem drip for now at 5 mg an hour. NG tube is still in place and the total amount of output from the NG tube is around 100 over the past 24 hours. Bowel sounds are hypoactive the surgical wound site is currently intact and clean. No drains are present in the abdomen. The right second is not elevated at 6.7. Hemoglobin stable at 9.8. The patient is on a combination of Levaquin and Unasyn he had the patient was diuresed yesterday with a 40 mg of IV Lasix and she is a negative balance of 2.9 L over the past 24 hours. She is currently on a maintenance fluids of 50 mL an hour of half normal saline with D5 water. No flatus. Hypoactive bowel sounds. On 07/02/2016, the patient is being seen in follow-up in the patient is postop day 4 following a right colectomy. NG tube has been removed. She states that she has passed some liquidy bowel movement. Surgical wound site is dry clean and intact. The patient is having some noisy breathing and a congested cough lasting wheezes mainly due to upper airway secretions. The chest x-ray showing small better pleural effusion slightly worse on the right which is essentially the same compared to yesterday. The patient was given already a dose of Lasix 40 mg IV push and this is in addition to the yesterday's Lasix dose which resulted to a 2.9 L of diuresis. We'll continue diuretics follow 24 hours P monitor the sodium level. Condition is stable for now. On 07/03/2016 the patient is being seen in follow-up H is postop day #5 following a right colectomy. She is taking some ensure at the bedside. Her congested cough is still present although less severe compared to yesterday. She is weak and she has a weak cough. She is working physical therapy. The patient was given another dose of Lasix yesterday and her net fluid balance over the past 48 hours has been more than 6 L negative. No reported chills. No fever. The cough remains congested yet she is unable to bring up much of sputum at this point. On the incentive spirometer she has pulled up 750 Objective - Vital Signs Vital signs: Vital Signs Temp 97.5 F L 07/03/16 11:20 Pulse 97 07/03/16 12:00 Resp 14 07/03/16 12:00 BP 124/67 07/03/16 11:20 Pulse Ox 96 07/03/16 11:20 Intake & Output 07/02/16 07/03/16 07/03/16 18:59 06:59 18:59 Intake Total 1680 560 660 Output Total 6000 400 Balance -4320 160 660 Weight 86 kg 83.8 kg Intake: IV 100 440 0.9 normal saline for 40 pressure bag Ampicillin-Sulbactam 3 gm 100 In Sodium Chloride 0.9% 100 ml @ 100 mls/hr IVPB Q6HR [facility] Rx#:[id number] Dextrose 5%-0.45% NaCl 1, 400 000 ml @ 75 mls/hr IV . [id number] [facility] Rx#:[id number] Intake, IV Titration 180 100 Amount Ampicillin-Sulbactam 3 gm 100 In Sodium Chloride 0.9% 100 ml @ 100 mls/hr IVPB Q6HR [facility] Rx#:[id number] Dextrose 5%-0.45% NaCl 1, 30 000 ml @ 75 mls/hr IV . [id number] [facility] Rx#:[id number] Levofloxacin 750Mg-D5w 150 Pmx 750 mg In Dextrose/ Water 1 150ml.bag @ 100 mls/hr IVPB Q48H [facility] Rx#: [id number] Oral 1400 120 560 Output: Urine 6000 400 Straight 400 Other: Voiding Method Indwelling Catheter Indwelling Catheter Indwelling Catheter # Bowel Movements 0 ABP, PAP, CO, CI - Last Documented Arterial Blood Pressure 122/115 - Exam Head exam was generally normal. There was no scleral icterus or corneal arcus. Mucous membranes were moist.Neck was supple and without jugular venous distension, thyromegaly, or carotid bruits. Carotids were easily palpable bilaterally. There was no adenopathy. The patient has a right IJ triple-lumen catheter in place and the patient also has an NG tube in place. Lung sounds are diminished in lung bases bilaterally along with some scattered rhonchi and some scattered external wheeze.Cardiac exam revealed the PMI to be normally situated and sized. The rhythm was irregular and no extrasystoles were noted during several minutes of auscultation. The first and second heart sounds were normal and physiologic splitting of the second heart sound was noted. There were no murmurs, rubs, clicks, or gallops. The heart rhythm is irregular secondary to atrial fibrillation. Abdomen is soft and nontender. Surgical wound site is dry clean and intact. Bowel sounds are hypoactive. There is no direct tenderness. No rebound tenderness or guarding.Examination of the extremities revealed easily palpable radial, femoral and pedal pulses. There was no cyanosis, clubbing and there is +1 edema in both upper and lower oximetry is bilaterally. Neurologically the patient is awake and alert and her exam is nonfocal. - Labs CBC & Chem 7: 07/02/16 08:48 07/03/16 05:50 Labs: Abnormal Lab Results - Last 24 Hours (Table) 07/03/16 Range/Units 05:50 Potassium 3.2 L (3.5-5.1) mmol/L Assessment and Plan Plan: Assessment #1 right colon ischemia with necrosis status post exploratory laparotomy and right colectomy, partial small bowel resection, and repair of the umbilical hernia. Patient is doing well postoperatively. On 07/02/2069 the patient is being seen in follow-up. The patient is slowly recovering. Surgical wound site is clean and intact and the patient is passing flatus. We will be some gradual increase in her oral intake. She is currently on ice chips and minimal liquid intake. On 07/03/2016, the patient is postop day #5. She remains hemodynamically stable. She remains weak. Oral intake is being gradually advanced and she is taking a short period surgical wound site is dry clean and intact. She is passing gas/flatus without any bowel movements. #2 Small bilateral pleural effusion slightly worse on the right along with some upper airway secretions, these are probably related to fluid overload and the patient is being diuresed gently. On 07/03/2016 the patient is in considerable amount of negative fluid balance. She has diuresed more than 4 L 4 yesterday and she had developed some mild hypokalemia. #3 slightly elevated troponin level on presentation most likely thrombotic troponin leak , echo cardiogram done reveals good ejection fraction of 50-60% cardiology consult was requested, patient was evaluated by cardiology #4 atrial fibrillation maintained on Coumadin at home currently heart rate not well controlled maintained on IV Cardizem. #5 hypokalemia, diuretic induced and the potassium level is being replaced and supplemented #6 edema involving the upper and lower extremity, improved with Lasix and the patient is negative fluid balance, improving #7 postoperative bilateral pleural effusions, stable on today's chest x-ray #8 coronary artery disease #9 hyperlipidemia #10 hypothyroidism # 11 irritable bowel disease Plan Continue the Lasix. Monitor the potassium and replace. Advance diet. Aggressive physical therapy. Pulmonate toileting. Use of incentive spirometer. Repeat chest x-ray in a.m. We'll continue to follow.
--- NOTE | 2016-07-03 15:15 | CDI ---
In responding to this query, please exercise your independent professional judgment. The [facility] Coding Staff and Clinical Documentation Specialists appreciate your assistance in clarifying documentation, maintaining compliance with coding guidelines, accurately documenting patients condition and capturing severity of illness. The fact that a question is asked does not imply that any particular answer is desired or expected. Communication forms are a method of clarifying documentation and are not made part of the Legal Health Record. Thank you in advance for your clarification. Last Revision, April 2015 Alice Tucker [address] [place] [address] Documentation Clarification Form Date: 07/03/2016 2:55:00 PM From: Anitra Smiley Admit Date: 06/27/2016 12:03:00 AM Patient Name: Sonny Hess Visit Number: [id number] Dr. Dex Butler In the progress note on 06/27 you documented 'hypotension, sepsis'. Pulmonary also documented 'hypotension secondary to sepsis' in their progress notes on 06/27 thru 06/29. History/Risk Factors: Patient found to have 'ischemic hepatic flexure of right colon' Clinical Indicators: WBC on 06/26 was 8.0 Lactic acid: 1.2 Blood cultures: no growth Vitals signs on admission: temp 105.0, hr 130, rr 24, bp 176/118, sats 91% on room air Vitals within 24 hrs of admission: bp 78/42 Treatment: Surgical consult Surgical procedure on 06/28 - small bowel resection, right colectomy, repair of umbilical hernia, lysis of adhesions ICU placement IV fluid boluses Antibiotics: IV Ampicillin, IV Levaquin In your professional opinion, can you please clarify if these findings signify: Sepsis ruled in? Sepsis ruled out? Sepsis with Septic Shock Unable to determine Other, please specify Please document in your progress notes and discharge summary in order to capture severity of illness and risk of mortality. Include clinical findings that support your diagnosis. FYI: Press F11 to launch patient chart. Place X here if this finding has no clinical significance, is not applicable or if you are not able to provide any additional documentation. ANITRA
[2016-07-03] MEDS: ATORVASTATIN 20 MG TAB PO SCH (21:52)
[2016-07-03] MEDS: METOPROLOL TARTRATE 25 MG TAB PO SCH (21:53)
[2016-07-03] MEDS: POTASSIUM CHLORIDE ER 20 MEQ TAB.ER PO SCH (23:52)
[2016-07-04] MEDS: POTASSIUM CHLORIDE ER 20 MEQ TAB.ER PO SCH (01:54)
[2016-07-04] MEDS: AMPICILLIN-SULBACTAM 3 GM in SODIUM CHLORIDE 0.9% 100 ML IVPB SCH ×2 (06:24→12:23)
[2016-07-04] MEDS: LEVOTHYROXINE 88 MCG TAB PO SCH (06:25)
[2016-07-04 06:26] LABS: Basophils # (A) 0.1 k/uL (0-0.2); Basophils % (A) 1 %; CH 29.9; CHCM 32.7; Eosinophils % (A) 0 %; HCT 31.2 % (34.0-46.0); HDW 2.58; Luc # (Auto) 0.31; Luc % (Auto) 3; Lymphocytes # (A) 1.9 k/uL (1.0-4.8); Lymphocytes % (A) 16 %; MCH 29.4 pg (25.0-35.0); MCV 91.9 fL (80.0-100.0); Mean Platelet Volume 8.1; Monocytes # (A) 0.6 k/uL (0-1.0); Monocytes % (A) 5 %; Neutrophils # (A) 9.1 k/uL (1.3-7.7); Neutrophils % (A) 76 %; RDW 14.7 % (11.5-15.5); WBC (Perox) 11.65
[2016-07-04 06:52] LABS: Anion Gap 6 mmol/L; Blood Urea Nitrogen 17 mg/dL (7-17); Calcium 7.2 mg/dL (8.4-10.2); Carbon Dioxide 35 mmol/L (22-30); Chloride 94 mmol/L (98-107); Glucose 99 mg/dL (74-99); Magnesium 1.7 mg/dL (1.6-2.3); Non-African American GFR(MDRD) >60 (>60 ml/min/1.73 sqM); Potassium 3.8 mmol/L (3.5-5.1); Sodium 135 mmol/L (137-145)
[2016-07-04] MEDS ORDERED: Magnesium Replacement Protocol 1 EACH MISC MISCELLANE PRN (08:29)
[2016-07-04] MEDS: FUROSEMIDE 40 MG TAB PO SCH (08:32)
[2016-07-04] MEDS: HEPARIN SODIUM,PORCINE 5,000 UNIT/ML 1 ML VIAL SQ SCH ×2 (08:32→21:03)
[2016-07-04] MEDS: PANTOPRAZOLE 40 MG TABLET PO SCH (08:33)
[2016-07-04] MEDS: METOPROLOL TARTRATE 25 MG TAB PO SCH ×2 (08:33→21:03)
[2016-07-04] MEDS: MAGNESIUM SULFATE-D5W PMX 1 GM in DEXTROSE/WATER 1 100ML.BAG IVPB SCH ×2 (09:12→12:16)
--- NOTE | 2016-07-04 09:59 | XR ---
EXAMINATION TYPE: XR chest 1V DATE OF EXAM: 07/04/2016 9:54 AM COMPARISON: 07/02/2016 HISTORY: Cough TECHNIQUE: Single frontal view of the chest is obtained. FINDINGS: There is improving bilateral consolidation and pleural effusion. Central line stable. Card iomegaly and underlying COPD noted. Arthropathy of the shoulders. No pneumothorax. IMPRESSION: 1. Improving Bilateral infiltrate and small effusion.
[2016-07-04] MEDS ORDERED: HYDROcodone/APAP 5-325MG 1 EACH TAB PO PRN (10:48)
--- NOTE | 2016-07-04 10:51 | P.PN ---
Subjective Patient is an 86-year-old female admitted with acute abdomen and found to have ischemic hepatic flexure of the right colon. Patient is status post repair of umbilical hernia; lysis of adhesions; small bowel resection; and right colectomy , postop day #5. Patient is evaluated on selective care unit where she is currently lying in bed with daughter at bedside. Patient continues with loose, nonproductive cough. Denies chills, fevers, nausea, or vomiting. Incisional pain controlled. Patient unsure if she is passing flatus but reports no bowel movements. Patient tolerating a full liquid diet. Urine output adequate. Afebrile. Objective - Vital Signs Vital signs: Vital Signs Temp 97.5 F L 07/03/16 11:20 Pulse 94 07/03/16 11:39 Resp 14 07/03/16 11:20 BP 124/67 07/03/16 11:20 Pulse Ox 96 07/03/16 11:20 Intake & Output 07/02/16 07/03/16 07/03/16 18:59 06:59 18:59 Intake Total 1680 560 660 Output Total 6000 400 Balance -4320 160 660 Weight 86 kg 83.8 kg Intake: IV 100 440 0.9 normal saline for 40 pressure bag Ampicillin-Sulbactam 3 gm 100 In Sodium Chloride 0.9% 100 ml @ 100 mls/hr IVPB Q6HR [facility] Rx#:[id number] Dextrose 5%-0.45% NaCl 1, 400 000 ml @ 75 mls/hr IV . [id number] [facility] Rx#:[id number] Intake, IV Titration 180 100 Amount Ampicillin-Sulbactam 3 gm 100 In Sodium Chloride 0.9% 100 ml @ 100 mls/hr IVPB Q6HR [facility] Rx#:[id number] Dextrose 5%-0.45% NaCl 1, 30 000 ml @ 75 mls/hr IV . [id number] [facility] Rx#:[id number] Levofloxacin 750Mg-D5w 150 Pmx 750 mg In Dextrose/ Water 1 150ml.bag @ 100 mls/hr IVPB Q48H [facility] Rx#: [id number] Oral 1400 120 560 Output: Urine 6000 400 Straight 400 Other: Voiding Method Indwelling Catheter Indwelling Catheter Indwelling Catheter # Bowel Movements 0 ABP, PAP, CO, CI - Last Documented Arterial Blood Pressure 122/115 - Exam GENERAL: Pt awake and alert, well-nourished, and in no acute distress. ENT: Moist mucous membranes. LUNGS: Breath sounds with rhonchi to auscultation bilaterally. HEART: Heart S1, S2, no S3 or S4. Irregularly irregular. No murmurs, rubs or gallops. ABDOMEN: Soft, obese, mild incisional tenderness, nondistended, active bowel sounds. No guarding, no rebound. No masses or organomegaly appreciated. Abdominal dressing intact with old serosanguineous drainage. NEUROLOGICAL: Pt oriented x 3. - Labs CBC & Chem 7: 07/02/16 08:48 07/03/16 05:50 Labs: Abnormal Lab Results - Last 24 Hours (Table) 07/03/16 Range/Units 05:50 Potassium 3.2 L (3.5-5.1) mmol/L Assessment and Plan Plan: Impression: 1. Acute abdominal pain, present on admission, secondary to ischemic hepatic flexure of the right colon status post repair of umbilical hernia; lysis of adhesions; small bowel resection; and right colectomy on 06/28/2016. Plan: 1. Continue full liquid diet. Continue current medications. Increase activity. Continue supportive treatment and pain management. Continue incentive spirometry 10 times an hour while awake. Continue physical therapy. Continue medical management. The above impression and plan have been discussed and directed by Dr. Butler. Nicol AYALA acting as scribe for Dr. Butler.
--- NOTE | 2016-07-04 11:00 | P.PN ---
Subjective Patient is an 86-year-old female admitted with acute abdomen and found to have ischemic hepatic flexure of the right colon. Patient is status post repair of umbilical hernia; lysis of adhesions; small bowel resection; and right colectomy , postop day #6. Patient is evaluated on selective care unit where she is currently lying in bed. Patient continues with loose, nonproductive cough. Denies chills, fevers, nausea, or vomiting. Incisional pain controlled. Patient unsure if she is passing flatus but reports no bowel movements. Patient tolerating a full liquid diet. Urine output adequate. T-max the last 24 hours 100 at 4 PM yesterday. WBC increased to 12. Hemoglobin 10. Chest x- ray with improving bilateral infiltrate and small effusion. Objective - Vital Signs Vital signs: Vital Signs Temp 98.0 F 07/04/16 04:00 Pulse 98 07/04/16 04:00 Resp 16 07/04/16 04:00 BP 109/58 07/04/16 04:00 Pulse Ox 94 L 07/04/16 04:00 Intake & Output 07/03/16 07/04/16 07/04/16 18:59 06:59 18:59 Intake Total 1840 650 120 Output Total 2000 1000 Balance -160 -350 120 Weight 83 kg Intake: IV 260 0.9 normal saline for 60 pressure bag Ampicillin-Sulbactam 3 gm 200 In Sodium Chloride 0.9% 100 ml @ 100 mls/hr IVPB Q6HR [facility] Rx#:[id number] Intake, IV Titration 300 50 Amount Ampicillin-Sulbactam 3 gm 100 In Sodium Chloride 0.9% 100 ml @ 100 mls/hr IVPB Q6HR [facility] Rx#:[id number] Potassium Chloride 20 meq 100 In Water For Injection 1 100ml.bag @ 50 mls/hr IVPB ONCE ONE Rx#: [id number] Potassium Chloride 20 meq 100 50 In Water For Injection 1 100ml.bag @ 50 mls/hr IVPB ONCE ONE Rx#: [id number] Oral 1280 600 120 Output: Urine 2000 1000 Other: Voiding Method Indwelling Catheter Indwelling Catheter # Bowel Movements 0 ABP, PAP, CO, CI - Last Documented Arterial Blood Pressure 122/115 - Exam GENERAL: Pt awake and alert, well-nourished, and in no acute distress. ENT: Moist mucous membranes. LUNGS: Breath sounds with rhonchi to auscultation bilaterally. HEART: Heart S1, S2, no S3 or S4. Irregularly irregular. No murmurs, rubs or gallops. ABDOMEN: Soft, obese, mild incisional tenderness, nondistended, active bowel sounds. No guarding, no rebound. No masses or organomegaly appreciated. Abdominal dressing intact with old serosanguineous drainage. NEUROLOGICAL: Pt oriented x 3. - Labs CBC & Chem 7: 07/04/16 05:59 07/04/16 05:59 Labs: Abnormal Lab Results - Last 24 Hours (Table) 07/03/16 07/03/16 07/04/16 Range/Units 15:00 21:45 05:59 WBC 12.0 H (3.8-10.6) k/uL RBC 3.40 L (3.80-5.40) m/uL Hgb 10.0 L (11.4-16.0) gm/dL Hct 31.2 L (34.0-46.0) % Neutrophils # 9.1 H (1.3-7.7) k/uL Sodium (137-145) mmol/L Potassium 3.2 L 3.3 L (3.5-5.1) mmol/L Chloride (98-107) mmol/L Carbon Dioxide (22-30) mmol/L Calcium (8.4-10.2) mg/dL 07/04/16 Range/Units 05:59 WBC (3.8-10.6) k/uL RBC (3.80-5.40) m/uL Hgb (11.4-16.0) gm/dL Hct (34.0-46.0) % Neutrophils # (1.3-7.7) k/uL Sodium 135 L (137-145) mmol/L Potassium (3.5-5.1) mmol/L Chloride 94 L (98-107) mmol/L Carbon Dioxide 35 H (22-30) mmol/L Calcium 7.2 L (8.4-10.2) mg/dL Assessment and Plan Plan: Impression: 1. Acute abdominal pain, present on admission, secondary to ischemic hepatic flexure of the right colon status post repair of umbilical hernia; lysis of adhesions; small bowel resection; and right colectomy on 06/28/2016. 2. Bilateral infiltrate and small effusion. Plan: 1. Advance diet to soft. Transition patient to oral pain medications. Continue IV antibiotics. Continue supportive treatment and pain management. Continue incentive spirometry 10 times an hour while awake. Continue physical therapy. Continue medical management. The above impression and plan have been discussed and directed by Dr. Butler. Nicol AYALA acting as scribe for Dr. Butler.
[2016-07-04] MEDS: POTASSIUM CHLORIDE 10 MEQ in WATER FOR INJECTION 1 100ML.BAG IVPB SCH (11:23)
--- NOTE | 2016-07-04 14:14 | P.PN ---
Subjective Patient is doing fairly well today. No events overnight Objective - Vital Signs Vital signs: Vital Signs Temp 97.9 F 07/04/16 08:20 Pulse 109 H 07/04/16 08:20 Resp 18 07/04/16 08:20 BP 117/57 07/04/16 08:20 Pulse Ox 97 07/04/16 08:20 Intake & Output 07/03/16 07/04/16 07/04/16 18:59 06:59 18:59 Intake Total 1840 650 290 Output Total 2000 1000 2500 Balance -160 -350 -2210 Weight 83 kg Intake: IV 260 0.9 normal saline for 60 pressure bag Ampicillin-Sulbactam 3 gm 200 In Sodium Chloride 0.9% 100 ml @ 100 mls/hr IVPB Q6HR [facility] Rx#:[id number] Intake, IV Titration 300 50 Amount Ampicillin-Sulbactam 3 gm 100 In Sodium Chloride 0.9% 100 ml @ 100 mls/hr IVPB Q6HR [facility] Rx#:[id number] Potassium Chloride 20 meq 100 In Water For Injection 1 100ml.bag @ 50 mls/hr IVPB ONCE ONE Rx#: [id number] Potassium Chloride 20 meq 100 50 In Water For Injection 1 100ml.bag @ 50 mls/hr IVPB ONCE ONE Rx#: [id number] Oral 1280 600 290 Output: Urine 1999 1000 2500 Other: Voiding Method Indwelling Catheter Indwelling Catheter Indwelling Catheter # Bowel Movements 0 ABP, PAP, CO, CI - Last Documented Arterial Blood Pressure 122/115 - Exam General: The patient is awake and alert, in no distress Eye: there is normal conjunctiva bilaterally. Neck: The neck is supple, there is no JVD. Cardiovascular: Normal S1-S2, no S3-S4, no murmurs. Respiratory: Lungs clear to auscultation bilaterally Gastrointestinal: Abdomen is soft, nontender. Abdominal binder in place. Surgical incision appears healing well. Musculoskeletal: There is no pedal edema. Neurological:. Speech is normal. Skin: Skin is warm and dry - Labs CBC & Chem 7: 07/04/16 05:59 07/04/16 05:59 Labs: Abnormal Lab Results - Last 24 Hours (Table) 07/03/16 07/03/16 07/04/16 Range/Units 15:00 21:45 05:59 WBC 12.0 H (3.8-10.6) k/uL RBC 3.40 L (3.80-5.40) m/uL Hgb 10.0 L (11.4-16.0) gm/dL Hct 31.2 L (34.0-46.0) % Neutrophils # 9.1 H (1.3-7.7) k/uL Sodium (137-145) mmol/L Potassium 3.2 L 3.3 L (3.5-5.1) mmol/L Chloride (98-107) mmol/L Carbon Dioxide (22-30) mmol/L Calcium (8.4-10.2) mg/dL 07/04/16 Range/Units 05:59 WBC (3.8-10.6) k/uL RBC (3.80-5.40) m/uL Hgb (11.4-16.0) gm/dL Hct (34.0-46.0) % Neutrophils # (1.3-7.7) k/uL Sodium 135 L (137-145) mmol/L Potassium (3.5-5.1) mmol/L Chloride 94 L (98-107) mmol/L Carbon Dioxide 35 H (22-30) mmol/L Calcium 7.2 L (8.4-10.2) mg/dL Assessment and Plan Plan: #1 right colon ischemia with necrosis status post exploratory laparotomy and right colectomy, partial small bowel resection, and repair of the umbilical hernia. Patient is doing well postoperatively #2 hypotension, with hypovolemic shock, resolved with IV fluids. #3 slightly elevated troponin level on presentation most likely thrombotic troponin leak , echo cardiogram done reveals good ejection fraction of 50-60% cardiology consult was requested, patient was evaluated by cardiology #4 underlying history of atrial fibrillation maintained on Coumadin at home. Cardiology following and adjusting her regimen as needed #5 CODE STATUS full code Plan for today: Switch Lasix and antibiotic to oral form. PT/OT evaluation. Diet as directed by surgery. Incentive spirometry at bedside. Repeat lab work in the morning. Discuss anticoagulation with cardiology. Discontinue clonidine patch. Monitor blood pressure closely.
--- NOTE | 2016-07-04 14:49 | P.PN ---
Subjective Principal diagnosis: Pneumobilia This is a very pleasant 86-year-old female patient who follows with Dr. Cabello as her primary care physician. She does have a history of coronary artery disease with previous cardiac catheterization and stent placement, atrial fibrillation anticoagulated with warfarin, hypertension, hyperlipidemia, hypothyroidism. No previous pulmonary disease. She is a lifelong nonsmoker. No history of asthma or emphysema. She had presented here to the emergency room 2 days in a row for complaints of abdominal discomfort lower extremity weakness and fatigue. She also had issues with nausea, vomiting and diarrhea. Her chest x-ray revealed evidence of cardiomegaly and mild vascular congestion. Small bilateral pleural effusions with atelectatic changes at the bases and some groundglass opacity in the right middle lobe. There is noted mucosal thickening involving the distal sigmoid colon. An ultrasound of the abdomen revealed no evidence of gallstones or dilated ducts. There was some echogenic areas throughout the liver probably related to air in the biliary tree. Hepatic metastatic disease is not entirely excluded. The patient is seen again today to 217 in follow-up. She is sitting up in the chair at the bedside. She is awake and alert in no acute distress. She states she is breathing easier today as compared to yesterday. Has her pain is fairly well controlled. Increased encouragement regarding the incentive spirometer and cough and deep breathing exercises. Her chest x-ray day did show improvement in the bilateral infiltrates and small effusions. She is maintaining good O2 saturations in the mid 90s on room air. She's been afebrile. Tolerating a regular diet today. Objective - Vital Signs Vital signs: Vital Signs Temp 97.9 F 07/04/16 08:20 Pulse 109 H 07/04/16 08:20 Resp 18 07/04/16 08:20 BP 117/57 07/04/16 08:20 Pulse Ox 97 07/04/16 08:20 Intake & Output 07/03/16 07/04/16 07/04/16 18:59 06:59 18:59 Intake Total 1840 650 290 Output Total 2000 1000 2500 Balance -160 350 -2210 Weight 83 kg Intake: IV 260 0.9 normal saline for 60 pressure bag Ampicillin-Sulbactam 3 gm 200 In Sodium Chloride 0.9% 100 ml @ 100 mls/hr IVPB Q6HR [facility] Rx#:[id number] Intake, IV Titration 300 50 Amount Ampicillin-Sulbactam 3 gm 100 In Sodium Chloride 0.9% 100 ml @ 100 mls/hr IVPB Q6HR [facility] Rx#:[id number] Potassium Chloride 20 meq 100 In Water For Injection 1 100ml.bag @ 50 mls/hr IVPB ONCE ONE Rx#: [id number] Potassium Chloride 20 meq 100 50 In Water For Injection 1 100ml.bag @ 50 mls/hr IVPB ONCE ONE Rx#: [id number] Oral 1280 600 290 Output: Urine 2000 1000 2500 Other: Voiding Method Indwelling Catheter Indwelling Catheter Indwelling Catheter # Bowel Movements 0 ABP, PAP, CO, CI - Last Documented Arterial Blood Pressure 122/115 - Exam GENERAL EXAM: Alert, comfortable in no apparent distress. HEAD: Normocephalic. EYES: Normal reaction of pupils, equal size. NOSE: Clear with pink turbinates. Left nare nasogastric tube secured in place. THROAT: No erythema or exudates. NECK: No masses, no JVD. CHEST: No chest wall deformity. LUNGS: Equal air entry with crackles in the posterior bases. CVS: S1 and S2 normal with no audible murmurs, irregular rhythm. ABDOMEN: Abdominal dressing is dry and intact. Bowel sounds are present. SPINE: No scoliosis or deformity SKIN: No rashes CENTRAL NERVOUS SYSTEM: No focal deficits, tone is normal in all 4 extremities. Extremities: There is no significant peripheral edema. No clubbing, no cyanosis. Peripheral pulses are intact - Labs CBC & Chem 7: 07/04/16 05:59 07/04/16 05:59 Labs: Abnormal Lab Results - Last 24 Hours (Table) 07/03/16 07/03/16 07/04/16 Range/Units 15:00 21:45 05:59 WBC 12.0 H (3.8-10.6) k/uL RBC 3.40 L (3.80-5.40) m/uL Hgb 10.0 L (11.4-16.0) gm/dL Hct 31.2 L (34.0-46.0) % Neutrophils # 9.1 H (1.3-7.7) k/uL Sodium (137-145) mmol/L Potassium 3.2 L 3.3 L (3.5-5.1) mmol/L Chloride (98-107) mmol/L Carbon Dioxide (22-30) mmol/L Calcium (8.4-10.2) mg/dL 07/04/16 Range/Units 05:59 WBC (3.8-10.6) k/uL RBC (3.80-5.40) m/uL Hgb (11.4-16.0) gm/dL Hct (34.0-46.0) % Neutrophils # (1.3-7.7) k/uL Sodium 135 L (137-145) mmol/L Potassium (3.5-5.1) mmol/L Chloride 94 L (98-107) mmol/L Carbon Dioxide 35 H (22-30) mmol/L Calcium 7.2 L (8.4-10.2) mg/dL Assessment and Plan Plan: Impression: #1 Acute abdominal pain possibly related to pneumobilia and suspected colitis. Status post exploratory laparotomy and was found to have ischemia with necrosis of retroperitoneal hepatic flexure of the right colon. She is status post right colectomy, small bowel resection, lysis of adhesions and repair of umbilical hernia. #2 Hypotension secondary to sepsis, stable. #3 Atrial fibrillation anticoagulated with warfarin, currently on hold, reversed for pending surgery. #4 Coagulopathy secondary to warfarin, reverse. #5 Coronary artery disease with previous stent placement. #6 Hyperlipidemia. #7 Hypertension. #8 Hypothyroidism. Plan: The patient was seen and evaluated by Dr. Amezquita. Today's chest x-ray was reviewed and shows continued improvement in the basilar infiltrate/atelectasis. He remains on bronchodilators and antibiotics in the form of Augmentin. Continue with Lasix. We've again encourage the increased use of the incentive spirometer and cough and deep breathing exercises. We will increase her activity as tolerated. We'll continue to follow make further recommendations based on her clinical status.
--- NOTE | 2016-07-04 14:51 | P.PN ---
Subjective Principal diagnosis: Colectomy This is an 86-year-old female who is postop day 3 following a right colectomy. She was found to have bowel necrosis and ischemic bowel at the level of the right hemicolon. Patient was initially in the intensive care unit , currently is being followed on the telemetry unit. Patient continues to be in atrial fibrillation. Blood pressure today 118/60. Patient continues to be on the clonidine patch which was initiated when she was not taking oral medications. We will add losartan 25 mg daily to her medication regime. Tomorrow we will increase the losartan to 50 mg, increase beta sary tomorrow , and discontinue the clonidine, these changes will be made to avoid rebound discontinuation affects. We will also start the patient on anticoagulation. Objective - Vital Signs Vital signs: Vital Signs Temp 97.9 F 07/04/16 08:20 Pulse 109 H 07/04/16 08:20 Resp 18 07/04/16 08:20 BP 117/57 07/04/16 08:20 Pulse Ox 97 07/04/16 08:20 Intake & Output 07/03/16 07/04/16 07/04/16 18:59 06:59 18:59 Intake Total 1840 650 290 Output Total 2000 1000 2500 Balance -160 -350 -2210 Weight 83 kg Intake: IV 260 0.9 normal saline for 60 pressure bag Ampicillin-Sulbactam 3 gm 200 In Sodium Chloride 0.9% 100 ml @ 100 mls/hr IVPB Q6HR [facility] Rx#:[id number] Intake, IV Titration 300 50 Amount Ampicillin-Sulbactam 3 gm 100 In Sodium Chloride 0.9% 100 ml @ 100 mls/hr IVPB Q6HR [facility] Rx#:[id number] Potassium Chloride 20 meq 100 In Water For Injection 1 100ml.bag @ 50 mls/hr IVPB ONCE ONE Rx#: [id number] Potassium Chloride 20 meq 100 50 In Water For Injection 1 100ml.bag @ 50 mls/hr IVPB ONCE ONE Rx#: [id number] Oral 1280 600 290 Output: Urine 2000 1000 2500 Other: Voiding Method Indwelling Catheter Indwelling Catheter Indwelling Catheter # Bowel Movements 0 ABP, PAP, CO, CI - Last Documented Arterial Blood Pressure 122/115 - Exam PHYSICAL EXAMINATION: HEENT: Head is atraumatic, normocephalic. Pupils equal, round. Neck is supple. There is no elevated jugular venous pressure. HEART EXAMINATION: Heart S1 and S2 irregularly irregular CHEST EXAMINATION: Lungs reveal diminished air entry with scattered coarse rhonchi throughout. Right triple-lumen catheter in place. ABDOMEN: Soft, nontender. Bowel sounds are heard. No organomegaly noted. EXTREMITIES: 2+ peripheral pulses with 1+ evidence of peripheral edema and no calf tenderness noted. NEUROLOGIC patient is awake, alert and oriented -3. . - Labs CBC & Chem 7: 07/04/16 05:59 07/04/16 05:59 Labs: Abnormal Lab Results - Last 24 Hours (Table) 07/03/16 07/03/16 07/04/16 Range/Units 15:00 21:45 05:59 WBC 12.0 H (3.8-10.6) k/uL RBC 3.40 L (3.80-5.40) m/uL Hgb 10.0 L (11.4-16.0) gm/dL Hct 31.2 L (34.0-46.0) % Neutrophils # 9.1 H (1.3-7.7) k/uL Sodium (137-145) mmol/L Potassium 3.2 L 3.3 L (3.5-5.1) mmol/L Chloride (98-107) mmol/L Carbon Dioxide (22-30) mmol/L Calcium (8.4-10.2) mg/dL 07/04/16 Range/Units 05:59 WBC (3.8-10.6) k/uL RBC (3.80-5.40) m/uL Hgb (11.4-16.0) gm/dL Hct (34.0-46.0) % Neutrophils # (1.3-7.7) k/uL Sodium 135 L (137-145) mmol/L Potassium (3.5-5.1) mmol/L Chloride 94 L (98-107) mmol/L Carbon Dioxide 35 H (22-30) mmol/L Calcium 7.2 L (8.4-10.2) mg/dL Assessment and Plan (1) S/P right colectomy Status: Acute (2) Bilateral pleural effusion Status: Acute (3) Chronic a-fib Status: Acute (4) CAD (coronary artery disease) Status: Acute (5) Hyperlipemia Status: Acute (6) Hypertension Status: Acute (7) Weakness Status: Acute Plan: From cardiology's perspective, we will add losartan 25 mg daily to her medication regime. From tomorrow if blood pressure is stable we will increase the losartan to 50 mg daily, increase beta sary, and discontinue the clonidine. We will also start the patient on anticoagulation in the form of Eliquis 2-1/2 mg one tablet by mouth twice a day. DNP note has been reviewed, I agree with a documented findings and plan of care. Patient was seen and examined.
[2016-07-04] MEDS ORDERED: LEVOFLOXACIN 750 MG TAB PO SCH ×2 (16:00→20:00)
[2016-07-04] MEDS: LOSARTAN 25 MG TAB PO SCH (16:31)
[2016-07-04] MEDS: HYDROcodone/APAP 5-325MG 1 EACH TAB PO PRN (16:49)
[2016-07-04] MEDS: ATORVASTATIN 20 MG TAB PO SCH (21:03)
[2016-07-04] MEDS: AMOXIC-POT CLAV 875-125MG 1 EACH TAB PO SCH (21:03)
[2016-07-05 05:38] LABS: Basophils % (A) 0 %; CH 29.7; CHCM 32.3; Eosinophils % (A) 0 %; HCT 30.4 % (34.0-46.0); HDW 2.56; HGB 9.7 gm/dL (11.4-16.0); Luc # (Auto) 0.28; Luc % (Auto) 3; Lymphocytes # (A) 1.7 k/uL (1.0-4.8); Lymphocytes % (A) 15 %; MCH 29.5 pg (25.0-35.0); MCV 92.2 fL (80.0-100.0); Monocytes # (A) 0.4 k/uL (0-1.0); Monocytes % (A) 3 %; Neutrophils # (A) 8.7 k/uL (1.3-7.7); Neutrophils % (A) 78 %; RBC 3.29 m/uL (3.80-5.40); RDW 14.6 % (11.5-15.5); WBC 11.1 k/uL (3.8-10.6); WBC (Perox) 11.86
[2016-07-05 05:49] LABS: Anion Gap 4 mmol/L; Blood Urea Nitrogen 18 mg/dL (7-17); Calcium 7.1 mg/dL (8.4-10.2); Carbon Dioxide 38 mmol/L (22-30); Chloride 94 mmol/L (98-107); Glucose 102 mg/dL (74-99); Non-African American GFR(MDRD) >60 (>60 ml/min/1.73 sqM); Potassium 3.1 mmol/L (3.5-5.1); Sodium 136 mmol/L (137-145)
[2016-07-05] MEDS: LEVOTHYROXINE 88 MCG TAB PO SCH (06:43)
[2016-07-05] MEDS ORDERED: POTASSIUM CHLORIDE ER 20 MEQ TAB.ER PO STA (08:11)
[2016-07-05] MEDS: AMOXIC-POT CLAV 875-125MG 1 EACH TAB PO SCH ×2 (10:17→20:48)
[2016-07-05] MEDS: HYDROcodone/APAP 5-325MG 1 EACH TAB PO PRN ×3 (10:18→20:56)
[2016-07-05] MEDS: FUROSEMIDE 40 MG TAB PO SCH (10:22)
[2016-07-05] MEDS: METOPROLOL TARTRATE 25 MG TAB PO SCH ×2 (10:23→20:48)
[2016-07-05] MEDS: LOSARTAN 25 MG TAB PO SCH (10:23)
[2016-07-05] MEDS: HEPARIN SODIUM,PORCINE 5,000 UNIT/ML 1 ML VIAL SQ SCH (10:24)
[2016-07-05] MEDS: PANTOPRAZOLE 40 MG TABLET PO SCH (10:24)
[2016-07-05 11:42] VITALS: BMI 29.9
--- NOTE | 2016-07-05 12:10 | P.PN ---
Subjective Patient denies any abdominal pain. Denies any nausea or vomiting. Denies bowel movement. Surgery following. They advanced diet soft. Patient lying in bed comfortably. Denies pain. Family at bedside. Denies any chest pain or shortness of breath. Objective - Vital Signs Vital signs: Vital Signs Temp 97.1 F L 07/05/16 09:45 Pulse 100 07/05/16 09:45 Resp 18 07/05/16 09:45 BP 117/53 07/05/16 09:45 Pulse Ox 97 07/05/16 09:45 Intake & Output 07/04/16 07/05/16 07/05/16 18:59 06:59 18:59 Intake Total 410 360 Output Total 3500 2500 350 Balance -3090 -2500 10 Weight 84.3 kg 84.3 kg Intake: Oral 410 360 Output: Urine 3500 2500 350 Other: Voiding Method Indwelling Catheter Indwelling Catheter Indwelling Catheter # Voids 1 # Bowel Movements 0 ABP, PAP, CO, CI - Last Documented Arterial Blood Pressure 122/115 - Exam Head normocephalic Neck supple Lungs coarse breath sounds noted in upper airways Heart regular rate and rhythm S1-S2, no rub or gallop Abdomen is soft positive bowel sounds patient and abdominal binder Extremities no edema Neuro alert and orientated to 3 - Labs CBC & Chem 7: 07/05/16 05:22 07/05/16 05:22 Labs: Abnormal Lab Results - Last 24 Hours (Table) 07/05/16 07/05/16 Range/Units 05:22 05:22 WBC 11.1 H (3.8-10.6) k/uL RBC 3.29 L (3.80-5.40) m/uL Hgb 9.7 L (11.4-16.0) gm/dL Hct 30.4 L (34.0-46.0) % Neutrophils # 8.7 H (1.3-7.7) k/uL Sodium 136 L (137-145) mmol/L Potassium 3.1 L (3.5-5.1) mmol/L Chloride 94 L (98-107) mmol/L Carbon Dioxide 38 H (22-30) mmol/L BUN 18 H (7-17) mg/dL Glucose 102 H (74-99) mg/dL Calcium 7.1 L (8.4-10.2) mg/dL Assessment and Plan Plan: #1 right colon ischemia with necrosis status post exploratory laparotomy and right colectomy, partial small bowel resection, and repair of the umbilical hernia. Surgery following they've advance diet to soft. Continue pain control. Educated patient on taking her [place] to help with pain control. #2 hypotension secondary to sepsis: Stable. Improved with IV fluids #3 slightly elevated troponin level on presentation most likely thrombotic troponin leak , echo cardiogram done reveals good ejection fraction of 50-60%, patient was evaluated by cardiology #4underlying history of chronic atrial fibrillation maintained on Coumadin at home. Cardiology a start patient on Eliquis #5 CODE STATUS full code #6 discontinue Hdz catheter. Increase activity. Encourage incentive spirometry use. Work with physical therapy. When patient is stable, plan is to discharge to [facility]
[2016-07-05] MEDS: APIXABAN 2.5 MG TABLET PO SCH ×2 (13:19→20:48)
--- NOTE | 2016-07-05 14:26 | P.PN ---
Subjective Patient is an 86-year-old female admitted with acute abdomen and found to have ischemic hepatic flexure of the right colon. Patient is status post repair of umbilical hernia; lysis of adhesions; small bowel resection; and right colectomy , postop day #7. Patient is evaluated on selective care unit where she is currently lying in bed. Patient reports improvement in breathing. Denies chills , fevers, nausea, vomiting, or chest pain. Patient reports incisional pain with coughing. Patient unsure if she is passing flatus but reports no bowel movements. Patient tolerating a soft diet. Urine output adequate. Afebrile. WBC decreased to 11.1. Hemoglobin stable at 9.7. Objective - Vital Signs Vital signs: Vital Signs Temp 97.8 F 07/05/16 11:45 Pulse 97 07/05/16 11:45 Resp 18 07/05/16 11:45 BP 118/52 07/05/16 11:45 Pulse Ox 97 07/05/16 11:45 Intake & Output 07/04/16 07/05/16 07/05/16 18:59 06:59 18:59 Intake Total 410 720 Output Total 3500 2500 2050 Balance -3090 -2500 -1330 Weight 84.3 kg 84.3 kg Intake: Oral 410 720 Output: Urine 3500 2500 2049 Other: Voiding Method Indwelling Catheter Indwelling Catheter Indwelling Catheter # Voids 1 # Bowel Movements 0 ABP, PAP, CO, CI - Last Documented Arterial Blood Pressure 122/115 - Exam GENERAL: Pt awake and alert, well-nourished, and in no acute distress. ENT: Moist mucous membranes. LUNGS: Breath sounds with rhonchi to auscultation bilaterally. HEART: Heart S1, S2, no S3 or S4. Irregularly irregular. No murmurs, rubs or gallops. ABDOMEN: Soft, obese, mild incisional tenderness, nondistended, active bowel sounds. No guarding, no rebound. No masses or organomegaly appreciated. Abdominal dressing intact with old serosanguineous drainage. NEUROLOGICAL: Pt oriented x 3. - Labs CBC & Chem 7: 07/05/16 05:22 07/05/16 05:22 Labs: Abnormal Lab Results - Last 24 Hours (Table) 07/05/16 07/05/16 Range/Units 05:22 05:22 WBC 11.1 H (3.8-10.6) k/uL RBC 3.29 L (3.80-5.40) m/uL Hgb 9.7 L (11.4-16.0) gm/dL Hct 30.4 L (34.0-46.0) % Neutrophils # 8.7 H (1.3-7.7) k/uL Sodium 136 L (137-145) mmol/L Potassium 3.1 L (3.5-5.1) mmol/L Chloride 94 L (98-107) mmol/L Carbon Dioxide 38 H (22-30) mmol/L BUN 18 H (7-17) mg/dL Glucose 102 H (74-99) mg/dL Calcium 7.1 L (8.4-10.2) mg/dL Assessment and Plan Plan: Impression: 1. Acute abdominal pain, present on admission, secondary to ischemic hepatic flexure of the right colon status post repair of umbilical hernia; lysis of adhesions; small bowel resection; and right colectomy on 06/28/2016. Plan: 1. Continue soft diet. Continue IV antibiotics. Continue supportive treatment and pain management. Continue incentive spirometry 10 times an hour while awake. Continue physical therapy. Continue medical management. The above impression and plan have been discussed and directed by Dr. Butler. Nicol AYALA acting as scribe for Dr. Butler.
--- NOTE | 2016-07-05 17:30 | P.PN ---
Subjective Principal diagnosis: Pneumobilia This is a very pleasant 86-year-old female patient who follows with Dr. Cabello as her primary care physician. She does have a history of coronary artery disease with previous cardiac catheterization and stent placement, atrial fibrillation anticoagulated with warfarin, hypertension, hyperlipidemia, hypothyroidism. No previous pulmonary disease. She is a lifelong nonsmoker. No history of asthma or emphysema. She had presented here to the emergency room 2 days in a row for complaints of abdominal discomfort lower extremity weakness and fatigue. She also had issues with nausea, vomiting and diarrhea. Her chest x-ray revealed evidence of cardiomegaly and mild vascular congestion. Small bilateral pleural effusions with atelectatic changes at the bases and some groundglass opacity in the right middle lobe. There is noted mucosal thickening involving the distal sigmoid colon. An ultrasound of the abdomen revealed no evidence of gallstones or dilated ducts. There was some echogenic areas throughout the liver probably related to air in the biliary tree. Hepatic metastatic disease is not entirely excluded. She is now status post repair of an umbilical hernia, lysis of adhesions, small bowel resection and a right colectomy performed secondary to ischemia with necrosis of the retroperitoneal hepatic flexure of the right colon. Patient is seen again today 07/05/2016 in follow-up. She is awake and alert and denies any worsening shortness of breath and she continues with a loose nonproductive cough. She has working well with the incentive spirometer. She is maintaining good O2 saturations in the upper 90s on room air. She is afebrile. She's been up with assistance. Tolerating regular diet now. Objective - Vital Signs Vital signs: Vital Signs Temp 97.8 F 07/05/16 11:45 Pulse 97 07/05/16 11:45 Resp 18 07/05/16 11:45 BP 118/52 07/05/16 11:45 Pulse Ox 97 07/05/16 11:45 Intake & Output 07/04/16 07/05/16 07/05/16 18:59 06:59 18:59 Intake Total 410 720 Output Total 3500 2500 2049 Balance -3090 -2500 -6400 Weight 84.3 kg 84.3 kg Intake: Oral 410 720 Output: Urine 3500 2499 2049 Other: Voiding Method Indwelling Catheter Indwelling Catheter Indwelling Catheter # Voids 1 # Bowel Movements 0 ABP, PAP, CO, CI - Last Documented Arterial Blood Pressure 122/115 - Exam GENERAL EXAM: Alert, comfortable in no apparent distress. HEAD: Normocephalic. EYES: Normal reaction of pupils, equal size. NOSE: Clear with pink turbinates. THROAT: No erythema or exudates. NECK: No masses, no JVD. CHEST: No chest wall deformity. LUNGS: Equal air entry with crackles in the posterior bases. CVS: S1 and S2 normal with no audible murmurs, irregular rhythm. ABDOMEN: Abdominal dressing is dry and intact. Bowel sounds are present. SPINE: No scoliosis or deformity SKIN: No rashes CENTRAL NERVOUS SYSTEM: No focal deficits, tone is normal in all 4 extremities. Extremities: There is no significant peripheral edema. No clubbing, no cyanosis. Peripheral pulses are intact - Labs CBC & Chem 7: 07/05/16 05:22 07/05/16 05:22 Labs: Abnormal Lab Results - Last 24 Hours (Table) 07/05/16 07/05/16 Range/Units 05:22 05:22 WBC 11.1 H (3.8-10.6) k/uL RBC 3.29 L (3.80-5.40) m/uL Hgb 9.7 L (11.4-16.0) gm/dL Hct 30.4 L (34.0-46.0) % Neutrophils # 8.7 H (1.3-7.7) k/uL Sodium 136 L (137-145) mmol/L Potassium 3.1 L (3.5-5.1) mmol/L Chloride 94 L (98-107) mmol/L Carbon Dioxide 38 H (22-30) mmol/L BUN 18 H (7-17) mg/dL Glucose 102 H (74-99) mg/dL Calcium 7.1 L (8.4-10.2) mg/dL Assessment and Plan Plan: Impression: #1 Acute abdominal pain possibly related to pneumobilia and suspected colitis. Status post exploratory laparotomy and was found to have ischemia with necrosis of retroperitoneal hepatic flexure of the right colon. She is status post right colectomy, small bowel resection, lysis of adhesions and repair of umbilical hernia. #2 Hypotension secondary to sepsis, stable. #3 Atrial fibrillation anticoagulated with Eliquis. #4 Coronary artery disease with previous stent placement. #5 Hyperlipidemia. #6 Hypertension. #7 Hypothyroidism. Plan: The patient was seen and evaluated by Dr. Amezquita. Her most recent chest x- ray was reviewed and shows continued improvement in the basilar infiltrate/ atelectasis. She remains on bronchodilators and antibiotics in the form of Augmentin. Continue with Lasix. We've again encourage the increased use of the incentive spirometer and cough and deep breathing exercises. We will increase her activity as tolerated. We'll continue to follow make further recommendations based on her clinical status.
[2016-07-05] MEDS: ATORVASTATIN 20 MG TAB PO SCH (20:48)
[2016-07-06] MEDS: LEVOTHYROXINE 88 MCG TAB PO SCH (06:44)
[2016-07-06 06:55] LABS: Basophils % (A) 0 %; CH 29.8; CHCM 31.9; Eosinophils % (A) 0 %; HCT 30.7 % (34.0-46.0); HDW 2.67; HGB 9.7 gm/dL (11.4-16.0); Hypochromasia Slight; Luc # (Auto) 0.13; Luc % (Auto) 1; Lymphocytes # (A) 1.6 k/uL (1.0-4.8); Lymphocytes % (A) 15 %; MCH 29.5 pg (25.0-35.0); MCHC 31.5 g/dL (31.0-37.0); MCV 93.7 fL (80.0-100.0); Mean Platelet Volume 8.5; Monocytes # (A) 0.5 k/uL (0-1.0); Monocytes % (A) 4 %; Neutrophils # (A) 8.7 k/uL (1.3-7.7); Neutrophils % (A) 80 %; RBC 3.28 m/uL (3.80-5.40); RDW 14.9 % (11.5-15.5); WBC (Perox) 11.65
[2016-07-06 07:04] LABS: Anion Gap 5 mmol/L; Blood Urea Nitrogen 15 mg/dL (7-17); Calcium 7.3 mg/dL (8.4-10.2); Carbon Dioxide 37 mmol/L (22-30); Chloride 98 mmol/L (98-107); Glucose 90 mg/dL (74-99); Magnesium 1.9 mg/dL (1.6-2.3); Non-African American GFR(MDRD) >60 (>60 ml/min/1.73 sqM); Potassium 3.8 mmol/L (3.5-5.1); Sodium 140 mmol/L (137-145)
[2016-07-06] MEDS: HYDROcodone/APAP 5-325MG 1 EACH TAB PO PRN ×3 (08:37→21:00)
[2016-07-06] MEDS: FUROSEMIDE 40 MG TAB PO SCH (08:38)
[2016-07-06] MEDS: AMOXIC-POT CLAV 875-125MG 1 EACH TAB PO SCH ×2 (08:38→21:02)
[2016-07-06] MEDS: METOPROLOL TARTRATE 25 MG TAB PO SCH (08:38)
[2016-07-06] MEDS: PANTOPRAZOLE 40 MG TABLET PO SCH (08:39)
[2016-07-06] MEDS: APIXABAN 2.5 MG TABLET PO SCH ×2 (08:39→21:01)
--- NOTE | 2016-07-06 10:12 | P.PN ---
Subjective Principal diagnosis: Colectomy This is an 86-year-old female who is s/p right colectomy. She was found to have bowel necrosis and ischemic bowel at the level of the right hemicolon. Patient was initially in the intensive care unit, currently is being followed on the telemetry unit. Patient continues to be in atrial fibrillation. Blood pressure today 130/60, heart rate in the 90s. Feeling well this morning. Patient did have her first bowel movement last evening, it was noted to be dark in color, she is on anticoagulation, we will continue to monitor, if her stools continue to be dark or melena, we may need to discontinue anticoagulation. This was explained to the patient and the daughter in detail. Objective - Vital Signs Vital signs: Vital Signs Temp 96.8 F L 07/06/16 08:30 Pulse 95 07/06/16 08:30 Resp 20 07/06/16 08:30 BP 131/58 07/06/16 08:30 Pulse Ox 98 07/06/16 09:16 Intake & Output 07/05/16 07/06/16 07/06/16 18:59 06:59 18:59 Intake Total 1080 240 Output Total 2950 2 Balance -1870 -2 240 Weight 84.3 kg 83.5 kg Intake: Oral 1080 240 Output: Urine 2950 Straight 450 Urine/Stool Mix 2 Other: Voiding Method Indwelling Catheter Indwelling Catheter # Voids 1 1 # Bowel Movements 2 1 ABP, PAP, CO, CI - Last Documented Arterial Blood Pressure 122/115 - Exam PHYSICAL EXAMINATION: HEENT: Head is atraumatic, normocephalic. Pupils equal, round. Neck is supple. There is no elevated jugular venous pressure. HEART EXAMINATION: Heart S1 and S2 irregularly irregular CHEST EXAMINATION: Lungs reveal diminished air entry with scattered coarse rhonchi throughout. Right triple-lumen catheter in place. ABDOMEN: Soft, nontender. Bowel sounds are heard. No organomegaly noted. EXTREMITIES: 2+ peripheral pulses with 1+ evidence of peripheral edema and no calf tenderness noted. NEUROLOGIC patient is awake, alert and oriented -3. . - Labs CBC & Chem 7: 07/06/16 06:25 07/06/16 06:25 Labs: Abnormal Lab Results - Last 24 Hours (Table) 07/06/16 07/06/16 Range/Units 06:25 06:25 WBC 11.0 H (3.8-10.6) k/uL RBC 3.28 L (3.80-5.40) m/uL Hgb 9.7 L (11.4-16.0) gm/dL Hct 30.7 L (34.0-46.0) % Neutrophils # 8.7 H (1.3-7.7) k/uL Carbon Dioxide 37 H (22-30) mmol/L Calcium 7.3 L (8.4-10.2) mg/dL Assessment and Plan (1) S/P right colectomy Status: Acute (2) Bilateral pleural effusion Status: Acute (3) Chronic a-fib Status: Acute (4) CAD (coronary artery disease) Status: Acute (5) Hyperlipemia Status: Acute (6) Hypertension Status: Acute (7) Weakness Status: Acute Plan: From cardiology's perspective, we will increase the losartan to 50 mg daily, increase metoprolol tartrate 50 twice a day insinuated her current medications. Continue to monitor patient's stools, if there is any evidence of bleeding we may need to stop anticoagulation. DNP note has been reviewed, I agree with a documented findings and plan of care. Patient was seen and examined.
--- NOTE | 2016-07-06 12:16 | P.PN ---
Progress Note - Text The patient is improving. She is tolerating her diet. She has minimal Carlos pain. On exam her vital signs are stable. Her abdomen soft. Incision sites clean dry and intact. Status post right colectomy for ischemic colon. Patient is doing well. She will E discharged to rehab once medically cleared
--- NOTE | 2016-07-06 12:36 | P.PN ---
Subjective This is a very pleasant 86-year-old female patient who follows with Dr. Cabello as her primary care physician. She does have a history of coronary artery disease with previous cardiac catheterization and stent placement, atrial fibrillation anticoagulated with warfarin, hypertension, hyperlipidemia, hypothyroidism. No previous pulmonary disease. She is a lifelong nonsmoker. No history of asthma or emphysema. She had presented here to the emergency room 2 days in a row for complaints of abdominal discomfort lower extremity weakness and fatigue. She also had issues with nausea, vomiting and diarrhea. Her chest x-ray revealed evidence of cardiomegaly and mild vascular congestion. Small bilateral pleural effusions with atelectatic changes at the bases and some groundglass opacity in the right middle lobe. There is noted mucosal thickening involving the distal sigmoid colon. An ultrasound of the abdomen revealed no evidence of gallstones or dilated ducts. There was some echogenic areas throughout the liver probably related to air in the biliary tree. Hepatic metastatic disease is not entirely excluded. She is now status post repair of an umbilical hernia, lysis of adhesions, small bowel resection and a right colectomy performed secondary to ischemia with necrosis of the retroperitoneal hepatic flexure of the right colon. Patient is seen again today 07/05/2016 in follow-up. She is awake and alert and denies any worsening shortness of breath and she continues with a loose nonproductive cough. She has working well with the incentive spirometer. She is maintaining good O2 saturations in the upper 90s on room air. She is afebrile. She's been up with assistance. Tolerating regular diet now. The patient is seen again today in 07/06/2013 in follow-up on the selective care unit. She is presently sitting up in the chair at the bedside. She continues with a loose nonproductive cough. She denies any worsening shortness of breath, cough or congestion. She is encouraged regarding the increased use of the incentive spirometer and cough and deep breathing exercises. She did have a bowel movement this morning. Her abdominal discomfort is improved. Objective - Vital Signs Vital signs: Vital Signs Temp 97.4 F L 07/06/16 12:00 Pulse 95 07/06/16 12:00 Resp 20 07/06/16 12:00 BP 107/56 07/06/16 12:00 Pulse Ox 98 07/06/16 12:00 Intake & Output 02/0307/06/16 07/06/16 18:59 06:59 18:59 Intake Total 1080 240 Output Total 2950 2 Balance -1870 -2 240 Weight 84.3 kg 83.5 kg Intake: Oral 1080 240 Output: Urine 2950 Straight 450 Urine/Stool Mix 2 Other: Voiding Method Indwelling Catheter Indwelling Catheter Bedside Commode # Voids 1 2 # Bowel Movements 2 1 ABP, PAP, CO, CI - Last Documented Arterial Blood Pressure 122/115 - Exam GENERAL EXAM: Alert, comfortable in no apparent distress. HEAD: Normocephalic. EYES: Normal reaction of pupils, equal size. NOSE: Clear with pink turbinates. THROAT: No erythema or exudates. NECK: No masses, no JVD. CHEST: No chest wall deformity. LUNGS: Equal air entry with crackles in the posterior bases. CVS: S1 and S2 normal with no audible murmurs, irregular rhythm. ABDOMEN: Abdominal dressing is dry and intact. Bowel sounds are present. SPINE: No scoliosis or deformity SKIN: No rashes CENTRAL NERVOUS SYSTEM: No focal deficits, tone is normal in all 4 extremities. Extremities: There is no significant peripheral edema. No clubbing, no cyanosis. Peripheral pulses are intact - Labs CBC & Chem 7: 07/06/16 06:25 07/06/16 06:25 Labs: Abnormal Lab Results - Last 24 Hours (Table) 07/06/16 07/06/16 Range/Units 06:25 06:25 WBC 11.0 H (3.8-10.6) k/uL RBC 3.28 L (3.80-5.40) m/uL Hgb 9.7 L (11.4-16.0) gm/dL Hct 30.7 L (34.0-46.0) % Neutrophils # 8.7 H (1.3-7.7) k/uL Carbon Dioxide 37 H (22-30) mmol/L Calcium 7.3 L (8.4-10.2) mg/dL Assessment and Plan Plan: Impression: #1 Acute abdominal pain possibly related to pneumobilia and suspected colitis. Status post exploratory laparotomy and was found to have ischemia with necrosis of retroperitoneal hepatic flexure of the right colon. She is status post right colectomy, small bowel resection, lysis of adhesions and repair of umbilical hernia. She is passing bowel movements and tolerating a regular diet. #2 Hypotension secondary to sepsis, stable. #3 Atrial fibrillation anticoagulated with Eliquis. #4 Coronary artery disease with previous stent placement. #5 Hyperlipidemia. #6 Hypertension. #7 Hypothyroidism. Plan: The patient was seen and evaluated by Dr. Amezquita. The patient is improving from the pulmonary standpoint. She does have a loose nonproductive cough. We will add Robitussin DM to her regime. We'll continue with Augmentin and bronchodilators. She is again encouraged regarding the increased use of incentive spirometer and cough and deep breathing exercises. We'll continue to increase her activity as tolerated. We'll continue to follow make further recommendations based on her clinical status.
[2016-07-06] MEDS: guaiFENesin-DM 100-10MG/5ML 10 ML CUP PO SCH ×2 (12:49→17:32)
--- NOTE | 2016-07-06 13:11 | P.PN ---
Subjective Patient is doing well today. No events overnight. She is feeling generally weak. Objective - Vital Signs Vital signs: Vital Signs Temp 97.4 F L 07/06/16 12:00 Pulse 95 07/06/16 12:00 Resp 20 07/06/16 12:00 BP 107/56 07/06/16 12:00 Pulse Ox 98 07/06/16 12:00 Intake & Output 07/05/16 07/06/16 07/06/16 18:59 06:59 18:59 Intake Total 1080 240 Output Total 2950 2 Balance -1870 -2 240 Weight 84.3 kg 83.5 kg Intake: Oral 1080 240 Output: Urine 2950 Straight 450 Urine/Stool Mix 2 Other: Voiding Method Indwelling Catheter Indwelling Catheter Bedside Commode # Voids 1 2 # Bowel Movements 2 1 ABP, PAP, CO, CI - Last Documented Arterial Blood Pressure 122/115 - Exam General: The patient is awake and alert, in no distress Eye: there is normal conjunctiva bilaterally. Neck: The neck is supple, there is no JVD. Cardiovascular: Normal S1-S2, no S3-S4, no murmurs. Respiratory: Lungs clear to auscultation bilaterally Gastrointestinal: Abdomen is soft, nontender. Abdominal binder in place. Surgical incision appears healing well. Musculoskeletal: There is no pedal edema. Neurological:. Speech is normal. Skin: Skin is warm and dry - Labs CBC & Chem 7: 07/06/16 06:25 07/06/16 06:25 Labs: Abnormal Lab Results - Last 24 Hours (Table) 07/06/16 07/06/16 Range/Units 06:25 06:25 WBC 11.0 H (3.8-10.6) k/uL RBC 3.28 L (3.80-5.40) m/uL Hgb 9.7 L (11.4-16.0) gm/dL Hct 30.7 L (34.0-46.0) % Neutrophils # 8.7 H (1.3-7.7) k/uL Carbon Dioxide 37 H (22-30) mmol/L Calcium 7.3 L (8.4-10.2) mg/dL Assessment and Plan Plan: #1 right colon ischemia with necrosis status post exploratory laparotomy and right colectomy, partial small bowel resection, and repair of the umbilical hernia. Patient is doing well postoperatively #2 hypotension, with hypovolemic shock on presentation , resolved with IV fluids. #3 slightly elevated troponin level on presentation most likely thrombotic troponin leak , echo cardiogram done reveals good ejection fraction of 50-60% cardiology consult was requested, patient was evaluated by cardiology #4 underlying history of atrial fibrillation: seen and evaluated by cardiology. On anticoagulation with Eliquis #5 CODE STATUS full code Plan for today: Discharge planning to ECF on Friday
[2016-07-06] MEDS: LOSARTAN 25 MG TAB PO SCH (20:49)
[2016-07-06] MEDS: METOPROLOL TARTRATE 50 MG TAB PO SCH (21:01)
[2016-07-06] MEDS: ATORVASTATIN 20 MG TAB PO SCH (21:01)
[2016-07-07] MEDS: guaiFENesin-DM 100-10MG/5ML 10 ML CUP PO SCH ×3 (04:34→18:38)
[2016-07-07 05:44] LABS: Basophils % (A) 0 %; CH 29.7; CHCM 31.7; Eosinophils # (A) 0.1 k/uL (0-0.7); Eosinophils % (A) 1 %; HCT 29.6 % (34.0-46.0); HDW 2.62; HGB 9.4 gm/dL (11.4-16.0); Hypochromasia Slight; Luc % (Auto) 2; Lymphocytes # (A) 1.4 k/uL (1.0-4.8); Lymphocytes % (A) 13 %; MCH 29.9 pg (25.0-35.0); MCHC 31.9 g/dL (31.0-37.0); MCV 93.9 fL (80.0-100.0); Mean Platelet Volume 7.7; Monocytes # (A) 0.6 k/uL (0-1.0); Monocytes % (A) 5 %; Neutrophils # (A) 8.8 k/uL (1.3-7.7); Neutrophils % (A) 80 %; RBC 3.15 m/uL (3.80-5.40); RDW 14.9 % (11.5-15.5); WBC 11.1 k/uL (3.8-10.6); WBC (Perox) 11.96
[2016-07-07 05:53] LABS: Anion Gap 6 mmol/L; Blood Urea Nitrogen 16 mg/dL (7-17); Calcium 7.3 mg/dL (8.4-10.2); Carbon Dioxide 35 mmol/L (22-30); Chloride 97 mmol/L (98-107); Glucose 98 mg/dL (74-99); Magnesium 1.8 mg/dL (1.6-2.3); Non-African American GFR(MDRD) >60 (>60 ml/min/1.73 sqM); Sodium 138 mmol/L (137-145)
[2016-07-07] MEDS: LEVOTHYROXINE 88 MCG TAB PO SCH (06:21)
[2016-07-07] MEDS ORDERED: LOSARTAN 50 MG TAB PO SCH (09:00)
[2016-07-07] MEDS: AMOXIC-POT CLAV 875-125MG 1 EACH TAB PO SCH ×2 (09:17→20:10)
[2016-07-07] MEDS: FUROSEMIDE 40 MG TAB PO SCH (09:17)
[2016-07-07] MEDS: METOPROLOL TARTRATE 50 MG TAB PO SCH ×2 (09:17→20:10)
[2016-07-07] MEDS: APIXABAN 2.5 MG TABLET PO SCH ×2 (09:17→20:10)
[2016-07-07] MEDS: PANTOPRAZOLE 40 MG TABLET PO SCH (09:17)
[2016-07-07] MEDS: IPRATROPIUM-ALBUTEROL 3 ML NEB INHALATION PRN (09:18)
[2016-07-07] MEDS: HYDROcodone/APAP 5-325MG 1 EACH TAB PO PRN ×2 (09:23→15:33)
--- NOTE | 2016-07-07 11:08 | P.PN ---
Progress Note - Text The patient states she feels better. On exam her vital signs are stable. Her abdomen soft. Incisions clean dry tach. Patient will continue receive supportive care. She will need to be discharged to rehab before going home.
--- NOTE | 2016-07-07 11:28 | PN ---
An 86-year-old lady who was admitted to hospital with bowel ischemia and underwent a right colectomy. We are following her because of chronic atrial fibrillation. This morning she denies any chest pain, has chronic shortness of breath. On exam, she is in A. fib with controlled ventricular rate. Chest exam reveals diffuse bilateral rhonchi. Heart exam reveals first and second heart sounds, irregular rhythm. Abdomen is soft. Exam of the extremities did not reveal any edema. Patient is on Eliquis 2.5 b.i.d., Lipitor 20 q. daily, losartan 50 mg q. daily, metoprolol 50 b.i.d. ASSESSMENT: 1. Atrial fibrillation with controlled ventricular rate. 2. Ischemic bowel, status post colectomy. PLAN: Patient will continue with the current medications. Will watch out for any GI bleed. Hemoglobin has remained fairly stable around 9.5.
[2016-07-07] MEDS: IPRATROPIUM-ALBUTEROL 3 ML NEB INHALATION SCH ×3 (12:00→20:37)
--- NOTE | 2016-07-07 13:06 | P.PN ---
Subjective This is a very pleasant 86-year-old female patient who follows with Dr. Cabello as her primary care physician. She does have a history of coronary artery disease with previous cardiac catheterization and stent placement, atrial fibrillation anticoagulated with warfarin, hypertension, hyperlipidemia, hypothyroidism. No previous pulmonary disease. She is a lifelong nonsmoker. No history of asthma or emphysema. She had presented here to the emergency room 2 days in a row for complaints of abdominal discomfort lower extremity weakness and fatigue. She also had issues with nausea, vomiting and diarrhea. Her chest x-ray revealed evidence of cardiomegaly and mild vascular congestion. Small bilateral pleural effusions with atelectatic changes at the bases and some groundglass opacity in the right middle lobe. There is noted mucosal thickening involving the distal sigmoid colon. An ultrasound of the abdomen revealed no evidence of gallstones or dilated ducts. There was some echogenic areas throughout the liver probably related to air in the biliary tree. Hepatic metastatic disease is not entirely excluded. She is now status post repair of an umbilical hernia, lysis of adhesions, small bowel resection and a right colectomy performed secondary to ischemia with necrosis of the retroperitoneal hepatic flexure of the right colon. Patient is seen again today 07/05/2016 in follow-up. She is awake and alert and denies any worsening shortness of breath and she continues with a loose nonproductive cough. She has working well with the incentive spirometer. She is maintaining good O2 saturations in the upper 90s on room air. She is afebrile. She's been up with assistance. Tolerating regular diet now. The patient is seen again today in 07/06/2013 in follow-up on the selective care unit. She is presently sitting up in the chair at the bedside. She continues with a loose nonproductive cough. She denies any worsening shortness of breath, cough or congestion. She is encouraged regarding the increased use of the incentive spirometer and cough and deep breathing exercises. She did have a bowel movement this morning. Her abdominal discomfort is improved. On 07/07/2016 the patient is still being seen in follow-up. She is on no oxygen. She has a congested cough. No shortness of breath. No chest pain. The abdominal wound is dry clean and intact. Bowel sounds are present. She is doing limited amount of activity and she is still using incentive spirometer. She has no specific complaints. No change in mental status. No other significant events overnight. Objective - Vital Signs Vital signs: Vital Signs Temp 97.5 F L 07/07/16 12:00 Pulse 101 H 07/07/16 12:00 Resp 22 07/07/16 12:00 BP 109/53 07/07/16 12:00 Pulse Ox 94 L 07/07/16 12:00 Intake & Output 07/06/16 07/07/16 07/07/16 18:59 06:59 18:59 Intake Total 376 654 2277 Output Total 1 Balance 101 049 1683 Weight 82 kg Intake: Oral 838 955 0670 Output: Urine/Stool Mix 1 Other: Voiding Method Incontinent Incontinent Incontinent # Voids 1 2 1 # Bowel Movements 1 2 ABP, PAP, CO, CI - Last Documented Arterial Blood Pressure 122/115 - Exam Head exam was generally normal. There was no scleral icterus or corneal arcus. Mucous membranes were moist.Neck was supple and without jugular venous distension, thyromegaly, or carotid bruits. Carotids were easily palpable bilaterally. There was no adenopathy. Lung sounds are diminished in lung bases bilaterally along with some scattered rhonchi and some scattered external wheeze.Cardiac exam revealed the PMI to be normally situated and sized. The rhythm was irregular and no extrasystoles were noted during several minutes of auscultation. The first and second heart sounds were normal and physiologic splitting of the second heart sound was noted. There were no murmurs, rubs, clicks, or gallops. The heart rhythm is irregular secondary to atrial fibrillation. Abdomen is soft and nontender. Surgical wound site is dry clean and intact. Bowel sounds are hypoactive. There is no direct tenderness. No rebound tenderness or guarding.Examination of the extremities revealed easily palpable radial, femoral and pedal pulses. There was no cyanosis, clubbing and there is trace edema in both upper and lower oximetry is bilaterally. Neurologically the patient is awake and alert and her exam is nonfocal. - Labs CBC & Chem 7: 07/07/16 05:23 07/07/16 05:23 Labs: Abnormal Lab Results - Last 24 Hours (Table) 07/07/16 07/07/16 Range/Units 05:23 05:23 WBC 11.1 H (3.8-10.6) k/uL RBC 3.15 L (3.80-5.40) m/uL Hgb 9.4 L (11.4-16.0) gm/dL Hct 29.6 L (34.0-46.0) % Neutrophils # 8.8 H (1.3-7.7) k/uL Chloride 97 L (98-107) mmol/L Carbon Dioxide 35 H (22-30) mmol/L Calcium 7.3 L (8.4-10.2) mg/dL Assessment and Plan Plan: Assessment #1 right colon ischemia with necrosis status post exploratory laparotomy and right colectomy, partial small bowel resection, and repair of the umbilical hernia. Patient is doing well postoperatively. On 07/07/2016, the patient is stable. NG tube has been removed. She is having accurate an adequate bowel movements and passing flatus. Abdominal wound is currently intact and clean. #2 Small bilateral pleural effusion slightly worse on the right along with some upper airway secretions, these are probably related to fluid overload and the patient is being diuresed gently. On 07/07/2016, the patient has optimize her fluid balance. She was diuresed adequately. She still has a congested cough without evidence of a pneumonia and the breathing treatments and the Robitussin-DM will be helpful in optimizing her respiratory status further. #3 slightly elevated troponin level on presentation most likely thrombotic troponin leak , echo cardiogram done reveals good ejection fraction of 50-60% cardiology consult was requested, patient was evaluated by cardiology #4 atrial fibrillation #5 hypokalemia, diuretic induced and the potassium level is being replaced and supplemented #6 edema involving the upper and lower extremity, improved with Lasix and the patient is negative fluid balance, improving #7 postoperative bilateral pleural effusions, stable on today's chest x-ray #8 coronary artery disease #9 hyperlipidemia #10 hypothyroidism # 11 irritable bowel disease Plan Continue DuoNeb nebulized treatments and Robitussin-DM. Continue and complete the course of Augmentin 875 mg by mouth twice a day. The patient's cardiac rhythm is well controlled with beta blockers and she is on metoprolol 50 mg by mouth twice a day. She is on long-term articulation with liquids. Increase her level of activity as tolerated. We'll continue to follow. chest x-ray in a.m.
--- NOTE | 2016-07-07 13:39 | P.PN ---
Subjective Patient is doing well today. No events overnight. She is feeling generally weak. Objective - Vital Signs Vital signs: Vital Signs Temp 97.5 F L 07/07/16 12:00 Pulse 101 H 07/07/16 12:00 Resp 22 07/07/16 12:00 BP 109/53 07/07/16 12:00 Pulse Ox 94 L 07/07/16 12:00 Intake & Output 07/06/16 07/07/16 07/07/16 18:59 06:59 18:59 Intake Total 034 631 8882 Output Total 1 Balance 041 308 2366 Weight 82 kg Intake: Oral 005 777 7049 Output: Urine/Stool Mix 1 Other: Voiding Method Incontinent Incontinent Incontinent # Voids 1 2 1 # Bowel Movements 1 2 ABP, PAP, CO, CI - Last Documented Arterial Blood Pressure 122/115 - Exam General: The patient is awake and alert, in no distress Eye: there is normal conjunctiva bilaterally. Neck: The neck is supple, there is no JVD. Cardiovascular: Normal S1-S2, no S3-S4, no murmurs. Respiratory: Lungs clear to auscultation bilaterally Gastrointestinal: Abdomen is soft, nontender. Abdominal binder in place. Surgical incision appears healing well. Musculoskeletal: There is no pedal edema. Neurological:. Speech is normal. Skin: Skin is warm and dry - Labs CBC & Chem 7: 07/07/16 05:23 07/07/16 05:23 Labs: Abnormal Lab Results - Last 24 Hours (Table) 07/07/16 07/07/16 Range/Units 05:23 05:23 WBC 11.1 H (3.8-10.6) k/uL RBC 3.15 L (3.80-5.40) m/uL Hgb 9.4 L (11.4-16.0) gm/dL Hct 29.6 L (34.0-46.0) % Neutrophils # 8.8 H (1.3-7.7) k/uL Chloride 97 L (98-107) mmol/L Carbon Dioxide 35 H (22-30) mmol/L Calcium 7.3 L (8.4-10.2) mg/dL Assessment and Plan Plan: #1 right colon ischemia with necrosis status post exploratory laparotomy and right colectomy, partial small bowel resection, and repair of the umbilical hernia. Patient is doing well postoperatively #2 hypotension, with hypovolemic shock on presentation , resolved with IV fluids. #3 slightly elevated troponin level on presentation most likely thrombotic troponin leak , echo cardiogram done reveals good ejection fraction of 50-60% cardiology consult was requested, patient was evaluated by cardiology #4 underlying history of atrial fibrillation: seen and evaluated by cardiology. On anticoagulation with Eliquis #5 CODE STATUS full code Plan for today: Discharge planning to ECF on Friday
[2016-07-07] MEDS: LOSARTAN 25 MG TAB PO SCH (15:31)
[2016-07-07] MEDS: ATORVASTATIN 20 MG TAB PO SCH (20:10)
[2016-07-08] MEDS: guaiFENesin-DM 100-10MG/5ML 10 ML CUP PO SCH ×2 (03:49→12:39)
[2016-07-08 06:17] LABS: Anion Gap 5 mmol/L; Blood Urea Nitrogen 17 mg/dL (7-17); Calcium 7.5 mg/dL (8.4-10.2); Carbon Dioxide 35 mmol/L (22-30); Chloride 96 mmol/L (98-107); Glucose 96 mg/dL (74-99); Magnesium 1.9 mg/dL (1.6-2.3); Non-African American GFR(MDRD) >60 (>60 ml/min/1.73 sqM); Potassium 4.4 mmol/L (3.5-5.1); Sodium 136 mmol/L (137-145)
[2016-07-08 06:25] LABS: Basophils % (A) 0 %; CH 30.1; CHCM 31.9; Eosinophils # (A) 0.1 k/uL (0-0.7); Eosinophils % (A) 1 %; HCT 29.4 % (34.0-46.0); HDW 2.58; HGB 8.9 gm/dL (11.4-16.0); Hypochromasia Slight; Luc # (Auto) 0.14; Luc % (Auto) 1; Lymphocytes # (A) 1.5 k/uL (1.0-4.8); Lymphocytes % (A) 15 %; MCH 28.7 pg (25.0-35.0); MCHC 30.2 g/dL (31.0-37.0); Mean Platelet Volume 8.8; Monocytes # (A) 0.8 k/uL (0-1.0); Monocytes % (A) 8 %; Neutrophils # (A) 7.4 k/uL (1.3-7.7); Neutrophils % (A) 75 %; RDW 15.2 % (11.5-15.5); WBC 9.9 k/uL (3.8-10.6); WBC (Perox) 10.25
[2016-07-08] MEDS: LEVOTHYROXINE 88 MCG TAB PO SCH (06:42)
--- NOTE | 2016-07-08 08:40 | XR ---
EXAMINATION TYPE: XR chest 1V DATE OF EXAM: 07/08/2016 8:35 AM COMPARISON: 07/04/2016 HISTORY: Shortness of breath TECHNIQUE: Single frontal view of the chest is obtained. FINDINGS: The heart is enlarged and there are subsegmental infiltrate and pleural effusion at the ri t lung base. No overt failure. Underlying COPD and arthropathy of the shoulder noted. There is diff use osteopenia IMPRESSION: 1. COPD, cardiomegaly and stable right lower lobe infiltrate with small effusion. Mild central venous congestion not entirely excluded. No overt failure.
[2016-07-08] MEDS: IPRATROPIUM-ALBUTEROL 3 ML NEB INHALATION SCH ×3 (09:01→15:55)
[2016-07-08 09:16] VITALS: RESP 16
[2016-07-08] MEDS: APIXABAN 2.5 MG TABLET PO SCH (09:17)
[2016-07-08] MEDS: AMOXIC-POT CLAV 875-125MG 1 EACH TAB PO SCH (09:17)
[2016-07-08] MEDS: PANTOPRAZOLE 40 MG TABLET PO SCH (09:17)
[2016-07-08] MEDS: FUROSEMIDE 40 MG TAB PO SCH (09:17)
[2016-07-08] MEDS: METOPROLOL TARTRATE 50 MG TAB PO SCH (09:17)
[2016-07-08] MEDS: LOSARTAN 25 MG TAB PO SCH (09:17)
[2016-07-08 12:55] VITALS: BP 109/57; TEMP 100.4
--- NOTE | 2016-07-08 13:22 | PN ---
86-year-old lady we are following because of atrial fibrillation. She is still anticoagulating, tolerating it well. Does not have any active bleeds. Patient is on Lasix 40 mg daily along with Eliquis, Cozaar, Lopressor. On exam, comfortable at rest. Heart rate is 88 beats per minute, blood pressure is 100/42, respiratory rate is 18. Chest exam reveals diminished air entry at the bases. Heart exam reveals first and second heart sounds with regular rhythm. ABDOMEN: Soft. Exam of the extremities did not reveal any edema. Peripheral pulses are felt. Chest x-ray does not show any evidence of congestive heart failure. Labs show that the hemoglobin is 8.9, potassium is 4.4. Creatinine is 0.6. ASSESSMENT: 1. Atrial fibrillation with a controlled ventricular rate. 2. Ischemic bowel status post colectomy. PLAN: The patient is doing well. She will continue with the current medications.
--- NOTE | 2016-07-08 13:26 | P.DS ---
Providers Date of admission: 06/27/16 00:03 Expected date of discharge: 07/08/16 Attending physician: Mik Daniel Consults: 06/27/16 12:33 Consult Physician Routine Consulting Provider: King Howard Consult Reason/Comments: critical care management Do you want consulting provider notified?: Yes Primary care physician: Jennyfer Cabello Hospital Course: This is a 86-year-old female who presented to the hospital initially with severe abdominal pain and was found to have right colon ischemia and was taken to the OR. Patient had a prolonged hospital stay. She was monitored closely in the ICU for a couple of days and eventually was transferred to telemetry floor. Below is a list of her medical problems addressed during this hospitalization. #1 right colon ischemia with necrosis status post exploratory laparotomy and right colectomy, partial small bowel resection, and repair of the umbilical hernia. Patient is doing well postoperatively #2 hypotension, with hypovolemic shock on presentation , resolved with IV fluids. #3 slightly elevated troponin level on presentation most likely thrombotic troponin leak , echo cardiogram done reveals good ejection fraction of 50-60% cardiology consult was requested, patient was evaluated by cardiology #4 underlying history of atrial fibrillation: seen and evaluated by cardiology. On anticoagulation with Eliquis #5. Essential hypertension: Blood pressure well-controlled #6. Physical debility: Seen and evaluated by [facility]. Plan to discharge to [facility] for subacute rehab #7 CODE STATUS full code Patient Condition at Discharge: Fair Plan - Discharge Summary Discharge Medication List Levothyroxine Sodium [Synthroid] 88 mcg PO [id number] 07/19/14 [History] Aspirin 81 mg PO DAILY PRN 09/29/15 [History] Meclizine [Antivert] 25 mg PO TID PRN #20 tab 06/25/16 [Rx] Rosuvastatin Calcium [Crestor] 10 mg PO HS 06/27/16 [History] Amoxic-Pot Clav 875-125Mg [Augmentin 875-125] 1 each PO Q12HR #10 tab 07/08/16 [ Rx] Apixaban [Eliquis] 2.5 mg PO BID tablet 07/08/16 [Rx] Ipratropium-Albuterol Nebulize [Duoneb 0.5 mg-3 mg/3 ml Soln] 3 ml INHALATION RT -QID PRN #30 ampul.neb 07/08/16 [Rx] Losartan [Cozaar] 25 mg PO DAILY tab 07/08/16 [Rx] Metoprolol Tartrate [Lopressor] 50 mg PO BID tab 07/08/16 [Rx] Follow up Appointment(s)/Referral(s): Jennyfer Cabello MD [Primary Care Provider] - 1-2 days Dex Butler MD [STAFF PHYSICIAN] - 1 Week Mary Patel MD [STAFF PHYSICIAN] - 3 Days Discharge Disposition: TRANSFER TO SNF/ECF
--- NOTE | 2016-07-08 13:52 | P.PN ---
Subjective Principal diagnosis: Acute right colon ischemia with necrosis This is a very pleasant 86-year-old female patient who follows with Dr. Cabello as her primary care physician. She does have a history of coronary artery disease with previous cardiac catheterization and stent placement, atrial fibrillation anticoagulated with warfarin, hypertension, hyperlipidemia, hypothyroidism. No previous pulmonary disease. She is a lifelong nonsmoker. No history of asthma or emphysema. She had presented here to the emergency room 2 days in a row for complaints of abdominal discomfort lower extremity weakness and fatigue. She also had issues with nausea, vomiting and diarrhea. Her chest x-ray revealed evidence of cardiomegaly and mild vascular congestion. Small bilateral pleural effusions with atelectatic changes at the bases and some groundglass opacity in the right middle lobe. There is noted mucosal thickening involving the distal sigmoid colon. An ultrasound of the abdomen revealed no evidence of gallstones or dilated ducts. There was some echogenic areas throughout the liver probably related to air in the biliary tree. Hepatic metastatic disease is not entirely excluded. She is now status post repair of an umbilical hernia, lysis of adhesions, small bowel resection and a right colectomy performed secondary to ischemia with necrosis of the retroperitoneal hepatic flexure of the right colon. Patient is seen again today 07/05/2016 in follow-up. She is awake and alert and denies any worsening shortness of breath and she continues with a loose nonproductive cough. She has working well with the incentive spirometer. She is maintaining good O2 saturations in the upper 90s on room air. She is afebrile. She's been up with assistance. Tolerating regular diet now. The patient is seen again today in 07/06/2013 in follow-up on the selective care unit. She is presently sitting up in the chair at the bedside. She continues with a loose nonproductive cough. She denies any worsening shortness of breath, cough or congestion. She is encouraged regarding the increased use of the incentive spirometer and cough and deep breathing exercises. She did have a bowel movement this morning. Her abdominal discomfort is improved. On 07/07/2016 the patient is still being seen in follow-up. She is on no oxygen. She has a congested cough. No shortness of breath. No chest pain. The abdominal wound is dry clean and intact. Bowel sounds are present. She is doing limited amount of activity and she is still using incentive spirometer. She has no specific complaints. No change in mental status. No other significant events overnight. Reevaluated on 07/08/2016, patient is feeling better, breathing bit easier, and she is relatively asymptomatic. CBC was reviewed and basic metabolic profile was reviewed and they all seem to be relatively unremarkable except for hemoglobin of 8.9. Objective - Vital Signs Vital signs: Vital Signs Temp 100.4 F H 07/08/16 12:00 Pulse 96 07/08/16 13:19 Resp 16 07/08/16 12:00 BP 109/57 07/08/16 12:00 Pulse Ox 97 07/08/16 12:00 Intake & Output 07/07/16 07/08/16 07/08/16 18:59 06:59 18:59 Intake Total 2040 700 120 Output Total 250 Balance 1790 700 120 Weight 82.2 kg Intake: Oral 2040 700 120 Output: Urine 250 Other: Voiding Method Toilet Toilet Toilet Incontinent Incontinent Incontinent # Voids 1 1 # Bowel Movements 1 1 1 ABP, PAP, CO, CI - Last Documented Arterial Blood Pressure 122/115 - Exam Physical Exam: Revealed an 86-year-old in no distress HEENT:[Neck is supple.] [No neck masses.] [No thyromegaly.] [No JVD.] Chest: [Minimal crackles at the bases.] Cardiac Exam: [Normal S1 and S2, no S3 gallop, no murmur.] Abdomen: [Soft, nontender, no megaly, no rebound, no guarding, normal bowel sounds.] Extremities: [No clubbing, 1+ bipedal edema, no cyanosis.] Neurological Exam: [No focal neurologic deficit.] - Labs CBC & Chem 7: 07/08/16 05:35 07/08/16 05:35 Labs: Abnormal Lab Results - Last 24 Hours (Table) 07/08/16 07/08/16 Range/Units 05:35 05:35 RBC 3.10 L (3.80-5.40) m/uL Hgb 8.9 L (11.4-16.0) gm/dL Hct 29.4 L (34.0-46.0) % MCHC 30.2 L (31.0-37.0) g/dL Plt Count 466 H (150-450) k/uL Sodium 136 L (137-145) mmol/L Chloride 96 L (98-107) mmol/L Carbon Dioxide 35 H (22-30) mmol/L Calcium 7.5 L (8.4-10.2) mg/dL Assessment and Plan Plan: #1 right colon ischemia with necrosis status post exploratory laparotomy and right colectomy, partial small bowel resection, and repair of the umbilical hernia. Patient is doing well postoperatively. On 07/07/2016, the patient is stable. NG tube has been removed. She is having accurate an adequate bowel movements and passing flatus. Abdominal wound is currently intact and clean. On 07/08/2016, patient continues to do well, and she is being considered for discharge planning today. #2 Small bilateral pleural effusion slightly worse on the right along with some upper airway secretions, these are probably related to fluid overload and the patient is being diuresed gently. On 07/07/2016, the patient has optimize her fluid balance. She was diuresed adequately. She still has a congested cough without evidence of a pneumonia and the breathing treatments and the Robitussin-DM will be helpful in optimizing her respiratory status further. #3 slightly elevated troponin level on presentation most likely thrombotic troponin leak , echo cardiogram done reveals good ejection fraction of 50-60% cardiology consult was requested, patient was evaluated by cardiology #4 atrial fibrillation #5 hypokalemia, diuretic induced and the potassium level is being replaced and supplemented #6 edema involving the upper and lower extremity, improved with Lasix and the patient is negative fluid balance, improving #7 postoperative bilateral pleural effusions, stable on today's chest x-ray #8 coronary artery disease #9 hyperlipidemia #10 hypothyroidism # 11 irritable bowel disease Recommendation: Continue present treatment plan, continue antibiotics, bronchodilators orally, again consider discharge planning to ECF today. Time with Patient: Less than 30
[2016-07-08 15:58] VITALS: PULSE 92
[2016-07-08] MEDS: HYDROcodone/APAP 5-325MG 1 EACH TAB PO PRN (17:11)
--- NOTE | 2016-07-08 17:29 | P.PN ---
Subjective Patient is an 86-year-old female admitted with acute abdomen and found to have ischemic hepatic flexure of the right colon. Patient is status post repair of umbilical hernia; lysis of adhesions; small bowel resection; and right colectomy , postop day #10. Patient is evaluated on selective care unit where she is currently lying in bed. Patient is doing well. Denies chills, fevers, nausea, vomiting, or chest pain. Patient reports incisional pain with coughing. Patient passing flatus with loose bowel movements. Patient tolerating a soft diet. Patient febrile with a temperature 100.4. WBC 9.9. Hemoglobin stable at 8.9. Objective - Vital Signs Vital signs: Vital Signs Temp 100.4 F H 07/08/16 12:00 Pulse 92 07/08/16 15:57 Resp 16 07/08/16 12:00 BP 109/57 07/08/16 12:00 Pulse Ox 97 07/08/16 12:00 Intake & Output 07/07/16 07/08/16 07/08/16 18:59 06:59 18:59 Intake Total 2040 700 120 Output Total 250 Balance 1790 700 120 Weight 82.2 kg Intake: Oral 2040 700 120 Output: Urine 250 Other: Voiding Method Toilet Toilet Toilet Incontinent Incontinent Incontinent # Voids 1 1 1 # Bowel Movements 1 1 1 ABP, PAP, CO, CI - Last Documented Arterial Blood Pressure 122/115 - Exam GENERAL: Pt awake and alert, well-nourished, and in no acute distress. ENT: Moist mucous membranes. LUNGS: Breath sounds with rhonchi to auscultation bilaterally. HEART: Heart S1, S2, no S3 or S4. Irregularly irregular. No murmurs, rubs or gallops. ABDOMEN: Soft, obese, mild incisional tenderness, nondistended, active bowel sounds. No guarding, no rebound. No masses or organomegaly appreciated. Abdominal incision dry, intact, approximated, no erythema or purulent drainage. NEUROLOGICAL: Pt oriented x 3. - Labs CBC & Chem 7: 07/08/16 05:35 07/08/16 05:35 Labs: Abnormal Lab Results - Last 24 Hours (Table) 07/08/16 07/08/16 Range/Units 05:35 05:35 RBC 3.10 L (3.80-5.40) m/uL Hgb 8.9 L (11.4-16.0) gm/dL Hct 29.4 L (34.0-46.0) % MCHC 30.2 L (31.0-37.0) g/dL Plt Count 466 H (150-450) k/uL Sodium 136 L (137-145) mmol/L Chloride 96 L (98-107) mmol/L Carbon Dioxide 35 H (22-30) mmol/L Calcium 7.5 L (8.4-10.2) mg/dL Assessment and Plan Plan: Impression: 1. Acute abdominal pain, present on admission, secondary to ischemic hepatic flexure of the right colon status post repair of umbilical hernia; lysis of adhesions; small bowel resection; and right colectomy on 06/28/2016. Plan: 1. Continue soft diet. Continue antibiotics. Continue supportive treatment and pain management. Continue incentive spirometry 10 times an hour while awake. Continue physical therapy. Continue medical management. The above impression and plan have been discussed and directed by Dr. Butler. Nicol AYALA acting as scribe for Dr. Butler.
== END 2016-07-08 17:23 | DRG 329 ==
LOC: EC 18:26 → 6ICU 06-27 00:03 → 6SEL 07-02 02:13
PROVIDERS: ADMIT Internal Medicine; ATTEND Internal Medicine
PROC: 30233K1 Transfusion of Nonautologous Frozen Plasma into Peripheral Vein, Percutaneous Approach (ICD-10-PCS; 2016-06-27)
PROC: 0WQF0ZZ Repair Abdominal Wall, Open Approach (ICD-10-PCS; 2016-06-28)
PROC: 0DB80ZZ Excision of Small Intestine, Open Approach (ICD-10-PCS; 2016-06-28)
PROC: 0DTF0ZZ Resection of Right Large Intestine, Open Approach (ICD-10-PCS; principal; 2016-06-28 13:05)
DX: K55.049 Acute infarction of large intestine, extent unspecified (principal); R57.1 Hypovolemic shock; A41.9 Sepsis, unspecified organism; J90 Pleural effusion, not elsewhere classified; E87.0 Hyperosmolality and hypernatremia; I95.9 Hypotension, unspecified; I27.2 Other secondary pulmonary hypertension; E87.8 Other disorders of electrolyte and fluid balance, not elsewhere classified; R18.8 Other ascites; J98.11 Atelectasis; I10 Essential (primary) hypertension; K66.0 Peritoneal adhesions (postprocedural) (postinfection); I48.2 Chronic atrial fibrillation; E87.70 Fluid overload, unspecified; E87.6 Hypokalemia; T45.515A Adverse effect of anticoagulants, initial encounter; T50.2X5A Adverse effect of carbonic-anhydrase inhibitors, benzothiadiazides and other diuretics, initial encounter; K42.9 Umbilical hernia without obstruction or gangrene; G89.18 Other acute postprocedural pain; R05 Cough; R74.8 Abnormal levels of other serum enzymes; I07.1 Rheumatic tricuspid insufficiency; R79.1 Abnormal coagulation profile; K58.0 Irritable bowel syndrome with diarrhea; I25.10 Atherosclerotic heart disease of native coronary artery without angina pectoris; E03.9 Hypothyroidism, unspecified; E78.00 Pure hypercholesterolemia, unspecified; E78.5 Hyperlipidemia, unspecified; H26.9 Unspecified cataract; R32 Unspecified urinary incontinence; R53.1 Weakness; Z95.5 Presence of coronary angioplasty implant and graft; Z79.01 Long term (current) use of anticoagulants; Z79.82 Long term (current) use of aspirin; Z90.710 Acquired absence of both cervix and uterus; Z90.49 Acquired absence of other specified parts of digestive tract; Z80.9 Family history of malignant neoplasm, unspecified; Z82.2 Family history of deafness and hearing loss; Z79.899 Other long term (current) drug therapy; Z86.79 Personal history of other diseases of the circulatory system
CPT/HCPCS: 36415; 51701; 71010; 71020; 74177; 76705; 80048; 80053; 80061; 81001; 82150; 82533; 82550; 82553; 82805; 83605; 83690; 83735; 83880; 84100; 84132; 84484; 85025; 85610; 85730; 86850; 86900; 86901; 87040; 87086; 87502; 88307; 93005; 93306; 94640; 94760; 96361; 96365; 96367; 96374; 96375; 99284; 99291

== ENCOUNTER 2016-07-09 23:50 | Inpatient (IN) | payer MEDICARE, OTHER ==
[2016-07-10 01:11] LABS: Basophils % (A) 0 %; CHCM 32.5; Eosinophils % (A) 0 %; HCT 31.4 % (34.0-46.0); HDW 2.67; HGB 10.1 gm/dL (11.4-16.0); Luc # (Auto) 0.17; Luc % (Auto) 2; Lymphocytes # (A) 1.1 k/uL (1.0-4.8); Lymphocytes % (A) 13 %; MCH 29.8 pg (25.0-35.0); MCHC 32.1 g/dL (31.0-37.0); Mean Platelet Volume 7.7; Monocytes # (A) 0.8 k/uL (0-1.0); Monocytes % (A) 9 %; Neutrophils # (A) 6.5 k/uL (1.3-7.7); Neutrophils % (A) 75 %; RBC 3.38 m/uL (3.80-5.40); RDW 15.9 % (11.5-15.5); WBC 8.6 k/uL (3.8-10.6); WBC (Perox) 8.92
--- NOTE | 2016-07-10 01:14 | XR ---
EXAMINATION TYPE: XR chest 1V portable DATE OF EXAM: 07/10/2016 1:08 AM COMPARISON: [id number] HISTORY: Cough TECHNIQUE: Single frontal view of the chest is obtained. FINDINGS: There is patchy pneumonic consolidation at the right lung base. There is no gross heart fa ilure. There is slight blunting of costophrenic angles. Thoracic aorta is atheromatous. There are doroteo st leads. IMPRESSION: Right lower lobe pneumonia with small bilateral pleural effusions. No gross heart failur e. Chest appears slightly worse at the right lung base compared to last exam.
--- NOTE | 2016-07-10 01:16 | XR ---
EXAMINATION TYPE: XR KUB DATE OF EXAM: 07/10/2016 1:08 AM COMPARISON: 05/31/2013 HISTORY: Bowel resection on 06/27/2016. Abdominal pain TECHNIQUE: 2 views FINDINGS: There are skin biju over the mid abdomen. There is no sign of intestinal obstruction or pneumoperitoneum. Fecal pattern is normal. There is no sign of a mass. IMPRESSION: Recent surgery. Nonacute abdomen. No free air.
[2016-07-10 01:21] LABS: Amylase 83 U/L (30-110); Anion Gap 6 mmol/L; Calcium 7.6 mg/dL (8.4-10.2); Carbon Dioxide 28 mmol/L (22-30); Chloride 96 mmol/L (98-107); Glucose 122 mg/dL (74-99); Non-African American GFR(MDRD) >60 (>60 ml/min/1.73 sqM); Sodium 130 mmol/L (137-145)
--- NOTE | 2016-07-10 01:21 | ED ---
Abdominal Pain HPI - General Chief Complaint: Abdominal Pain Stated Complaint: Infection Time Seen by Provider: 07/10/16 00:11 Source: patient, EMS, RN notes reviewed Mode of arrival: EMS Limitations: no limitations - History of Present Illness Initial Comments: This patient is an 86-year-old woman who comes from the rehab facility after she was having abdominal pain. The patient states that she was having severe, diffuse, cramping and sharp abdominal pain that came on number of hours ago. She states that she requested a pain pill but that they did not have authorization give her 1. She then requested that she be sent to the hospital. She states that the pain has resolved. She was feeling like she was going to vomit. The patient does state that she had a bowel movement yesterday. To her knowledge it seemed normal. Patient denies any change in urination. She denies feeling fever or chills. She denies chest pain or dyspnea but she has had a couple of days of nonproductive cough. MD Complaint: abdominal pain -: hour(s) Location: diffuse Radiation: none Quality: cramping, sharp Consistency: now resolved, colicky Improves With: nothing Worsens With: nothing Associated Symptoms: nausea - Related Data Home Medications Medication Instructions Recorded Confirmed Levothyroxine Sodium [Synthroid] 88 mcg PO AC-BRKFST 07/19/14 07/10/16 Aspirin 81 mg PO DAILY PRN 09/29/15 07/10/16 Rosuvastatin Calcium [Crestor] 10 mg PO HS 06/27/16 07/10/16 Amoxic-Pot Clav 875-125Mg 1 tab PO Q12HR 07/10/16 07/10/16 [Augmentin 875-125] Previous Rx's Medication Instructions Recorded Meclizine [Antivert] 25 mg PO TID PRN #20 tab 06/25/16 Apixaban [Eliquis] 2.5 mg PO BID tablet 07/08/16 Ipratropium-Albuterol Nebulize 3 ml INHALATION RT-QID PRN #30 07/08/16 [Duoneb 0.5 mg-3 mg/3 ml Soln] ampul.neb Losartan [Cozaar] 25 mg PO DAILY tab 07/08/16 Metoprolol Tartrate [Lopressor] 50 mg PO BID tab 02/06/17 Allergies Allergy/AdvReac Type Severity Reaction Status Date / Time No Known Allergies Allergy Verified 07/10/16 09:43 Review of Systems ROS Statement: Those systems with pertinent positive or pertinent negative responses have been documented in the HPI. ROS Other: All systems not noted in ROS Statement are negative. Constitutional: Denies: fever, chills Respiratory: Reports: cough. Denies: dyspnea, hemoptysis Cardiovascular: Denies: chest pain, palpitations, edema, syncope Gastrointestinal: Reports: abdominal pain, nausea. Denies: vomiting, diarrhea, constipation, melena, hematochezia Genitourinary: Denies: dysuria, frequency, hematuria Musculoskeletal: Denies: back pain Skin: Denies: rash Neurological: Denies: headache Past Medical History Past Medical History: Atrial Fibrillation, Coronary Artery Disease (CAD), Chest Pain / Angina, Hyperlipidemia, Hypertension, Thyroid Disorder Additional Past Medical History / Comment(s): Pt has IBS. 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 Bruising on skin. Cataract L eye. History of Any Multi-Drug Resistant Organisms: None Reported Past Surgical History: Appendectomy, Section, Heart Catheterization With Stent, Hysterectomy Additional Past Surgical History / Comment(s): Hx. of left breast biopsy, HEART CATH WITH STENT. RT FEMORAL endartrectomy,HEMATOMA REMOVAL. Past Anesthesia/Blood Transfusion Reactions: No Reported Reaction Date of Last Stent Placement:: 08-17-14 Past Psychological History: No Psychological Hx Reported Smoking Status: Never smoker Past Alcohol Use History: None Reported Past Drug Use History: None Reported - Past Family History Son(s) Family Medical History: Hearing Disorder / Deafness Daughter(s) Family Medical History: Hearing Disorder / Deafness Father Family Medical History: Cancer Additional Family Medical History / Comment(s): Unknown General Exam Limitations: no limitations General appearance: alert, in no apparent distress Head exam: Present: atraumatic, normocephalic Eye exam: Present: normal appearance, PERRL, EOMI. Absent: scleral icterus, conjunctival injection ENT exam: Present: mucous membranes dry Respiratory exam: Present: rhonchi. Absent: respiratory distress, wheezes, rales, stridor, decreased breath sounds, prolonged expiratory Cardiovascular Exam: Present: tachycardia (Heart rate approximately 104 bpm but irregular), irregular rhythm, normal heart sounds. Absent: systolic murmur GI/Abdominal exam: Present: soft, tenderness (Patient has some mild jody- incisional tenderness. The incision has a trace of serous drainage from the midportion. There is no abnormal erythema or warmth. No palpable fluid collection.), normal bowel sounds. Absent: guarding, rebound, rigid, mass Extremities exam: Present: normal inspection, normal capillary refill. Absent: pedal edema, calf tenderness Back exam: Present: normal inspection. Absent: CVA tenderness (R), CVA tenderness (L) Neurological exam: Present: alert Skin exam: Present: warm, dry, intact, normal color. Absent: rash Course Vital Signs 07/10/16 07/10/16 07/10/16 00:53 01:52 02:02 Temperature 99.5 F 98.9 F Pulse Rate 105 H 100 109 H Respiratory 20 16 18 Rate Blood Pressure 159/70 146/77 153/78 O2 Sat by Pulse 96 97 Oximetry 07/10/16 07/10/16 05:38 07:35 Temperature Pulse Rate 82 73 Respiratory 18 16 Rate Blood Pressure 149/90 132/78 O2 Sat by Pulse 99 99 Oximetry Medical Decision Making - Medical Decision Making This patient is an 86-year-old woman sent from her rehab facility for abdominal pain. On arrival her pain has resolved. She does have persistent cough however and even during respiration she does appear to have some rhonchi. It appears that she is not adequately clearing her cough due to the abdominal pain associated with coughing. The patient does appear to have subtle infiltrate on the x-ray. Patient started on antibiotics. Will have patient using incentive spirometer. Patient does also have trace of serous drainage though not appearing infected. We will have Dr. Butler see her while she is in just to review this. - Lab Data Result diagrams: 07/11/16 07:12 07/11/16 07:12 Lab Results 07/09/16 07/09/16 07/09/16 Range/Units 23:57 23:57 23:57 WBC 8.6 (3.8-10.6) k/uL RBC 3.38 L (3.80-5.40) m/uL Hgb 10.1 L (11.4-16.0) gm/dL Hct 31.4 L (34.0-46.0) % MCV 93.0 (80.0-100.0) fL MCH 29.8 (25.0-35.0) pg MCHC 32.1 (31.0-37.0) g/dL RDW 15.9 H (11.5-15.5) % Plt Count 732 H (150-450) k/uL Neutrophils % 75 % Lymphocytes % 13 % Monocytes % 9 % Eosinophils % 0 % Basophils % 0 % Neutrophils # 6.5 (1.3-7.7) k/uL Lymphocytes # 1.1 (1.0-4.8) k/uL Monocytes # 0.8 (0-1.0) k/uL Eosinophils # 0.0 (0-0.7) k/uL Basophils # 0.0 (0-0.2) k/uL Sodium 130 L (137-145) mmol/L Potassium 5.3 H (3.5-5.1) mmol/L Chloride 96 L (98-107) mmol/L Carbon Dioxide 28 (22-30) mmol/L Anion Gap 6 mmol/L BUN 17 (7-17) mg/dL Creatinine 0.80 (0.52-1.04) mg/dL Est GFR (MDRD) Af Amer >60 (>60 ml/min/1.73 sqM) Est GFR (MDRD) Non-Af >60 (>60 ml/min/1.73 sqM) Glucose 122 H (74-99) mg/dL Plasma Lactic Acid [place] 1.2 (0.7-2.0) mmol/L Calcium 7.6 L (8.4-10.2) mg/dL Total Bilirubin 1.0 (0.2-1.3) mg/dL AST 94 H (14-36) U/L ALT 57 H (9-52) U/L Alkaline Phosphatase 73 (38-126) U/L Troponin I (0.000-0.034) ng/mL Total Protein 5.6 L (6.3-8.2) g/dL Albumin 2.3 L (3.5-5.0) g/dL Amylase 83 (30-110) U/L Lipase 259 (23-300) U/L Urine Color Urine Appearance (Clear) Urine pH (5.0-8.0) Ur Specific [place] (1.001-1.035) Urine Protein (Negative) Urine Glucose (UA) (Negative) Urine Ketones (Negative) Urine Blood (Negative) Urine Nitrate (Negative) Urine Bilirubin (Negative) Urine Urobilinogen (<2.0) mg/dL Ur Leukocyte Esterase (Negative) Urine RBC (0-5) /hpf Urine WBC (0-5) /hpf Ur Squamous Epith Cells (0-4) /hpf Urine Bacteria (None) /hpf Urine Mucus (None) /hpf 07/09/16 07/10/16 Range/Units 23:57 01:50 WBC (3.8-10.6) k/uL RBC (3.80-5.40) m/uL Hgb (11.4-16.0) gm/dL Hct (34.0-46.0) % MCV (80.0-100.0) fL MCH (25.0-35.0) pg MCHC (31.0-37.0) g/dL RDW (11.5-15.5) % Plt Count (150-450) k/uL Neutrophils % % Lymphocytes % % Monocytes % % Eosinophils % % Basophils % % Neutrophils # (1.3-7.7) k/uL Lymphocytes # (1.0-4.8) k/uL Monocytes # (0-1.0) k/uL Eosinophils # (0-0.7) k/uL Basophils # (0-0.2) k/uL Sodium (137-145) mmol/L Potassium (3.5-5.1) mmol/L Chloride (98-107) mmol/L Carbon Dioxide (22-30) mmol/L Anion Gap mmol/L BUN (7-17) mg/dL Creatinine (0.52-1.04) mg/dL Est GFR (MDRD) Af Amer (>60 ml/min/1.73 sqM) Est GFR (MDRD) Non-Af (>60 ml/min/1.73 sqM) Glucose (74-99) mg/dL Plasma Lactic Acid [place] (0.7-2.0) mmol/L Calcium (8.4-10.2) mg/dL Total Bilirubin (0.2-1.3) mg/dL AST (14-36) U/L ALT (9-52) U/L Alkaline Phosphatase (38-126) U/L Troponin I <0.012 (0.000-0.034) ng/mL Total Protein (6.3-8.2) g/dL Albumin (3.5-5.0) g/dL Amylase (30-110) U/L Lipase (23-300) U/L Urine Color Light Yellow Urine Appearance Cloudy H (Clear) Urine pH 7.0 (5.0-8.0) Ur Specific [place] 1.005 (1.001-1.035) Urine Protein Negative (Negative) Urine Glucose (UA) Negative (Negative) Urine Ketones Negative (Negative) Urine Blood Trace H (Negative) Urine Nitrate Negative (Negative) Urine Bilirubin Negative (Negative) Urine Urobilinogen <2.0 (<2.0) mg/dL Ur Leukocyte Esterase Trace H (Negative) Urine RBC 171 H (0-5) /hpf Urine WBC <1 (0-5) /hpf Ur Squamous Epith Cells 1 (0-4) /hpf Urine Bacteria Occasional H (None) /hpf Urine Mucus Rare H (None) /hpf - EKG Data -: EKG Interpreted by Co EKG shows normal: axis (Left axis deviation), intervals (QRS duration slightly prolonged at 134 ms.), QRS complexes (Intraventricular conduction delay.) When compared to previous EKG there are: other (In comparison with the EKG from June 28, the anterolateral T inversions have resolved.) Interpretation: LVH, other (There is atrial fibrillation with ventricular rate approximately 105 bpm.) Disposition Clinical Impression: Pneumonia, Resolved abdominal pain Disposition: ADMITTED IP TO THIS HOSP Condition: Fair
[2016-07-10 01:26] LABS: Blood Urea Nitrogen 17 mg/dL (7-17); Potassium 5.3 mmol/L (3.5-5.1); Total Protein 5.6 g/dL (6.3-8.2)
[2016-07-10 01:27] LABS: ALT 57 U/L (9-52); AST 94 U/L (14-36); Alkaline Phosphatase 73 U/L (38-126)
[2016-07-10] MEDS ORDERED: LEVOFLOXACIN 750MG-D5W PMX 750 MG in DEXTROSE/WATER 1 150ML.BAG IVPB STA (01:50)
[2016-07-10 02:01] LABS: Appearance,Urine Cloudy (Clear); Bacteria,Urine Occasional /hpf; Bilirubin,Urine Negative (Negative); Glucose,Urine (UA) Negative (Negative); Ketones,Urine Negative (Negative); Leukocyte Esterase,Urine Trace (Negative); Mucus,Urine Rare /hpf; Nitrite,Urine Negative (Negative); Particle Count 34386; Protein,Urine Negative (Negative); RBC,Urine 171 /hpf (0-5); Specific Gravity,Urine 1.005 (1.001-1.035); Squamous Epithelial Cell,Urine 1 /hpf (0-4); UA Billing (MACRO vs. MICRO) MICRO; Urobilinogen,Urine <2.0 mg/dL (<2.0); WBC,Urine <1 /hpf (0-5)
[2016-07-10] MEDS ORDERED: NALOXONE 0.4 MG/ML 1 ML VIAL IV PRN (03:24)
[2016-07-10] MEDS ORDERED: MORPHINE SULFATE 4 MG/ML SYRINGE IV PRN (03:24)
[2016-07-10] MEDS ORDERED: ONDANSETRON 4 MG/2 ML VIAL IVP PRN (03:24)
[2016-07-10] MEDS ORDERED: ACETAMINOPHEN TAB 325 MG TAB PO PRN (03:24)
[2016-07-10] MEDS ORDERED: ASPIRIN 81 MG CHEW PO PRN (03:28)
[2016-07-10] MEDS ORDERED: MECLIZINE 25 MG TAB PO PRN (03:28)
[2016-07-10] MEDS ORDERED: IPRATROPIUM-ALBUTEROL 3 ML NEB INHALATION PRN (03:28)
[2016-07-10] MEDS ORDERED: SODIUM CHLORIDE 0.9% 1,000 ML IV SCH (03:30)
[2016-07-10] MEDS ORDERED: FAMOTIDINE 20 MG TAB PO SCH (09:00)
[2016-07-10] MEDS: LEVOTHYROXINE 88 MCG TAB PO SCH (09:42)
[2016-07-10] MEDS: APIXABAN 2.5 MG TABLET PO SCH ×2 (10:39→22:48)
[2016-07-10] MEDS: METOPROLOL TARTRATE 50 MG TAB PO SCH ×2 (10:40→22:47)
[2016-07-10] MEDS: LOSARTAN 25 MG TAB PO SCH (10:40)
[2016-07-10] MEDS: FUROSEMIDE 10 MG/ML 2 ML VIAL IV SCH (12:55)
--- NOTE | 2016-07-10 13:34 | P.HPIM ---
History of Present Illness H&P Date: 07/10/16 Chief Complaint: Abdominal pain and cough This is a 86-year-old female with past medical history noted below who was recently discharged from the hospital to [facility] on the [place]. During last hospitalization, patient underwent an exploratory laparoscopy with right colectomy secondary to right colon ischemia. Patient had a prolonged hospital stay. She was treated with broad-spectrum antibiotic for possible intra- abdominal infection and was discharged to the senior care on Augmentin. Since her discharge, patient is been having worsening cough. She was trying to avoid cough as her abdominal pain was getting worse and she was concerned that her surgical wound is controlled going to open. Last night she started having worsening abdominal pain and was brought to the emergency room for further evaluation. In the emergency room, patient was found to be hemodynamically stable. No documented fevers. She was slightly tachycardic. Chest x-ray showed evidence of pneumonia. Patient was started on IV antibiotic and was admitted to the hospital for further evaluation. She was noted to have a stage I pressure sore on her coccyx as well as suspected fungal infection in the groin area. She is currently comfortable. She said that her pain is tolerable. She was seen and evaluated by surgery earlier. Review of Systems Review of system: 14 points review of systems were obtained and were negative except to what were mentioned in the HPI. Past Medical History Past Medical History: Atrial Fibrillation, Coronary Artery Disease (CAD), Chest Pain / Angina, Eye Disorder, Hyperlipidemia, Hypertension, Osteoarthritis (OA), Skin Disorder, Thyroid Disorder, Vascular Disorder Additional Past Medical History / Comment(s): Pt recently admitted to [facility] on with R colon ischemia/necrosis, hypotension/shock. 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 History of Any Multi-Drug Resistant Organisms: None Reported Past Surgical History: Appendectomy, Bowel Resection, Breast Surgery, Section, Heart Catheterization With Stent, Hernia Repair, Hysterectomy Additional Past Surgical History / Comment(s): 06/27/16 Exploratory laparotomy, R colectomy, partial small bowel resection, repair of umbilical hernia. Other surgical hx: left breast biopsy, 08-17-14 HEART CATH WITH STENT. RT FEMORAL endartrectomy,HEMATOMA REMOVAL. Past Anesthesia/Blood Transfusion Reactions: No Reported Reaction Additional Past Anesthesia/Blood Transfusion Reaction / Comment(s): Pt has received blood recently, without reaction. Date of Last Stent Placement:: 08-17-14 Past Psychological History: No Psychological Hx Reported Additional Psychological History / Comment(s): Pt currently residing in [facility] for rehab since last discharge from hospital. She states she has not gotten out of the bed due to bilateral leg weakness. Pt states she is on oxygen at rehab. She feeds herself but needs assist with all other ADLs. Prior to going to [facility], patient resided with her son and his spouse. Smoking Status: Never smoker Past Alcohol Use History: None Reported Past Drug Use History: None Reported - Past Family History Son(s) Family Medical History: Hearing Disorder / Deafness Daughter(s) Family Medical History: Hearing Disorder / Deafness Father Family Medical History: Cancer Additional Family Medical History / Comment(s): Father had lung cancer. Medications and Allergies Home Medications Medication Instructions Recorded Confirmed Type Levothyroxine Sodium [Synthroid] 88 mcg PO AC-BRKFST 07/19/14 07/10/16 History Aspirin 81 mg PO DAILY PRN 09/29/15 07/10/16 History Rosuvastatin Calcium [Crestor] 10 mg PO HS 06/27/16 07/10/16 History Amoxic-Pot Clav 875-125Mg 1 tab PO Q12HR 07/10/16 07/10/16 History [Augmentin 875-125] Allergies Allergy/AdvReac Type Severity Reaction Status Date / Time No Known Allergies Allergy Verified 07/10/16 09:43 Physical Exam Vitals: Vital Signs Temp Pulse Pulse Resp BP BP Pulse Ox 07/10/16 13:05 98.8 F 86 16 124/76 100 07/10/16 08:30 98.0 F 88 16 125/69 98 07/10/16 07:35 73 16 132/78 99 07/10/16 05:38 82 18 149/90 99 General: The patient is awake and alert, in no distress Eye: there is normal conjunctiva bilaterally. Neck: The neck is supple, there is no JVD. Cardiovascular: Normal S1-S2, no S3-S4, no murmurs. Respiratory: Lungs with diffuse rhonchi and rales bilaterally Gastrointestinal: Abdomen is soft, there is moderate tenderness to palpation. Abdominal binder in place. Musculoskeletal: There is +1 pedal edema. Neurological:. Speech is normal. Skin: Skin is warm and dry. Referred to nursing staff documentation for description of pressure sore as well as images in the paper chart Results CBC & Chem 7: 07/09/16 23:57 07/09/16 23:57 Thrombosis Risk Factor Assmnt - Choose All That Apply Any of the Below Risk Factors Present?: Yes Each Factor Represents 1 point: Hx of IBD, Obesity (BMI >25), Serious lung disease incl. pneumonia (< 1month) Other Risk Factors: Yes Each Risk Factor Represents 3 Points: Age 75 years or older Other congenital or acquired thrombophilia - If yes, enter type in comment: No Thrombosis Risk Factor Assessment Total Risk Factor Score: 6 Thrombosis Risk Factor Assessment Level: High Risk Assessment and Plan Plan: 1. Right lower lobe pneumonia: Healthcare acquired 2. Acute hypoxic respiratory failure: Most likely secondary to underlying pneumonia and fluid overload 3. Paroxysmal atrial fibrillation with rapid ventricular response on presentation: Now heart rate better controlled. On anticoagulation with Eliquis. Echocardiogram during last admission showed preserved ejection fraction of 50-60%. 4. Essential hypertension: Blood pressure well controlled 5. Recent right colectomy with concern about possible incision site infection. Wound culture will be obtained. Surgery following closely. 6. Physical debility Patient was seen and evaluated by me today. I would change her Levaquin to broad-spectrum antibiotic to cover for healthcare acquired pneumonia awaiting pulmonology and infectious disease recommendations. May use nystatin powder in the groin and inner thigh area. Start IV Lasix 20 mg 3 times daily and repeat chest x-ray in the morning. Appreciate performance consultant's recommendations. Repeat lab work in the morning.
[2016-07-10] MEDS ORDERED: MORPHINE SULFATE 2 MG/ML SYRINGE IV PRN (13:35)
--- NOTE | 2016-07-10 14:08 | P.GSCN ---
History of Present Illness Consult date: 07/10/16 Reason for Consult: Postop, serous wound drainage Requesting physician: Yvon Hurd History of present illness: Patient is an 86-year-old white female with medical history significant for recent exploratory laparotomy with right colectomy secondary to right colon ischemia. Patient was discharged to subacute rehab on 07/08/2016 in stable condition. Patient states that she experienced increased abdominal pain at the extended care facility and requested to be transferred to the emergency department. He emergency department chest x-ray with evidence of right lower lobe pneumonia. Patient was admitted to the hospital for IV antibiotics. Surgical consult requested for history of recent surgery. Upon examination, patient was feeling better. Denies nausea or vomiting. Patient is passing flatus or bowel movement. Incisional pain currently rated 4 out of 10 and tolerable per patient. Patient is tolerating a clear liquid diet. Afebrile. Past Medical History Past Medical History: Atrial Fibrillation, Coronary Artery Disease (CAD), Chest Pain / Angina, Eye Disorder, Hyperlipidemia, Hypertension, Osteoarthritis (OA), Skin Disorder, Thyroid Disorder, Vascular Disorder Additional Past Medical History / Comment(s): Pt recently admitted to [facility] on with R colon ischemia/necrosis, hypotension/shock. 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 History of Any Multi-Drug Resistant Organisms: None Reported Past Surgical History: Appendectomy, Bowel Resection, Breast Surgery, Section, Heart Catheterization With Stent, Hernia Repair, Hysterectomy Additional Past Surgical History / Comment(s): 06/27/16 Exploratory laparotomy, R colectomy, partial small bowel resection, repair of umbilical hernia. Other surgical hx: left breast biopsy, 08-17-14 HEART CATH WITH STENT. RT FEMORAL endartrectomy,HEMATOMA REMOVAL. Past Anesthesia/Blood Transfusion Reactions: No Reported Reaction Additional Past Anesthesia/Blood Transfusion Reaction / Comm: Pt has received blood recently, without reaction. Date of Last Stent Placement:: 08-17-14 Past Psychological History: No Psychological Hx Reported Additional Psychological History / Comment(s): Pt currently residing in [facility] for rehab since last discharge from hospital. She states she has not gotten out of the bed due to bilateral leg weakness. Pt states she is on oxygen at rehab. She feeds herself but needs assist with all other ADLs. Prior to going to [facility], patient resided with her son and his spouse. Smoking Status: Never smoker Past Alcohol Use History: None Reported Past Drug Use History: None Reported - Past Family History Son(s) Family Medical History: Hearing Disorder / Deafness Daughter(s) Family Medical History: Hearing Disorder / Deafness Father Family Medical History: Cancer Additional Family Medical History / Comment(s): Father had lung cancer. Medications and Allergies Home Medications Medication Instructions Recorded Confirmed Type Levothyroxine Sodium [Synthroid] 88 mcg PO AC-BRKFST 07/19/14 07/10/16 History Aspirin 81 mg PO DAILY PRN 09/29/15 07/10/16 History Rosuvastatin Calcium [Crestor] 10 mg PO HS 06/27/16 07/10/16 History Amoxic-Pot Clav 875-125Mg 1 tab PO Q12HR 07/10/16 07/10/16 History [Augmentin 875-125] Allergies Allergy/AdvReac Type Severity Reaction Status Date / Time No Known Allergies Allergy Verified 07/10/16 09:43 Surgical - Exam Vital Signs Temp Pulse Resp BP Pulse Ox 99.5 F 105 H 20 159/70 96 07/10/16 00:53 07/10/16 00:53 07/10/16 00:53 07/10/16 00:53 07/10/16 00:53 GENERAL: Pt awake and alert, well-appearing, well-nourished, and in no acute distress. HEAD: Atraumatic, normocephalic. EYES: Pupils equal and round. Sclera anicteric, conjunctiva are normal. ENT: Moist mucous membranes. LUNGS: Breath sounds diminished with coarse rhonchi and crackles. HEART: Heart S1, S2, no S3 or S4. No murmurs, rubs or gallops. ABDOMEN: Soft, mild incisional tenderness, nondistended, normoactive bowel sounds. No guarding, no rebound. No masses or organomegaly appreciated. Abdominal incision approximated with biju, no erythema, small amount of serous drainage. NEUROLOGICAL: Pt oriented x 3. Results - Labs 07/09/16 23:57 07/09/16 23:57 - Imaging Abdominal x-ray: report reviewed Assessment and Plan Plan: Impression: 1. Status post small bowel resection; right colectomy; repair of umbilical hernia; and lysis of adhesions on 06/28/2016. 2. Right lower lobe pneumonia. Plan: 1. Advance diet to soft. We'll remove a few biju from the abdominal incision to allow for better drainage from abdominal wound. Continue supportive treatment and pain management. Continue physical therapy. Continue medical management. The above impression and plan have been discussed and directed by Dr. Butler. Nicol AYALA acting as scribe for Dr. Butler.
[2016-07-10] MEDS: CEFEPIME 1 GM in SODIUM CHLORIDE 0.9% 50 ML IVPB SCH (15:53)
[2016-07-10] MEDS: NYSTATIN 100,000 UNIT/GM POWD 15 GM TOPICAL SCH ×2 (15:57→22:51)
[2016-07-10] MEDS: guaiFENesin 600 MG TABLET.ER PO SCH ×2 (15:57→22:44)
--- NOTE | 2016-07-10 16:33 | P.CNPUL ---
History of Present Illness Consult date: 07/10/16 Requesting physician: Mik Daniel Reason for consult: abnormal CXR/CT Chief complaint: Abdominal pain History of present illness: This is a very pleasant 86-year-old female patient with a history of atrial fibrillation, coronary artery disease, hyperlipidemia, hypertension, osteoarthritis, hypothyroidism. She was recently admitted here on 06/27/2016 with a right colon ischemia/necrosis and had undergone a right colectomy. She was slow to progress after that. She had a weak cough and required increased encouragement regarding the use of the incentive spirometer and cough and deep breathing exercises. Was subsequently transferred to [facility] on the [place] for further inpatient rehabilitation. She was continued on Augmentin. She was returned here early this morning with complaints of abdominal pain. Abdominal x -ray revealed evidence of recent surgery but a nonacute abdomen and no free air. He was some noted drainage around the umbilicus and a culture was taken. He also had irritation and redness around her groin area and a small decubitus ulcer on her coccyx. Her chest x-ray revealed continued patchy pneumonic consolidation of the right lung base. She is maintaining good O2 saturations up to 100% on 2 L/m per nasal cannula. She had a T-max of 99.5. Currently afebrile. No leukocytosis. She is seen today in consultation on the pediatric unit. She is awake and alert in no acute distress. She continues with the same weak cough and she states she was still using her incentive spirometer at [facility]. She has been initiated on bronchodilators, Mucinex and cefepime. Review of Systems 10 point review of system was conducted. All negative other than as mentioned in HPI. Past Medical History Past Medical History: Atrial Fibrillation, Coronary Artery Disease (CAD), Chest Pain / Angina, Eye Disorder, Hyperlipidemia, Hypertension, Osteoarthritis (OA), Skin Disorder, Thyroid Disorder, Vascular Disorder Additional Past Medical History / Comment(s): Pt recently admitted to [facility] on with R colon ischemia/necrosis, hypotension/shock. 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 History of Any Multi-Drug Resistant Organisms: None Reported Past Surgical History: Appendectomy, Bowel Resection, Breast Surgery, Section, Heart Catheterization With Stent, Hernia Repair, Hysterectomy Additional Past Surgical History / Comment(s): 06/27/16 Exploratory laparotomy, R colectomy, partial small bowel resection, repair of umbilical hernia. Other surgical hx: left breast biopsy, 08-17-14 HEART CATH WITH STENT. RT FEMORAL endartrectomy,HEMATOMA REMOVAL. Past Anesthesia/Blood Transfusion Reactions: No Reported Reaction Additional Past Anesthesia/Blood Transfusion Reaction / Comment(s): Pt has received blood recently, without reaction. Date of Last Stent Placement:: 08-17-14 Past Psychological History: No Psychological Hx Reported Additional Psychological History / Comment(s): Pt currently residing in [facility] for rehab since last discharge from hospital. She states she has not gotten out of the bed due to bilateral leg weakness. Pt states she is on oxygen at rehab. She feeds herself but needs assist with all other ADLs. Prior to going to [facility], patient resided with her son and his spouse. Smoking Status: Never smoker Past Alcohol Use History: None Reported Past Drug Use History: None Reported - Past Family History Son(s) Family Medical History: Hearing Disorder / Deafness Daughter(s) Family Medical History: Hearing Disorder / Deafness Father Family Medical History: Cancer Additional Family Medical History / Comment(s): Father had lung cancer. Medications and Allergies Home Medications Medication Instructions Recorded Confirmed Type Levothyroxine Sodium [Synthroid] 88 mcg PO AC-BRKFST 07/19/14 07/10/16 History Aspirin 81 mg PO DAILY PRN 09/29/15 07/10/16 History Rosuvastatin Calcium [Crestor] 10 mg PO HS 06/27/16 07/10/16 History Amoxic-Pot Clav 875-125Mg 1 tab PO Q12HR 07/10/16 07/10/16 History [Augmentin 875-125] Allergies Allergy/AdvReac Type Severity Reaction Status Date / Time No Known Allergies Allergy Verified 07/10/16 09:43 Physical Exam Vitals: Vital Signs Temp Pulse Pulse Resp BP BP Pulse Ox 07/10/16 16:11 80 07/10/16 13:05 98.8 F 86 16 124/76 100 07/10/16 08:30 98.0 F 88 16 125/69 98 07/10/16 07:35 73 16 132/78 99 07/10/16 05:38 82 18 149/90 99 GENERAL EXAM: Alert, comfortable in no apparent distress. HEAD: Normocephalic. EYES: Normal reaction of pupils, equal size. NOSE: Clear with pink turbinates. THROAT: No erythema or exudates. NECK: No masses, no JVD. CHEST: No chest wall deformity. LUNGS: Equal air entry with crackles in the right posterior base. Diminished.. CVS: S1 and S2 normal with no audible murmurs, regular rhythm. ABDOMEN: Dressing to the midabdomen is dry and intact, normal bowel sounds, no guarding or rigidity. SPINE: No scoliosis or deformity SKIN: Small decubitus ulcer. CENTRAL NERVOUS SYSTEM: No focal deficits, tone is normal in all 4 extremities. Extremities: There is trace peripheral edema. No clubbing, no cyanosis. Peripheral pulses are intact. Results - Laboratory Findings CBC and BMP: 07/09/16 23:57 07/09/16 23:57 Assessment and Plan Plan: Impression: #1 Abdominal pain suspect secondary to coughing in a patient with recent small bowel resection and repair of umbilical hernia. #2 Right lower lobe atelectasis/infiltrate. #3 Chronic atrial fibrillation, anticoagulated with Eliquis. #4 History of coronary disease. #5 Hyperlipidemia. #6 Hypothyroidism. #7 History of irritable bowel disease. Plan: The patient was seen and evaluated by Dr. Smith. Her chest x-ray and labs were reviewed. We'll go ahead and continue with her current medications including bronchodilators 4 times a day and when necessary, Mucinex, cefepime. We have again encourage the increased use of the incentive spirometer and cough and deep breathing exercises. Will increase her activity as tolerated. Surgical services has been consulted regarding losing from the umbilical incision. Ultras pending. We will continue to follow make further recommendations based on her clinical status.
--- NOTE | 2016-07-10 18:30 | P.CONS ---
History of Present Illness - Reason for Consult Consult date: 07/10/16 - Chief Complaint Shortness of breath with cough - History of Present Illness Pleasant 86-year-old female who emigrated from [facility] greater than 50 years ago presents from the [facility] with increasing cough sputum production. Feeling weak and tired and having shortness of breath. She has a history of recent hospitalization. At that point in time she had significant abdominal pain. 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 She was doing relatively well and was transferred to the [facility]. However she started to develop some abdominal pain which was not severe but also developed significant cough with some sputum production and some shortness of breath. Because of this she was brought into hospital. Concerns pneumonia and some minimal pressure ulceration the infectious diseases consultation was requested. Review of Systems HEENT:Denies headache or acute visual change. Denies sinus or mouth discomforts. Denies neck stiffness or pain. Denies significant oral cavity pain. Denies difficulty on swallowing. Lungs: Patient is having cough or sputum production without hemoptysis Cardiovascular: Denies chest pain, chest wall pain, no syncope she is however having some dyspnea on exertion and mild orthopnea Gastrointestinal:Denies nausea, vomiting, diarrhea, constipation, hematemesis, melena, hematochezia. Is not having significant abdominal pain at this time. Musculoskeletal: denies significant myalgias or arthralgias. No new joint swelling. Denies new back pain. Skin: Denies new rash or lesions. No new ulcers or wounds are related.. Neuro: Denies headache or visual change. Denies any new onset weakness or difficulty with ambulation. Denies falls or seizures. Psychiatric:Denies anxiety or depression. Endocrine: Denies significant fatigue, denies significant weight loss or weight gain. Past Medical History Past Medical History: Atrial Fibrillation, Coronary Artery Disease (CAD), Chest Pain / Angina, Eye Disorder, Hyperlipidemia, Hypertension, Osteoarthritis (OA), Skin Disorder, Thyroid Disorder, Vascular Disorder Additional Past Medical History / Comment(s): Pt recently admitted to [facility] on with R colon ischemia/necrosis, hypotension/shock. 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 History of Any Multi-Drug Resistant Organisms: None Reported Past Surgical History: Appendectomy, Bowel Resection, Breast Surgery, Section, Heart Catheterization With Stent, Hernia Repair, Hysterectomy Additional Past Surgical History / Comment(s): 06/27/16 Exploratory laparotomy, R colectomy, partial small bowel resection, repair of umbilical hernia. Other surgical hx: left breast biopsy, 08-17-14 HEART CATH WITH STENT. RT FEMORAL endartrectomy,HEMATOMA REMOVAL. Past Anesthesia/Blood Transfusion Reactions: No Reported Reaction Additional Past Anesthesia/Blood Transfusion Reaction / Comm: Pt has received blood recently, without reaction. Date of Last Stent Placement:: 08-17-14 Past Psychological History: No Psychological Hx Reported Additional Psychological History / Comment(s): Pt currently residing in [facility] for rehab since last discharge from hospital. She states she has not gotten out of the bed due to bilateral leg weakness. Pt states she is on oxygen at rehab. She feeds herself but needs assist with all other ADLs. Prior to going to [facility], patient resided with her son and his spouse. Emigrated from the [facility] 50 years ago. . 2 adult children and her daughter is at her side. No tobacco use. retired. No recent travels. No animal exposures Smoking Status: Never smoker Past Alcohol Use History: None Reported Past Drug Use History: None Reported - Past Family History Son(s) Family Medical History: Hearing Disorder / Deafness Daughter(s) Family Medical History: Hearing Disorder / Deafness Father Family Medical History: Cancer Additional Family Medical History / Comment(s): Father had lung cancer. Medications and Allergies Home Medications and Allergies Comment(s): Current Medications Acetaminophen (Tylenol Tab) 650 mg PO Q6HR PRN PRN Reason: Mild Pain or Fever > 100.5 Albuterol/Ipratropium (Duoneb 0.5 Mg-3 Mg/3 Ml Soln) 3 ml INHALATION RT-QID PRN PRN Reason: Shortness Of Breath Last Admin: 07/10/16 16:07 Dose: 3 ml Albuterol/Ipratropium (Duoneb 0.5 Mg-3 Mg/3 Ml Soln) 3 ml INHALATION RT-QID [facility] Apixaban (Eliquis) 2.5 mg PO BID MEGHNA Last Admin: 07/10/16 10:39 Dose: 2.5 mg Aspirin (Aspirin) 81 mg PO DAILY PRN PRN Reason: Headache Atorvastatin Calcium (Lipitor) 20 mg PO [facility] Famotidine (Pepcid) 20 mg PO DAILY [facility] Furosemide (Lasix) 20 mg IV Q8HR [facility] Last Admin: 07/10/16 12:55 Dose: 20 mg Guaifenesin (Mucinex) 1,200 mg PO Q12HR [facility] Last Admin: 07/10/16 15:57 Dose: 1,200 mg Cefepime HCl 1 gm/ Sodium (Chloride) 50 mls @ 100 mls/hr IVPB Q12H [facility] Last Admin: 07/10/16 15:53 Dose: 100 mls/hr Levothyroxine Sodium (Synthroid) 88 mcg PO [facility] Last Admin: 07/10/16 09:42 Dose: 88 mcg Losartan Potassium (Cozaar) 25 mg PO DAILY [facility] Last Admin: 07/10/16 10:40 Dose: 25 mg Meclizine HCl (Antivert) 25 mg PO TID PRN PRN Reason: Dizziness Methylprednisolone Sodium Succinate (Solu-Medrol) 40 mg IV Q8HR [facility] Metoprolol Tartrate (Lopressor) 50 mg PO BID [facility] Last Admin: 07/10/16 10:40 Dose: 50 mg Morphine Sulfate (Morphine Sulfate (Inj)) 2 mg IV Q4HR PRN PRN Reason: Severe Pain Naloxone HCl (Narcan) 0.2 mg IV Q2M PRN PRN Reason: Opioid Reversal Nystatin (Mycostatin Powder) 1 applic TOPICAL BID [facility] Last Admin: 07/10/16 15:57 Dose: 1 applic Ondansetron HCl (Zofran) 4 mg IVP Q8HR PRN PRN Reason: Nausea And Vomiting Home Medications Medication Instructions Recorded Confirmed Type Levothyroxine Sodium [Synthroid] 88 mcg PO AC-[id number] 07/19/14 07/10/16 History Aspirin 81 mg PO DAILY PRN 09/29/15 07/10/16 History Rosuvastatin Calcium [Crestor] 10 mg PO HS 06/27/16 07/10/16 History Amoxic-Pot Clav 875-125Mg 1 tab PO Q12HR 07/10/16 07/10/16 History [Augmentin 875-125] Allergies Allergy/AdvReac Type Severity Reaction Status Date / Time No Known Allergies Allergy Verified 07/10/16 09:43 Physical Exam Vitals: Vital Signs Temp Pulse Pulse Resp BP BP Pulse Ox 07/10/16 16:21 80 07/10/16 16:11 80 07/10/16 13:05 98.8 F 86 16 124/76 100 07/10/16 08:30 98.0 F 88 16 125/69 98 07/10/16 07:35 73 16 132/78 99 07/10/16 05:38 82 18 149/90 99 86-year-old woman presented to hospital with shortness of breath and cough and some abdominal pain. HEENT: Anicteric conjunctiva are pink and moist nasal mucosa grossly intact without significant lesions, there is no thrush. Neck: The neck is supple without significant lymphadenopathy or thyromegaly. Lungs: There is symmetrical air entry. There are bibasilar crackles. Right greater than left. Expiratory wheezes are noted. Some upper airway crackles are noted. There is no dullness or egophony. No change in tactile fremitus Heart: Irregularly irregular with an audible S1-S2, no S3 of S4 There is no significant murmur click or rub, PMI was nondisplaced. Abdomen: Mildly obese. Soft. Minimal tenderness through the mid incision point. Incision itself is healing well. There is no erythema or crepitance or fluctuance. There is no expressible purulence. No organomegaly is noted. No guarding or rebound. Extremities: The upper extremities have excellent pulses they are symmetric, no significant petechiae or telangiectasia. No splinter hemorrhages were noted. The lower extremities are free from significant edema. The peripheral pulses were 2+ and symmetric. Neuro: Awake alert oriented to person place and time. There are no acute new gross focal sensory motor deficits. Skin reveals evidence of a stage II on the right buttocks that is not extremely tender. This is pressure related. Present on admission. Results CBC & Chem 7: 07/09/16 23:57 07/09/16 23:57 Labs: Laboratory Results WBC 8.6 k/uL (3.8-10.6) 07/09/16 23:57 RBC 3.38 m/uL (3.80-5.40) L 07/09/16 23:57 Hgb 10.1 gm/dL (11.4-16.0) L 07/09/16 23:57 Hct 31.4 % (34.0-46.0) L 07/09/16 23:57 MCV 93.0 fL (80.0-100.0) 07/09/16 23:57 MCH 29.8 pg (25.0-35.0) 07/09/16 23:57 MCHC 32.1 g/dL (31.0-37.0) 07/09/16 23:57 RDW 15.9 % (11.5-15.5) H 07/09/16 23:57 Plt Count 732 k/uL (150-450) H 07/09/16 23:57 Neutrophils % 75 % 07/09/16 23:57 Lymphocytes % 13 % 07/09/16 23:57 Monocytes % 9 % 07/09/16 23:57 Eosinophils % 0 % 07/09/16 23:57 Basophils % 0 % 07/09/16 23:57 Neutrophils # 6.5 k/uL (1.3-7.7) 07/09/16 23:57 Lymphocytes # 1.1 k/uL (1.0-4.8) 07/09/16 23:57 Monocytes # 0.8 k/uL (0-1.0) 07/09/16 23:57 Eosinophils # 0.0 k/uL (0-0.7) 07/09/16 23:57 Basophils # 0.0 k/uL (0-0.2) 07/09/16 23:57 Sodium 130 mmol/L (137-145) L 07/09/16 23:57 Potassium 5.3 mmol/L (3.5-5.1) H 07/09/16 23:57 Chloride 96 mmol/L (98-107) L 07/09/16 23:57 Carbon Dioxide 28 mmol/L (22-30) 07/09/16 23:57 Anion Gap 6 mmol/L 07/09/16 23:57 BUN 17 mg/dL (7-17) 07/09/16 23:57 Creatinine 0.80 mg/dL (0.52-1.04) 07/09/16 23:57 Est GFR (MDRD) Af Amer >60 (>60 ml/min/1.73 sqM) 07/09/16 23:57 Est GFR (MDRD) Non-Af >60 (>60 ml/min/1.73 sqM) 07/09/16 23:57 Glucose 122 mg/dL (74-99) H 07/09/16 23:57 Plasma Lactic Acid [place] 1.2 mmol/L (0.7-2.0) 07/09/16 23:57 Calcium 7.6 mg/dL (8.4-10.2) L 07/09/16 23:57 Total Bilirubin 1.0 mg/dL (0.2-1.3) 07/09/16 23:57 AST 94 U/L (14-36) H 07/09/16 23:57 ALT 57 U/L (9-52) H 07/09/16 23:57 Alkaline Phosphatase 73 U/L (38-126) 07/09/16 23:57 Troponin I <0.012 ng/mL (0.000-0.034) 07/09/16 23:57 Total Protein 5.6 g/dL (6.3-8.2) L 07/09/16 23:57 Albumin 2.3 g/dL (3.5-5.0) L 07/09/16 23:57 Amylase 83 U/L (30-110) 07/09/16 23:57 Lipase 259 U/L (23-300) 07/09/16 23:57 Urine Color Light Yellow 07/10/16 01:50 Urine Appearance Cloudy (Clear) H 07/10/16 01:50 Urine pH 7.0 (5.0-8.0) 07/10/16 01:50 Ur Specific [place] 1.005 (1.001-1.035) 07/10/16 01:50 Urine Protein Negative (Negative) 07/10/16 01:50 Urine Glucose (UA) Negative (Negative) 07/10/16 01:50 Urine Ketones Negative (Negative) 07/10/16 01:50 Urine Blood Trace (Negative) H 07/10/16 01:50 Urine Nitrate Negative (Negative) 07/10/16 01:50 Urine Bilirubin Negative (Negative) 07/10/16 01:50 Urine Urobilinogen <2.0 mg/dL (<2.0) 07/10/16 01:50 Ur Leukocyte Esterase Trace (Negative) H 07/10/16 01:50 Urine RBC 171 /hpf (0-5) H 07/10/16 01:50 Urine WBC <1 /hpf (0-5) 07/10/16 01:50 Ur Squamous Epith Cells 1 /hpf (0-4) 07/10/16 01:50 Urine Bacteria Occasional /hpf (None) H 07/10/16 01:50 Urine Mucus Rare /hpf (None) H 07/10/16 01:50 Microbiology 07/10/16 00:01 Abdomen Wound Culture - Preliminary Assessment and Plan (1) Pneumonia Narrative/Plan: 86-year-old female presents to Hospital from the extended care facility where she's been recovering after her recent abdominal surgery. She had right colonic ischemia and required a right hemicolectomy. She's having some ongoing abdominal pain. But developed increasing shortness of breath. X- ray is abnormal. Laboratory reviewed and influenza A testing and B testing is requested Is receiving antibiotic therapy with cefepime as well as levofloxacin. All cultures are processes is reasonable given her recent hospitalization and extended care facility placement with concerns for potential pseudomonal pneumonia. Does not appear to have aspiration. Respiratory treatments to be started. Mucinex started. Patient did have leukocytosis that is improved. She has a normal creatinine. Her postoperative anemia is improving No evidence of a urinary infection at this time Status: Acute (2) Chronic a-fib Status: Acute
[2016-07-10] MEDS: methylPREDNISolone SOD SUCCI 40 MG/ML 1 ML VIAL IV SCH (19:22)
[2016-07-10] MEDS: IPRATROPIUM-ALBUTEROL 3 ML NEB INHALATION SCH (21:00)
[2016-07-10] MEDS: ATORVASTATIN 20 MG TAB PO SCH (22:45)
[2016-07-11] MEDS: SODIUM CHLORIDE 0.9% 1,000 ML IV SCH (01:18)
[2016-07-11] MEDS: methylPREDNISolone SOD SUCCI 40 MG/ML 1 ML VIAL IV SCH ×3 (01:31→15:45)
[2016-07-11] MEDS: FUROSEMIDE 10 MG/ML 2 ML VIAL IV SCH ×3 (01:32→15:45)
[2016-07-11] MEDS: CEFEPIME 1 GM in SODIUM CHLORIDE 0.9% 50 ML IVPB SCH ×2 (03:14→15:45)
[2016-07-11] MEDS: LEVOTHYROXINE 88 MCG TAB PO SCH (07:22)
[2016-07-11 07:46] LABS: ALT 49 U/L (9-52); AST 45 U/L (14-36); Alkaline Phosphatase 80 U/L (38-126); Anion Gap 9 mmol/L; Blood Urea Nitrogen 16 mg/dL (7-17); Calcium 8.4 mg/dL (8.4-10.2); Carbon Dioxide 27 mmol/L (22-30); Chloride 102 mmol/L (98-107); Glucose 143 mg/dL (74-99); Non-African American GFR(MDRD) >60 (>60 ml/min/1.73 sqM); Phosphorous 4.8 mg/dL (2.5-4.5); Potassium 4.6 mmol/L (3.5-5.1); Sodium 138 mmol/L (137-145); Total Bilirubin 0.9 mg/dL (0.2-1.3); Total Protein 5.5 g/dL (6.3-8.2)
[2016-07-11] MEDS: IPRATROPIUM-ALBUTEROL 3 ML NEB INHALATION SCH ×4 (07:56→19:26)
[2016-07-11 08:01] LABS: Anisocytosis Slight; Basophils % (A) 0 %; CH 29.9; CHCM 31.2; Eosinophils % (A) 0 %; HCT 33.1 % (34.0-46.0); HDW 2.65; HGB 10.3 gm/dL (11.4-16.0); Hypochromasia Slight; Luc # (Auto) 0.12; Luc % (Auto) 2; Lymphocytes % (A) 16 %; MCHC 31.2 g/dL (31.0-37.0); MCV 96.2 fL (80.0-100.0); Macrocytosis Slight; Mean Platelet Volume 7.2; Monocytes # (A) 0.2 k/uL (0-1.0); Monocytes % (A) 3 %; Neutrophils # (A) 5.2 k/uL (1.3-7.7); Neutrophils % (A) 80 %; RBC 3.44 m/uL (3.80-5.40); RDW 16.3 % (11.5-15.5); WBC 6.5 k/uL (3.8-10.6); WBC (Perox) 6.74
[2016-07-11 08:46] LABS: Manual Review Performed
[2016-07-11] MEDS ORDERED: LEVOFLOXACIN 750MG-D5W PMX 750 MG in DEXTROSE/WATER 1 150ML.BAG IVPB SCH (09:00)
[2016-07-11] MEDS: APIXABAN 2.5 MG TABLET PO SCH ×2 (09:25→21:27)
[2016-07-11] MEDS: FAMOTIDINE 20 MG TAB PO SCH (09:25)
[2016-07-11] MEDS: LOSARTAN 25 MG TAB PO SCH (09:25)
[2016-07-11] MEDS: METOPROLOL TARTRATE 50 MG TAB PO SCH ×2 (09:25→21:28)
[2016-07-11] MEDS: guaiFENesin 600 MG TABLET.ER PO SCH ×2 (09:27→21:28)
[2016-07-11] MEDS: NYSTATIN 100,000 UNIT/GM POWD 15 GM TOPICAL SCH ×2 (09:30→21:29)
--- NOTE | 2016-07-11 10:14 | P.PN ---
Subjective Principal diagnosis: Influenza B, pneumonia Patient is evaluated in the pediatric unit where she is currently laying in bed. Patient continues to have a mostly nonproductive cough. Denies chills, nausea, or or vomiting. Incisional pain controlled with current pain regimen. Tolerating a soft diet. Passing flatus without bowel movements. Patient is urinating without difficulty. Afebrile. No evidence of leukocytosis. Hemoglobin 10.3, stable. Patient tested positive for influenza B. Objective - Vital Signs Vital signs: Vital Signs Temp 97.9 F 07/11/16 08:11 Pulse 85 07/11/16 08:11 Resp 16 07/11/16 08:11 BP 133/64 07/11/16 08:11 Pulse Ox 98 07/11/16 08:11 Intake & Output 07/10/16 07/11/16 07/11/16 18:59 06:59 18:59 Intake Total 1400 640 550 Balance 1400 640 550 Weight 82.5 kg Intake: Oral 1400 640 550 Other: Voiding Method Diaper Diaper # Voids 1 2 3 - Exam GENERAL: Pt awake and alert, well-appearing, well-nourished, and in no acute distress. HEAD: Atraumatic, normocephalic. EYES: Pupils equal and round. Sclera anicteric, conjunctiva are normal. ENT: Moist mucous membranes. HEART: Heart S1, S2, no S3 or S4. Regular rate and rhythm. No murmurs, rubs or gallops. ABDOMEN: Soft, mild incisional tenderness, nondistended, normoactive bowel sounds. No guarding, no rebound. No masses or organomegaly appreciated. Abdominal incision approximated with biju, no erythema, small amount of serous drainage. NEUROLOGICAL: Pt oriented x 3. - Labs CBC & Chem 7: 07/11/16 07:12 07/11/16 07:12 Labs: Abnormal Lab Results - Last 24 Hours (Table) 07/10/16 07/11/16 07/11/16 Range/Units 22:50 07:12 07:12 RBC 3.44 L (3.80-5.40) m/uL Hgb 10.3 L (11.4-16.0) gm/dL Hct 33.1 L (34.0-46.0) % RDW 16.3 H (11.5-15.5) % Plt Count 809 H* (150-450) k/uL Glucose 143 H (74-99) mg/dL Phosphorus 4.8 H (2.5-4.5) mg/dL AST 45 H (14-36) U/L Total Protein 5.5 L (6.3-8.2) g/dL Albumin 2.3 L (3.5-5.0) g/dL Influenza Type B (PCR) Detected H (Not Detectd) Assessment and Plan Plan: Impression: 1. Status post small bowel resection; right colectomy; repair of umbilical hernia; and lysis of adhesions on 06/28/2016. 2. Right lower lobe pneumonia. 3. Influenza B. Plan: 1. Continue soft diet. Continue local wound care. Continue IV antibiotics. Continue supportive treatment and pain management. Continue physical therapy. Continue medical management. The above impression and plan have been discussed and directed by Dr. Butler. Nicol AYALA acting as scribe for Dr. Butler.
[2016-07-11] MEDS ORDERED: OSELTAMIVIR 75 MG CAP PO SCH (11:30)
--- NOTE | 2016-07-11 12:52 | P.PN ---
Subjective Principal diagnosis: Acute influenza B infection This is a very pleasant 86-year-old female patient with a history of atrial fibrillation, coronary artery disease, hyperlipidemia, hypertension, osteoarthritis, hypothyroidism. She was recently admitted here on 06/27/2016 with a right colon ischemia/necrosis and had undergone a right colectomy. She was slow to progress after that. She had a weak cough and required increased encouragement regarding the use of the incentive spirometer and cough and deep breathing exercises. Was subsequently transferred to [facility] on the [place] for further inpatient rehabilitation. She was continued on Augmentin. She was returned here early this morning with complaints of abdominal pain. Abdominal x -ray revealed evidence of recent surgery but a nonacute abdomen and no free air. He was some noted drainage around the umbilicus and a culture was taken. He also had irritation and redness around her groin area and a small decubitus ulcer on her coccyx. Her chest x-ray revealed continued patchy pneumonic consolidation of the right lung base. She is maintaining good O2 saturations up to 100% on 2 L/m per nasal cannula. She had a T-max of 99.5. Currently afebrile. No leukocytosis. She is seen today in consultation on the pediatric unit. She is awake and alert in no acute distress. She continues with the same weak cough and she states she was still using her incentive spirometer at [facility]. She has been initiated on bronchodilators, Mucinex and cefepime. Patient was reevaluated today on 07/11/2016, she is doing much better, denies any cough no wheezing no shortness of breath. Her influenza screen came back positive for influenza B, hence patient was started on Tamiflu. I reviewed the chest x-ray again from her admission, I suspect mostly atelectasis in the right lower lobe, strongly doubt pneumonia. CBC was reviewed it is relatively normal except for elevated platelets consistent with thrombocythemia Basic metabolic profile is normal. Objective - Vital Signs Vital signs: Vital Signs Temp 97.9 F 07/11/16 08:11 Pulse 88 07/11/16 11:16 Resp 16 07/11/16 08:11 BP 133/64 07/11/16 08:11 Pulse Ox 98 07/11/16 08:11 Intake & Output 07/10/16 07/11/16 07/11/16 18:59 06:59 18:59 Intake Total 1400 640 550 Balance 1400 640 550 Weight 82.5 kg Intake: Oral 1400 640 550 Other: Voiding Method Diaper Diaper # Voids 1 2 3 - Exam GENERAL EXAM: Alert, comfortable in no apparent distress. HEAD: Normocephalic. EYES: Normal reaction of pupils, equal size. NOSE: Clear with pink turbinates. THROAT: No erythema or exudates. NECK: No masses, no JVD. CHEST: No chest wall deformity. LUNGS: Equal air entry with crackles in the right posterior base. Diminished.. CVS: S1 and S2 normal with no audible murmurs, regular rhythm. ABDOMEN: Dressing to the midabdomen is dry and intact, normal bowel sounds, no guarding or rigidity. SPINE: No scoliosis or deformity SKIN: Small decubitus ulcer. CENTRAL NERVOUS SYSTEM: No focal deficits, tone is normal in all 4 extremities. Extremities: There is trace peripheral edema. No clubbing, no cyanosis. Peripheral pulses are intact. - Labs CBC & Chem 7: 07/11/16 07:12 07/11/16 07:12 Labs: Abnormal Lab Results - Last 24 Hours (Table) 07/10/16 07/11/16 07/11/16 Range/Units 22:50 07:12 07:12 RBC 3.44 L (3.80-5.40) m/uL Hgb 10.3 L (11.4-16.0) gm/dL Hct 33.1 L (34.0-46.0) % RDW 16.3 H (11.5-15.5) % Plt Count 809 H* (150-450) k/uL Glucose 143 H (74-99) mg/dL Phosphorus 4.8 H (2.5-4.5) mg/dL AST 45 H (14-36) U/L Total Protein 5.5 L (6.3-8.2) g/dL Albumin 2.3 L (3.5-5.0) g/dL Influenza Type B (PCR) Detected H (Not Detectd) Assessment and Plan Plan: 1 Abdominal pain suspect secondary to coughing in a patient with recent small bowel resection and repair of umbilical hernia. #2 Right lower lobe atelectasis/infiltrate. I favor more of atelectasis rather than pneumonia. #3 Chronic atrial fibrillation, anticoagulated with Eliquis. #4 History of coronary disease. #5 Hyperlipidemia. #6 Hypothyroidism. #7 History of irritable bowel disease. #8 acute influenza B infection, patient is on antiviral therapy. Recommendation: Continue present meds including bronchodilators, empiric antibiotics, Tamiflu, incentive spirometry, and discharge planning possibly in the next couple of days. Time with Patient: Less than 30
--- NOTE | 2016-07-11 13:25 | P.PN ---
Subjective Principal diagnosis: And influenza B pneumonia Patient is doing slightly better today. Her chest is still congested but she is not as short of breath as she was yesterday. Objective - Vital Signs Vital signs: Vital Signs Temp 97.9 F 07/11/16 08:11 Pulse 88 07/11/16 11:16 Resp 16 07/11/16 08:11 BP 133/64 07/11/16 08:11 Pulse Ox 98 07/11/16 08:11 Intake & Output 07/10/16 07/11/16 07/11/16 18:59 06:59 18:59 Intake Total 1400 640 550 Balance 1400 640 550 Weight 82.5 kg Intake: Oral 1400 640 550 Other: Voiding Method Diaper Diaper # Voids 1 2 3 - Exam General: The patient is awake and alert, in no distress Eye: there is normal conjunctiva bilaterally. Neck: The neck is supple, there is no JVD. Cardiovascular: Normal S1-S2, no S3-S4, no murmurs. Respiratory: Lungs with rhonchi to anterior chest auscultation Gastrointestinal: Abdomen is soft, nontender Musculoskeletal: There is no pedal edema. Neurological:. Speech is normal. Skin: Skin is warm and dry - Labs CBC & Chem 7: 07/11/16 07:12 07/11/16 07:12 Labs: Abnormal Lab Results - Last 24 Hours (Table) 07/10/16 07/11/16 07/11/16 Range/Units 22:50 07:12 07:12 RBC 3.44 L (3.80-5.40) m/uL Hgb 10.3 L (11.4-16.0) gm/dL Hct 33.1 L (34.0-46.0) % RDW 16.3 H (11.5-15.5) % Plt Count 809 H* (150-450) k/uL Glucose 143 H (74-99) mg/dL Phosphorus 4.8 H (2.5-4.5) mg/dL AST 45 H (14-36) U/L Total Protein 5.5 L (6.3-8.2) g/dL Albumin 2.3 L (3.5-5.0) g/dL Influenza Type B (PCR) Detected H (Not Detectd) Assessment and Plan Plan: 1. Influenza B: Started on Tamiflu twice daily for 5 days course 1. Right lower lobe pneumonia: Started on broad-spectrum antibiotic with vancomycin and cefepime. Seen and evaluated by infectious disease. Currently on IV cefepime. Vancomycin was discontinued. Appreciate human resources consultant's recommendations. 2. Acute hypoxic respiratory failure: Most likely secondary to underlying pneumonia and fluid overload 3. Paroxysmal atrial fibrillation with rapid ventricular response on presentation: Now heart rate better controlled. On anticoagulation with Eliquis. Echocardiogram during last admission showed preserved ejection fraction of 50-60%. 4. Essential hypertension: Blood pressure well controlled 5. Recent right colectomy with concern about possible incision site infection. Wound culture will be obtained. Surgery following closely. 6. Reactive airway disease: On IV Solu-Medrol and bronchodilators. Pulmonology following closely. 7. Physical debility: Patient was at [facility] for rehab. When medically cleared she will be discharged back to [facility]. 8. Stage I decubitus pressure sore of the coccyx: Continue foam barrier Continue supportive care. IV Lasix 20 mg 3 times a day for another 24 hours would be discontinued tomorrow. Continue bronchodilators and steroids and attempt to wean down steroids starting tomorrow. Continue droplet precaution. GI and DVT prophylaxis. Appreciate consultants recommendations. Repeat lab work in the morning.
--- NOTE | 2016-07-11 21:20 | P.PN ---
Subjective Principal diagnosis: Shortness of breath Pleasant 86-year-old female who emigrated from [facility] greater than 50 years ago presents from the extended care facility with increasing cough sputum production. Feeling weak and tired and having shortness of breath. She has a history of recent hospitalization. At that point in time she had significant abdominal pain. 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 She was doing relatively well and was transferred to the extended care facility. However she started to develop some abdominal pain which was not severe but also developed significant cough with some sputum production and some shortness of breath. Because of this she was brought into hospital. Concerns pneumonia and some minimal pressure ulceration the infectious diseases consultation was requested. With evaluation yesterday the patient had significant congestion. X-ray was not significantly abnormal a catheter was concerns to influenza. Influenza testing was performed and is positive for influenza B. Tamiflu has been started. She still coughing with feels slightly better today. Objective - Vital Signs Vital signs: Vital Signs Temp 96.8 F L 07/11/16 16:05 Pulse 94 07/11/16 16:24 Resp 20 07/11/16 16:05 BP 126/55 07/11/16 16:05 Pulse Ox 96 07/11/16 16:05 Intake & Output 07/11/16 07/11/16 07/12/16 06:59 18:59 06:59 Intake Total 640 1070 240 Balance 640 1070 240 Intake: Oral 640 1070 240 Other: Voiding Method Diaper Toilet Bedside Commode # Voids 2 1 - Exam 86-year-old woman presented to hospital with shortness of breath and cough and some abdominal pain. HEENT: Anicteric conjunctiva are pink and moist nasal mucosa grossly intact without significant lesions, there is no thrush. Neck: The neck is supple without significant lymphadenopathy or thyromegaly. Lungs: There is symmetrical air entry. There are bibasilar crackles. Right greater than left. Expiratory wheezes are noted. Some upper airway crackles are noted. There is no dullness or egophony. No change in tactile fremitus Heart: Irregularly irregular with an audible S1-S2, no S3 of S4 There is no significant murmur click or rub, PMI was nondisplaced. Abdomen: Mildly obese. Soft. Minimal tenderness through the mid incision point. Incision itself is healing well. There is no erythema or crepitance or fluctuance. There is no expressible purulence. No organomegaly is noted. No guarding or rebound. Extremities: The upper extremities have excellent pulses they are symmetric, no significant petechiae or telangiectasia. No splinter hemorrhages were noted. The lower extremities are free from significant edema. The peripheral pulses were 2+ and symmetric. Neuro: Awake alert oriented to person place and time. There are no acute new gross focal sensory motor deficits. Skin reveals evidence of a stage II on the right buttocks that is not extremely tender. This is pressure related. Present on admission. - Labs CBC & Chem 7: 07/11/16 07:12 07/11/16 07:12 Labs: Abnormal Lab Results - Last 24 Hours (Table) 07/10/16 07/11/16 07/11/16 Range/Units 22:50 07:12 07:12 RBC 3.44 L (3.80-5.40) m/uL Hgb 10.3 L (11.4-16.0) gm/dL Hct 33.1 L (34.0-46.0) % RDW 16.3 H (11.5-15.5) % Plt Count 809 H* (150-450) k/uL Glucose 143 H (74-99) mg/dL Phosphorus 4.8 H (2.5-4.5) mg/dL AST 45 H (14-36) U/L Total Protein 5.5 L (6.3-8.2) g/dL Albumin 2.3 L (3.5-5.0) g/dL Influenza Type B (PCR) Detected H (Not Detectd) Laboratory Results WBC 6.5 k/uL (3.8-10.6) 07/11/16 07:12 RBC 3.44 m/uL (3.80-5.40) L 07/11/16 07:12 Hgb 10.3 gm/dL (11.4-16.0) L 07/11/16 07:12 Hct 33.1 % (34.0-46.0) L 07/11/16 07:12 MCV 96.2 fL (80.0-100.0) 07/11/16 07:12 MCH 30.0 pg (25.0-35.0) 07/11/16 07:12 MCHC 31.2 g/dL (31.0-37.0) 07/11/16 07:12 RDW 16.3 % (11.5-15.5) H 07/11/16 07:12 Plt Count 809 k/uL (150-450) H* 07/11/16 07:12 Neutrophils % 80 % 07/11/16 07:12 Lymphocytes % 16 % 07/11/16 07:12 Monocytes % 3 % 07/11/16 07:12 Eosinophils % 0 % 07/11/16 07:12 Basophils % 0 % 07/11/16 07:12 Neutrophils # 5.2 k/uL (1.3-7.7) 07/11/16 07:12 Lymphocytes # 1.0 k/uL (1.0-4.8) 07/11/16 07:12 Monocytes # 0.2 k/uL (0-1.0) 07/11/16 07:12 Eosinophils # 0.0 k/uL (0-0.7) 07/11/16 07:12 Basophils # 0.0 k/uL (0-0.2) 07/11/16 07:12 Manual Slide Review Performed 07/11/16 07:12 Hypochromasia Slight 07/11/16 07:12 Poikilocytosis (manual Present 07/11/16 07:12 Anisocytosis Slight 07/11/16 07:12 Macrocytosis Slight 07/11/16 07:12 Sodium 138 mmol/L (137-145) 07/11/16 07:12 Potassium 4.6 mmol/L (3.5-5.1) 07/11/16 07:12 Chloride 102 mmol/L (98-107) 07/11/16 07:12 Carbon Dioxide 27 mmol/L (22-30) 07/11/16 07:12 Anion Gap 9 mmol/L 07/11/16 07:12 BUN 16 mg/dL (7-17) 07/11/16 07:12 Creatinine 0.75 mg/dL (0.52-1.04) 07/11/16 07:12 Est GFR (MDRD) Af Amer >60 (>60 ml/min/1.73 sqM) 07/11/16 07:12 Est GFR (MDRD) Non-Af >60 (>60 ml/min/1.73 sqM) 07/11/16 07:12 Glucose 143 mg/dL (74-99) H 07/11/16 07:12 Plasma Lactic Acid Gumaro 1.2 mmol/L (0.7-2.0) 07/09/16 23:57 Calcium 8.4 mg/dL (8.4-10.2) 07/11/16 07:12 Phosphorus 4.8 mg/dL (2.5-4.5) H 07/11/16 07:12 Magnesium 2.0 mg/dL (1.6-2.3) 07/11/16 07:12 Total Bilirubin 0.9 mg/dL (0.2-1.3) 07/11/16 07:12 AST 45 U/L (14-36) H 07/11/16 07:12 ALT 49 U/L (9-52) 07/11/16 07:12 Alkaline Phosphatase 80 U/L (38-126) 07/11/16 07:12 Troponin I <0.012 ng/mL (0.000-0.034) 07/09/16 23:57 Total Protein 5.5 g/dL (6.3-8.2) L 07/11/16 07:12 Albumin 2.3 g/dL (3.5-5.0) L 07/11/16 07:12 Amylase 83 U/L (30-110) 07/09/16 23:57 Lipase 259 U/L (23-300) 07/09/16 23:57 Urine Color Light Yellow 07/10/16 01:50 Urine Appearance Cloudy (Clear) H 07/10/16 01:50 Urine pH 7.0 (5.0-8.0) 07/10/16 01:50 Ur Specific Dow 1.005 (1.001-1.035) 07/10/16 01:50 Urine Protein Negative (Negative) 07/10/16 01:50 Urine Glucose (UA) Negative (Negative) 07/10/16 01:50 Urine Ketones Negative (Negative) 07/10/16 01:50 Urine Blood Trace (Negative) H 07/10/16 01:50 Urine Nitrate Negative (Negative) 07/10/16 01:50 Urine Bilirubin Negative (Negative) 07/10/16 01:50 Urine Urobilinogen <2.0 mg/dL (<2.0) 07/10/16 01:50 Ur Leukocyte Esterase Trace (Negative) H 07/10/16 01:50 Urine RBC 171 /hpf (0-5) H 07/10/16 01:50 Urine WBC <1 /hpf (0-5) 07/10/16 01:50 Ur Squamous Epith Cells 1 /hpf (0-4) 07/10/16 01:50 Urine Bacteria Occasional /hpf (None) H 07/10/16 01:50 Urine Mucus Rare /hpf (None) H 07/10/16 01:50 Influenza Type A RNA Not Detected (Not Detectd) 07/10/16 22:50 Influenza Type B (PCR) Detected (Not Detectd) H 07/10/16 22:50 Microbiology 07/10/16 00:01 Abdomen Gram Stain - Preliminary 07/10/16 00:01 Abdomen Wound Culture - Preliminary Jaja albicans Assessment and Plan (1) Pneumonia Narrative/Plan: 86-year-old female presents to Hospital from the extended care facility where she's been recovering after her recent abdominal surgery. She had right colonic ischemia and required a right hemicolectomy. She's having some ongoing abdominal pain. But developed increasing shortness of breath. X- ray is abnormal. Laboratory reviewed and influenza A testing and B testing was requested as come back as positive for influenza B I with respiratory treatments and the Mucinex she is feeling slightly better. Tamiflu was started. She was started on broad-spectrum antibiotic therapy with concerns to pneumonia. However has influenza and these may be discontinued. Patient did have leukocytosis that is improved. She has a normal creatinine. Her postoperative anemia is improving No evidence of a urinary infection at this time opticel will be ordered for the pressure ulcer of the buttocks Status: Acute (2) Chronic a-fib Status: Acute
[2016-07-11] MEDS: ATORVASTATIN 20 MG TAB PO SCH (21:28)
[2016-07-12] MEDS: methylPREDNISolone SOD SUCCI 40 MG/ML 1 ML VIAL IV SCH ×3 (00:45→18:06)
[2016-07-12] MEDS: FUROSEMIDE 10 MG/ML 2 ML VIAL IV SCH ×2 (00:53→08:15)
[2016-07-12] MEDS: SODIUM CHLORIDE 0.9% 1,000 ML IV SCH ×2 (03:08→22:14)
[2016-07-12 07:29] LABS: ALT 47 U/L (9-52); AST 36 U/L (14-36); Alkaline Phosphatase 65 U/L (38-126); Anion Gap 8 mmol/L; Blood Urea Nitrogen 21 mg/dL (7-17); Calcium 8.2 mg/dL (8.4-10.2); Carbon Dioxide 29 mmol/L (22-30); Chloride 101 mmol/L (98-107); Glucose 155 mg/dL (74-99); Magnesium 1.9 mg/dL (1.6-2.3); Non-African American GFR(MDRD) >60 (>60 ml/min/1.73 sqM); Potassium 4.3 mmol/L (3.5-5.1); Sodium 138 mmol/L (137-145); Total Bilirubin 0.7 mg/dL (0.2-1.3); Total Protein 5.2 g/dL (6.3-8.2)
[2016-07-12 07:53] LABS: Glucose,Whole Blood 150 mg/dL (75-99)
[2016-07-12 08:16] LABS: Anisocytosis Slight; Basophils % (A) 0 %; CH 29.9; CHCM 31.3; Eosinophils % (A) 0 %; HCT 28.6 % (34.0-46.0); Hypochromasia Slight; Luc # (Auto) 0.13; Luc % (Auto) 2; Lymphocytes % (A) 15 %; MCHC 31.3 g/dL (31.0-37.0); Macrocytosis Slight; Mean Platelet Volume 7.2; Monocytes # (A) 0.4 k/uL (0-1.0); Monocytes % (A) 6 %; Neutrophils # (A) 4.8 k/uL (1.3-7.7); Neutrophils % (A) 76 %; RBC 2.98 m/uL (3.80-5.40); RDW 16.5 % (11.5-15.5); WBC 6.3 k/uL (3.8-10.6); WBC (Perox) 7.09
[2016-07-12] MEDS: guaiFENesin 600 MG TABLET.ER PO SCH ×2 (08:16→20:30)
[2016-07-12] MEDS: METOPROLOL TARTRATE 50 MG TAB PO SCH ×2 (08:17→20:30)
[2016-07-12] MEDS: LEVOTHYROXINE 88 MCG TAB PO SCH (08:17)
[2016-07-12] MEDS: OSELTAMIVIR 75 MG CAP PO SCH (08:17)
[2016-07-12] MEDS: FAMOTIDINE 20 MG TAB PO SCH (08:17)
[2016-07-12] MEDS: LOSARTAN 25 MG TAB PO SCH (08:17)
[2016-07-12] MEDS: APIXABAN 2.5 MG TABLET PO SCH (08:17)
[2016-07-12] MEDS: IPRATROPIUM-ALBUTEROL 3 ML NEB INHALATION SCH ×4 (09:00→20:43)
[2016-07-12 11:30] LABS: Glucose,Whole Blood 185 mg/dL (75-99)
--- NOTE | 2016-07-12 14:14 | P.PN ---
Subjective Influenza and pneumonia Patient reports that her cough is improved. Denies any shortness of breath. Denies any chest pain. Denies any nausea or vomiting. Denies any abdominal pain. She did have a bowel movement this morning that was red. Surgical service will be notified. Her hemoglobin did drop from 10.3 to 9. Objective - Vital Signs Vital signs: Vital Signs Temp 98 F 07/12/16 07:00 Pulse 79 07/12/16 07:00 Resp 16 07/12/16 07:00 BP 129/64 07/12/16 07:00 Pulse Ox 96 07/12/16 07:00 Intake & Output 07/11/16 07/12/16 07/12/16 18:59 06:59 18:59 Intake Total 1070 240 Output Total 350 Balance 1070 -110 Intake: Oral 1070 240 Output: Urine 350 Other: Voiding Method Toilet Toilet Bedside Commode # Voids 1 1 - Exam Head normocephalic Neck supple Lungs clear to auscultation bilaterally no wheezing or crackles Heart regular rate and rhythm S1-S2, no rub or gallop Abdomen is soft nontender nondistended positive bowel sounds no hepatosplenomegaly. Incision is intact. On dressing bandage in the center of the incision around the umbilical area there was some drainage yellowish in color. Extremities no edema Neuro alert and orientated to 3 - Labs CBC & Chem 7: 07/12/16 06:45 07/12/16 06:45 Labs: Abnormal Lab Results - Last 24 Hours (Table) 07/12/16 07/12/16 07/12/16 Range/Units 06:45 06:45 07:48 RBC 2.98 L (3.80-5.40) m/uL Hgb 9.0 L (11.4-16.0) gm/dL Hct 28.6 L (34.0-46.0) % RDW 16.5 H (11.5-15.5) % Plt Count 755 H (150-450) k/uL BUN 21 H (7-17) mg/dL Glucose 155 H (74-99) mg/dL POC Glucose (mg/dL) 150 H (75-99) mg/dL Calcium 8.2 L (8.4-10.2) mg/dL Total Protein 5.2 L (6.3-8.2) g/dL Albumin 2.3 L (3.5-5.0) g/dL 07/12/16 Range/Units 11:27 RBC (3.80-5.40) m/uL Hgb (11.4-16.0) gm/dL Hct (34.0-46.0) % RDW (11.5-15.5) % Plt Count (150-450) k/uL BUN (7-17) mg/dL Glucose (74-99) mg/dL POC Glucose (mg/dL) 185 H (75-99) mg/dL Calcium (8.4-10.2) mg/dL Total Protein (6.3-8.2) g/dL Albumin (3.5-5.0) g/dL Microbiology - Last 24 Hours (Table) 07/11/16 16:15 Gram Stain - Preliminary Sputum Assessment and Plan Plan: 1. Influenza B: Started on Tamiflu twice daily for 5 days course 1. Pneumonia ruled out. Was seen by pulmonary service felt more likely atelectasis. Continue incentive spirometer. Antibiotics discontinued 2. Acute hypoxic respiratory failure: Most likely secondary to fluid overload and influenza 3. Paroxysmal atrial fibrillation with rapid ventricular response on presentation: Now heart rate better controlled. Eliquis on hold. Echocardiogram during last admission showed preserved ejection fraction of 50-60%. 4. Essential hypertension: Blood pressure well controlled 5. Recent right colectomy with concern about possible incision site infection. Wound culture will be obtained. Surgery following closely. Wound culture growing Jaja albicans. Start Diflucan 6. Reactive airway disease: On IV Solu-Medrol and bronchodilators. Pulmonology following closely. 7. Physical debility: Patient was at [facility] for rehab. When medically cleared she will be discharged back to [facility]. 8. Stage I decubitus pressure sore of the coccyx: Continue foam barrier 9. Fluid overload: Patient did receive IV Lasix. Symptoms improved. We'll discontinue the Lasix today. 10. Acute GI bleed. Patient did have one bloody stool per nursing staff. Continue to monitor. Check stool for occult blood. Evidence of anemia with a hemoglobin that decreased from 10.3-9. Repeat CBC in a.m. Surgical service will be notified. Discontinue Eliquis for now
[2016-07-12 16:46] LABS: Glucose,Whole Blood 203 mg/dL (75-99)
--- NOTE | 2016-07-12 16:54 | P.PN ---
Subjective This is a very pleasant 86-year-old female patient with a history of atrial fibrillation, coronary artery disease, hyperlipidemia, hypertension, osteoarthritis, hypothyroidism. She was recently admitted here on 06/27/2016 with a right colon ischemia/necrosis and had undergone a right colectomy. She was slow to progress after that. She had a weak cough and required increased encouragement regarding the use of the incentive spirometer and cough and deep breathing exercises. Was subsequently transferred to [facility] on the [place] for further inpatient rehabilitation. She was continued on Augmentin. She was returned here early this morning with complaints of abdominal pain. Abdominal x -ray revealed evidence of recent surgery but a nonacute abdomen and no free air. He was some noted drainage around the umbilicus and a culture was taken. He also had irritation and redness around her groin area and a small decubitus ulcer on her coccyx. Her chest x-ray revealed continued patchy pneumonic consolidation of the right lung base. She is maintaining good O2 saturations up to 100% on 2 L/m per nasal cannula. She had a T-max of 99.5. Currently afebrile. No leukocytosis. He did test positive for influenza B and started on Tamiflu. She is seen again today July 12 2016 in follow-up on the surgical floor. He is currently sitting up in the chair at the bedside. She is awake and alert in no acute distress. She states her breathing is better today as compared to yesterday. She is maintaining good O2 saturations in the mid 90s on room air. She is working well with her incentive spirometer. Objective - Vital Signs Vital signs: Vital Signs Temp 97.6 F 07/12/16 15:00 Pulse 84 07/12/16 16:07 Resp 16 07/12/16 15:00 BP 113/69 07/12/16 15:00 Pulse Ox 94 L 07/12/16 15:00 Intake & Output 07/11/16 07/12/16 07/12/16 18:59 06:59 18:59 Intake Total 1070 240 180 Output Total 350 Balance 1070 -110 180 Intake: Oral 1070 240 180 Output: Urine 350 Other: Voiding Method Toilet Toilet Bedside Commode # Voids 1 1 - Exam GENERAL EXAM: Alert, comfortable in no apparent distress. HEAD: Normocephalic. EYES: Normal reaction of pupils, equal size. NOSE: Clear with pink turbinates. THROAT: No erythema or exudates. NECK: No masses, no JVD. CHEST: No chest wall deformity. LUNGS: Equal air entry with no crackles, wheeze, rhonchi or dullness. CVS: S1 and S2 normal with no audible murmurs, regular rhythm. ABDOMEN: Soft, incisions clean dry well approximated, normal bowel sounds, no guarding or rigidity. SPINE: No scoliosis or deformity SKIN: No rashes CENTRAL NERVOUS SYSTEM: No focal deficits, tone is normal in all 4 extremities. Remedies: There is no significant peripheral edema. No clubbing, no cyanosis. Peripheral pulses are intact. - Labs CBC & Chem 7: 07/12/16 06:45 07/12/16 06:45 Labs: Abnormal Lab Results - Last 24 Hours (Table) 07/12/16 07/12/16 07/12/16 Range/Units 06:45 06:45 07:48 RBC 2.98 L (3.80-5.40) m/uL Hgb 9.0 L (11.4-16.0) gm/dL Hct 28.6 L (34.0-46.0) % RDW 16.5 H (11.5-15.5) % Plt Count 755 H (150-450) k/uL BUN 21 H (7-17) mg/dL Glucose 155 H (74-99) mg/dL POC Glucose (mg/dL) 150 H (75-99) mg/dL Calcium 8.2 L (8.4-10.2) mg/dL Total Protein 5.2 L (6.3-8.2) g/dL Albumin 2.3 L (3.5-5.0) g/dL 07/12/16 07/12/16 Range/Units 11:27 16:39 RBC (3.80-5.40) m/uL Hgb (11.4-16.0) gm/dL Hct (34.0-46.0) % RDW (11.5-15.5) % Plt Count (150-450) k/uL BUN (7-17) mg/dL Glucose (74-99) mg/dL POC Glucose (mg/dL) 185 H 203 H (75-99) mg/dL Calcium (8.4-10.2) mg/dL Total Protein (6.3-8.2) g/dL Albumin (3.5-5.0) g/dL Microbiology - Last 24 Hours (Table) 07/11/16 16:15 Gram Stain - Preliminary Sputum Assessment and Plan Plan: Impression: #1 Abdominal pain suspect secondary to coughing in a patient with recent small bowel resection and repair of umbilical hernia. #2 Right lower lobe atelectasis/infiltrate. #3 Chronic atrial fibrillation, anticoagulated with Eliquis. #4 History of coronary disease. #5 Hyperlipidemia. #6 Hypothyroidism. #7 History of irritable bowel disease. Plan: The patient was seen and evaluated by Dr. Smith. We'll go ahead and continue with her current medications including bronchodilators 4 times a day and when necessary, Mucinex, Solu-Medrol. We have again encourage the increased use of the incentive spirometer and cough and deep breathing exercises. Will increase her activity as tolerated. We will continue to follow make further recommendations based on her clinical status.
--- NOTE | 2016-07-12 17:09 | P.PN ---
Subjective Principal diagnosis: Shortness of breath Pleasant 86-year-old female who emigrated from [facility] greater than 50 years ago presents from the extended care facility with increasing cough sputum production. Feeling weak and tired and having shortness of breath. She has a history of recent hospitalization. At that point in time she had significant abdominal pain. 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 She was doing relatively well and was transferred to the extended care facility. However she started to develop some abdominal pain which was not severe but also developed significant cough with some sputum production and some shortness of breath. Because of this she was brought into hospital. Concerns pneumonia and some minimal pressure ulceration the infectious diseases consultation was requested. With evaluation yesterday the patient had significant congestion. X-ray was not significantly abnormal a catheter was concerns to influenza. Influenza testing was performed and is positive for influenza B. Tamiflu was started. Coughing is definitely improved. Feels better today. Navigated from the bathroom to the bed with a walker without difficulty. Patient were does complain that she is having some dizziness which has been ongoing for quite some time. Objective - Vital Signs Vital signs: Vital Signs Temp 97.6 F 07/12/16 15:00 Pulse 84 07/12/16 16:07 Resp 16 07/12/16 15:00 BP 113/69 07/12/16 15:00 Pulse Ox 94 L 07/12/16 15:00 Intake & Output 07/11/16 07/12/16 07/12/16 18:59 06:59 18:59 Intake Total 1070 240 180 Output Total 350 Balance 1070 -110 180 Intake: Oral 1070 240 180 Output: Urine 350 Other: Voiding Method Toilet Toilet Bedside Commode # Voids 1 1 - Exam 86-year-old woman presented to hospital with shortness of breath and cough and some abdominal pain. HEENT: Anicteric conjunctiva are pink and moist nasal mucosa grossly intact without significant lesions, there is no thrush. Neck: The neck is supple without significant lymphadenopathy or thyromegaly. Lungs: There is symmetrical air entry. The airways are now clear. No sticking crackles or wheezing is heard. There is no dullness or egophony. No change in tactile fremitus Heart: Irregularly irregular with an audible S1-S2, no S3 of S4 There is no significant murmur click or rub, PMI was nondisplaced. Abdomen: Mildly obese. Soft. Minimal tenderness through the mid incision point. Incision itself is healing well. There is no erythema or crepitance or fluctuance. There is no expressible purulence. No organomegaly is noted. No guarding or rebound. Extremities: The upper extremities have excellent pulses they are symmetric, no significant petechiae or telangiectasia. No splinter hemorrhages were noted. The lower extremities are free from significant edema. The peripheral pulses were 2+ and symmetric. Neuro: Awake alert oriented to person place and time. There are no acute new gross focal sensory motor deficits. Skin reveals evidence of a stage II on the right buttocks that is not extremely tender. This is pressure related. Present on admission. - Labs CBC & Chem 7: 07/12/16 06:45 07/12/16 06:45 Labs: Abnormal Lab Results - Last 24 Hours (Table) 07/12/16 07/12/16 07/12/16 Range/Units 06:45 06:45 07:48 RBC 2.98 L (3.80-5.40) m/uL Hgb 9.0 L (11.4-16.0) gm/dL Hct 28.6 L (34.0-46.0) % RDW 16.5 H (11.5-15.5) % Plt Count 755 H (150-450) k/uL BUN 21 H (7-17) mg/dL Glucose 155 H (74-99) mg/dL POC Glucose (mg/dL) 150 H (75-99) mg/dL Calcium 8.2 L (8.4-10.2) mg/dL Total Protein 5.2 L (6.3-8.2) g/dL Albumin 2.3 L (3.5-5.0) g/dL 07/12/16 07/12/16 Range/Units 11:27 16:39 RBC (3.80-5.40) m/uL Hgb (11.4-16.0) gm/dL Hct (34.0-46.0) % RDW (11.5-15.5) % Plt Count (150-450) k/uL BUN (7-17) mg/dL Glucose (74-99) mg/dL POC Glucose (mg/dL) 185 H 203 H (75-99) mg/dL Calcium (8.4-10.2) mg/dL Total Protein (6.3-8.2) g/dL Albumin (3.5-5.0) g/dL Microbiology - Last 24 Hours (Table) 07/11/16 16:15 Gram Stain - Preliminary Sputum Laboratory Results WBC 6.3 k/uL (3.8-10.6) 07/12/16 06:45 RBC 2.98 m/uL (3.80-5.40) L 07/12/16 06:45 Hgb 9.0 gm/dL (11.4-16.0) L 07/12/16 06:45 Hct 28.6 % (34.0-46.0) L 07/12/16 06:45 MCV 96.0 fL (80.0-100.0) 07/12/16 06:45 MCH 30.0 pg (25.0-35.0) 07/12/16 06:45 MCHC 31.3 g/dL (31.0-37.0) 07/12/16 06:45 RDW 16.5 % (11.5-15.5) H 07/12/16 06:45 Plt Count 755 k/uL (150-450) H 07/12/16 06:45 Neutrophils % 76 % 07/12/16 06:45 Lymphocytes % 15 % 07/12/16 06:45 Monocytes % 6 % 07/12/16 06:45 Eosinophils % 0 % 07/12/16 06:45 Basophils % 0 % 07/12/16 06:45 Neutrophils # 4.8 k/uL (1.3-7.7) 07/12/16 06:45 Lymphocytes # 1.0 k/uL (1.0-4.8) 07/12/16 06:45 Monocytes # 0.4 k/uL (0-1.0) 07/12/16 06:45 Eosinophils # 0.0 k/uL (0-0.7) 07/12/16 06:45 Basophils # 0.0 k/uL (0-0.2) 07/12/16 06:45 Manual Slide Review Performed 07/11/16 07:12 Hypochromasia Slight 07/12/16 06:45 Poikilocytosis (manual Present 07/11/16 07:12 Anisocytosis Slight 07/12/16 06:45 Macrocytosis Slight 07/12/16 06:45 Sodium 138 mmol/L (137-145) 07/12/16 06:45 Potassium 4.3 mmol/L (3.5-5.1) 07/12/16 06:45 Chloride 101 mmol/L (98-107) 07/12/16 06:45 Carbon Dioxide 29 mmol/L (22-30) 07/12/16 06:45 Anion Gap 8 mmol/L 07/12/16 06:45 BUN 21 mg/dL (7-17) H 07/12/16 06:45 Creatinine 0.82 mg/dL (0.52-1.04) 07/12/16 06:45 Est GFR (MDRD) Af Amer >60 (>60 ml/min/1.73 sqM) 07/12/16 06:45 Est GFR (MDRD) Non-Af >60 (>60 ml/min/1.73 sqM) 07/12/16 06:45 Glucose 155 mg/dL (74-99) H 07/12/16 06:45 POC Glucose (mg/dL) 203 mg/dL (75-99) H 07/12/16 16:39 POC Glu Triage Assistant Lanny Kelly 07/12/16 16:39 Plasma Lactic Acid Gumaro 1.2 mmol/L (0.7-2.0) 07/09/16 23:57 Calcium 8.2 mg/dL (8.4-10.2) L 07/12/16 06:45 Phosphorus 4.0 mg/dL (2.5-4.5) 07/12/16 06:45 Magnesium 1.9 mg/dL (1.6-2.3) 07/12/16 06:45 Total Bilirubin 0.7 mg/dL (0.2-1.3) 07/12/16 06:45 AST 36 U/L (14-36) 07/12/16 06:45 ALT 47 U/L (9-52) 07/12/16 06:45 Alkaline Phosphatase 65 U/L (38-126) 07/12/16 06:45 Troponin I <0.012 ng/mL (0.000-0.034) 07/09/16 23:57 Total Protein 5.2 g/dL (6.3-8.2) L 07/12/16 06:45 Albumin 2.3 g/dL (3.5-5.0) L 07/12/16 06:45 Amylase 83 U/L (30-110) 07/09/16 23:57 Lipase 259 U/L (23-300) 07/09/16 23:57 Urine Color Light Yellow 07/10/16 01:50 Urine Appearance Cloudy (Clear) H 07/10/16 01:50 Urine pH 7.0 (5.0-8.0) 07/10/16 01:50 Ur Specific Mabel 1.005 (1.001-1.035) 07/10/16 01:50 Urine Protein Negative (Negative) 07/10/16 01:50 Urine Glucose (UA) Negative (Negative) 07/10/16 01:50 Urine Ketones Negative (Negative) 07/10/16 01:50 Urine Blood Trace (Negative) 07/10/16 01:50 Urine Nitrate Negative (Negative) 07/10/16 01:50 Urine Bilirubin Negative (Negative) 07/10/16 01:50 Urine Urobilinogen <2.0 mg/dL (<2.0) 07/10/16 01:50 Ur Leukocyte Esterase Trace (Negative) 07/10/16 01:50 Urine RBC 171 /hpf (0-5) H 07/10/16 01:50 Urine WBC <1 /hpf (0-5) 07/10/16 01:50 Ur Squamous Epith Cells 1 /hpf (0-4) 07/10/16 01:50 Urine Bacteria Occasional /hpf (None) H 07/10/16 01:50 Urine Mucus Rare /hpf (None) 07/10/16 01:50 Influenza Type A RNA Not Detected (Not Detectd) 07/10/16 22:50 Influenza Type B (PCR) Detected (Not Detectd) 07/10/16 22:50 Microbiology 07/10/16 00:01 Abdomen Gram Stain - Final 07/10/16 00:01 Abdomen Wound Culture - Final Jaja albicans 07/11/16 16:15 Sputum Gram Stain - Preliminary Assessment and Plan (1) Pneumonia Narrative/Plan: 86-year-old female presents to Hospital from the [facility] care facility where she's been recovering after her recent abdominal surgery. She had right colonic ischemia and required a right hemicolectomy. She's having some ongoing abdominal pain. But developed increasing shortness of breath. X- ray is abnormal. Laboratory reviewed and influenza A testing and B testing was requested as come back as positive for influenza B with respiratory treatments and the Mucinex she is feeling better. Tamiflu was started completed full course. She was started on broad-spectrum antibiotic therapy with concerns to pneumonia. However has influenza and these were discontinued. Patient did have leukocytosis that is improved. She has a normal creatinine. Her postoperative anemia is improving No evidence of a urinary infection at this time opticel will be ordered for the pressure ulcer of the buttocks Patient does complain of some dizziness has been ongoing. Unclear what outpatient work up is been performed so far. Status: Acute (2) Chronic a-fib Status: Acute
[2016-07-12] MEDS: NYSTATIN 100,000 UNIT/GM POWD 15 GM TOPICAL SCH ×2 (18:06→20:30)
--- NOTE | 2016-07-12 18:40 | P.PN ---
Subjective Principal diagnosis: Influenza B, pneumonia Patient is evaluated on the surgical floor where she is currently sitting up in a chair. Denies chills, nausea, vomiting, or abdominal pain. Tolerating a soft diet. Passing flatus with bowel movements. Patient states that she had a small amount of bright red blood on the toilet paper when she wiped. Patient is urinating without difficulty. Afebrile. No evidence of leukocytosis. Hemoglobin decreased to 9. Objective - Vital Signs Vital signs: Vital Signs Temp 97.6 F 07/12/16 15:00 Pulse 84 07/12/16 16:07 Resp 16 07/12/16 15:00 BP 113/69 07/12/16 15:00 Pulse Ox 94 L 07/12/16 15:00 Intake & Output 07/11/16 07/12/16 07/12/16 18:59 06:59 18:59 Intake Total 1070 240 180 Output Total 350 Balance 1070 -110 180 Intake: Oral 1070 240 180 Output: Urine 350 Other: Voiding Method Toilet Toilet Bedside Commode # Voids 1 1 - Exam GENERAL: Pt awake and alert, well-appearing, well-nourished, and in no acute distress. HEAD: Atraumatic, normocephalic. EYES: Pupils equal and round. Sclera anicteric, conjunctiva are normal. ENT: Moist mucous membranes. HEART: Heart S1, S2, no S3 or S4. Regular rate and rhythm. No murmurs, rubs or gallops. ABDOMEN: Soft, mild incisional tenderness, nondistended, normoactive bowel sounds. No guarding, no rebound. No masses or organomegaly appreciated. Abdominal incision approximated with biju, no erythema, small amount of serous drainage. NEUROLOGICAL: Pt oriented x 3. - Labs CBC & Chem 7: 07/12/16 06:45 07/12/16 06:45 Labs: Abnormal Lab Results - Last 24 Hours (Table) 07/12/16 07/12/16 07/12/16 Range/Units 06:45 06:45 07:48 RBC 2.98 L (3.80-5.40) m/uL Hgb 9.0 L (11.4-16.0) gm/dL Hct 28.6 L (34.0-46.0) % RDW 16.5 H (11.5-15.5) % Plt Count 755 H (150-450) k/uL BUN 21 H (7-17) mg/dL Glucose 155 H (74-99) mg/dL POC Glucose (mg/dL) 150 H (75-99) mg/dL Calcium 8.2 L (8.4-10.2) mg/dL Total Protein 5.2 L (6.3-8.2) g/dL Albumin 2.3 L (3.5-5.0) g/dL 07/12/16 07/12/16 Range/Units 11:27 16:39 RBC (3.80-5.40) m/uL Hgb (11.4-16.0) gm/dL Hct (34.0-46.0) % RDW (11.5-15.5) % Plt Count (150-450) k/uL BUN (7-17) mg/dL Glucose (74-99) mg/dL POC Glucose (mg/dL) 185 H 203 H (75-99) mg/dL Calcium (8.4-10.2) mg/dL Total Protein (6.3-8.2) g/dL Albumin (3.5-5.0) g/dL Microbiology - Last 24 Hours (Table) 07/11/16 16:15 Gram Stain - Preliminary Sputum Assessment and Plan Plan: Impression: 1. Status post small bowel resection; right colectomy; repair of umbilical hernia; and lysis of adhesions on 06/28/2016. 2. Right lower lobe pneumonia. 3. Influenza B. 4. Anemia, postop. Plan: 1. Continue soft diet. Continue local wound care. Continue supportive treatment and pain management. Continue physical therapy. Continue medical management. Repeat CBC in a.m. The above impression and plan have been discussed and directed by Dr. Butler. Nicol LOPEZ-Jerica acting as scribe for Dr. Butler.
[2016-07-12] MEDS: FLUCONAZOLE 100 MG TAB PO SCH (20:30)
[2016-07-12] MEDS: ATORVASTATIN 20 MG TAB PO SCH (20:30)
[2016-07-12 20:47] LABS: Glucose,Whole Blood 232 mg/dL (75-99)
[2016-07-12] MEDS: INSULIN LISPRO (humaLOG) 300 UNIT/3 ML VIAL SQ SCH (21:32)
[2016-07-13] MEDS: methylPREDNISolone SOD SUCCI 40 MG/ML 1 ML VIAL IV SCH ×4 (00:02→23:17)
[2016-07-13 07:17] LABS: Anisocytosis Slight; Basophils % (A) 0 %; CHCM 31.4; Eosinophils % (A) 0 %; HCT 28.1 % (34.0-46.0); HDW 2.78; HGB 8.7 gm/dL (11.4-16.0); Hypochromasia Slight; Luc # (Auto) 0.12; Luc % (Auto) 2; Lymphocytes # (A) 0.9 k/uL (1.0-4.8); Lymphocytes % (A) 16 %; MCH 29.7 pg (25.0-35.0); MCV 96.1 fL (80.0-100.0); Macrocytosis Slight; Mean Platelet Volume 6.9; Monocytes # (A) 0.2 k/uL (0-1.0); Monocytes % (A) 4 %; Neutrophils # (A) 4.4 k/uL (1.3-7.7); Neutrophils % (A) 77 %; RBC 2.93 m/uL (3.80-5.40); RDW 16.6 % (11.5-15.5); WBC 5.7 k/uL (3.8-10.6); WBC (Perox) 5.68
[2016-07-13 07:33] LABS: Glucose,Whole Blood 153 mg/dL (75-99)
[2016-07-13] MEDS: IPRATROPIUM-ALBUTEROL 3 ML NEB INHALATION SCH ×3 (07:40→16:55)
[2016-07-13 07:45] LABS: ALT 47 U/L (9-52); AST 43 U/L (14-36); Alkaline Phosphatase 71 U/L (38-126); Anion Gap 8 mmol/L; Blood Urea Nitrogen 23 mg/dL (7-17); Calcium 8.1 mg/dL (8.4-10.2); Carbon Dioxide 28 mmol/L (22-30); Chloride 101 mmol/L (98-107); Glucose 148 mg/dL (74-99); Magnesium 1.9 mg/dL (1.6-2.3); Non-African American GFR(MDRD) >60 (>60 ml/min/1.73 sqM); Phosphorous 3.6 mg/dL (2.5-4.5); Potassium 4.4 mmol/L (3.5-5.1); Sodium 137 mmol/L (137-145); Total Bilirubin 0.6 mg/dL (0.2-1.3); Total Protein 5.3 g/dL (6.3-8.2)
[2016-07-13] MEDS: guaiFENesin 600 MG TABLET.ER PO SCH ×2 (08:00→20:26)
[2016-07-13] MEDS: FLUCONAZOLE 100 MG TAB PO SCH (08:00)
[2016-07-13] MEDS: LOSARTAN 25 MG TAB PO SCH (08:01)
[2016-07-13] MEDS: METOPROLOL TARTRATE 50 MG TAB PO SCH ×2 (08:01→20:26)
[2016-07-13] MEDS: OSELTAMIVIR 75 MG CAP PO SCH (08:01)
[2016-07-13] MEDS: LEVOTHYROXINE 88 MCG TAB PO SCH (08:01)
[2016-07-13] MEDS: FAMOTIDINE 20 MG TAB PO SCH (08:01)
[2016-07-13] MEDS: INSULIN LISPRO (humaLOG) 300 UNIT/3 ML VIAL SQ SCH ×4 (08:03→20:34)
[2016-07-13 12:01] LABS: Glucose,Whole Blood 235 mg/dL (75-99)
--- NOTE | 2016-07-13 12:46 | P.PN ---
Subjective The patient is seen on rounds. She's tolerating a diet. Stooling. Feeling better. Objective - Vital Signs Vital signs: Vital Signs Temp 98.0 F 07/13/16 07:00 Pulse 84 07/13/16 12:10 Resp 16 07/13/16 07:00 BP 139/68 07/13/16 07:00 Pulse Ox 95 07/13/16 07:00 Intake & Output 07/12/16 07/13/16 07/13/16 18:59 06:59 18:59 Intake Total 180 360 Balance 180 360 Intake: Oral 180 360 Other: Voiding Method Toilet - Constitutional General appearance: Present: cooperative, no acute distress - Gastrointestinal General gastrointestinal: Present: normal bowel sounds, soft Localized gastrointestinal: surgical scar: midline (Healing without cellulitis) - Labs CBC & Chem 7: 07/13/16 06:31 07/13/16 06:31 Labs: Abnormal Lab Results - Last 24 Hours (Table) 07/12/16 07/12/16 07/13/16 Range/Units 16:39 20:29 06:31 RBC 2.93 L (3.80-5.40) m/uL Hgb 8.7 L (11.4-16.0) gm/dL Hct 28.1 L (34.0-46.0) % RDW 16.6 H (11.5-15.5) % Plt Count 757 H (150-450) k/uL Lymphocytes # 0.9 L (1.0-4.8) k/uL BUN (7-17) mg/dL Glucose (74-99) mg/dL POC Glucose (mg/dL) 203 H 232 H (75-99) mg/dL Calcium (8.4-10.2) mg/dL AST (14-36) U/L Total Protein (6.3-8.2) g/dL Albumin (3.5-5.0) g/dL 07/13/16 07/13/16 07/13/16 Range/Units 06:31 07:31 11:58 RBC (3.80-5.40) m/uL Hgb (11.4-16.0) gm/dL Hct (34.0-46.0) % RDW (11.5-15.5) % Plt Count (150-450) k/uL Lymphocytes # (1.0-4.8) k/uL BUN 23 H (7-17) mg/dL Glucose 148 H (74-99) mg/dL POC Glucose (mg/dL) 153 H 235 H (75-99) mg/dL Calcium 8.1 L (8.4-10.2) mg/dL AST 43 H (14-36) U/L Total Protein 5.3 L (6.3-8.2) g/dL Albumin 2.3 L (3.5-5.0) g/dL Microbiology - Last 24 Hours (Table) 07/11/16 16:15 Gram Stain - Final Sputum Sputum Culture - Final Jaja albicans Assessment and Plan (1) Influenza Status: Acute (2) Pneumonia Status: Acute (3) S/P right colectomy Status: Acute Plan: The patient surgically stable. Continue medical care for her influenza and pneumonia.
[2016-07-13] MEDS: NYSTATIN 100,000 UNIT/GM POWD 15 GM TOPICAL SCH ×2 (12:53→20:33)
[2016-07-13 13:18] LABS: Hemoglobin A1C 6.1 % (4.2-6.1)
--- NOTE | 2016-07-13 13:45 | P.PN ---
Subjective Principal diagnosis: Influenza B, rectal bleeding Patient is an 86-year-old female who was admitted to [facility] due to cough and shortness of breath, initially pneumonia was suspected and she was started on IV antibiotics, testing for influenza B was positive, antibiotics were discontinued and patient was started on Tamiflu. Patient was recently admitted to [facility] with bowel obstruction she underwent partial colectomy with Dr. Todd. She is still complaining of bloody stools at this time Objective - Vital Signs Vital signs: Vital Signs Temp 98.0 F 07/13/16 07:00 Pulse 84 07/13/16 12:10 Resp 16 07/13/16 07:00 BP 139/68 07/13/16 07:00 Pulse Ox 95 07/13/16 07:00 Intake & Output 07/12/16 07/13/16 07/13/16 18:59 06:59 18:59 Intake Total 180 360 Balance 180 360 Intake: Oral 180 360 Other: Voiding Method Toilet - Exam In general patient is alert and oriented 3 HEENT without any acute abnormality Neck is supple no JVD no goiter no lymphadenopathy Chest exam with few scattered rhonchi no wheezing Cardiac exam reveals regular heart sounds no gallops no murmurs Abdomen is soft nontender no organomegaly Extremity exam reveals no edema no cyanosis or clubbing - Labs CBC & Chem 7: 07/13/16 06:31 07/13/16 06:31 Labs: Abnormal Lab Results - Last 24 Hours (Table) 07/12/16 07/12/16 07/13/16 Range/Units 16:39 20:29 06:31 RBC 2.93 L (3.80-5.40) m/uL Hgb 8.7 L (11.4-16.0) gm/dL Hct 28.1 L (34.0-46.0) % RDW 16.6 H (11.5-15.5) % Plt Count 757 H (150-450) k/uL Lymphocytes # 0.9 L (1.0-4.8) k/uL BUN (7-17) mg/dL Glucose (74-99) mg/dL POC Glucose (mg/dL) 203 H 232 H (75-99) mg/dL Calcium (8.4-10.2) mg/dL AST (14-36) U/L Total Protein (6.3-8.2) g/dL Albumin (3.5-5.0) g/dL 07/13/16 07/13/16 07/13/16 Range/Units 06:31 07:31 11:58 RBC (3.80-5.40) m/uL Hgb (11.4-16.0) gm/dL Hct (34.0-46.0) % RDW (11.5-15.5) % Plt Count (150-450) k/uL Lymphocytes # (1.0-4.8) k/uL BUN 23 H (7-17) mg/dL Glucose 148 H (74-99) mg/dL POC Glucose (mg/dL) 153 H 235 H (75-99) mg/dL Calcium 8.1 L (8.4-10.2) mg/dL AST 43 H (14-36) U/L Total Protein 5.3 L (6.3-8.2) g/dL Albumin 2.3 L (3.5-5.0) g/dL Microbiology - Last 24 Hours (Table) 07/11/16 16:15 Gram Stain - Final Sputum Sputum Culture - Final Jaja albicans Assessment and Plan Plan: 1. Influenza B: Started on Tamiflu twice daily for 5 days course 1. Pneumonia ruled out. Was seen by pulmonary service felt more likely atelectasis. Continue incentive spirometer. Antibiotics discontinued 2. Acute hypoxic respiratory failure: Most likely secondary to fluid overload and influenza 3. Paroxysmal atrial fibrillation with rapid ventricular response on presentation: Now heart rate better controlled. Eliquis on hold. Echocardiogram during last admission showed preserved ejection fraction of 50-60%. 4. Essential hypertension: Blood pressure well controlled 5. Recent right colectomy with concern about possible incision site infection. Wound culture will be obtained. Surgery following closely. Wound culture growing Jaja albicans. Start Diflucan 6. Reactive airway disease: On IV Solu-Medrol and bronchodilators. Pulmonology following closely. 7. Physical debility: Patient was at [facility] for rehab. When medically cleared she will be discharged back to [facility]. 8. Stage I decubitus pressure sore of the coccyx: Continue foam barrier 9. Fluid overload: Patient did receive IV Lasix. Symptoms improved. We'll discontinue the Lasix today. 10. Acute GI bleed. Patient did have one bloody stool per nursing staff. Continue to monitor. Check stool for occult blood. Evidence of anemia with a hemoglobin that decreased from 10.3--8.7. Repeat CBC in a.m. Surgical service will be notified. Discontinue Eliquis for now
[2016-07-13 17:00] LABS: Glucose,Whole Blood 141 mg/dL (75-99)
[2016-07-13] MEDS: ATORVASTATIN 20 MG TAB PO SCH (20:26)
[2016-07-13] MEDS: SODIUM CHLORIDE 0.9% 1,000 ML IV SCH (20:33)
[2016-07-13 20:52] LABS: Glucose,Whole Blood 233 mg/dL (75-99)
[2016-07-14] MEDS: IPRATROPIUM-ALBUTEROL 3 ML NEB INHALATION SCH ×5 (00:02→19:59)
[2016-07-14 06:59] LABS: Glucose,Whole Blood 165 mg/dL (75-99)
[2016-07-14 07:45] LABS: ALT 60 U/L (9-52); AST 49 U/L (14-36); Alkaline Phosphatase 66 U/L (38-126); Anion Gap 7 mmol/L; Blood Urea Nitrogen 26 mg/dL (7-17); Calcium 8.2 mg/dL (8.4-10.2); Carbon Dioxide 30 mmol/L (22-30); Chloride 102 mmol/L (98-107); Glucose 150 mg/dL (74-99); Magnesium 1.9 mg/dL (1.6-2.3); Non-African American GFR(MDRD) >60 (>60 ml/min/1.73 sqM); Phosphorous 3.6 mg/dL (2.5-4.5); Potassium 4.8 mmol/L (3.5-5.1); Sodium 139 mmol/L (137-145); Total Bilirubin 0.6 mg/dL (0.2-1.3); Total Protein 5.2 g/dL (6.3-8.2)
[2016-07-14 08:12] LABS: Anisocytosis Slight; Basophils % (A) 0 %; CHCM 31.7; Eosinophils % (A) 0 %; HCT 27.5 % (34.0-46.0); HDW 2.75; HGB 8.5 gm/dL (11.4-16.0); Hypochromasia Slight; Luc # (Auto) 0.15; Luc % (Auto) 2; Lymphocytes # (A) 1.2 k/uL (1.0-4.8); Lymphocytes % (A) 17 %; MCH 29.6 pg (25.0-35.0); MCV 95.3 fL (80.0-100.0); Monocytes # (A) 0.4 k/uL (0-1.0); Monocytes % (A) 6 %; Neutrophils # (A) 5.1 k/uL (1.3-7.7); Neutrophils % (A) 74 %; RBC 2.88 m/uL (3.80-5.40); RDW 16.3 % (11.5-15.5); WBC 6.8 k/uL (3.8-10.6); WBC (Perox) 6.73
[2016-07-14] MEDS: FLUCONAZOLE 100 MG TAB PO SCH (08:25)
[2016-07-14] MEDS: guaiFENesin 600 MG TABLET.ER PO SCH ×2 (08:25→20:32)
[2016-07-14] MEDS: methylPREDNISolone SOD SUCCI 40 MG/ML 1 ML VIAL IV SCH ×3 (08:25→23:02)
[2016-07-14] MEDS: FAMOTIDINE 20 MG TAB PO SCH (08:25)
[2016-07-14] MEDS: INSULIN LISPRO (humaLOG) 300 UNIT/3 ML VIAL SQ SCH ×4 (08:25→20:32)
[2016-07-14] MEDS: LEVOTHYROXINE 88 MCG TAB PO SCH (08:25)
[2016-07-14] MEDS: OSELTAMIVIR 75 MG CAP PO SCH (08:25)
[2016-07-14] MEDS: LOSARTAN 25 MG TAB PO SCH (08:25)
[2016-07-14] MEDS: METOPROLOL TARTRATE 50 MG TAB PO SCH ×2 (08:26→20:32)
[2016-07-14] MEDS: NYSTATIN 100,000 UNIT/GM POWD 15 GM TOPICAL SCH ×2 (08:26→20:32)
[2016-07-14 09:06] LABS: Manual Review Performed
[2016-07-14 11:57] LABS: Glucose,Whole Blood 240 mg/dL (75-99)
[2016-07-14] MEDS ORDERED: SODIUM FERRIC GLUCONAT-SUCROSE 125 MG in SODIUM CHLORIDE 0.9% 100 ML IVPB ONE (15:41)
--- NOTE | 2016-07-14 15:46 | P.PN ---
Subjective Principal diagnosis: Influenza B, rectal bleeding Patient is an 86-year-old female who was admitted to [facility] due to cough and shortness of breath, initially pneumonia was suspected and she was started on IV antibiotics, testing for influenza B was positive, antibiotics were discontinued and patient was started on Tamiflu. Patient was recently admitted to [facility] with bowel obstruction she underwent partial colectomy with Dr. Todd. She is still complaining of bloody stools at this time Objective - Vital Signs Vital signs: Vital Signs Temp 98.9 F 07/14/16 15:00 Pulse 87 07/14/16 15:00 Resp 16 07/14/16 15:00 BP 133/64 07/14/16 15:00 Pulse Ox 97 07/14/16 15:00 Intake & Output 07/13/16 07/14/16 07/14/16 18:59 06:59 18:59 Intake Total 720 120 Balance 720 120 Intake: Oral 720 120 Other: Voiding Method Toilet # Voids 1 1 # Bowel Movements 1 - Exam In general patient is alert and oriented 3 HEENT without any acute abnormality Neck is supple no JVD no goiter no lymphadenopathy Chest exam with few scattered rhonchi no wheezing Cardiac exam reveals regular heart sounds no gallops no murmurs Abdomen is soft nontender no organomegaly Extremity exam reveals no edema no cyanosis or clubbing - Labs CBC & Chem 7: 07/14/16 06:55 07/14/16 06:55 Labs: Abnormal Lab Results - Last 24 Hours (Table) 07/13/16 07/13/16 07/14/16 Range/Units 16:58 20:31 05:30 RBC (3.80-5.40) m/uL Hgb (11.4-16.0) gm/dL Hct (34.0-46.0) % RDW (11.5-15.5) % Plt Count (150-450) k/uL BUN (7-17) mg/dL Glucose (74-99) mg/dL POC Glucose (mg/dL) 141 H 233 H (75-99) mg/dL Calcium (8.4-10.2) mg/dL AST (14-36) U/L ALT (9-52) U/L Total Protein (6.3-8.2) g/dL Albumin (3.5-5.0) g/dL Stool Occult Blood Positive H (Negative) 07/14/16 07/14/16 07/14/16 Range/Units 06:55 06:55 06:57 RBC 2.88 L (3.80-5.40) m/uL Hgb 8.5 L (11.4-16.0) gm/dL Hct 27.5 L (34.0-46.0) % RDW 16.3 H (11.5-15.5) % Plt Count 715 H (150-450) k/uL BUN 26 H (7-17) mg/dL Glucose 150 H (74-99) mg/dL POC Glucose (mg/dL) 165 H (75-99) mg/dL Calcium 8.2 L (8.4-10.2) mg/dL AST 49 H (14-36) U/L ALT 60 H (9-52) U/L Total Protein 5.2 L (6.3-8.2) g/dL Albumin 2.2 L (3.5-5.0) g/dL Stool Occult Blood (Negative) 07/14/16 Range/Units 11:53 RBC (3.80-5.40) m/uL Hgb (11.4-16.0) gm/dL Hct (34.0-46.0) % RDW (11.5-15.5) % Plt Count (150-450) k/uL BUN (7-17) mg/dL Glucose (74-99) mg/dL POC Glucose (mg/dL) 240 H (75-99) mg/dL Calcium (8.4-10.2) mg/dL AST (14-36) U/L ALT (9-52) U/L Total Protein (6.3-8.2) g/dL Albumin (3.5-5.0) g/dL Stool Occult Blood (Negative) Microbiology - Last 24 Hours (Table) 07/11/16 16:15 Gram Stain - Final Sputum Sputum Culture - Final Jaja albicans Assessment and Plan Plan: 1. Influenza B: Started on Tamiflu twice daily for 5 days course 1. Pneumonia ruled out. Was seen by pulmonary service felt more likely atelectasis. Continue incentive spirometer. Antibiotics discontinued 2. Acute hypoxic respiratory failure: Most likely secondary to fluid overload and influenza 3. Paroxysmal atrial fibrillation with rapid ventricular response on presentation: Now heart rate better controlled. Eliquis on hold. Echocardiogram during last admission showed preserved ejection fraction of 50-60%. 4. Essential hypertension: Blood pressure well controlled 5. Recent right colectomy with concern about possible incision site infection. Wound culture will be obtained. Surgery following closely. Wound culture growing Jaja albicans. Start Diflucan 6. Reactive airway disease: On IV Solu-Medrol and bronchodilators. Pulmonology following closely. 7. Physical debility: Patient was at [facility] for rehab. When medically cleared she will be discharged back to [facility]. 8. Stage I decubitus pressure sore of the coccyx: Continue foam barrier 9. Fluid overload: Patient did receive IV Lasix. Symptoms improved. We'll discontinue the Lasix today. 10. Acute GI bleed. Patient did have one bloody stool per nursing staff. Continue to monitor. Check stool for occult blood. Repeat CBC in a.m. Discontinue Eliquis for now Hemoglobin today is down to 8.5 will give IV iron and will monitor closely
[2016-07-14 17:14] LABS: Glucose,Whole Blood 121 mg/dL (75-99)
[2016-07-14 20:14] LABS: Glucose,Whole Blood 245 mg/dL (75-99)
[2016-07-14] MEDS: SODIUM CHLORIDE 0.9% 1,000 ML IV SCH (20:30)
[2016-07-14] MEDS: ATORVASTATIN 20 MG TAB PO SCH (20:32)
--- NOTE | 2016-07-14 21:22 | P.PN ---
Subjective Principal diagnosis: Shortness of breath Pleasant 86-year-old female who emigrated from [facility] greater than 50 years ago presents from the extended care facility with increasing cough sputum production. Feeling weak and tired and having shortness of breath. She has a history of recent hospitalization. At that point in time she had significant abdominal pain. 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 She was doing relatively well and was transferred to the extended care facility. However she started to develop some abdominal pain which was not severe but also developed significant cough with some sputum production and some shortness of breath. Because of this she was brought into hospital. Concerns pneumonia and some minimal pressure ulceration the infectious diseases consultation was requested. With evaluation yesterday the patient had significant congestion. X-ray was not significantly abnormal a catheter was concerns to influenza. Influenza testing was performed and is positive for influenza B. Tamiflu was started. Coughing is definitely improved. Feels better today. Navigated from the bathroom to the bed with a walker without difficulty. Patient however does complain that she is having some dizziness possibly related to cuurent anemia. Objective - Vital Signs Vital signs: Vital Signs Temp 98.9 F 07/14/16 15:00 Pulse 88 07/14/16 20:06 Resp 16 07/14/16 15:00 BP 133/64 07/14/16 15:00 Pulse Ox 97 07/14/16 15:00 Intake & Output 07/14/16 07/14/16 07/15/16 06:59 18:59 06:59 Intake Total 120 Balance 120 Intake: Oral 120 Other: Voiding Method Toilet # Voids 1 1 # Bowel Movements 1 - Exam 86-year-old woman presented to hospital with shortness of breath and cough and some abdominal pain. HEENT: Anicteric conjunctiva are pink and moist nasal mucosa grossly intact without significant lesions, there is no thrush. Neck: The neck is supple without significant lymphadenopathy or thyromegaly. Lungs: There is symmetrical air entry. The airways are now clear. No sticking crackles or wheezing is heard. There is no dullness or egophony. No change in tactile fremitus Heart: Irregularly irregular with an audible S1-S2, no S3 of S4 There is no significant murmur click or rub, PMI was nondisplaced. Abdomen: Mildly obese. Soft. Minimal tenderness through the mid incision point. Incision itself is healing well. There is no erythema or crepitance or fluctuance. There is no expressible purulence. No organomegaly is noted. No guarding or rebound. Extremities: The upper extremities have excellent pulses they are symmetric, no significant petechiae or telangiectasia. No splinter hemorrhages were noted. The lower extremities are free from significant edema. The peripheral pulses were 2+ and symmetric. Neuro: Awake alert oriented to person place and time. There are no acute new gross focal sensory motor deficits. Skin reveals evidence of a stage II on the right buttocks that is not extremely tender. This is pressure related. Present on admission. - Labs CBC & Chem 7: 07/14/16 06:55 07/14/16 06:55 Labs: Abnormal Lab Results - Last 24 Hours (Table) 07/14/16 07/14/16 07/14/16 Range/Units 05:30 06:55 06:55 RBC 2.88 L (3.80-5.40) m/uL Hgb 8.5 L (11.4-16.0) gm/dL Hct 27.5 L (34.0-46.0) % RDW 16.3 H (11.5-15.5) % Plt Count 715 H (150-450) k/uL BUN 26 H (7-17) mg/dL Glucose 150 H (74-99) mg/dL POC Glucose (mg/dL) (75-99) mg/dL Calcium 8.2 L (8.4-10.2) mg/dL AST 49 H (14-36) U/L ALT 60 H (9-52) U/L Total Protein 5.2 L (6.3-8.2) g/dL Albumin 2.2 L (3.5-5.0) g/dL Stool Occult Blood Positive H (Negative) 07/14/16 07/14/16 07/14/16 Range/Units 06:57 11:53 17:12 RBC (3.80-5.40) m/uL Hgb (11.4-16.0) gm/dL Hct (34.0-46.0) % RDW (11.5-15.5) % Plt Count (150-450) k/uL BUN (7-17) mg/dL Glucose (74-99) mg/dL POC Glucose (mg/dL) 165 H 240 H 121 H (75-99) mg/dL Calcium (8.4-10.2) mg/dL AST (14-36) U/L ALT (9-52) U/L Total Protein (6.3-8.2) g/dL Albumin (3.5-5.0) g/dL Stool Occult Blood (Negative) 07/14/16 Range/Units 20:13 RBC (3.80-5.40) m/uL Hgb (11.4-16.0) gm/dL Hct (34.0-46.0) % RDW (11.5-15.5) % Plt Count (150-450) k/uL BUN (7-17) mg/dL Glucose (74-99) mg/dL POC Glucose (mg/dL) 245 H (75-99) mg/dL Calcium (8.4-10.2) mg/dL AST (14-36) U/L ALT (9-52) U/L Total Protein (6.3-8.2) g/dL Albumin (3.5-5.0) g/dL Stool Occult Blood (Negative) Laboratory Results WBC 6.8 k/uL (3.8-10.6) 07/14/16 06:55 RBC 2.88 m/uL (3.80-5.40) L 07/14/16 06:55 Hgb 8.5 gm/dL (11.4-16.0) L 07/14/16 06:55 Hct 27.5 % (34.0-46.0) L 07/14/16 06:55 MCV 95.3 fL (80.0-100.0) 07/14/16 06:55 MCH 29.6 pg (25.0-35.0) 07/14/16 06:55 MCHC 31.0 g/dL (31.0-37.0) 07/14/16 06:55 RDW 16.3 % (11.5-15.5) H 07/14/16 06:55 Plt Count 715 k/uL (150-450) H 07/14/16 06:55 Neutrophils % 74 % 07/14/16 06:55 Lymphocytes % 17 % 07/14/16 06:55 Monocytes % 6 % 07/14/16 06:55 Eosinophils % 0 % 07/14/16 06:55 Basophils % 0 % 07/14/16 06:55 Neutrophils # 5.1 k/uL (1.3-7.7) 07/14/16 06:55 Lymphocytes # 1.2 k/uL (1.0-4.8) 07/14/16 06:55 Monocytes # 0.4 k/uL (0-1.0) 07/14/16 06:55 Eosinophils # 0.0 k/uL (0-0.7) 07/14/16 06:55 Basophils # 0.0 k/uL (0-0.2) 07/14/16 06:55 Manual Slide Review Performed 07/14/16 06:55 Hypochromasia Slight 07/14/16 06:55 Poikilocytosis (manual Present 07/14/16 06:55 Anisocytosis Slight 07/14/16 06:55 Macrocytosis Slight 07/13/16 06:31 Sodium 139 mmol/L (137-145) 07/14/16 06:55 Potassium 4.8 mmol/L (3.5-5.1) 07/14/16 06:55 Chloride 102 mmol/L (98-107) 07/14/16 06:55 Carbon Dioxide 30 mmol/L (22-30) 07/14/16 06:55 Anion Gap 7 mmol/L 07/14/16 06:55 BUN 26 mg/dL (7-17) H 07/14/16 06:55 Creatinine 0.70 mg/dL (0.52-1.04) 07/14/16 06:55 Est GFR (MDRD) Af Amer >60 (>60 ml/min/1.73 sqM) 07/14/16 06:55 Est GFR (MDRD) Non-Af >60 (>60 ml/min/1.73 sqM) 07/14/16 06:55 Glucose 150 mg/dL (74-99) H 07/14/16 06:55 POC Glucose (mg/dL) 245 mg/dL (75-99) H 07/14/16 20:13 POC Glu [employer] ID Portia Dixon 07/14/16 20:[address] Glu mg/dL 128 mg/dL 07/13/16 06:31 Hemoglobin A1c 6.1 % (4.2-6.1) 07/13/16 06:31 Plasma Lactic Acid [place] 1.2 mmol/L (0.7-2.0) 07/09/16 23:57 Calcium 8.2 mg/dL (8.4-10.2) L 07/14/16 06:55 Phosphorus 3.6 mg/dL (2.5-4.5) 07/14/16 06:55 Magnesium 1.9 mg/dL (1.6-2.3) 07/14/16 06:55 Total Bilirubin 0.6 mg/dL (0.2-1.3) 07/14/16 06:55 AST 49 U/L (14-36) H 07/14/16 06:55 ALT 60 U/L (9-52) H 07/14/16 06:55 Alkaline Phosphatase 66 U/L (38-126) 07/14/16 06:55 Troponin I <0.012 ng/mL (0.000-0.034) 07/09/16 23:57 Total Protein 5.2 g/dL (6.3-8.2) L 07/14/16 06:55 Albumin 2.2 g/dL (3.5-5.0) L 07/14/16 06:55 Amylase 83 U/L (30-110) 07/09/16 23:57 Lipase 259 U/L (23-300) 07/09/16 23:57 Urine Color Light Yellow 07/10/16 01:50 Urine Appearance Cloudy (Clear) H 07/10/16 01:50 Urine pH 7.0 (5.0-8.0) 07/10/16 01:50 Ur Specific [place] 1.005 (1.001-1.035) 07/10/16 01:50 Urine Protein Negative (Negative) 07/10/16 01:50 Urine Glucose (UA) Negative (Negative) 07/10/16 01:50 Urine Ketones Negative (Negative) 07/10/16 01:50 Urine Blood Trace (Negative) H 07/10/16 01:50 Urine Nitrate Negative (Negative) 07/10/16 01:50 Urine Bilirubin Negative (Negative) 07/10/16 01:50 Urine Urobilinogen <2.0 mg/dL (<2.0) 07/10/16 01:50 Ur Leukocyte Esterase Trace (Negative) H 07/10/16 01:50 Urine RBC 171 /hpf (0-5) H 07/10/16 01:50 Urine WBC <1 /hpf (0-5) 07/10/16 01:50 Ur Squamous Epith Cells 1 /hpf (0-4) 07/10/16 01:50 Urine Bacteria Occasional /hpf (None) H 07/10/16 01:50 Urine Mucus Rare /hpf (None) H 07/10/16 01:50 Stool Occult Blood Positive (Negative) H 07/14/16 05:30 Influenza Type A RNA Not Detected (Not Detectd) 07/10/16 22:50 Influenza Type B (PCR) Detected (Not Detectd) H 07/10/16 22:50 Microbiology 07/11/16 16:15 Sputum Gram Stain - Final 07/11/16 16:15 Sputum Sputum Culture - Final Jaja albicans 07/10/16 00:01 Abdomen Gram Stain - Final 07/10/16 00:01 Abdomen Wound Culture - Final Jaja albicans Assessment and Plan (1) Pneumonia Narrative/Plan: 86-year-old female presents to Hospital from the [facility] care facility where she's been recovering after her recent abdominal surgery. She had right colonic ischemia and required a right hemicolectomy. She's having some ongoing abdominal pain. But developed increasing shortness of breath. X- ray is abnormal. Laboratory reviewed and influenza A testing and B testing was requested as come back as positive for influenza B with respiratory treatments and the Mucinex she is feeling better. Tamiflu was started full course completes in am She was started on broad-spectrum antibiotic therapy with concerns to pneumonia. However has influenza and these were discontinued. Patient did have leukocytosis that is improved. She has a normal creatinine. No evidence of a urinary infection at this time opticel ordered for the pressure ulcer of the buttocks Patient does complain of some dizziness possibly reacted to current anemia and GI bleed Status: Acute (2) Chronic a-fib Status: Acute
[2016-07-15 07:13] LABS: Glucose,Whole Blood 147 mg/dL (75-99)
[2016-07-15 07:15] LABS: Anisocytosis Slight; Basophils % (A) 0 %; CH 30.3; CHCM 31.7; Eosinophils % (A) 0 %; HCT 28.1 % (34.0-46.0); HDW 2.91; HGB 8.6 gm/dL (11.4-16.0); Hypochromasia Slight; Luc # (Auto) 0.14; Luc % (Auto) 2; Lymphocytes # (A) 1.1 k/uL (1.0-4.8); Lymphocytes % (A) 14 %; MCH 29.4 pg (25.0-35.0); MCHC 30.5 g/dL (31.0-37.0); MCV 96.3 fL (80.0-100.0); Macrocytosis Slight; Mean Platelet Volume 8.2; Monocytes # (A) 0.5 k/uL (0-1.0); Monocytes % (A) 7 %; Neutrophils % (A) 77 %; RBC 2.92 m/uL (3.80-5.40); RDW 16.5 % (11.5-15.5); WBC 7.7 k/uL (3.8-10.6)
[2016-07-15] MEDS: IPRATROPIUM-ALBUTEROL 3 ML NEB INHALATION SCH ×4 (07:24→21:43)
[2016-07-15 07:35] LABS: AST 48 U/L (14-36); Alkaline Phosphatase 66 U/L (38-126); Blood Urea Nitrogen 24 mg/dL (7-17); Calcium 8.1 mg/dL (8.4-10.2); Chloride 103 mmol/L (98-107); Glucose 150 mg/dL (74-99); Non-African American GFR(MDRD) >60 (>60 ml/min/1.73 sqM); Phosphorous 3.5 mg/dL (2.5-4.5); Potassium 4.9 mmol/L (3.5-5.1); Sodium 140 mmol/L (137-145); Total Bilirubin 0.6 mg/dL (0.2-1.3); Total Protein 5.2 g/dL (6.3-8.2)
[2016-07-15 07:39] LABS: ALT 67 U/L (9-52); Anion Gap 6 mmol/L; Carbon Dioxide 31 mmol/L (22-30)
[2016-07-15] MEDS: methylPREDNISolone SOD SUCCI 40 MG/ML 1 ML VIAL IV SCH (07:57)
[2016-07-15] MEDS: LEVOTHYROXINE 88 MCG TAB PO SCH (07:58)
[2016-07-15] MEDS: guaiFENesin 600 MG TABLET.ER PO SCH ×2 (07:58→21:29)
[2016-07-15] MEDS: LOSARTAN 25 MG TAB PO SCH (07:58)
[2016-07-15] MEDS: FAMOTIDINE 20 MG TAB PO SCH ×2 (07:58→21:32)
[2016-07-15] MEDS: OSELTAMIVIR 75 MG CAP PO SCH (07:58)
[2016-07-15] MEDS: METOPROLOL TARTRATE 50 MG TAB PO SCH ×2 (07:58→21:29)
[2016-07-15] MEDS: NYSTATIN 100,000 UNIT/GM POWD 15 GM TOPICAL SCH ×2 (07:59→21:30)
[2016-07-15] MEDS: INSULIN LISPRO (humaLOG) 300 UNIT/3 ML VIAL SQ SCH ×3 (07:59→19:04)
[2016-07-15 12:14] LABS: Glucose,Whole Blood 177 mg/dL (75-99)
--- NOTE | 2016-07-15 13:27 | P.PN ---
Subjective Principal diagnosis: Influenza B pneumonia Patient is doing fairly well today. She did not have a bowel movement this morning or yesterday. Hemoglobin remained stable. Objective - Vital Signs Vital signs: Vital Signs Temp 97.4 F L 07/15/16 12:03 Pulse 88 07/15/16 12:03 Resp 18 07/15/16 12:03 BP 133/69 07/15/16 12:03 Pulse Ox 100 07/15/16 12:03 Intake & Output 07/14/16 07/15/16 07/15/16 18:59 06:59 18:59 Intake Total 120 Balance 120 Intake: Oral 120 Other: Voiding Method Toilet # Voids 1 1 - Exam General: The patient is awake and alert, in no distress Eye: there is normal conjunctiva bilaterally. Neck: The neck is supple, there is no JVD. Cardiovascular: Normal S1-S2, no S3-S4, no murmurs. Respiratory: Lungs clear to auscultation bilaterally Gastrointestinal: Abdomen is soft, nontender Musculoskeletal: There is no pedal edema. Neurological:. Speech is normal. Skin: Skin is warm and dry - Labs CBC & Chem 7: 07/15/16 06:56 07/15/16 06:56 Labs: Abnormal Lab Results - Last 24 Hours (Table) 07/14/16 07/14/16 07/15/16 Range/Units 17:12 20:13 06:56 RBC 2.92 L (3.80-5.40) m/uL Hgb 8.6 L (11.4-16.0) gm/dL Hct 28.1 L (34.0-46.0) % MCHC 30.5 L (31.0-37.0) g/dL RDW 16.5 H (11.5-15.5) % Plt Count 647 H (150-450) k/uL Carbon Dioxide (22-30) mmol/L BUN (7-17) mg/dL Glucose (74-99) mg/dL POC Glucose (mg/dL) 121 H 245 H (75-99) mg/dL Calcium (8.4-10.2) mg/dL AST (14-36) U/L ALT (9-52) U/L Total Protein (6.3-8.2) g/dL Albumin (3.5-5.0) g/dL 07/15/16 07/15/16 07/15/16 Range/Units 06:56 07:11 12:13 RBC (3.80-5.40) m/uL Hgb (11.4-16.0) gm/dL Hct (34.0-46.0) % MCHC (31.0-37.0) g/dL RDW (11.5-15.5) % Plt Count (150-450) k/uL Carbon Dioxide 31 H (22-30) mmol/L BUN 24 H (7-17) mg/dL Glucose 150 H (74-99) mg/dL POC Glucose (mg/dL) 147 H 177 H (75-99) mg/dL Calcium 8.1 L (8.4-10.2) mg/dL AST 48 H (14-36) U/L ALT 67 H (9-52) U/L Total Protein 5.2 L (6.3-8.2) g/dL Albumin 2.3 L (3.5-5.0) g/dL Assessment and Plan Plan: 1. Influenza B: Finished 5 days course of Tamiflu 1. Pneumonia ruled out. Was seen by pulmonary service felt more likely atelectasis. Continue incentive spirometer. Antibiotics discontinued 2. Acute hypoxic respiratory failure: Now improving. Most likely secondary to fluid overload and influenza 3. Paroxysmal atrial fibrillation with rapid ventricular response on presentation: Now heart rate better controlled. Eliquis on hold. Echocardiogram during last admission showed preserved ejection fraction of 50-60%. 4. Essential hypertension: Blood pressure well controlled 5. Recent right colectomy: Surgery following closely. 6. Reactive airway disease: Pulmonology following closely. 7. Physical debility: Patient was at [facility] for rehab. When medically cleared she will be discharged back to [facility]. 8. Stage I decubitus pressure sore of the coccyx: Continue foam barrier 9. Acute GI bleed: Surgery following closely. Appears to be resolved awaiting patient's have a bowel movement. Hemoglobin stable. Plan for today: Awaiting surgery evaluation to restart anticoagulation. Awaiting patient to have a bowel movement to see if bleeding has resolved. Hemoglobin stable we will recheck in the morning. Discontinue IV steroids and start oral prednisone tomorrow. Wean off oxygen as tolerated for O2 sat above 90%. Anticipate discharge back to [facility] within the next day or 2.
--- NOTE | 2016-07-15 16:02 | P.PN ---
Subjective Principal diagnosis: Influenza B, pneumonia Patient is evaluated on the surgical floor where she is currently lying in bed. Denies chills, nausea, vomiting, or abdominal pain. Tolerating a soft diet. Passing flatus with last bowel movement yesterday. Stool positive for occult blood. Patient is urinating without difficulty. Afebrile. No evidence of leukocytosis. Hemoglobin stable at 8.6. Objective - Vital Signs Vital signs: Vital Signs Temp 97.4 F L 07/15/16 12:03 Pulse 78 07/15/16 15:31 Resp 18 07/15/16 12:03 BP 133/69 07/15/16 12:03 Pulse Ox 100 07/15/16 12:03 Intake & Output 07/14/16 07/15/16 07/15/16 18:59 06:59 18:59 Intake Total 120 500 Balance 120 500 Intake: Oral 120 500 Other: Voiding Method Toilet # Voids 1 1 - Exam GENERAL: Pt awake and alert, well-appearing, well-nourished, and in no acute distress. HEAD: Atraumatic, normocephalic. EYES: Pupils equal and round. Sclera anicteric, conjunctiva are normal. ENT: Moist mucous membranes. HEART: Heart S1, S2, no S3 or S4. Regular rate and rhythm. No murmurs, rubs or gallops. ABDOMEN: Soft, mild incisional tenderness, nondistended, normoactive bowel sounds. No guarding, no rebound. No masses or organomegaly appreciated. Abdominal incision approximated with biju, no erythema, no drainage. NEUROLOGICAL: Pt oriented x 3. - Labs CBC & Chem 7: 07/15/16 06:56 07/15/16 06:56 Labs: Abnormal Lab Results - Last 24 Hours (Table) 07/14/16 07/14/16 07/15/16 Range/Units 17:12 20:13 06:56 RBC 2.92 L (3.80-5.40) m/uL Hgb 8.6 L (11.4-16.0) gm/dL Hct 28.1 L (34.0-46.0) % MCHC 30.5 L (31.0-37.0) g/dL RDW 16.5 H (11.5-15.5) % Plt Count 647 H (150-450) k/uL Carbon Dioxide (22-30) mmol/L BUN (7-17) mg/dL Glucose (74-99) mg/dL POC Glucose (mg/dL) 121 H 245 H (75-99) mg/dL Calcium (8.4-10.2) mg/dL AST (14-36) U/L ALT (9-52) U/L Total Protein (6.3-8.2) g/dL Albumin (3.5-5.0) g/dL 07/15/16 07/15/16 07/15/16 Range/Units 06:56 07:11 12:13 RBC (3.80-5.40) m/uL Hgb (11.4-16.0) gm/dL Hct (34.0-46.0) % MCHC (31.0-37.0) g/dL RDW (11.5-15.5) % Plt Count (150-450) k/uL Carbon Dioxide 31 H (22-30) mmol/L BUN 24 H (7-17) mg/dL Glucose 150 H (74-99) mg/dL POC Glucose (mg/dL) 147 H 177 H (75-99) mg/dL Calcium 8.1 L (8.4-10.2) mg/dL AST 48 H (14-36) U/L ALT 67 H (9-52) U/L Total Protein 5.2 L (6.3-8.2) g/dL Albumin 2.3 L (3.5-5.0) g/dL Assessment and Plan Plan: Impression: 1. Status post small bowel resection; right colectomy; repair of umbilical hernia; and lysis of adhesions on 06/28/2016. 2. Right lower lobe pneumonia. 3. Influenza B. 4. Anemia, postop, with stool positive for Hemoccult blood. Plan: 1. Continue soft diet. Continue local wound care. Continue supportive treatment and pain management. Continue physical therapy. Continue medical management. Patient may resume anticoagulation in the form of Eliquis. Remove biju. From a surgical standpoint, patient is stable for discharge. Patient will follow-up with Dr. Butler in a week in the outpatient setting. The above impression and plan have been discussed and directed by Dr. Butler. Birgitte [employer] acting as scribe for Dr. Butler.
[2016-07-15 17:03] LABS: Glucose,Whole Blood 151 mg/dL (75-99)
--- NOTE | 2016-07-15 19:22 | P.PN ---
Subjective Principal diagnosis: Shortness of breath Pleasant 86-year-old female who emigrated from [facility] greater than 50 years ago presents from the extended care facility with increasing cough sputum production. Feeling weak and tired and having shortness of breath. She has a history of recent hospitalization. At that point in time she had significant abdominal pain. 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 She was doing relatively well and was transferred to the extended care facility. However she started to develop some abdominal pain which was not severe but also developed significant cough with some sputum production and some shortness of breath. Because of this she was brought into hospital. Concerns pneumonia and some minimal pressure ulceration the infectious diseases consultation was requested. With evaluation yesterday the patient had significant congestion. X-ray was not significantly abnormal a catheter was concerns to influenza. Influenza testing was performed and is positive for influenza B. Tamiflu was started. Coughing is definitely improved. Feels better today. Navigated from the bathroom to the bed with a walker without difficulty. Patient however does complain that she is having some dizziness possibly related to cuurent anemia. Objective - Vital Signs Vital signs: Vital Signs Temp 97.8 F 07/15/16 15:59 Pulse 88 07/15/16 15:59 Resp 16 07/15/16 15:59 BP 134/70 07/15/16 15:59 Pulse Ox 97 07/15/16 15:59 Intake & Output 07/15/16 07/15/16 07/16/16 06:59 18:59 06:59 Intake Total 500 Balance 500 Intake: Oral 500 Other: Voiding Method Toilet # Voids 1 - Exam 86-year-old woman presented to hospital with shortness of breath and cough and some abdominal pain. HEENT: Anicteric conjunctiva are pink and moist nasal mucosa grossly intact without significant lesions, there is no thrush. Neck: The neck is supple without significant lymphadenopathy or thyromegaly. Lungs: There is symmetrical air entry. The airways are now clear. No crackles or wheezing is heard. There is no dullness or egophony. No change in tactile fremitus Heart: Irregularly irregular with an audible S1-S2, no S3 of S4 There is no significant murmur click or rub, PMI was nondisplaced. Abdomen: Mildly obese. Soft. Minimal tenderness through the mid incision point. Incision itself is healing well. There is no erythema or crepitance or fluctuance. There is no expressible purulence. No organomegaly is noted. No guarding or rebound. Extremities: The upper extremities have excellent pulses they are symmetric, no significant petechiae or telangiectasia. No splinter hemorrhages were noted. The lower extremities are free from significant edema. The peripheral pulses were 2+ and symmetric. Neuro: Awake alert oriented to person place and time. There are no acute new gross focal sensory motor deficits. Skin reveals evidence of a stage II on the right buttocks that is not extremely tender. This is pressure related. Present on admission. - Labs CBC & Chem 7: 07/15/16 06:56 07/15/16 06:56 Labs: Abnormal Lab Results - Last 24 Hours (Table) 07/14/16 07/15/16 07/15/16 Range/Units 20:13 06:56 06:56 RBC 2.92 L (3.80-5.40) m/uL Hgb 8.6 L (11.4-16.0) gm/dL Hct 28.1 L (34.0-46.0) % MCHC 30.5 L (31.0-37.0) g/dL RDW 16.5 H (11.5-15.5) % Plt Count 647 H (150-450) k/uL Carbon Dioxide 31 H (22-30) mmol/L BUN 24 H (7-17) mg/dL Glucose 150 H (74-99) mg/dL POC Glucose (mg/dL) 245 H (75-99) mg/dL Calcium 8.1 L (8.4-10.2) mg/dL AST 48 H (14-36) U/L ALT 67 H (9-52) U/L Total Protein 5.2 L (6.3-8.2) g/dL Albumin 2.3 L (3.5-5.0) g/dL 07/15/16 07/15/16 07/15/16 Range/Units 07:11 12:13 17:01 RBC (3.80-5.40) m/uL Hgb (11.4-16.0) gm/dL Hct (34.0-46.0) % MCHC (31.0-37.0) g/dL RDW (11.5-15.5) % Plt Count (150-450) k/uL Carbon Dioxide (22-30) mmol/L BUN (7-17) mg/dL Glucose (74-99) mg/dL POC Glucose (mg/dL) 147 H 177 H 151 H (75-99) mg/dL Calcium (8.4-10.2) mg/dL AST (14-36) U/L ALT (9-52) U/L Total Protein (6.3-8.2) g/dL Albumin (3.5-5.0) g/dL Laboratory Results WBC 7.7 k/uL (3.8-10.6) 07/15/16 06:56 RBC 2.92 m/uL (3.80-5.40) L 07/15/16 06:56 Hgb 8.6 gm/dL (11.4-16.0) L 07/15/16 06:56 Hct 28.1 % (34.0-46.0) L 07/15/16 06:56 MCV 96.3 fL (80.0-100.0) 07/15/16 06:56 MCH 29.4 pg (25.0-35.0) 07/15/16 06:56 MCHC 30.5 g/dL (31.0-37.0) L 07/15/16 06:56 RDW 16.5 % (11.5-15.5) H 07/15/16 06:56 Plt Count 647 k/uL (150-450) H 07/15/16 06:56 Neutrophils % 77 % 07/15/16 06:56 Lymphocytes % 14 % 07/15/16 06:56 Monocytes % 7 % 07/15/16 06:56 Eosinophils % 0 % 07/15/16 06:56 Basophils % 0 % 07/15/16 06:56 Neutrophils # 6.0 k/uL (1.3-7.7) 07/15/16 06:56 Lymphocytes # 1.1 k/uL (1.0-4.8) 07/15/16 06:56 Monocytes # 0.5 k/uL (0-1.0) 07/15/16 06:56 Eosinophils # 0.0 k/uL (0-0.7) 07/15/16 06:56 Basophils # 0.0 k/uL (0-0.2) 07/15/16 06:56 Manual Slide Review Performed 07/14/16 06:55 Hypochromasia Slight 07/15/16 06:56 Poikilocytosis (manual Present 07/14/16 06:55 Anisocytosis Slight 07/15/16 06:56 Macrocytosis Slight 07/15/16 06:56 Sodium 140 mmol/L (137-145) 07/15/16 06:56 Potassium 4.9 mmol/L (3.5-5.1) 07/15/16 06:56 Chloride 103 mmol/L (98-107) 07/15/16 06:56 Carbon Dioxide 31 mmol/L (22-30) H 07/15/16 06:56 Anion Gap 6 mmol/L 07/15/16 06:56 BUN 24 mg/dL (7-17) H 07/15/16 06:56 Creatinine 0.76 mg/dL (0.52-1.04) 07/15/16 06:56 Est GFR (MDRD) Af Amer >60 (>60 ml/min/1.73 sqM) 07/15/16 06:56 Est GFR (MDRD) Non-Af >60 (>60 ml/min/1.73 sqM) 07/15/16 06:56 Glucose 150 mg/dL (74-99) H 07/15/16 06:56 POC Glucose (mg/dL) 151 mg/dL (75-99) H 07/15/16 17:01 POC Glu [employer] Abhishek Munson 07/15/16 17:[address] Glu mg/dL 128 mg/dL 07/13/16 06:31 Hemoglobin A1c 6.1 % (4.2-6.1) 07/13/16 06:31 Plasma Lactic Acid [place] 1.2 mmol/L (0.7-2.0) 07/09/16 23:57 Calcium 8.1 mg/dL (8.4-10.2) L 07/15/16 06:56 Phosphorus 3.5 mg/dL (2.5-4.5) 07/15/16 06:56 Magnesium 2.0 mg/dL (1.6-2.3) 07/15/16 06:56 Total Bilirubin 0.6 mg/dL (0.2-1.3) 07/15/16 06:56 AST 48 U/L (14-36) H 07/15/16 06:56 ALT 67 U/L (9-52) H 07/15/16 06:56 Alkaline Phosphatase 66 U/L (38-126) 07/15/16 06:56 Troponin I <0.012 ng/mL (0.000-0.034) 07/09/16 23:57 Total Protein 5.2 g/dL (6.3-8.2) L 07/15/16 06:56 Albumin 2.3 g/dL (3.5-5.0) L 07/15/16 06:56 Amylase 83 U/L (30-110) 07/09/16 23:57 Lipase 259 U/L (23-300) 07/09/16 23:57 Urine Color Light Yellow 07/10/16 01:50 Urine Appearance Cloudy (Clear) H 07/10/16 01:50 Urine pH 7.0 (5.0-8.0) 07/10/16 01:50 Ur Specific [place] 1.005 (1.001-1.035) 07/10/16 01:50 Urine Protein Negative (Negative) 07/10/16 01:50 Urine Glucose (UA) Negative (Negative) 07/10/16 01:50 Urine Ketones Negative (Negative) 07/10/16 01:50 Urine Blood Trace (Negative) 07/10/16 01:50 Urine Nitrate Negative (Negative) 07/10/16 01:50 Urine Bilirubin Negative (Negative) 07/10/16 01:50 Urine Urobilinogen <2.0 mg/dL (<2.0) 07/10/16 01:50 Ur Leukocyte Esterase Trace (Negative) H 07/10/16 01:50 Urine RBC 171 /hpf (0-5) H 07/10/16 01:50 Urine WBC <1 /hpf (0-5) 07/10/16 01:50 Ur Squamous Epith Cells 1 /hpf (0-4) 07/10/16 01:50 Urine Bacteria Occasional /hpf (None) H 07/10/16 01:50 Urine Mucus Rare /hpf (None) H 07/10/16 01:50 Stool Occult Blood Positive (Negative) H 07/14/16 05:30 Influenza Type A RNA Not Detected (Not Detectd) 07/10/16 22:50 Influenza Type B (PCR) Detected (Not Detectd) H 07/10/16 22:50 Microbiology 07/11/16 16:15 Sputum Gram Stain - Final 07/11/16 16:15 Sputum Sputum Culture - Final Jaja albicans 07/10/16 00:01 Abdomen Gram Stain - Final 07/10/16 00:01 Abdomen Wound Culture - Final Jaja albicans Assessment and Plan (1) Pneumonia Narrative/Plan: 86-year-old female presents to Hospital from the [facility] care facility where she's been recovering after her recent abdominal surgery. She had right colonic ischemia and required a right hemicolectomy. She's having some ongoing abdominal pain. But developed increasing shortness of breath. X- ray is abnormal. Laboratory reviewed and influenza A testing and B testing was requested as come back as positive for influenza B with respiratory treatments and the Mucinex she is feeling better. Tamiflu was started full course completed today She was started on broad-spectrum antibiotic therapy with concerns to pneumonia. However with influenza diagnosis these were discontinued. Patient did have leukocytosis that is improved. She has a normal creatinine. No evidence of a urinary infection at this time opticel ordered for the pressure ulcer of the buttocks Patient does complain of some dizziness possibly reacted to current anemia and GI bleed, received iron therapy Ready for transfer to [facility] Status: Acute (2) Chronic a-fib Status: Acute
[2016-07-15] MEDS: ATORVASTATIN 20 MG TAB PO SCH (21:29)
[2016-07-16] MEDS: SODIUM CHLORIDE 0.9% 1,000 ML IV SCH (00:11)
[2016-07-16 08:18] LABS: Anisocytosis Slight; Basophils % (A) 0 %; CHCM 31.3; Eosinophils % (A) 0 %; Hypochromasia Moderate; Macrocytosis Slight
[2016-07-16] MEDS: IPRATROPIUM-ALBUTEROL 3 ML NEB INHALATION SCH ×4 (08:25→20:32)
[2016-07-16 08:30] LABS: Eosinophils # (A) 0.1 k/uL (0-0.7); HCT 24.4 % (34.0-46.0); HDW 2.88; HGB 7.7 gm/dL (11.4-16.0); Luc # (Auto) 0.36; Luc % (Auto) 4; Lymphocytes # (A) 2.3 k/uL (1.0-4.8); Lymphocytes % (A) 22 %; MCH 30.3 pg (25.0-35.0); MCHC 31.4 g/dL (31.0-37.0); MCV 96.6 fL (80.0-100.0); Mean Platelet Volume 6.8; Monocytes # (A) 0.9 k/uL (0-1.0); Monocytes % (A) 9 %; Neutrophils # (A) 6.8 k/uL (1.3-7.7); Neutrophils % (A) 65 %; RBC 2.52 m/uL (3.80-5.40); RDW 17.4 % (11.5-15.5); WBC 10.4 k/uL (3.8-10.6); WBC (Perox) 10.51
[2016-07-16 08:35] LABS: Anion Gap 5 mmol/L; Blood Urea Nitrogen 30 mg/dL (7-17); Calcium 7.6 mg/dL (8.4-10.2); Carbon Dioxide 28 mmol/L (22-30); Chloride 105 mmol/L (98-107); Glucose 97 mg/dL (74-99); Non-African American GFR(MDRD) >60 (>60 ml/min/1.73 sqM); Potassium 4.4 mmol/L (3.5-5.1); Sodium 138 mmol/L (137-145)
--- NOTE | 2016-07-16 10:00 | CDI ---
In responding to this query, please exercise your independent professional judgment. The [facility] Coding Staff and Clinical Documentation Specialists appreciate your assistance in clarifying documentation, maintaining compliance with coding guidelines, accurately documenting patients condition and capturing severity of illness. The fact that a question is asked does not imply that any particular answer is desired or expected. Communication forms are a method of clarifying documentation and are not made part of the Legal Health Record. Thank you in advance for your clarification. Last Revision, April 2015 Alice Tucker [address] [facility] [place] [address] Documentation Clarification Form Date: 07/16/2016 9:47:00 AM From: Angle Gr RN, CCDS Admit Date: 07/10/2016 3:25:00 AM Patient Name: Sonny Hess Visit Number: [id number] Dr. Amanda Park diagnosis of anemia lacks specificity to accurately reflect your patients severity of condition and clarification is needed. Patient history/risk factors: Recently s/p right colectomy for ischemic bowel Clinical Indicators: 07/15 Attending Progress Note: "Patient does complain of some dizziness possibly reacted to current anemia and GI bleed, received iron therapy." Hemoglobin: 10.1/10.3/9/8.7/8.5/8.6/7.7 Hematocrit: 31.4/33.1/28.6/28.1/27.5/28.1/24.4 Treatment: Ferric Sodium Gluconate 125MG VPB OT Labs AM Daily In order to capture the severity of condition, please clarify the type of anemia and etiology if known: Acute blood loss anemia Acute on chronic blood loss anemia Chronic blood loss anemia Iron deficiency anemia Hemolytic anemia Drug induced anemia Anemia due to malignancy Nutritional anemia Anemia of chronic kidney disease Unable to determine Other, please specify Please document in your progress notes and discharge summary in order to capture severity of illness and risk of mortality. Include clinical findings that support your diagnosis. FYI: Press F11 to launch patient chart. Place X here if this finding has no clinical significance, is not applicable or if you are not able to provide any additional documentation. ANITRA
[2016-07-16] MEDS: FAMOTIDINE 20 MG TAB PO SCH (10:37)
[2016-07-16] MEDS: guaiFENesin 600 MG TABLET.ER PO SCH ×2 (10:37→22:37)
[2016-07-16] MEDS: predniSONE 20 MG TAB PO SCH (10:38)
[2016-07-16] MEDS: NYSTATIN 100,000 UNIT/GM POWD 15 GM TOPICAL SCH ×2 (10:38→22:40)
[2016-07-16] MEDS: METOPROLOL TARTRATE 50 MG TAB PO SCH ×2 (10:38→22:41)
[2016-07-16] MEDS: LEVOTHYROXINE 88 MCG TAB PO SCH (10:38)
[2016-07-16] MEDS: LOSARTAN 25 MG TAB PO SCH (10:38)
--- NOTE | 2016-07-16 12:54 | P.PN ---
Subjective Principal diagnosis: Influenza B, pneumonia, GI bleed Patient is evaluated on the surgical floor where she is currently lying in bed. Patient states she is slightly dizzy and short of breath when ambulating to the bathroom and back. Denies chills, nausea, vomiting, or abdominal pain. Tolerating a soft diet. Passing flatus with last bowel was morning reported bloody by nurse. Stool positive for occult blood. Patient is urinating without difficulty. Afebrile. No evidence of leukocytosis. Hemoglobin decreased to 7.7 from 8.6 yesterday. Objective - Vital Signs Vital signs: Vital Signs Temp 98.6 F 07/16/16 10:35 Pulse 90 07/16/16 12:06 Resp 18 07/16/16 10:35 BP 128/79 07/16/16 10:35 Pulse Ox 95 07/16/16 10:35 Intake & Output 07/15/16 07/16/16 07/16/16 18:59 06:59 18:59 Intake Total 500 360 Balance 500 360 Intake: Oral 500 360 Other: Voiding Method Toilet - Exam GENERAL: Pt awake and alert, well-appearing, well-nourished, and in no acute distress. HEAD: Atraumatic, normocephalic. EYES: Pupils equal and round. Sclera anicteric, conjunctiva are normal. ENT: Moist mucous membranes. HEART: Heart S1, S2, no S3 or S4. Regular rate and rhythm. No murmurs, rubs or gallops. ABDOMEN: Soft, mild incisional tenderness, nondistended, normoactive bowel sounds. No guarding, no rebound. No masses or organomegaly appreciated. Abdominal incision approximated with biju, no erythema, no drainage. NEUROLOGICAL: Pt oriented x 3. - Labs CBC & Chem 7: 07/16/16 07:55 07/16/16 07:55 Labs: Abnormal Lab Results - Last 24 Hours (Table) 07/15/16 07/16/16 07/16/16 Range/Units 17:01 07:55 07:55 RBC 2.52 L (3.80-5.40) m/uL Hgb 7.7 L (11.4-16.0) gm/dL Hct 24.4 L (34.0-46.0) % RDW 17.4 H (11.5-15.5) % Plt Count 567 H (150-450) k/uL BUN 30 H (7-17) mg/dL POC Glucose (mg/dL) 151 H (75-99) mg/dL Calcium 7.6 L (8.4-10.2) mg/dL Assessment and Plan Plan: Impression: 1. Status post small bowel resection; right colectomy; repair of umbilical hernia; and lysis of adhesions on 06/28/2016. 2. Right lower lobe pneumonia. 3. Influenza B. 4. Anemia, postop, with stool positive for Hemoccult blood. Plan: 1. Transfuse 2 units of PRBC for symptomatic anemia. Continue soft diet. Continue local wound care. Continue supportive treatment and pain management. Continue physical therapy. Continue medical management. Hold Eliquis. Repeat CBC in a.m. The above impression and plan have been discussed and directed by Dr. Butler. Nicol AYALA acting as scribe for Dr. Butler.
--- NOTE | 2016-07-16 16:52 | P.PN ---
Subjective Principal diagnosis: Influenza B pneumonia Patient is complaining of feeling dizzy today. No bowel movement since yesterday. No more evidence of bleeding. Hemoglobin dropped to 7.7 Objective - Vital Signs Vital signs: Vital Signs Temp 97.1 F L 07/16/16 14:23 Pulse 88 07/16/16 16:29 Resp 16 07/16/16 14:23 BP 131/61 07/16/16 14:23 Pulse Ox 97 07/16/16 14:23 Intake & Output 07/15/16 07/16/16 07/16/16 18:59 06:59 18:59 Intake Total 500 540 Balance 500 540 Intake: Oral 500 540 Other: Voiding Method Toilet - Exam General: The patient is awake and alert, in no distress Eye: there is normal conjunctiva bilaterally. Neck: The neck is supple, there is no JVD. Cardiovascular: Normal S1-S2, no S3-S4, no murmurs. Respiratory: Lungs clear to auscultation bilaterally Gastrointestinal: Abdomen is soft, nontender Musculoskeletal: There is no pedal edema. Neurological:. Speech is normal. Skin: Skin is warm and dry - Labs CBC & Chem 7: 07/16/16 07:55 07/16/16 07:55 Labs: Abnormal Lab Results - Last 24 Hours (Table) 07/15/16 07/16/16 07/16/16 Range/Units 17:01 07:55 07:55 RBC 2.52 L (3.80-5.40) m/uL Hgb 7.7 L (11.4-16.0) gm/dL Hct 24.4 L (34.0-46.0) % RDW 17.4 H (11.5-15.5) % Plt Count 567 H (150-450) k/uL BUN 30 H (7-17) mg/dL POC Glucose (mg/dL) 151 H (75-99) mg/dL Calcium 7.6 L (8.4-10.2) mg/dL Crossmatch 07/16/16 Range/Units 13:40 RBC (3.80-5.40) m/uL Hgb (11.4-16.0) gm/dL Hct (34.0-46.0) % RDW (11.5-15.5) % Plt Count (150-450) k/uL BUN (7-17) mg/dL POC Glucose (mg/dL) (75-99) mg/dL Calcium (8.4-10.2) mg/dL Crossmatch See Detail Assessment and Plan Plan: 1. Influenza B: Finished 5 days course of Tamiflu 1. Pneumonia ruled out. Was seen by pulmonary service felt more likely atelectasis. Continue incentive spirometer. Antibiotics discontinued 2. Acute hypoxic respiratory failure: Now improving. Most likely secondary to fluid overload and influenza 3. Paroxysmal atrial fibrillation with rapid ventricular response on presentation: Now heart rate better controlled. Eliquis on hold. Echocardiogram during last admission showed preserved ejection fraction of 50-60%. 4. Essential hypertension: Blood pressure well controlled 5. Recent right colectomy: Surgery following closely. 6. Reactive airway disease: Pulmonology following closely. 7. Physical debility: Patient was at [facility] for rehab. When medically cleared she will be discharged back to [facility]. 8. Stage I decubitus pressure sore of the coccyx: Continue foam barrier 9. Acute GI bleed: Surgery following closely. Appears to be resolved awaiting patient's have a bowel movement. Hemoglobin stable. Plan for today: Resume anticoagulation as cleared by surgery. Awaiting repeat CBC. Possible blood transfusion tomorrow. Anticipate discharge back to [facility] within the next day or 2.
[2016-07-16] MEDS: ATORVASTATIN 20 MG TAB PO SCH (22:37)
--- NOTE | 2016-07-16 23:35 | P.PN ---
Subjective Principal diagnosis: Shortness of breath Pleasant 86-year-old female who emigrated from [facility] greater than 50 years ago presents from the extended care facility with increasing cough sputum production. Feeling weak and tired and having shortness of breath. She has a history of recent hospitalization. At that point in time she had significant abdominal pain. 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 She was doing relatively well and was transferred to the extended care facility. However she started to develop some abdominal pain which was not severe but also developed significant cough with some sputum production and some shortness of breath. Because of this she was brought into hospital. Concerns pneumonia and some minimal pressure ulceration the infectious diseases consultation was requested. With evaluation yesterday the patient had significant congestion. X-ray was not significantly abnormal a catheter was concerns to influenza. Influenza testing was performed and is positive for influenza B. Tamiflu was started. Coughing is definitely improved. Feels better today. Navigated from the bathroom to the bed with a walker without difficulty. Patient however does complain that she is having some dizziness possibly related to cuurent anemia. Objective - Vital Signs Vital signs: Vital Signs Temp 98.4 F 07/16/16 19:00 Pulse 98 07/16/16 20:45 Resp 20 07/16/16 19:00 BP 122/66 07/16/16 19:00 Pulse Ox 97 07/16/16 19:00 Intake & Output 07/16/16 07/16/16 07/17/16 06:59 18:59 06:59 Intake Total 540 Balance 540 Intake: Oral 540 Other: Voiding Method Toilet - Exam 86-year-old woman presented to hospital with shortness of breath and cough and some abdominal pain. HEENT: Anicteric conjunctiva are pink and moist nasal mucosa grossly intact without significant lesions, there is no thrush. Neck: The neck is supple without significant lymphadenopathy or thyromegaly. Lungs: There is symmetrical air entry. The airways are now clear. No crackles or wheezing is heard. There is no dullness or egophony. No change in tactile fremitus Heart: Irregularly irregular with an audible S1-S2, no S3 of S4 There is no significant murmur click or rub, PMI was nondisplaced. Abdomen: Mildly obese. Soft. Minimal tenderness through the mid incision point. Incision itself is healing well. There is no erythema or crepitance or fluctuance. There is no expressible purulence. No organomegaly is noted. No guarding or rebound. Extremities: The upper extremities have excellent pulses they are symmetric, no significant petechiae or telangiectasia. No splinter hemorrhages were noted. The lower extremities are free from significant edema. The peripheral pulses were 2+ and symmetric. Neuro: Awake alert oriented to person place and time. There are no acute new gross focal sensory motor deficits. Skin reveals evidence of a stage II on the right buttocks that is not extremely tender. This is pressure related. Present on admission. - Labs CBC & Chem 7: 07/16/16 07:55 07/16/16 07:55 Labs: Abnormal Lab Results - Last 24 Hours (Table) 07/16/16 07/16/16 07/16/16 Range/Units 07:55 07:55 13:40 RBC 2.52 L (3.80-5.40) m/uL Hgb 7.7 L (11.4-16.0) gm/dL Hct 24.4 L (34.0-46.0) % RDW 17.4 H (11.5-15.5) % Plt Count 567 H (150-450) k/uL BUN 30 H (7-17) mg/dL Calcium 7.6 L (8.4-10.2) mg/dL Crossmatch See Detail Laboratory Results WBC 10.4 k/uL (3.8-10.6) 07/16/16 07:55 RBC 2.52 m/uL (3.80-5.40) L 07/16/16 07:55 Hgb 7.7 gm/dL (11.4-16.0) L 07/16/16 07:55 Hct 24.4 % (34.0-46.0) L 07/16/16 07:55 MCV 96.6 fL (80.0-100.0) 07/16/16 07:55 MCH 30.3 pg (25.0-35.0) 07/16/16 07:55 MCHC 31.4 g/dL (31.0-37.0) 07/16/16 07:55 RDW 17.4 % (11.5-15.5) H 07/16/16 07:55 Plt Count 567 k/uL (150-450) H 07/16/16 07:55 Neutrophils % 65 % 07/16/16 07:55 Lymphocytes % 22 % 07/16/16 07:55 Monocytes % 9 % 07/16/16 07:55 Eosinophils % 0 % 07/16/16 07:55 Basophils % 0 % 07/16/16 07:55 Neutrophils # 6.8 k/uL (1.3-7.7) 07/16/16 07:55 Lymphocytes # 2.3 k/uL (1.0-4.8) 07/16/16 07:55 Monocytes # 0.9 k/uL (0-1.0) 07/16/16 07:55 Eosinophils # 0.1 k/uL (0-0.7) 07/16/16 07:55 Basophils # 0.0 k/uL (0-0.2) 07/16/16 07:55 Manual Slide Review Performed 07/14/16 06:55 Hypochromasia Moderate 07/16/16 07:55 Poikilocytosis (manual Present 07/14/16 06:55 Anisocytosis Slight 07/16/16 07:55 Macrocytosis Slight 07/16/16 07:55 Sodium 138 mmol/L (137-145) 07/16/16 07:55 Potassium 4.4 mmol/L (3.5-5.1) 07/16/16 07:55 Chloride 105 mmol/L (98-107) 07/16/16 07:55 Carbon Dioxide 28 mmol/L (22-30) 07/16/16 07:55 Anion Gap 5 mmol/L 07/16/16 07:55 BUN 30 mg/dL (7-17) H 07/16/16 07:55 Creatinine 0.79 mg/dL (0.52-1.04) 07/16/16 07:55 Est GFR (MDRD) Af Amer >60 (>60 ml/min/1.73 sqM) 07/16/16 07:55 Est GFR (MDRD) Non-Af >60 (>60 ml/min/1.73 sqM) 07/16/16 07:55 Glucose 97 mg/dL (74-99) 07/16/16 07:55 POC Glucose (mg/dL) 151 mg/dL (75-99) H 07/15/16 17:01 POC Glu Structures Assembler Abhishek Munson 07/15/16 17:[address] Glu mg/dL 128 mg/dL 07/13/16 06:31 Hemoglobin A1c 6.1 % (4.2-6.1) 07/13/16 06:31 Plasma Lactic Acid Gum[place] 1.2 mmol/L (0.7-2.0) 07/09/16 23:57 Calcium 7.6 mg/dL (8.4-10.2) L 07/16/16 07:55 Phosphorus 3.5 mg/dL (2.5-4.5) 07/15/16 06:56 Magnesium 2.0 mg/dL (1.6-2.3) 07/15/16 06:56 Total Bilirubin 0.6 mg/dL (0.2-1.3) 07/15/16 06:56 AST 48 U/L (14-36) H 07/15/16 06:56 ALT 67 U/L (9-52) H 07/15/16 06:56 Alkaline Phosphatase 66 U/L (38-126) 07/15/16 06:56 Troponin I 0.014 ng/mL (0.000-0.034) 07/15/16 18:41 Total Protein 5.2 g/dL (6.3-8.2) L 07/15/16 06:56 Albumin 2.3 g/dL (3.5-5.0) L 07/15/16 06:56 Amylase 83 U/L (30-110) 07/09/16 23:57 Lipase 259 U/L (23-300) 07/09/16 23:57 Urine Color Light Yellow 07/10/16 01:50 Urine Appearance Cloudy (Clear) H 07/10/16 01:50 Urine pH 7.0 (5.0-8.0) 07/10/16 01:50 Ur Specific [place] 1.005 (1.001-1.035) 07/10/16 01:50 Urine Protein Negative (Negative) 07/10/16 01:50 Urine Glucose (UA) Negative (Negative) 07/10/16 01:50 Urine Ketones Negative (Negative) 07/10/16 01:50 Urine Blood Trace (Negative) H 07/10/16 01:50 Urine Nitrate Negative (Negative) 07/10/16 01:50 Urine Bilirubin Negative (Negative) 07/10/16 01:50 Urine Urobilinogen <2.0 mg/dL (<2.0) 07/10/16 01:50 Ur Leukocyte Esterase Trace (Negative) H 07/10/16 01:50 Urine RBC 171 /hpf (0-5) H 07/10/16 01:50 Urine WBC <1 /hpf (0-5) 07/10/16 01:50 Ur Squamous Epith Cells 1 /hpf (0-4) 07/10/16 01:50 Urine Bacteria Occasional /hpf (None) H 07/10/16 01:50 Urine Mucus Rare /hpf (None) H 07/10/16 01:50 Stool Occult Blood Positive (Negative) H 07/14/16 05:30 Influenza Type A RNA Not Detected (Not Detectd) 07/10/16 22:50 Influenza Type B (PCR) Detected (Not Detectd) H 07/10/16 22:50 Blood Type A Positive 07/16/16 13:40 Blood Type Recheck No 07/16/16 13:40 Antibody Screen NEGATIVE 07/16/16 13:40 Crossmatch See Detail 07/16/16 13:40 Spec Expiration Date 07/19/2016 - 233907/16/16 13:40 Microbiology 07/11/16 16:15 Sputum Gram Stain - Final 07/11/16 16:15 Sputum Sputum Culture - Final Jaja albicans 07/10/16 00:01 Abdomen Gram Stain - Final 07/10/16 00:01 Abdomen Wound Culture - Final Jaja albicans Assessment and Plan (1) Pneumonia Narrative/Plan: 86-year-old female presents to Hospital from the [facility] care facility where she's been recovering after her recent abdominal surgery. She had right colonic ischemia and required a right hemicolectomy. She's having some ongoing abdominal pain. But developed increasing shortness of breath. X- ray is abnormal. Laboratory reviewed and influenza A testing and B testing was requested as come back as positive for influenza B with respiratory treatments and the Mucinex she is feeling better. Tamiflu was started full course completed . She was started on broad-spectrum antibiotic therapy with concerns to pneumonia. However with influenza diagnosis these were discontinued. Patient did have leukocytosis that is improved. She has a normal creatinine. No evidence of a urinary infection at this time opticel ordered for the pressure ulcer of the buttocks Patient does complain of some dizziness possibly reacted to current anemia and GI bleed, received iron therapy Hemoglobin has again declined. Is being evaluated for the need for transfusion. Once stable will be discharged back to extended care facility. Status: Acute (2) Chronic a-fib Status: Acute
[2016-07-16 23:42] VITALS: RESP 16
[2016-07-17] MEDS: APIXABAN 2.5 MG TABLET PO SCH ×2 (02:39→08:12)
[2016-07-17] MEDS: SODIUM CHLORIDE 0.9% 1,000 ML IV SCH (02:40)
[2016-07-17 07:56] LABS: Anisocytosis Slight; CH 30.9; HCT 30.7 % (34.0-46.0); HDW 3.48; HGB 10.1 gm/dL (11.4-16.0); MCH 30.1 pg (25.0-35.0); MCHC 32.8 g/dL (31.0-37.0); Mean Platelet Volume 7.5; Poikilocytosis Slight; RBC 3.36 m/uL (3.80-5.40); RDW 17.8 % (11.5-15.5); WBC (Perox) 8.53
[2016-07-17 07:59] LABS: MCV 91.6 fL (80.0-100.0)
[2016-07-17 08:05] LABS: Anion Gap 5 mmol/L; Blood Urea Nitrogen 25 mg/dL (7-17); Calcium 7.6 mg/dL (8.4-10.2); Carbon Dioxide 27 mmol/L (22-30); Chloride 108 mmol/L (98-107); Glucose 100 mg/dL (74-99); Non-African American GFR(MDRD) >60 (>60 ml/min/1.73 sqM); Potassium 4.2 mmol/L (3.5-5.1); Sodium 140 mmol/L (137-145)
[2016-07-17] MEDS: LEVOTHYROXINE 88 MCG TAB PO SCH (08:11)
[2016-07-17] MEDS: guaiFENesin 600 MG TABLET.ER PO SCH (08:12)
[2016-07-17] MEDS: METOPROLOL TARTRATE 50 MG TAB PO SCH (08:12)
[2016-07-17] MEDS: NYSTATIN 100,000 UNIT/GM POWD 15 GM TOPICAL SCH (08:13)
[2016-07-17] MEDS: LOSARTAN 25 MG TAB PO SCH (08:13)
[2016-07-17] MEDS: predniSONE 20 MG TAB PO SCH (08:13)
[2016-07-17] MEDS: IPRATROPIUM-ALBUTEROL 3 ML NEB INHALATION SCH ×3 (08:43→15:13)
[2016-07-17] MEDS ORDERED: FAMOTIDINE 20 MG TAB PO SCH ×2 (09:00→21:00)
--- NOTE | 2016-07-17 10:34 | P.PN ---
Subjective Principal diagnosis: GI bleed Patient feels well today. Denies abdominal pain. She is tolerating her soft diet. Hemoglobin is, 10.1 after transfusion. Denies rectal bleeding. Objective - Vital Signs Vital signs: Vital Signs Temp 97.6 F 07/17/16 07:00 Pulse 82 07/17/16 07:00 Resp 16 07/17/16 07:00 BP 139/81 07/17/16 07:00 Pulse Ox 98 07/17/16 07:00 Intake & Output 07/16/16 07/17/16 07/17/16 18:59 06:59 18:59 Intake Total 540 720 240 Balance 540 720 240 Intake: IV 100 Sodium Chloride 0.9% 1, 100 000 ml @ 20 mls/hr IV . Q24H [facility] Rx#:[id number] Oral 540 240 Blood Product 620 Rc As-1 Unit 310 [id number] Rc As-1 Unit 310 [id number] Other: Voiding Method Toilet # Voids 2 1 - Exam Abdomen: Soft, nontender, nondistended, incision clean and dry - Labs CBC & Chem 7: 07/17/16 06:50 07/17/16 06:50 Labs: Abnormal Lab Results - Last 24 Hours (Table) 07/16/16 07/17/16 07/17/16 Range/Units 13:40 06:50 06:50 RBC 3.36 L (3.80-5.40) m/uL Hgb 10.1 L (11.4-16.0) gm/dL Hct 30.7 L (34.0-46.0) % RDW 17.8 H (11.5-15.5) % Chloride 108 H (98-107) mmol/L BUN 25 H (7-17) mg/dL Glucose 100 H (74-99) mg/dL Calcium 7.6 L (8.4-10.2) mg/dL Crossmatch See Detail Assessment and Plan (1) GI bleed Narrative/Plan: Continue soft diet. Follow hemoglobin. Status: Acute
[2016-07-17 11:19] VITALS: BMI 28.5
[2016-07-17 11:33] LABS: Manual Review Performed
[2016-07-17 11:34] LABS: Add Differential Manual Differential
[2016-07-17 11:38] LABS: Band Neutrophils % 1.5 %; Myelocytes % 1.5 %; Nucleated Red Blood Cells 2 /100 WBC (0-0); Total Cells Counted 200
[2016-07-17 11:39] LABS: Polychromasia Present; WBC 8.3 k/uL (3.8-10.6)
--- NOTE | 2016-07-17 12:44 | P.DS ---
Providers Date of admission: 07/10/16 03:25 Expected date of discharge: 07/17/16 Attending physician: Mik Daniel Consults: 07/10/16 11:59 Consult Physician Routine Consulting Provider: Kaz Smith Consult Reason/Comments: Pneumonia Do you want consulting provider notified?: Yes 07/10/16 13:25 Consult Physician Routine Consulting Provider: Martín Chung Consult Reason/Comments: Pneumonia and pressure sore Do you want consulting provider notified?: Yes Primary care physician: Jennyfer [facility] Course: 1. Influenza B: Finished 5 days course of Tamiflu 1. Pneumonia ruled out. Was seen by pulmonary service felt more likely atelectasis. Continue incentive spirometer. Antibiotics discontinued 2. Acute hypoxic respiratory failure: Now improving. Most likely secondary to fluid overload and influenza 3. Paroxysmal atrial fibrillation with rapid ventricular response on presentation: Now heart rate better controlled. Eliquis resumed for anticoagulation. Echocardiogram during last admission showed preserved ejection fraction of 50-60%. 4. Essential hypertension: Blood pressure well controlled 5. Recent right colectomy: Seen and evaluated by surgery during this admission 6. Reactive airway disease: Improved 7. Physical debility: Patient was at [facility] for rehab. When medically cleared she will be discharged back to [facility]. 8. Stage I decubitus pressure sore of the coccyx: Continue foam barrier 9. Acute GI bleed: patient was seen and evaluated by general surgery. She received 2 units of blood transfusion during this admission. Last bowel movement was dark in color with no evidence of bright red blood. She was cleared by surgery to resume anticoagulation. We will monitor CBC closely and if evidence of recurrent GI bleed anticoagulation with Eliquis should be discontinued. Patient Condition at Discharge: Fair Plan - Discharge Summary New Discharge Prescriptions: Furosemide [Lasix] 20 mg PO DAILY #30 tab Discharge Medication List Levothyroxine Sodium [Synthroid] 88 mcg PO AC-[id number] 07/19/14 [History] Meclizine [Antivert] 25 mg PO TID PRN #20 tab 06/25/16 [Rx] Rosuvastatin Calcium [Crestor] 10 mg PO HS 06/27/16 [History] Apixaban [Eliquis] 2.5 mg PO BID tablet 07/08/16 [Rx] Ipratropium-Albuterol Nebulize [Duoneb 0.5 mg-3 mg/3 ml Soln] 3 ml INHALATION RT -QID PRN #30 ampul.neb 07/08/16 [Rx] Losartan [Cozaar] 25 mg PO DAILY tab 07/08/16 [Rx] Metoprolol Tartrate [Lopressor] 50 mg PO BID tab 07/08/16 [Rx] Furosemide [Lasix] 20 mg PO DAILY #30 tab 07/17/16 [Rx] Follow up Appointment(s)/Referral(s): Jennyfer Cabello MD [Primary Care Provider] - 1-2 days Dex Butler MD [STAFF PHYSICIAN] - 1 Week Mary Patel MD [STAFF PHYSICIAN] - 1 Week Amanda Hilario MD [STAFF PHYSICIAN] - 1 Week Discharge Disposition: TRANSFER TO SNF/ECF
[2016-07-17 14:00] VITALS: BP 139/74; PULSE 88; TEMP 97.5
--- NOTE | 2016-07-17 19:05 | P.PN ---
Subjective Principal diagnosis: Shortness of breath Pleasant 86-year-old female who emigrated from [facility] greater than 50 years ago presents from the extended care facility with increasing cough sputum production. Feeling weak and tired and having shortness of breath. She has a history of recent hospitalization. At that point in time she had significant abdominal pain. 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 She was doing relatively well and was transferred to the extended care facility. However she started to develop some abdominal pain which was not severe but also developed significant cough with some sputum production and some shortness of breath. Because of this she was brought into hospital. Concerns pneumonia and some minimal pressure ulceration the infectious diseases consultation was requested. With evaluation yesterday the patient had significant congestion. X-ray was not significantly abnormal a catheter was concerns to influenza. Influenza testing was performed and is positive for influenza B. Tamiflu was started. Coughing is definitely improved. Feels better today. Navigated from the bathroom to the bed with a walker without difficulty. Patient however does complain that she is having some dizziness improved after transfusion, Hgb 10.1 Objective - Vital Signs Vital signs: Vital Signs Temp 97.5 F L 07/17/16 13:59 Pulse 88 07/17/16 13:59 Resp 16 07/17/16 13:59 BP 139/74 07/17/16 13:59 Pulse Ox 96 07/17/16 13:59 Intake & Output 07/17/16 07/17/16 07/18/16 06:59 18:59 06:59 Intake Total 720 480 Balance 720 480 Weight 82.5 kg Intake: IV 100 Sodium Chloride 0.9% 1, 100 000 ml @ 20 mls/hr IV . Q24H [facility] Rx#:[id number] Oral 480 Blood Product 620 Rc As-1 Unit 310 [id number] As-1 Unit 310 [id number] Other: Voiding Method Toilet Toilet # Voids 2 1 - Exam 86-year-old woman presented to hospital with shortness of breath and cough and some abdominal pain. HEENT: Anicteric conjunctiva are pink and moist nasal mucosa grossly intact without significant lesions, there is no thrush. Neck: The neck is supple without significant lymphadenopathy or thyromegaly. Lungs: There is symmetrical air entry. The airways are now clear. No crackles or wheezing is heard. There is no dullness or egophony. No change in tactile fremitus Heart: Irregularly irregular with an audible S1-S2, no S3 of S4 There is no significant murmur click or rub, PMI was nondisplaced. Abdomen: Mildly obese. Soft. Minimal tenderness through the mid incision point. Incision itself is healing well. There is no erythema or crepitance or fluctuance. There is no expressible purulence. No organomegaly is noted. No guarding or rebound. Extremities: The upper extremities have excellent pulses they are symmetric, no significant petechiae or telangiectasia. No splinter hemorrhages were noted. The lower extremities are free from significant edema. The peripheral pulses were 2+ and symmetric. Neuro: Awake alert oriented to person place and time. There are no acute new gross focal sensory motor deficits. Skin reveals evidence of a stage II on the right buttocks that is not extremely tender. This is pressure related. Present on admission. - Labs CBC & Chem 7: 07/17/16 06:50 07/17/16 06:50 Labs: Abnormal Lab Results - Last 24 Hours (Table) 07/16/16 07/17/16 07/17/16 Range/Units 13:40 06:50 06:50 RBC 3.36 L (3.80-5.40) m/uL Hgb 10.1 L (11.4-16.0) gm/dL Hct 30.7 L (34.0-46.0) % RDW 17.8 H (11.5-15.5) % Nucleated RBCs 2 H (0-0) /100 WBC Chloride 108 H (98-107) mmol/L BUN 25 H (7-17) mg/dL Glucose 100 H (74-99) mg/dL Calcium 7.6 L (8.4-10.2) mg/dL Crossmatch See Detail Laboratory Results WBC 8.3 k/uL (3.8-10.6) 07/17/16 06:50 RBC 3.36 m/uL (3.80-5.40) L 07/17/16 06:50 Hgb 10.1 gm/dL (11.4-16.0) L 07/17/16 06:50 Hct 30.7 % (34.0-46.0) L 07/17/16 06:50 MCV 91.6 fL (80.0-100.0) D 07/17/16 06:50 MCH 30.1 pg (25.0-35.0) 07/17/16 06:50 MCHC 32.8 g/dL (31.0-37.0) 07/17/16 06:50 RDW 17.8 % (11.5-15.5) H 07/17/16 06:50 Plt Count 384 k/uL (150-450) 07/17/16 06:50 Neutrophils % Not Reportable 07/17/16 06:50 Neutrophils % (Manual) 55.0 % 07/17/16 06:50 Band Neutrophils % 1.5 % 07/17/16 06:50 Lymphocytes % Not Reportable 07/17/16 06:50 Lymphocytes % (Manual) 32.0 % 07/17/16 06:50 Monocytes % Not Reportable 07/17/16 06:50 Monocytes % (Manual) 9.5 % 07/17/16 06:50 Eosinophils % Not Reportable 07/17/16 06:50 Eosinophils % (Manual) 0.5 % 07/17/16 06:50 Basophils % Not Reportable 07/17/16 06:50 Myelocytes % 1.5 % 07/17/16 06:50 Neutrophils # Not Reportable 07/17/16 06:50 Neutrophils # (Manual) 4.7 k/uL (1.3-7.7) 07/17/16 06:50 Lymphocytes # Not Reportable 07/17/16 06:50 Lymphocytes # (Manual) 2.7 k/uL (1.0-4.8) 07/17/16 06:50 Monocytes # Not Reportable 07/17/16 06:50 Monocytes # (Manual) 0.8 k/uL (0-1.0) 07/17/16 06:50 Eosinophils # Not Reportable 07/17/16 06:50 Eosinophils # (Manual) 0.0 k/uL (0-0.7) 07/17/16 06:50 Basophils # Not Reportable 07/17/16 06:50 Nucleated RBCs 2 /100 WBC (0-0) H 07/17/16 06:50 Manual Slide Review Performed 07/17/16 06:50 Polychromasia Present 07/17/16 06:50 Hypochromasia Moderate 07/16/16 07:55 Poikilocytosis Slight 07/17/16 06:50 Poikilocytosis (manual Present 07/14/16 06:55 Anisocytosis Slight 07/17/16 06:50 Macrocytosis Slight 07/16/16 07:55 Sodium 140 mmol/L (137-145) 07/17/16 06:50 Potassium 4.2 mmol/L (3.5-5.1) 07/17/16 06:50 Chloride 108 mmol/L (98-107) H 07/17/16 06:50 Carbon Dioxide 27 mmol/L (22-30) 07/17/16 06:50 Anion Gap 5 mmol/L 07/17/16 06:50 BUN 25 mg/dL (7-17) H 07/17/16 06:50 Creatinine 0.63 mg/dL (0.52-1.04) 07/17/16 06:50 Est GFR (MDRD) Af Amer >60 (>60 ml/min/1.73 sqM) 07/17/16 06:50 Est GFR (MDRD) Non-Af >60 (>60 ml/min/1.73 sqM) 07/17/16 06:50 Glucose 100 mg/dL (74-99) H 07/17/16 06:50 POC Glucose (mg/dL) 151 mg/dL (75-99) H 07/15/16 17:01 POC Glu Phlebotomy Coordinator Abhishek Munson 07/15/16 17:[address] Glu mg/dL 128 mg/dL 07/13/16 06:31 Hemoglobin A1c 6.1 % (4.2-6.1) 07/13/16 06:31 Plasma Lactic Acid [place] 1.2 mmol/L (0.7-2.0) 07/09/16 23:57 Calcium 7.6 mg/dL (8.4-10.2) L 07/17/16 06:50 Phosphorus 3.5 mg/dL (2.5-4.5) 07/15/16 06:56 Magnesium 2.0 mg/dL (1.6-2.3) 07/15/16 06:56 Total Bilirubin 0.6 mg/dL (0.2-1.3) 07/15/16 06:56 AST 48 U/L (14-36) H 07/15/16 06:56 ALT 67 U/L (9-52) H 07/15/16 06:56 Alkaline Phosphatase 66 U/L (38-126) 07/15/16 06:56 Troponin I 0.014 ng/mL (0.000-0.034) 07/15/16 18:41 Total Protein 5.2 g/dL (6.3-8.2) L 07/15/16 06:56 Albumin 2.3 g/dL (3.5-5.0) L 07/15/16 06:56 Amylase 83 U/L (30-110) 07/09/16 23:57 Lipase 259 U/L (23-300) 07/09/16 23:57 Urine Color Light Yellow 07/10/16 01:50 Urine Appearance Cloudy (Clear) H 07/10/16 01:50 Urine pH 7.0 (5.0-8.0) 07/10/16 01:50 Ur Specific [place] 1.005 (1.001-1.035) 07/10/16 01:50 Urine Protein Negative (Negative) 07/10/16 01:50 Urine Glucose (UA) Negative (Negative) 07/10/16 01:50 Urine Ketones Negative (Negative) 07/10/16 01:50 Urine Blood Trace (Negative) 07/10/16 01:50 Urine Nitrate Negative (Negative) 07/10/16 01:50 Urine Bilirubin Negative (Negative) 07/10/16 01:50 Urine Urobilinogen <2.0 mg/dL (<2.0) 07/10/16 01:50 Ur Leukocyte Esterase Trace (Negative) 07/10/16 01:50 Urine RBC 171 /hpf (0-5) H 07/10/16 01:50 Urine WBC <1 /hpf (0-5) 07/10/16 01:50 Ur Squamous Epith Cells 1 /hpf (0-4) 07/10/16 01:50 Urine Bacteria Occasional /hpf (None) H 07/10/16 01:50 Urine Mucus Rare /hpf (None) H 07/10/16 01:50 Stool Occult Blood Positive (Negative) H 07/14/16 05:30 Influenza Type A RNA Not Detected (Not Detectd) 07/10/16 22:50 Influenza Type B (PCR) Detected (Not Detectd) H 07/10/16 22:50 Blood Type A Positive 07/16/16 13:40 Blood Type Recheck No 07/16/16 13:40 Antibody Screen NEGATIVE 07/16/16 13:40 Crossmatch See Detail 07/16/16 13:40 Spec Expiration Date 07/19/2016 - 2340 07/16/16 13:40 Microbiology 07/11/16 16:15 Sputum Gram Stain - Final 07/11/16 16:15 Sputum Sputum Culture - Final Jaja albicans 07/10/16 00:01 Abdomen Gram Stain - Final 07/10/16 00:01 Abdomen Wound Culture - Final Jaja albicans Assessment and Plan (1) Pneumonia Narrative/Plan: 86-year-old female presents to Hospital from the [facility] care facility where she's been recovering after her recent abdominal surgery. She had right colonic ischemia and required a right hemicolectomy. She's having some ongoing abdominal pain. But developed increasing shortness of breath. X- ray is abnormal. Laboratory reviewed and influenza A testing and B testing was requested as come back as positive for influenza B with respiratory treatments and the Mucinex she is feeling better. Tamiflu was started full course completed . No need for any further antimicrobials. She was started on broad-spectrum antibiotic therapy with concerns to pneumonia. However with influenza diagnosis these were discontinued. Patient did have leukocytosis that is improved. She has a normal creatinine. No evidence of a urinary infection at this time opticel ordered for the pressure ulcer of the buttocks Patient does complain of some dizziness possibly reacted to current anemia and GI bleed, received iron therapy Hemoglobin had declined, was transfused and now is improved, ready for discharge to ECF Status: Acute (2) Chronic a-fib Status: Acute
== END 2016-07-17 15:00 | DRG 193 ==
LOC: EC 23:50 → 5MS5E 07-10 03:25 → 6PED 07-10 07:25 → 3SUR 07-12 02:54
PROVIDERS: ADMIT Internal Medicine; ATTEND Internal Medicine
DX: J10.1 Influenza due to other identified influenza virus with other respiratory manifestations (principal); J96.01 Acute respiratory failure with hypoxia; L89.151 Pressure ulcer of sacral region, stage 1; L89.312 Pressure ulcer of right buttock, stage 2; D62 Acute posthemorrhagic anemia; I27.2 Other secondary pulmonary hypertension; K92.2 Gastrointestinal hemorrhage, unspecified; E87.70 Fluid overload, unspecified; J98.11 Atelectasis; I48.0 Paroxysmal atrial fibrillation; E03.9 Hypothyroidism, unspecified; E78.5 Hyperlipidemia, unspecified; H35.30 Unspecified macular degeneration; I10 Essential (primary) hypertension; I25.10 Atherosclerotic heart disease of native coronary artery without angina pectoris; I48.2 Chronic atrial fibrillation; J45.909 Unspecified asthma, uncomplicated; K58.9 Irritable bowel syndrome, unspecified; Z79.82 Long term (current) use of aspirin; Z80.1 Family history of malignant neoplasm of trachea, bronchus and lung; Z79.899 Other long term (current) drug therapy
CPT/HCPCS: 36415; 71010; 74000; 80048; 80053; 81001; 82150; 82272; 83036; 83605; 83690; 83735; 84100; 84484; 85025; 86850; 86900; 86901; 86920; 87070; 87205; 87502; 93005; 94640; 94760; 96361; 96365; 96366; 99285

== ENCOUNTER 2016-07-20 09:09 | Inpatient (IN) | payer MEDICARE, OTHER ==
[2016-07-20] MEDS ORDERED: SODIUM CHLORIDE 0.9% 500 ML IV STA (09:46)
[2016-07-20] MEDS ORDERED: PANTOPRAZOLE 40 MG/10 ML VIAL IVP STA (09:46)
--- NOTE | 2016-07-20 09:48 | ED ---
GI Bleed HPI - General Chief complaint: GI Bleed Stated complaint: Abdominal Pain Time Seen by Provider: 07/20/16 09:16 Source: patient, EMS Mode of arrival: EMS Limitations: no limitations - History of Present Illness Initial comments: This patient is an 86-year-old woman who presents to be evaluated for an episode of painless rectal bleeding that occurred early this morning. Patient states that she felt she had about bowel movement, and then noted that there was dark red blood present. She states that it seemed to be present throughout all the stool. Patient denies any abdominal or perianal pain. She has not had fevers or chills. She does feel a bit lightheaded when upright. She denies chest pain or dyspnea. No palpitations or syncope. Otherwise on the review of systems, the patient notes that she has had a little bit of drainage from her surgical incision after the biju were taken out. complaint: melena -: hour(s) Quality: painless Improves with: none Worsens with: none Context: other (Recent surgery and history of atrial fib) Associated Symptoms: denies other symptoms - Related Data Home Medications Medication Instructions Recorded Confirmed Apixaban [Eliquis] 2.5 mg PO BID 07/20/16 07/20/16 Atorvastatin [Lipitor] 20 mg PO HS 07/20/16 07/20/16 Furosemide [Lasix] 20 mg PO DAILY 07/20/16 07/20/16 Ipratropium-Albuterol Nebulize 3 ml INHALATION RT-QID PRN 07/20/16 07/20/16 [Duoneb 0.5 mg-3 mg/3 ml Soln] Levothyroxine Sodium [Synthroid] 88 mcg PO DAILY 07/20/16 07/20/16 Losartan [Cozaar] 25 mg PO DAILY 07/20/16 07/20/16 Meclizine [Antivert] 25 mg PO TID PRN 07/20/16 07/20/16 Metoprolol Tartrate [Lopressor] 50 mg PO BID 07/20/16 07/20/16 Allergies Allergy/AdvReac Type Severity Reaction Status Date / Time No Known Allergies Allergy Verified 07/20/16 11:54 Review of Systems ROS Statement: Those systems with pertinent positive or pertinent negative responses have been documented in the HPI. ROS Other: All systems not noted in ROS Statement are negative. Constitutional: Denies: fever, chills, weakness Eyes: Denies: vision change Respiratory: Denies: cough, dyspnea, wheezes Cardiovascular: Denies: chest pain, palpitations, orthopnea, edema, syncope Gastrointestinal: Reports: melena. Denies: abdominal pain, nausea, vomiting, diarrhea, constipation, hematemesis Genitourinary: Denies: dysuria, hematuria Musculoskeletal: Denies: back pain Skin: Denies: rash Neurological: Denies: headache, weakness, numbness Hematological/Lymphatic: Denies: easy bleeding Past Medical History Past Medical History: Atrial Fibrillation, Coronary Artery Disease (CAD), Chest Pain / Angina, Hyperlipidemia, Hypertension, Thyroid Disorder Additional Past Medical History / Comment(s): Pt has IBS. 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 Bruising on skin. Cataract L eye. History of Any Multi-Drug Resistant Organisms: None Reported Past Surgical History: Appendectomy, Section, Heart Catheterization With Stent, Hysterectomy Additional Past Surgical History / Comment(s): Hx. of left breast biopsy, HEART CATH WITH STENT. RT FEMORAL endartrectomy,HEMATOMA REMOVAL. Past Anesthesia/Blood Transfusion Reactions: No Reported Reaction Additional Past Anesthesia/Blood Transfusion Reaction / Comment(s): Pt has received blood recently, without reaction. Date of Last Stent Placement:: 08-17-14 Past Psychological History: No Psychological Hx Reported Additional Psychological History / Comment(s): Pt currently residing in [facility] for rehab since last discharge from hospital. She states she has not gotten out of the bed due to bilateral leg weakness. Pt states she is on oxygen at rehab. She feeds herself but needs assist with all other ADLs. Prior to going to [facility], patient resided with her son and his spouse. Emigrated from the [place] 50 years ago. . 2 adult children and her daughter is at her side. No tobacco use. retired. No recent travels. No animal exposures Smoking Status: Never smoker Past Alcohol Use History: None Reported Past Drug Use History: None Reported - Past Family History Son(s) Family Medical History: Hearing Disorder / Deafness Daughter(s) Family Medical History: Hearing Disorder / Deafness Father Family Medical History: Cancer Additional Family Medical History / Comment(s): Unknown General Exam Limitations: no limitations General appearance: alert, in no apparent distress Head exam: Present: atraumatic, normocephalic Eye exam: Present: normal appearance. Absent: scleral icterus, conjunctival injection ENT exam: Present: normal oropharynx Neck exam: Present: normal inspection Respiratory exam: Present: normal lung sounds bilaterally. Absent: respiratory distress, wheezes, rales, rhonchi, stridor Cardiovascular Exam: Present: regular rate, irregular rhythm, normal heart sounds. Absent: systolic murmur, diastolic murmur, rubs, gallop GI/Abdominal exam: Present: soft, normal bowel sounds, other (Patient's surgical incision does have a small amount of serous drainage from the midportion. There is no fluid collection. There is no abnormal erythema or warmth.). Absent: distended, tenderness, guarding, rebound, mass, pulsatile mass, hernia Rectal exam: Present: normal inspection, normal rectal tone, heme (+) stool, other (Large amount of firm melanotic stool). Absent: decreased rectal tone, mass, tenderness Extremities exam: Present: normal inspection, normal capillary refill. Absent: pedal edema, calf tenderness Back exam: Present: normal inspection. Absent: CVA tenderness (R), CVA tenderness (L) Neurological exam: Present: alert Skin exam: Present: warm, dry, normal color. Absent: rash Course Vital Signs 07/20/16 07/20/16 07/20/16 09:12 09:30 09:45 Temperature 99.0 F Pulse Rate 75 94 88 Respiratory 18 16 16 Rate Blood Pressure 148/64 142/70 137/70 O2 Sat by Pulse 95 97 Oximetry 07/20/16 07/20/16 07/20/16 10:15 11:45 12:15 Temperature Pulse Rate 86 86 86 Respiratory 16 16 16 Rate Blood Pressure 137/66 129/69 177/71 O2 Sat by Pulse 91 L 92 L 98 Oximetry 07/20/16 13:35 Temperature Pulse Rate 92 Respiratory 16 Rate Blood Pressure 129/58 O2 Sat by Pulse 94 L Oximetry Medical Decision Making - Lab Data Result diagrams: 07/20/16 09:20 07/20/16 09:20 Lab Results 07/20/16 07/20/16 07/20/16 Range/Units 09:20 09:20 09:20 WBC 10.0 (3.8-10.6) k/uL RBC 3.77 L (3.80-5.40) m/uL Hgb 11.5 (11.4-16.0) gm/dL Hct 36.2 (34.0-46.0) % MCV 96.0 (80.0-100.0) fL MCH 30.5 (25.0-35.0) pg MCHC 31.8 (31.0-37.0) g/dL RDW 18.3 H (11.5-15.5) % Plt Count 317 (150-450) k/uL Neutrophils % 72 % Lymphocytes % 18 % Monocytes % 7 % Eosinophils % 1 % Basophils % 1 % Neutrophils # 7.2 (1.3-7.7) k/uL Lymphocytes # 1.8 (1.0-4.8) k/uL Monocytes # 0.6 (0-1.0) k/uL Eosinophils # 0.1 (0-0.7) k/uL Basophils # 0.1 (0-0.2) k/uL Anisocytosis Slight Macrocytosis Slight PT (9.0-12.0) sec INR (<1.1) APTT (22.0-30.0) sec Sodium 137 (137-145) mmol/L Potassium 4.3 (3.5-5.1) mmol/L Chloride 102 (98-107) mmol/L Carbon Dioxide 29 (22-30) mmol/L Anion Gap 6 mmol/L BUN 18 H (7-17) mg/dL Creatinine 0.70 (0.52-1.04) mg/dL Est GFR (MDRD) Af Amer >60 (>60 ml/min/1.73 sqM) Est GFR (MDRD) Non-Af >60 (>60 ml/min/1.73 sqM) Glucose 85 (74-99) mg/dL Plasma Lactic Acid Gumaro (0.7-2.0) mmol/L Calcium 7.6 L (8.4-10.2) mg/dL Total Bilirubin 0.9 (0.2-1.3) mg/dL AST 40 H (14-36) U/L ALT 62 H (9-52) U/L Alkaline Phosphatase 61 (38-126) U/L Total Creatine Kinase (30-135) U/L CK-MB (CK-2) (0.0-2.4) ng/mL CK-MB (CK-2) Rel Index Troponin I (0.000-0.034) ng/mL Total Protein 5.1 L (6.3-8.2) g/dL Albumin 2.3 L (3.5-5.0) g/dL Stool Occult Blood Positive H (Negative) Blood Type Blood Type Recheck Antibody Screen Spec Expiration Date 07/20/16 07/20/16 07/20/16 Range/Units 09:20 09:20 09:20 WBC (3.8-10.6) k/uL RBC (3.80-5.40) m/uL Hgb (11.4-16.0) gm/dL Hct (34.0-46.0) % MCV (80.0-100.0) fL MCH (25.0-35.0) pg MCHC (31.0-37.0) g/dL RDW (11.5-15.5) % Plt Count (150-450) k/uL Neutrophils % % Lymphocytes % % Monocytes % % Eosinophils % % Basophils % % Neutrophils # (1.3-7.7) k/uL Lymphocytes # (1.0-4.8) k/uL Monocytes # (0-1.0) k/uL Eosinophils # (0-0.7) k/uL Basophils # (0-0.2) k/uL Anisocytosis Macrocytosis PT 12.7 H (9.0-12.0) sec INR 1.3 (<1.1) APTT 23.9 (22.0-30.0) sec Sodium (137-145) mmol/L Potassium (3.5-5.1) mmol/L Chloride (98-107) mmol/L Carbon Dioxide (22-30) mmol/L Anion Gap mmol/L BUN (7-17) mg/dL Creatinine (0.52-1.04) mg/dL Est GFR (MDRD) Af Amer (>60 ml/min/1.73 sqM) Est GFR (MDRD) Non-Af (>60 ml/min/1.73 sqM) Glucose (74-99) mg/dL Plasma Lactic Acid Gumaro (0.7-2.0) mmol/L Calcium (8.4-10.2) mg/dL Total Bilirubin (0.2-1.3) mg/dL AST (14-36) U/L ALT (9-52) U/L Alkaline Phosphatase (38-126) U/L Total Creatine Kinase (30-135) U/L CK-MB (CK-2) (0.0-2.4) ng/mL CK-MB (CK-2) Rel Index Troponin I 0.020 (0.000-0.034) ng/mL Total Protein (6.3-8.2) g/dL Albumin (3.5-5.0) g/dL Stool Occult Blood (Negative) Blood Type A Positive Blood Type Recheck No Antibody Screen NEGATIVE Spec Expiration Date 07/23/2016 - 231907/20/16 07/20/16 Range/Units 09:20 11:00 WBC (3.8-10.6) k/uL RBC (3.80-5.40) m/uL Hgb (11.4-16.0) gm/dL Hct (34.0-46.0) % MCV (80.0-100.0) fL MCH (25.0-35.0) pg MCHC (31.0-37.0) g/dL RDW (11.5-15.5) % Plt Count (150-450) k/uL Neutrophils % % Lymphocytes % % Monocytes % % Eosinophils % % Basophils % % Neutrophils # (1.3-7.7) k/uL Lymphocytes # (1.0-4.8) k/uL Monocytes # (0-1.0) k/uL Eosinophils # (0-0.7) k/uL Basophils # (0-0.2) k/uL Anisocytosis Macrocytosis PT (9.0-12.0) sec INR (<1.1) APTT (22.0-30.0) sec Sodium (137-145) mmol/L Potassium (3.5-5.1) mmol/L Chloride (98-107) mmol/L Carbon Dioxide (22-30) mmol/L Anion Gap mmol/L BUN (7-17) mg/dL Creatinine (0.52-1.04) mg/dL Est GFR (MDRD) Af Amer (>60 ml/min/1.73 sqM) Est GFR (MDRD) Non-Af (>60 ml/min/1.73 sqM) Glucose (74-99) mg/dL Plasma Lactic Acid Gumaro 0.8 (0.7-2.0) mmol/L Calcium (8.4-10.2) mg/dL Total Bilirubin (0.2-1.3) mg/dL AST (14-36) U/L ALT (9-52) U/L Alkaline Phosphatase (38-126) U/L Total Creatine Kinase <20 L (30-135) U/L CK-MB (CK-2) 1.0 (0.0-2.4) ng/mL CK-MB (CK-2) Rel Index 0.0 Troponin I (0.000-0.034) ng/mL Total Protein (6.3-8.2) g/dL Albumin (3.5-5.0) g/dL Stool Occult Blood (Negative) Blood Type Blood Type Recheck Antibody Screen Spec Expiration Date - EKG Data EKG shows normal: axis (Normal), intervals (The QRS duration is prolonged at 136 ms, consistent with the observe right bundle-branch block.), QRS complexes ( Right bundle-branch block and left anterior fascicular block) Rate: normal (Rate is approximately 94 beats per minutes and the underlying rhythm is atrial fibrillation.) Interpretation: LVH (By voltage criteria) Disposition Clinical Impression: GI bleed Disposition: ADMITTED IP TO THIS [facility] Condition: Fair
[2016-07-20 10:03] LABS: Anisocytosis Slight; Basophils # (A) 0.1 k/uL (0-0.2); Basophils % (A) 1 %; CH 31.5; CHCM 33.1; Eosinophils # (A) 0.1 k/uL (0-0.7); Eosinophils % (A) 1 %; HCT 36.2 % (34.0-46.0); HDW 3.02; HGB 11.5 gm/dL (11.4-16.0); Luc # (Auto) 0.19; Luc % (Auto) 2; Lymphocytes # (A) 1.8 k/uL (1.0-4.8); Lymphocytes % (A) 18 %; MCH 30.5 pg (25.0-35.0); MCHC 31.8 g/dL (31.0-37.0); Macrocytosis Slight; Mean Platelet Volume 7.7; Monocytes # (A) 0.6 k/uL (0-1.0); Monocytes % (A) 7 %; Neutrophils # (A) 7.2 k/uL (1.3-7.7); Neutrophils % (A) 72 %; RBC 3.77 m/uL (3.80-5.40); RDW 18.3 % (11.5-15.5); WBC (Perox) 10.14
[2016-07-20 10:12] LABS: ALT 62 U/L (9-52); AST 40 U/L (14-36); Alkaline Phosphatase 61 U/L (38-126); Anion Gap 6 mmol/L; Blood Urea Nitrogen 18 mg/dL (7-17); Calcium 7.6 mg/dL (8.4-10.2); Carbon Dioxide 29 mmol/L (22-30); Chloride 102 mmol/L (98-107); Glucose 85 mg/dL (74-99); INR 1.3 (<1.1); Non-African American GFR(MDRD) >60 (>60 ml/min/1.73 sqM); Partial Thromboplastin Time 23.9 sec (22.0-30.0); Potassium 4.3 mmol/L (3.5-5.1); Prothrombin Time 12.7 sec (9.0-12.0); Sodium 137 mmol/L (137-145); Total Bilirubin 0.9 mg/dL (0.2-1.3); Total Protein 5.1 g/dL (6.3-8.2)
[2016-07-20] MEDS ORDERED: RX INFO: IV CONTRAST WAS GIVEN 1 EACH MISC MISCELLANE PRN (10:29)
--- NOTE | 2016-07-20 13:31 | CT ---
EXAMINATION TYPE: CT abdomen pelvis w con DATE OF EXAM: 07/20/2016 1:09 PM COMPARISON: Prior CT abdomen pelvis 26 June 2016 HISTORY: Abdominal pain and gastrointestinal bleeding CT DLP: 1241 mGycm Automated exposure control for dose reduction was used. TECHNIQUE: Helical acquisition of images was performed from the lung bases through the pelvis. CONTRAST: Performed without Oral Contrast and with IV Contrast, patient injected with 100 ml mL of Omnipaque 30 0. FINDINGS: LUNG BASES: There is a small pleural effusion on the right, some dependent atelectatic changes are pr esent. There may be a small hiatal hernia. LIVER/GB: The liver shows low attenuation possibly due to fatty infiltration. Gallbladder unremarkabl e. There is some fluid attenuation within the fat at the level of the hepatic flexure, postop changes seen in this level possibly due to post appendectomy, there is a small area of encapsulated fluid pr esent at this level in the right lower quadrant measuring approximately 2.8 x 2.4 x 4 cm. PANCREAS: No significant abnormality is seen. SPLEEN: No significant abnormality is seen. ADRENALS: No significant abnormality is seen. KIDNEYS: Subcentimeter cyst or possibly cyst and angiomyolipoma present within the right kidney, no h ydronephrosis bilaterally. Extrarenal pelvis is present bilaterally. RETROPERITONEAL ADENOPATHY: There is a retroaortic left renal vein. Aorta shows normal caliber. No a denopathy. REPRODUCTIVE ORGANS: Absent URINARY BLADDER: Markedly urine distended. PELVIC ADENOPATHY: None visualized. OSSEOUS STRUCTURES: Degenerative disc disease, facet arthropathy and the visualized spine. BOWEL: Postop changes are noted. Correlate with patient's surgical history. No evident bowel obstruct ion. OTHER: Postop changes are noted in the right groin, anterior abdominal metallic densities, surgical c lips present. Umbilical hernia contains fat. IMPRESSION: SUSPECT POSTOPERATIVE FLUID COLLECTION MAY REPRESENT SEROMA, HEMATOMA, ABSCESS WITH DIMENSIONS ZACH CRIBED. MARKED URINARY RETENTION. Additional findings above.
[2016-07-20 13:40] LABS: Creatine Kinase <20 U/L (30-135)
[2016-07-20] MEDS ORDERED: ACETAMINOPHEN TAB 325 MG TAB PO PRN (14:02)
[2016-07-20] MEDS ORDERED: ONDANSETRON 4 MG/2 ML VIAL IVP PRN (14:02)
[2016-07-20] MEDS ORDERED: NALOXONE 0.4 MG/ML 1 ML VIAL IV PRN (14:02)
[2016-07-20] MEDS ORDERED: MECLIZINE 25 MG TAB PO PRN (14:06)
[2016-07-20 15:17] VITALS: BMI 26.6
[2016-07-20 16:33] LABS: Anisocytosis Slight; Basophils # (A) 0.1 k/uL (0-0.2); Basophils % (A) 1 %; Eosinophils # (A) 0.1 k/uL (0-0.7); Eosinophils % (A) 1 %; HCT 35.3 % (34.0-46.0); HDW 3.04; HGB 11.4 gm/dL (11.4-16.0); Hypochromasia Slight; Luc # (Auto) 0.15; Luc % (Auto) 2; Lymphocytes # (A) 1.5 k/uL (1.0-4.8); Lymphocytes % (A) 18 %; MCH 31.5 pg (25.0-35.0); MCHC 32.2 g/dL (31.0-37.0); MCV 97.9 fL (80.0-100.0); Macrocytosis Slight; Mean Platelet Volume 7.7; Monocytes # (A) 0.7 k/uL (0-1.0); Monocytes % (A) 8 %; Neutrophils # (A) 5.8 k/uL (1.3-7.7); Neutrophils % (A) 70 %; RDW 18.2 % (11.5-15.5); WBC 8.3 k/uL (3.8-10.6); WBC (Perox) 8.63
[2016-07-20] MEDS: METOPROLOL TARTRATE 50 MG TAB PO SCH (20:55)
[2016-07-20] MEDS: APIXABAN 2.5 MG TABLET PO SCH (20:55)
[2016-07-20] MEDS: ATORVASTATIN 20 MG TAB PO SCH (20:55)
[2016-07-20] MEDS: SODIUM CHLORIDE 0.9% 1,000 ML IV SCH (20:55)
[2016-07-20 23:43] LABS: Anisocytosis Slight; Basophils % (A) 0 %; CH 30.6; CHCM 32.2; Eosinophils # (A) 0.1 k/uL (0-0.7); Eosinophils % (A) 1 %; HCT 35.3 % (34.0-46.0); HDW 2.98; HGB 11.2 gm/dL (11.4-16.0); Hypochromasia Slight; Luc % (Auto) 3; Lymphocytes # (A) 1.4 k/uL (1.0-4.8); Lymphocytes % (A) 18 %; MCH 30.5 pg (25.0-35.0); MCHC 31.9 g/dL (31.0-37.0); MCV 95.5 fL (80.0-100.0); Macrocytosis Slight; Monocytes # (A) 0.5 k/uL (0-1.0); Monocytes % (A) 7 %; Neutrophils # (A) 5.5 k/uL (1.3-7.7); Neutrophils % (A) 72 %; RBC 3.69 m/uL (3.80-5.40); RDW 17.8 % (11.5-15.5); WBC 7.7 k/uL (3.8-10.6); WBC (Perox) 8.13
[2016-07-21] MEDS: LEVOTHYROXINE 88 MCG TAB PO SCH (05:46)
[2016-07-21 07:15] LABS: Anisocytosis Slight; Basophils % (A) 0 %; CH 30.6; CHCM 32.2; Eosinophils # (A) 0.1 k/uL (0-0.7); Eosinophils % (A) 1 %; HCT 36.5 % (34.0-46.0); HDW 2.95; HGB 11.5 gm/dL (11.4-16.0); Hypochromasia Slight; Luc # (Auto) 0.17; Luc % (Auto) 2; Lymphocytes # (A) 1.3 k/uL (1.0-4.8); Lymphocytes % (A) 16 %; MCH 30.3 pg (25.0-35.0); MCHC 31.6 g/dL (31.0-37.0); MCV 95.9 fL (80.0-100.0); Macrocytosis Slight; Mean Platelet Volume 6.9; Monocytes # (A) 0.6 k/uL (0-1.0); Monocytes % (A) 7 %; Neutrophils # (A) 5.7 k/uL (1.3-7.7); Neutrophils % (A) 73 %; RBC 3.81 m/uL (3.80-5.40); RDW 17.9 % (11.5-15.5); WBC 7.8 k/uL (3.8-10.6); WBC (Perox) 8.42
[2016-07-21 07:30] LABS: Anion Gap 7 mmol/L; Blood Urea Nitrogen 14 mg/dL (7-17); Calcium 7.8 mg/dL (8.4-10.2); Carbon Dioxide 26 mmol/L (22-30); Chloride 103 mmol/L (98-107); Glucose 83 mg/dL (74-99); Non-African American GFR(MDRD) >60 (>60 ml/min/1.73 sqM); Potassium 4.3 mmol/L (3.5-5.1); Sodium 136 mmol/L (137-145)
[2016-07-21] MEDS: APIXABAN 2.5 MG TABLET PO SCH (08:25)
[2016-07-21] MEDS: METOPROLOL TARTRATE 50 MG TAB PO SCH ×2 (08:26→21:02)
[2016-07-21] MEDS: LOSARTAN 25 MG TAB PO SCH (08:54)
[2016-07-21] MEDS: FUROSEMIDE 20 MG TAB PO SCH (08:54)
[2016-07-21] MEDS: PANTOPRAZOLE 40 MG/10 ML VIAL IV SCH (08:54)
[2016-07-21] MEDS ORDERED: Magnesium Replacement Protocol 1 EACH MISC MISCELLANE PRN (13:13)
[2016-07-21] MEDS ORDERED: Potassium Replacement Protocol 1 EACH MISC MISCELLANE PRN (13:13)
--- NOTE | 2016-07-21 14:49 | P.HPIM ---
History of Present Illness H&P Date: 07/21/16 Chief Complaint: Blood per rectum This is a 86-year-old female with past medical history noted below significant for recent exploratory laparoscopy with a right colectomy secondary to right colon ischemia now presented to the emergency room with maroon stool and blood per rectum. Patient has similar problems on last admission and was seen and evaluated by surgery. She was cleared for discharge after receiving 2 units of blood transfusion. Her anticoagulation was resumed with Eliquis prior to discharge. [facility] and was noted to have a large maroon stool with bright red blood that she is describing as a little less of a half cupful of blood. She was brought to the emergency room and was found to be hemodynamically stable. Her hemoglobin level was stable as well. She was admitted to the hospital for further evaluation. She is complaining of dizziness and blurred vision today. She said that she was seen by her eye doctor last week and she was told that she may have some bleeding in her left eye that she's not sure about. She is having some abdominal pain only when coughing. She is otherwise having good appetite. She's currently on clear liquid awaiting GI and surgery evaluation. Review of Systems Review of system: 14 points review of systems were obtained and were negative except to what were mentioned in the HPI. Past Medical History Past Medical History: Atrial Fibrillation, Coronary Artery Disease (CAD), Chest Pain / Angina, Hyperlipidemia, Hypertension, Thyroid Disorder Additional Past Medical History / Comment(s): Pt has IBS. 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 Bruising on skin. Cataract L eye. History of Any Multi-Drug Resistant Organisms: None Reported Past Surgical History: Appendectomy, Bowel Resection, Section, Heart Catheterization With Stent, Hernia Repair, Hysterectomy Additional Past Surgical History / Comment(s): Hx. of left breast biopsy, HEART CATH WITH STENT. RT FEMORAL endartrectomy,HEMATOMA REMOVAL. Past Anesthesia/Blood Transfusion Reactions: No Reported Reaction Additional Past Anesthesia/Blood Transfusion Reaction / Comment(s): Pt has received blood recently, without reaction. Date of Last Stent Placement:: 08-17-14 Past Psychological History: No Psychological Hx Reported Additional Psychological History / Comment(s): Pt currently residing in [facility] for rehab since last discharge from hospital. She states she has not gotten out of the bed due to bilateral leg weakness. Pt states she is on oxygen at rehab. She feeds herself but needs assist with all other ADLs. Prior to going to [facility], patient resided with her son and his spouse. Emigrated from the [facility] years ago. . 2 adult children and her daughter is at her side. No tobacco use. retired. No recent travels. No animal exposures Smoking Status: Never smoker Past Alcohol Use History: None Reported Past Drug Use History: None Reported - Past Family History Son(s) Family Medical History: Hearing Disorder / Deafness Daughter(s) Family Medical History: Hearing Disorder / Deafness Father Family Medical History: Cancer Additional Family Medical History / Comment(s): Unknown Medications and Allergies Home Medications Medication Instructions Recorded Confirmed Type Apixaban [Eliquis] 2.5 mg PO BID 07/20/16 07/20/16 History Atorvastatin [Lipitor] 20 mg PO HS 07/20/16 07/20/16 History Furosemide [Lasix] 20 mg PO DAILY 07/20/16 07/20/16 History Ipratropium-Albuterol Nebulize 3 ml INHALATION RT-QID PRN 07/20/16 07/20/16 History [Duoneb 0.5 mg-3 mg/3 ml Soln] Levothyroxine Sodium [Synthroid] 88 mcg PO DAILY 07/20/16 07/20/16 History Losartan [Cozaar] 25 mg PO DAILY 07/20/16 07/20/16 History Meclizine [Antivert] 25 mg PO TID PRN 07/20/16 07/20/16 History Metoprolol Tartrate [Lopressor] 50 mg PO BID 07/20/16 07/20/16 History Allergies Allergy/AdvReac Type Severity Reaction Status Date / Time No Known Allergies Allergy Verified 07/20/16 11:54 Physical Exam Vitals: Vital Signs Temp Pulse Resp BP Pulse Ox 07/21/16 07:00 98.3 F 94 16 122/62 95 07/20/16 23:00 97.4 F L 86 20 112/65 98 07/20/16 15:00 98.2 F 81 16 141/74 96 Intake and Output 07/20/16 07/21/16 07/21/16 22:59 06:59 14:59 Intake Total 425 Output Total 350 350 Balance 75 -350 Intake: Oral 425 Output: Urine 350 350 Other: Voiding Method Bedside Commode Bedside Commode # Voids 1 1 Weight 74.843 kg Patient Weight 07/22/16 06:59 Weight 74.843 kg General: The patient is awake and alert, in no distress, and does not appear acutely ill. Eye: extra-ocular movements are intact; there is normal conjunctiva bilaterally. . Neck: The neck is supple, there is no tenderness or JVD. Cardiovascular: Normal S1-S2, no S3-S4, no murmurs. Respiratory: Lungs clear to auscultation bilaterally with no wheezes rhonchi or rales. Gastrointestinal: Abdomen is soft, nontender, clean dressing and abdominal binder in place Musculoskeletal: Normal ROM, no tenderness, There is no pedal edema. Neurological: There are no obvious motor or sensory deficits. Speech is normal. Skin: Skin is warm and dry and no rashes or lesions are noted. Results CBC & Chem 7: 07/21/16 06:42 07/21/16 06:42 Labs: Abnormal Lab Results - Last 24 Hours (Table) 07/20/16 07/20/16 07/21/16 Range/Units 16:10 23:21 06:42 RBC 3.60 L 3.69 L (3.80-5.40) m/uL Hgb 11.2 L (11.4-16.0) gm/dL RDW 18.2 H 17.8 H (11.5-15.5) % Sodium 136 L (137-145) mmol/L Calcium 7.8 L (8.4-10.2) mg/dL 07/21/16 Range/Units 06:42 RBC (3.80-5.40) m/uL Hgb (11.4-16.0) gm/dL RDW 17.9 H (11.5-15.5) % Sodium (137-145) mmol/L Calcium (8.4-10.2) mg/dL Thrombosis Risk Factor Assmnt - Choose All That Apply Each Factor Represents 1 point: History of prior major surgery (<1month), Obesity (BMI >25) Each Risk Factor Represents 3 Points: Age 75 years or older Thrombosis Risk Factor Assessment Total Risk Factor Score: 5 Thrombosis Risk Factor Assessment Level: High Risk Assessment and Plan Plan: 1. Melena and blood per rectum: With recent exploratory laparoscopy and right colectomy. Hemoglobin is stable. We will continue to monitor closely. Awaiting GI and surgery evaluation. 2. Paroxysmal atrial fibrillation: Heart rate well controlled. We will discontinue anticoagulation and continue with baby aspirin daily. 3. Essential hypertension: Blood pressure well-controlled 4. Physical debility: Patient will be evaluated by PT/OT prior to discharge. She will most likely return to [facility] for rehab. 5. Dizziness and headache: I would obtain computed tomography scan of the brain without contrast for further evaluation. I would change her meclizine to scheduled instead of when necessary. Continue supportive care otherwise. Repeat lab work in the morning.
--- NOTE | 2016-07-21 16:02 | CT ---
EXAMINATION TYPE: CT brain wo con DATE OF EXAM: 07/21/2016 3:49 PM HISTORY: Headache, dizziness and blurred vision. Patient on anticoagulant. CT DLP: 1081.60 mGycm. Automated Exposure Control for Dose Reduction was Utilized. TECHNIQUE: CT scan of the head is performed without contrast. COMPARISON: Prior CT brain January 24, 2012 FINDINGS: There is no acute intracranial hemorrhage or midline shift identified. There is diffuse v entricular and sulcal prominence consistent with diffuse age-related cerebral atrophy. There is low- attenuation in the periventricular white matter consistent with chronic small vessel ischemic change. Left lens is not well seen on current study new finding versus prior. The paranasal sinuses are jigar r. IMPRESSION: No acute intracranial hemorrhage or midline shift. There is mild to moderate diffuse ag e-related cerebral atrophy and mild chronic small vessel ischemic change identified on current study new or more prominent from prior.
[2016-07-21] MEDS: MECLIZINE 25 MG TAB PO SCH ×2 (16:35→21:02)
[2016-07-21] MEDS: SODIUM CHLORIDE 0.9% 1,000 ML IV SCH (16:35)
[2016-07-21] MEDS: ATORVASTATIN 20 MG TAB PO SCH (21:02)
[2016-07-22] MEDS: LEVOTHYROXINE 88 MCG TAB PO SCH (05:51)
[2016-07-22] MEDS: LOSARTAN 25 MG TAB PO SCH (07:39)
[2016-07-22] MEDS: FUROSEMIDE 20 MG TAB PO SCH (07:39)
[2016-07-22] MEDS: PANTOPRAZOLE 40 MG/10 ML VIAL IV SCH (07:40)
[2016-07-22] MEDS: MECLIZINE 25 MG TAB PO SCH ×3 (07:40→21:15)
[2016-07-22] MEDS: METOPROLOL TARTRATE 50 MG TAB PO SCH ×2 (07:40→22:47)
[2016-07-22] MEDS: IPRATROPIUM-ALBUTEROL 3 ML NEB INHALATION PRN ×2 (08:00→12:00)
[2016-07-22 08:21] LABS: Anisocytosis Slight; Basophils % (A) 0 %; CH 30.6; CHCM 32.2; Eosinophils # (A) 0.1 k/uL (0-0.7); Eosinophils % (A) 1 %; HDW 2.95; HGB 11.1 gm/dL (11.4-16.0); Hypochromasia Slight; Luc # (Auto) 0.14; Luc % (Auto) 2; Lymphocytes # (A) 1.3 k/uL (1.0-4.8); Lymphocytes % (A) 20 %; MCH 30.4 pg (25.0-35.0); MCHC 31.7 g/dL (31.0-37.0); Macrocytosis Slight; Mean Platelet Volume 6.8; Monocytes # (A) 0.5 k/uL (0-1.0); Monocytes % (A) 7 %; Neutrophils # (A) 4.7 k/uL (1.3-7.7); Neutrophils % (A) 70 %; RBC 3.65 m/uL (3.80-5.40); RDW 17.7 % (11.5-15.5); WBC 6.8 k/uL (3.8-10.6); WBC (Perox) 7.29
[2016-07-22 08:34] LABS: Anion Gap 6 mmol/L; Blood Urea Nitrogen 10 mg/dL (7-17); Calcium 7.7 mg/dL (8.4-10.2); Carbon Dioxide 30 mmol/L (22-30); Chloride 102 mmol/L (98-107); Glucose 92 mg/dL (74-99); Magnesium 1.9 mg/dL (1.6-2.3); Non-African American GFR(MDRD) >60 (>60 ml/min/1.73 sqM); Potassium 3.7 mmol/L (3.5-5.1); Sodium 138 mmol/L (137-145)
--- NOTE | 2016-07-22 12:54 | P.PN ---
Subjective Principal diagnosis: Suspected GI bleed Patient is comfortable today. She denies any abdominal pain. She is tolerating liquid diet with no problems. Objective - Vital Signs Vital signs: Vital Signs Temp 98.4 F 07/22/16 07:00 Pulse 88 07/22/16 08:15 Resp 16 07/22/16 08:00 BP 106/56 07/22/16 07:00 Pulse Ox 94 L 07/22/16 07:00 Intake & Output 07/21/16 07/22/16 07/22/16 18:59 06:59 18:59 Intake Total 0 Output Total 350 Balance -350 0 Weight 74.843 kg 74.843 kg Intake: Oral 0 Output: Urine 350 Other: Voiding Method Bedside Commode Bedside Commode # Voids 2 1 1 - Exam General: The patient is awake and alert, in no distress Eye: there is normal conjunctiva bilaterally. Neck: The neck is supple, there is no JVD. Cardiovascular: Normal S1-S2, no S3-S4, no murmurs. Respiratory: Lungs clear to auscultation bilaterally Gastrointestinal: Abdomen is soft, nontender. Surgical incision covered with clean dressing. Abdominal binder in place. Musculoskeletal: There is no pedal edema. Neurological:. Speech is normal. Skin: Skin is warm and dry - Labs CBC & Chem 7: 07/22/16 07:51 07/22/16 07:51 Labs: Abnormal Lab Results - Last 24 Hours (Table) 07/22/16 07/22/16 Range/Units 07:51 07:51 RBC 3.65 L (3.80-5.40) m/uL Hgb 11.1 L (11.4-16.0) gm/dL RDW 17.7 H (11.5-15.5) % Calcium 7.7 L (8.4-10.2) mg/dL Assessment and Plan Plan: 1. Suspected seroma versus hematoma on computed tomography scan of the abdomen measuring approximately 2.8 x 2.4 x 4 cm: Awaiting surgery evaluation. Less likely to be an abscess as patient is not toxic and there is no documented fever or WBC elevation. 2. Melena and blood per rectum: On presentation, With recent exploratory laparoscopy and right colectomy. Hemoglobin is stable. We will continue to monitor closely. Awaiting GI and surgery evaluation. No bowel movement since admission. 3. Paroxysmal atrial fibrillation: Heart rate well controlled. We will discontinue anticoagulation and continue with baby aspirin daily for stroke prevention. 4. Essential hypertension: Blood pressure well-controlled. Discontinue Cozaar for now and monitor closely. 5. Physical debility: Patient will be evaluated by PT/OT prior to discharge. She will most likely return to [facility] for rehab. 6. Dizziness and headache: Computed tomography scan of the brain with no acute findings. Meclizine changed to 3 times a day scheduled. Awaiting surgery evaluation. Possibly advance diet to regular when cleared by surgery. Continue supportive care otherwise. Repeat lab work in the morning.
[2016-07-22] MEDS: SODIUM CHLORIDE 0.9% 1,000 ML IV SCH (15:24)
--- NOTE | 2016-07-22 15:56 | P.GSCN ---
History of Present Illness Consult date: 07/22/16 Reason for Consult: GI bleed Requesting physician: Juma Galdamez History of present illness: The patient is an 86-year-old white female who last month underwent a right colectomy for ischemic right colon. She's had 2 episodes of the bleeding since then rectally including yesterday. [facility]. Apparently the report is that she had an episode of bright red blood with maroon blood. Since admission she is not had significant bleeding. Her hemoglobin has been stable around 11.4 g percent. Past history social history family history well-documented on recent admissions as well as this admission yesterday. Does have a history of A. fib on anticoagulation coronary artery disease hypertension arthritis. On examination the patient is awake alert oriented in no distress. Color is satisfactory vitals stable no fever. Heart irregular lungs are clear abdomen is soft has a midline scar some serosanguineous drainage from the midportion through a small opening. No purulence. The remainder of the abdomen is soft and benign without mass. [employer] grossly intact no focal deficits. Laboratory studies were noted. Hemoglobin is stable. WBCs normal. INR is okay. Impression recurrent lower GI bleed with maroon colored stool per [facility] attendants. Not sure as to the etiology but seems to have subsided. Patient continued observation. We will keep her on clear liquids. Her dressing changes. May need to be off anticoagulation indefinitely. Dr. Butler will see the patient tomorrow and continue her management. Past Medical History Past Medical History: Atrial Fibrillation, Coronary Artery Disease (CAD), Chest Pain / Angina, Hyperlipidemia, Hypertension, Thyroid Disorder Additional Past Medical History / Comment(s): Pt has IBS. 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 Bruising on skin. Cataract L eye. History of Any Multi-Drug Resistant Organisms: None Reported Past Surgical History: Appendectomy, Bowel Resection, Section, Heart Catheterization With Stent, Hernia Repair, Hysterectomy Additional Past Surgical History / Comment(s): Hx. of left breast biopsy, HEART CATH WITH STENT. RT FEMORAL endartrectomy,HEMATOMA REMOVAL. Past Anesthesia/Blood Transfusion Reactions: No Reported Reaction Additional Past Anesthesia/Blood Transfusion Reaction / Comm: Pt has received blood recently, without reaction. Date of Last Stent Placement:: 08-17-14 Past Psychological History: No Psychological Hx Reported Additional Psychological History / Comment(s): Pt currently residing in [facility] for rehab since last discharge from hospital. She states she has not gotten out of the bed due to bilateral leg weakness. Pt states she is on oxygen at rehab. She feeds herself but needs assist with all other ADLs. Prior to going to [facility], patient resided with her son and his spouse. Emigrated from the [facility] years ago. . 2 adult children and her daughter is at her side. No tobacco use. retired. No recent travels. No animal exposures Smoking Status: Never smoker Past Alcohol Use History: None Reported Past Drug Use History: None Reported - Past Family History Son(s) Family Medical History: Hearing Disorder / Deafness Daughter(s) Family Medical History: Hearing Disorder / Deafness Father Family Medical History: Cancer Additional Family Medical History / Comment(s): Unknown Medications and Allergies Home Medications Medication Instructions Recorded Confirmed Type Apixaban [Eliquis] 2.5 mg PO BID 07/20/16 07/20/16 History Atorvastatin [Lipitor] 20 mg PO HS 07/20/16 07/20/16 History Furosemide [Lasix] 20 mg PO DAILY 07/20/16 07/20/16 History Ipratropium-Albuterol Nebulize 3 ml INHALATION RT-QID PRN 07/20/16 07/20/16 History [Duoneb 0.5 mg-3 mg/3 ml Soln] Levothyroxine Sodium [Synthroid] 88 mcg PO DAILY 07/20/16 07/20/16 History Losartan [Cozaar] 25 mg PO DAILY 07/20/16 07/20/16 History Meclizine [Antivert] 25 mg PO TID PRN 07/20/16 07/20/16 History Metoprolol Tartrate [Lopressor] 50 mg PO BID 07/20/16 07/20/16 History Allergies Allergy/AdvReac Type Severity Reaction Status Date / Time No Known Allergies Allergy Verified 07/20/16 11:54 Surgical - Exam Vital Signs Temp Pulse Resp BP Pulse Ox 99.0 F 75 18 148/64 95 07/20/16 09:12 07/20/16 09:12 07/20/16 09:12 07/20/16 09:12 07/20/16 09:12 Results - Labs 07/22/16 07:51 07/22/16 07:51 Abnormal Lab Results - Last 24 Hours (Table) 07/22/16 07/22/16 Range/Units 07:51 07:51 RBC 3.65 L (3.80-5.40) m/uL Hgb 11.1 L (11.4-16.0) gm/dL RDW 17.7 H (11.5-15.5) % Calcium 7.7 L (8.4-10.2) mg/dL Diabetes panel 07/22/16 Range/Units 07:51 Sodium 138 (137-145) mmol/L Potassium 3.7 (3.5-5.1) mmol/L Chloride 102 (98-107) mmol/L Carbon Dioxide 30 (22-30) mmol/L BUN 10 (7-17) mg/dL Creatinine 0.87 (0.52-1.04) mg/dL Glucose 92 (74-99) mg/dL Calcium 7.7 L (8.4-10.2) mg/dL Calcium panel 07/22/16 Range/Units 07:51 Calcium 7.7 L (8.4-10.2) mg/dL Pituitary panel 07/22/16 Range/Units 07:51 Sodium 138 (137-145) mmol/L Potassium 3.7 (3.5-5.1) mmol/L Chloride 102 (98-107) mmol/L Carbon Dioxide 30 (22-30) mmol/L BUN 10 (7-17) mg/dL Creatinine 0.87 (0.52-1.04) mg/dL Glucose 92 (74-99) mg/dL Calcium 7.7 L (8.4-10.2) mg/dL Adrenal panel 07/22/16 Range/Units 07:51 Sodium 138 (137-145) mmol/L Potassium 3.7 (3.5-5.1) mmol/L Chloride 102 (98-107) mmol/L Carbon Dioxide 30 (22-30) mmol/L BUN 10 (7-17) mg/dL Creatinine 0.87 (0.52-1.04) mg/dL Glucose 92 (74-99) mg/dL Calcium 7.7 L (8.4-10.2) mg/dL
[2016-07-22] MEDS: ATORVASTATIN 20 MG TAB PO SCH (21:15)
[2016-07-23] MEDS: LEVOTHYROXINE 88 MCG TAB PO SCH (05:34)
[2016-07-23] MEDS: PANTOPRAZOLE 40 MG/10 ML VIAL IV SCH (07:33)
[2016-07-23] MEDS: ASPIRIN 81 MG CHEW PO SCH (07:33)
[2016-07-23] MEDS: FUROSEMIDE 20 MG TAB PO SCH (07:33)
[2016-07-23] MEDS: METOPROLOL TARTRATE 50 MG TAB PO SCH ×2 (07:33→20:55)
[2016-07-23] MEDS: MECLIZINE 25 MG TAB PO SCH ×3 (07:33→20:56)
[2016-07-23 07:54] LABS: Anisocytosis Slight; Basophils % (A) 0 %; CH 30.9; CHCM 31.7; Eosinophils # (A) 0.1 k/uL (0-0.7); Eosinophils % (A) 1 %; HCT 35.8 % (34.0-46.0); HGB 11.1 gm/dL (11.4-16.0); Hypochromasia Slight; Luc # (Auto) 0.18; Luc % (Auto) 2; Lymphocytes # (A) 1.5 k/uL (1.0-4.8); Lymphocytes % (A) 17 %; MCH 30.4 pg (25.0-35.0); Macrocytosis Slight; Mean Platelet Volume 9.4; Monocytes # (A) 0.7 k/uL (0-1.0); Monocytes % (A) 7 %; Neutrophils # (A) 6.4 k/uL (1.3-7.7); Neutrophils % (A) 73 %; RBC 3.65 m/uL (3.80-5.40); RDW 17.5 % (11.5-15.5); WBC 8.8 k/uL (3.8-10.6); WBC (Perox) 9.33
[2016-07-23 08:29] LABS: Anion Gap 5 mmol/L; Blood Urea Nitrogen 9 mg/dL (7-17); Calcium 7.4 mg/dL (8.4-10.2); Carbon Dioxide 30 mmol/L (22-30); Chloride 101 mmol/L (98-107); Glucose 91 mg/dL (74-99); Magnesium 1.8 mg/dL (1.6-2.3); Non-African American GFR(MDRD) >60 (>60 ml/min/1.73 sqM); Potassium 3.8 mmol/L (3.5-5.1); Sodium 136 mmol/L (137-145)
--- NOTE | 2016-07-23 12:00 | CONS ---
DATE OF CONSULTATION: 07/21/2016 REASON FOR CONSULTATION: Rectal bleeding. HISTORY: The patient is an 86-year-old female who was recently operated and underwent exploratory laparoscopy with right colectomy for right colon ischemia and was discharged to extended care facility. The patient returned because of bleeding per rectum. She was admitted to the hospital for further management. The patient was placed back on Eliquis prior to her discharge. A CT of the abdomen performed prior to her admission revealed postoperative collection of fluid with no evident bowel obstruction. The fluid collection was suggested by the radiologist to represent seroma or hematoma or abscess. Past medical history includes coronary atherosclerotic heart disease, atrial fibrillation, hypertension, hyperlipidemia, pulmonary hypertension and thyroid disorder. She has history of cataract left eye. Prior surgeries include appendectomy, bowel resection, , cardiac catheterization with stent placement, hernia repair and hysterectomy. There is also history of left breast biopsy and femoral endarterectomy on the right and hematoma removal. FAMILY HISTORY: Positive for cancer in her father. ALLERGIES: No known drug allergies. Medications prior to admission includes Eliquis, Lipitor, Lasix, DuoNeb, Synthroid, Cozaar, Antivert and Lopressor. REVIEW OF SYSTEMS: Denied constitutional symptoms. No headaches, double vision or other new neurologic complaints. No chest pain, shortness of breath or other cardiopulmonary symptoms. No genitourinary complaints. No skin rashes. No other endocrine problems or lymph gland abnormalities. No psychiatric or immunologic problems. On physical examination, temperature 98.3, pulse 94, respirations 16, blood pressure 122/62. She appeared stated age, very pleasant, in no acute distress. HEAD AND NECK: Normocephalic, atraumatic. Conjunctivae pink. Sclerae not icteric. No masses in the neck or tracheal shifts. No adenopathy or thyromegaly. LUNGS: Clear to auscultation with no dullness to percussion. HEART: Irregular. No abnormal sounds, murmurs, gallops, or friction rubs. ABDOMEN: Soft. Midline scar with some serosanguineous drainage. No evidence of infection. No masses or tenderness. Bowel sounds present. EXTREMITIES: No clubbing, cyanosis, or edema. Neurologic examination reveals cranial nerves intact. No gross sensory or motor abnormalities. Laboratory workup revealed white cell count 7.8, hemoglobin 11.5, platelet count 275. INR 1.3. Chem profile revealed minimal elevation of transaminases yesterday AST 40, ALT 62 with normal bilirubin and alkaline phosphatase. Albumin low at 2.3. Today electrolytes normal. Creatinine 0.67. ASSESSMENT: Lower gastrointestinal bleeding with no clear etiology that has subsided since admission. The possibility of bleeding at the recent surgical sites after her antiplatelet therapy was started is something to keep in mind. SUGGESTIONS: Agree with your current management. Will discuss with Surgery and plan further steps based on her course. Contingency will be repeat endoscopy to assess precisely for a source of bleeding. An upper gastrointestinal source is not likely but should be kept in mind. We will follow with you with interest.
--- NOTE | 2016-07-23 12:06 | P.PN ---
Progress Note - Text The patient feels well. She denies any rectal bleeding. Her hemoglobin has been stable in the 11 range. On exam her vital signs are stable. Her abdomen soft. There is some minimal serous drainage from the umbilicus area. There is no evidence of cellulitis or infection. The patient's had 2 episodes of GI bleed since her surgery month ago. She'll be observed. If she shows any evidence of rectal bleeding. We will consider EGD and colonoscopy.
--- NOTE | 2016-07-23 13:07 | P.PN ---
Subjective Principal diagnosis: Suspected GI bleed Patient is comfortable today. She denies any abdominal pain. She is tolerating liquid diet with no problems. Objective - Vital Signs Vital signs: Vital Signs Temp 100.4 F H 07/23/16 07:00 Pulse 102 H 07/23/16 07:00 Resp 16 07/23/16 07:00 BP 124/60 07/23/16 07:00 Pulse Ox 93 L 07/23/16 07:00 Intake & Output 07/22/16 07/23/16 07/23/16 18:59 06:59 18:59 Intake Total 1200 355 Output Total 350 Balance 850 355 Weight 74.843 kg Intake: Intake, IV Titration 180 Amount Sodium Chloride 0.9% 1, 180 000 ml @ 20 mls/hr IV . Q24H MEGHNA Rx#:[id number] Oral 1200 175 Output: Urine 350 Other: Voiding Method Bedside Commode Bedside Commode Bedside Commode # Voids 1 1 - Labs CBC & Chem 7: 07/23/16 07:33 07/23/16 07:33 Labs: Abnormal Lab Results - Last 24 Hours (Table) 07/23/16 07/23/16 Range/Units 07:33 07:33 RBC 3.65 L (3.80-5.40) m/uL Hgb 11.1 L (11.4-16.0) gm/dL RDW 17.5 H (11.5-15.5) % Sodium 136 L (137-145) mmol/L Calcium 7.4 L (8.4-10.2) mg/dL Assessment and Plan Plan: 1. Suspected seroma on computed tomography scan of the abdomen measuring approximately 2.8 x 2.4 x 4 cm: Seen and evaluated by surgery. Plan to monitor with no intervention recommended.. Less likely to be an abscess as patient is not toxic and there is no documented fever or WBC elevation. 2. Melena and blood per rectum: On presentation, With recent exploratory laparoscopy and right colectomy. Hemoglobin is stable. We will continue to monitor closely. Awaiting GI and surgery evaluation. No bowel movement since admission. 3. Paroxysmal atrial fibrillation: Heart rate well controlled. We will discontinue anticoagulation and continue with baby aspirin daily for stroke prevention. 4. Essential hypertension: Blood pressure well-controlled. Discontinue Cozaar for now and monitor closely. 5. Physical debility: Patient will be evaluated by PT/OT prior to discharge. She will most likely return to [facility] for rehab. 6. Dizziness and headache: Computed tomography scan of the brain with no acute findings. Meclizine changed to 3 times a day scheduled. Await for patient to have a bowel movement. Advance diet to regular. Repeat CBC in the morning. Discharge planning. Continue supportive care otherwise. Repeat lab work in the morning.
[2016-07-23 17:46] LABS: Glucose,Whole Blood 130 mg/dL (75-99)
[2016-07-23] MEDS: SODIUM CHLORIDE 0.9% 1,000 ML IV SCH (17:49)
[2016-07-23] MEDS: ATORVASTATIN 20 MG TAB PO SCH (20:56)
[2016-07-24] MEDS: LEVOTHYROXINE 88 MCG TAB PO SCH (06:04)
[2016-07-24] MEDS: PANTOPRAZOLE 40 MG/10 ML VIAL IV SCH (07:52)
[2016-07-24] MEDS: ASPIRIN 81 MG CHEW PO SCH (07:52)
[2016-07-24] MEDS: FUROSEMIDE 20 MG TAB PO SCH (07:52)
[2016-07-24] MEDS: METOPROLOL TARTRATE 50 MG TAB PO SCH (07:52)
[2016-07-24] MEDS: MECLIZINE 25 MG TAB PO SCH (07:52)
[2016-07-24 07:57] LABS: Anisocytosis Slight; Basophils % (A) 0 %; CH 31.4; CHCM 32.4; Eosinophils # (A) 0.1 k/uL (0-0.7); Eosinophils % (A) 1 %; HCT 33.7 % (34.0-46.0); HDW 2.98; HGB 10.5 gm/dL (11.4-16.0); Luc # (Auto) 0.17; Luc % (Auto) 2; Lymphocytes # (A) 1.4 k/uL (1.0-4.8); Lymphocytes % (A) 18 %; MCH 30.4 pg (25.0-35.0); MCHC 31.2 g/dL (31.0-37.0); MCV 97.6 fL (80.0-100.0); Macrocytosis Slight; Mean Platelet Volume 7.8; Monocytes # (A) 0.6 k/uL (0-1.0); Monocytes % (A) 7 %; Neutrophils # (A) 5.6 k/uL (1.3-7.7); Neutrophils % (A) 72 %; RBC 3.45 m/uL (3.80-5.40); RDW 17.4 % (11.5-15.5); WBC 7.7 k/uL (3.8-10.6)
[2016-07-24 08:13] LABS: Anion Gap 8 mmol/L; Blood Urea Nitrogen 13 mg/dL (7-17); Calcium 7.4 mg/dL (8.4-10.2); Carbon Dioxide 26 mmol/L (22-30); Chloride 103 mmol/L (98-107); Glucose 95 mg/dL (74-99); Magnesium 1.8 mg/dL (1.6-2.3); Non-African American GFR(MDRD) >60 (>60 ml/min/1.73 sqM); Potassium 3.6 mmol/L (3.5-5.1); Sodium 137 mmol/L (137-145)
[2016-07-24 08:44] VITALS: RESP 18
--- NOTE | 2016-07-24 12:19 | P.DS ---
Providers Date of admission: 07/20/16 14:02 Expected date of discharge: 07/24/16 Attending physician: Mary Patel Consults: 07/21/16 13:13 Consult Physician Routine Consulting Provider: Dex Butler Consult Reason/Comments: GI blled? hematoma? Do you want consulting provider notified?: Yes [facility] Course: 1. Suspected seroma on computed tomography scan of the abdomen measuring approximately 2.8 x 2.4 x 4 cm: Seen and evaluated by surgery. Plan to monitor with no intervention recommended.. Less likely to be an abscess as patient is not toxic and there is no documented fever or WBC elevation. 2. Melena and blood per rectum: On presentation, With recent exploratory laparoscopy and right colectomy. Patient was seen and evaluated by surgery. No further bleeding during this admission. Hemoglobin is stable. Patient had a normal bowel movement twice in the hospital with brown stool. Plan to continue to monitor. 3. Paroxysmal atrial fibrillation: Heart rate well controlled. We will discontinue anticoagulation and continue with baby aspirin daily for stroke prevention. 4. Essential hypertension: Blood pressure well-controlled. Discontinue Cozaar for now and monitor closely. 5. Physical debility: return to [facility] for rehab. 6. Dizziness: Chronic, Computed tomography scan of the brain with no acute findings. Meclizine changed to 3 times a day scheduled. Patient Condition at Discharge: Fair Plan - Discharge Summary Discharge Medication List Atorvastatin [Lipitor] 20 mg PO HS 07/20/16 [History] Ipratropium-Albuterol Nebulize [Duoneb 0.5 mg-3 mg/3 ml Soln] 3 ml INHALATION RT -QID PRN 07/20/16 [History] Levothyroxine Sodium [Synthroid] 88 mcg PO DAILY 07/20/16 [History] Metoprolol Tartrate [Lopressor] 50 mg PO BID 07/20/16 [History] Aspirin 81 mg PO DAILY chew 07/24/16 [Rx] Meclizine [Antivert] 25 mg PO TID #0 07/24/16 [Rx] Follow up Appointment(s)/Referral(s): Mary Patel MD [STAFF PHYSICIAN] - 3 Days Discharge Disposition: TRANSFER TO SNF/ECF
--- NOTE | 2016-07-24 14:25 | P.PN ---
Progress Note - Text The patient feels well. Patient had a bowel movement this morning with no evidence of rectal bleeding. Hemoglobin stable at 10.5. On exam her vital signs are stable. Her abdomen soft. There is some minimal serous drainage from the umbilicus area. There is no evidence of cellulitis or infection. From a surgical standpoint, patient is stable for discharge. Recommend NO anticoagulation on discharge. Patient will follow-up with Dr. Santiago and outpatient setting. The above impression and plan have been discussed and directed by Dr. Butler. Nicol AYALA acting as scribe for Dr. Butler.
[2016-07-24 15:30] VITALS: BP 113/56; PULSE 86; TEMP 98.2
== END 2016-07-24 16:30 | DRG 920 ==
LOC: EC 09:09 → 5MS5E 14:02
PROVIDERS: ADMIT Internal Medicine; ATTEND Internal Medicine
DX: K91.872 Postprocedural seroma of a digestive system organ or structure following a digestive system procedure (principal); K55.9 Vascular disorder of intestine, unspecified; I27.2 Other secondary pulmonary hypertension; I48.0 Paroxysmal atrial fibrillation; I45.2 Bifascicular block; E78.5 Hyperlipidemia, unspecified; I10 Essential (primary) hypertension; I25.10 Atherosclerotic heart disease of native coronary artery without angina pectoris; K58.9 Irritable bowel syndrome, unspecified; H26.9 Unspecified cataract; M19.90 Unspecified osteoarthritis, unspecified site; Z95.5 Presence of coronary angioplasty implant and graft; Z80.9 Family history of malignant neoplasm, unspecified; Z79.01 Long term (current) use of anticoagulants; Z79.899 Other long term (current) drug therapy; Z90.710 Acquired absence of both cervix and uterus; Y83.2 Surgical operation with anastomosis, bypass or graft as the cause of abnormal reaction of the patient, or of later complication, without mention of misadventure at the time of the procedure; Y92.009 Unspecified place in unspecified non-institutional (private) residence as the place of occurrence of the external cause
CPT/HCPCS: 36415; 70450; 74177; 80048; 80053; 82272; 82550; 82553; 83605; 83735; 84484; 85025; 85610; 85730; 86850; 86900; 86901; 87070; 87205; 93005; 94640; 96361; 96374; 99285

== ENCOUNTER 2016-08-09 18:51 | Inpatient (IN) | payer MEDICARE, OTHER ==
[2016-08-09] MEDS ORDERED: ASPIRIN 81 MG CHEW PO STA (19:15)
[2016-08-09] MEDS ORDERED: NITROGLYCERIN OINT 1 INCH/GM PACKET TOPICAL STA (19:15)
[2016-08-09] MEDS ORDERED: SODIUM CHLORIDE 0.9% 500 ML IV ONE (19:16)
[2016-08-09] MEDS ORDERED: IBUPROFEN IV 600 MG in SODIUM CHLORIDE 0.9% 250 ML IV STA (19:16)
[2016-08-09] MEDS ORDERED: ACETAMINOPHEN TAB 500 MG TAB PO STA (19:16)
--- NOTE | 2016-08-09 19:21 | ED ---
General Adult HPI - General Chief complaint: Chest Pain Stated complaint: chest pain Time Seen by Provider: 08/09/16 19:00 Source: patient, RN notes reviewed Mode of arrival: wheelchair Limitations: no limitations - History of Present Illness Initial comments: This is an 86-year-old female who comes in Any of right-sided chest pain. According to the patient it started at 20 after 6. and she also complained of some shortness of breath. Patient denies any episodes of diaphoresis. Patient denies any nausea vomiting. Patient states she recently had some abdominal surgery to remove some blood vessels from her abdomen but the wound is healed fine and she has no abdominal pain currently. Patient states she has not had any recent fever chills or cough. However I just took her temperature was 101 orally. Patient denies flu shot. Patient denies any dysuria hematuria urinary frequency. Patient denies any diarrhea. Patient denies any headache. Patient denies numbness weakness. Patient denies any lightheadedness or near syncopal episode however patient has chronic vertigo.. - Related Data Home Medications Medication Instructions Recorded Confirmed Atorvastatin [Lipitor] 20 mg PO HS 07/20/16 08/09/16 Levothyroxine Sodium [Synthroid] 88 mcg PO DAILY 07/20/16 08/09/16 Metoprolol Tartrate [Lopressor] 50 mg PO BID 07/20/16 08/09/16 Previous Rx's Medication Instructions Recorded Aspirin 81 mg PO DAILY chew 07/24/16 Meclizine [Antivert] 25 mg PO TID #0 07/24/16 Allergies Allergy/AdvReac Type Severity Reaction Status Date / Time No Known Allergies Allergy Verified 08/09/16 19:41 Review of Systems ROS Statement: Those systems with pertinent positive or pertinent negative responses have been documented in the HPI. ROS Other: All systems not noted in ROS Statement are negative. Past Medical History Past Medical History: Atrial Fibrillation, Coronary Artery Disease (CAD), Chest Pain / Angina, Hyperlipidemia, Hypertension, Thyroid Disorder Additional Past Medical History / Comment(s): Pt has IBS. 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 Bruising on skin. Cataract L eye. History of Any Multi-Drug Resistant Organisms: None Reported Past Surgical History: Appendectomy, Bowel Resection, Section, Heart Catheterization With Stent, Hernia Repair, Hysterectomy Additional Past Surgical History / Comment(s): Hx. of left breast biopsy, HEART CATH WITH STENT. RT FEMORAL endartrectomy,HEMATOMA REMOVAL. Past Anesthesia/Blood Transfusion Reactions: No Reported Reaction Additional Past Anesthesia/Blood Transfusion Reaction / Comment(s): Pt has received blood recently, without reaction. Date of Last Stent Placement:: 08-17-14 Past Psychological History: No Psychological Hx Reported Additional Psychological History / Comment(s): Pt currently residing in [facility] for rehab since last discharge from hospital. She states she has not gotten out of the bed due to bilateral leg weakness. Pt states she is on oxygen at rehab. She feeds herself but needs assist with all other ADLs. Prior to going to [facility], patient resided with her son and his spouse. Emigrated from the [place] 50 years ago. . 2 adult children and her daughter is at her side. No tobacco use. retired. No recent travels. No animal exposures Smoking Status: Never smoker Past Alcohol Use History: None Reported Past Drug Use History: None Reported - Past Family History Son(s) Family Medical History: Hearing Disorder / Deafness Daughter(s) Family Medical History: Hearing Disorder / Deafness Father Family Medical History: Cancer Additional Family Medical History / Comment(s): Unknown General Exam - General Exam Comments Initial Comments: GENERAL: Patient is well-developed and well-nourished. Patient is nontoxic and well- hydrated and is in mild distress. ENT: Neck is soft and supple. No significant lymphadenopathy is noted. Oropharynx is clear. Moist mucous membranes. Neck has full range of motion without eliciting any pain. EYES: The sclera were anicteric and conjunctiva were pink and moist. Extraocular movements were intact and pupils were equal round and reactive to light. Eyelids were unremarkable. PULMONARY: Unlabored respirations. Good breath sounds bilaterally. No audible rales rhonchi or wheezing was noted. CARDIOVASCULAR: Heart rate is tachycardic and is irregular. Patient has a history of atrial fibrillation ABDOMEN: Patient has tenderness over her healing wound but it does not look infected and it is healed well. No palpable organomegaly was noted. There is no palpable pulsatile mass. SKIN: Skin is clear with no lesions or rashes and otherwise unremarkable. NEUROLOGIC: Patient is alert and oriented x3. Cranial nerves II through XII are grossly intact. Motor and sensory are also intact. Normal speech, volume and content. Symmetrical smile. MUSCULOSKELETAL: Normal extremities with adequate strength and full range of motion. Minimal edema bilaterally LYMPHATICS: No significant lymphadenopathy is noted PSYCHIATRIC: Normal psychiatric evaluation. Limitations: no limitations Course Vital Signs 08/09/16 08/09/16 08/09/16 18:58 19:41 22:07 Temperature 100.0 F H 97.9 F Pulse Rate 103 H 104 H 77 Respiratory 17 20 18 Rate Blood Pressure 155/67 116/62 114/56 O2 Sat by Pulse 97 99 97 Oximetry Medical Decision Making - Medical Decision Making EKG shows atrial fibrillation with rapid ventricular response at 103 bpm QRS is 104 QT interval 370 QTC of 495. Patient's EKG does have some minimal ST segment depression in leads V4 through V6. Patient has crackles in the right base I started the patient on Levaquin because of that and the fever even though the x-ray did not show any obvious infiltrate. I spoke with Dr. Regalado admitted the patient I wrote admitting orders and consult cardiology. - Lab Data Result diagrams: 08/09/16 19:25 08/09/16 19:25 Lab Results 08/09/16 08/09/16 08/09/16 Range/Units 19:25 19:25 19:25 WBC 11.6 H (3.8-10.6) k/uL RBC 3.46 L (3.80-5.40) m/uL Hgb 10.3 L (11.4-16.0) gm/dL Hct 32.5 L (34.0-46.0) % MCV 94.0 (80.0-100.0) fL MCH 29.9 (25.0-35.0) pg MCHC 31.8 (31.0-37.0) g/dL RDW 16.0 H (11.5-15.5) % Plt Count 449 D (150-450) k/uL Neutrophils % 55 % Lymphocytes % 34 % Monocytes % 7 % Eosinophils % 1 % Basophils % 0 % Neutrophils # 6.4 (1.3-7.7) k/uL Lymphocytes # 3.9 (1.0-4.8) k/uL Monocytes # 0.8 (0-1.0) k/uL Eosinophils # 0.1 (0-0.7) k/uL Basophils # 0.1 (0-0.2) k/uL Hypochromasia Slight Anisocytosis Slight PT (9.0-12.0) sec INR (<1.1) APTT (22.0-30.0) sec Sodium 136 L (137-145) mmol/L Potassium 4.5 (3.5-5.1) mmol/L Chloride 100 (98-107) mmol/L Carbon Dioxide 28 (22-30) mmol/L Anion Gap 8 mmol/L BUN 14 (7-17) mg/dL Creatinine 0.92 (0.52-1.04) mg/dL Est GFR (MDRD) Af Amer >60 (>60 ml/min/1.73 sqM) Est GFR (MDRD) Non-Af 58 (>60 ml/min/1.73 sqM) Glucose 104 H (74-99) mg/dL Plasma Lactic Acid Gumaro (0.7-2.0) mmol/L Calcium 8.1 L (8.4-10.2) mg/dL Magnesium 1.9 (1.6-2.3) mg/dL Total Bilirubin 0.6 (0.2-1.3) mg/dL AST 57 H (14-36) U/L ALT 41 (9-52) U/L Alkaline Phosphatase 73 (38-126) U/L Total Creatine Kinase <20 L (30-135) U/L CK-MB (CK-2) 0.5 (0.0-2.4) ng/mL CK-MB (CK-2) Rel Index 0.0 Troponin I <0.012 (0.000-0.034) ng/mL Total Protein 5.8 L (6.3-8.2) g/dL Albumin 2.6 L (3.5-5.0) g/dL Urine Color Urine Appearance (Clear) Urine pH (5.0-8.0) Ur Specific Bolton (1.001-1.035) Urine Protein (Negative) Urine Glucose (UA) (Negative) Urine Ketones (Negative) Urine Blood (Negative) Urine Nitrate (Negative) Urine Bilirubin (Negative) Urine Urobilinogen (<2.0) mg/dL Ur Leukocyte Esterase (Negative) Urine RBC (0-5) /hpf Urine WBC (0-5) /hpf Ur Squamous Epith Cells (0-4) /hpf Urine Bacteria (None) /hpf Urine Mucus (None) /hpf Influenza Type A RNA (Not Detectd) Influenza Type B (PCR) (Not Detectd) 08/09/16 08/09/16 08/09/16 Range/Units 19:25 19:25 20:05 WBC (3.8-10.6) k/uL RBC (3.80-5.40) m/uL Hgb (11.4-16.0) gm/dL Hct (34.0-46.0) % MCV (80.0-100.0) fL MCH (25.0-35.0) pg MCHC (31.0-37.0) g/dL RDW (11.5-15.5) % Plt Count (150-450) k/uL Neutrophils % % Lymphocytes % % Monocytes % % Eosinophils % % Basophils % % Neutrophils # (1.3-7.7) k/uL Lymphocytes # (1.0-4.8) k/uL Monocytes # (0-1.0) k/uL Eosinophils # (0-0.7) k/uL Basophils # (0-0.2) k/uL Hypochromasia Anisocytosis PT 12.6 H (9.0-12.0) sec INR 1.3 (<1.1) APTT 25.3 (22.0-30.0) sec Sodium (137-145) mmol/L Potassium (3.5-5.1) mmol/L Chloride (98-107) mmol/L Carbon Dioxide (22-30) mmol/L Anion Gap mmol/L BUN (7-17) mg/dL Creatinine (0.52-1.04) mg/dL Est GFR (MDRD) Af Amer (>60 ml/min/1.73 sqM) Est GFR (MDRD) Non-Af (>60 ml/min/1.73 sqM) Glucose (74-99) mg/dL Plasma Lactic Acid Gumaro 1.1 (0.7-2.0) mmol/L Calcium (8.4-10.2) mg/dL Magnesium (1.6-2.3) mg/dL Total Bilirubin (0.2-1.3) mg/dL AST (14-36) U/L ALT (9-52) U/L Alkaline Phosphatase (38-126) U/L Total Creatine Kinase (30-135) U/L CK-MB (CK-2) (0.0-2.4) ng/mL CK-MB (CK-2) Rel Index Troponin I (0.000-0.034) ng/mL Total Protein (6.3-8.2) g/dL Albumin (3.5-5.0) g/dL Urine Color Yellow Urine Appearance Clear (Clear) Urine pH 5.5 (5.0-8.0) Ur Specific Bolton 1.012 (1.001-1.035) Urine Protein Negative (Negative) Urine Glucose (UA) Negative (Negative) Urine Ketones Negative (Negative) Urine Blood Negative (Negative) Urine Nitrate Negative (Negative) Urine Bilirubin Negative (Negative) Urine Urobilinogen <2.0 (<2.0) mg/dL Ur Leukocyte Esterase Moderate H (Negative) Urine RBC 2 (0-5) /hpf Urine WBC 14 H (0-5) /hpf Ur Squamous Epith Cells 2 (0-4) /hpf Urine Bacteria Rare H (None) /hpf Urine Mucus Occasional H (None) /hpf Influenza Type A RNA (Not Detectd) Influenza Type B (PCR) (Not Detectd) 08/09/16 Range/Units 21:00 WBC (3.8-10.6) k/uL RBC (3.80-5.40) m/uL Hgb (11.4-16.0) gm/dL Hct (34.0-46.0) % MCV (80.0-100.0) fL MCH (25.0-35.0) pg MCHC (31.0-37.0) g/dL RDW (11.5-15.5) % Plt Count (150-450) k/uL Neutrophils % % Lymphocytes % % Monocytes % % Eosinophils % % Basophils % % Neutrophils # (1.3-7.7) k/uL Lymphocytes # (1.0-4.8) k/uL Monocytes # (0-1.0) k/uL Eosinophils # (0-0.7) k/uL Basophils # (0-0.2) k/uL Hypochromasia Anisocytosis PT (9.0-12.0) sec INR (<1.1) APTT (22.0-30.0) sec Sodium (137-145) mmol/L Potassium (3.5-5.1) mmol/L Chloride (98-107) mmol/L Carbon Dioxide (22-30) mmol/L Anion Gap mmol/L BUN (7-17) mg/dL Creatinine (0.52-1.04) mg/dL Est GFR (MDRD) Af Amer (>60 ml/min/1.73 sqM) Est GFR (MDRD) Non-Af (>60 ml/min/1.73 sqM) Glucose (74-99) mg/dL Plasma Lactic Acid Gumrao (0.7-2.0) mmol/L Calcium (8.4-10.2) mg/dL Magnesium (1.6-2.3) mg/dL Total Bilirubin (0.2-1.3) mg/dL AST (14-36) U/L ALT (9-52) U/L Alkaline Phosphatase (38-126) U/L Total Creatine Kinase (30-135) U/L CK-MB (CK-2) (0.0-2.4) ng/mL CK-MB (CK-2) Rel Index Troponin I (0.000-0.034) ng/mL Total Protein (6.3-8.2) g/dL Albumin (3.5-5.0) g/dL Urine Color Urine Appearance (Clear) Urine pH (5.0-8.0) Ur Specific Bolton (1.001-1.035) Urine Protein (Negative) Urine Glucose (UA) (Negative) Urine Ketones (Negative) Urine Blood (Negative) Urine Nitrate (Negative) Urine Bilirubin (Negative) Urine Urobilinogen (<2.0) mg/dL Ur Leukocyte Esterase (Negative) Urine RBC (0-5) /hpf Urine WBC (0-5) /hpf Ur Squamous Epith Cells (0-4) /hpf Urine Bacteria (None) /hpf Urine Mucus (None) /hpf Influenza Type A RNA Not Detected (Not Detectd) Influenza Type B (PCR) Not Detected (Not Detectd) Disposition Clinical Impression: Chest pain, Pneumonia Disposition: ADMITTED IP TO THIS HOSP Referrals: Jennyfer Cabello MD [Primary Care Provider] - 1-2 days Time of Disposition: 21:37
[2016-08-09 19:40] LABS: Anisocytosis Slight; Basophils # (A) 0.1 k/uL (0-0.2); Basophils % (A) 0 %; CH 29.8; CHCM 31.8; Eosinophils # (A) 0.1 k/uL (0-0.7); Eosinophils % (A) 1 %; HCT 32.5 % (34.0-46.0); HDW 2.98; HGB 10.3 gm/dL (11.4-16.0); Hypochromasia Slight; Luc # (Auto) 0.36; Luc % (Auto) 3; Lymphocytes # (A) 3.9 k/uL (1.0-4.8); Lymphocytes % (A) 34 %; MCH 29.9 pg (25.0-35.0); MCHC 31.8 g/dL (31.0-37.0); Mean Platelet Volume 6.7; Monocytes # (A) 0.8 k/uL (0-1.0); Monocytes % (A) 7 %; Neutrophils # (A) 6.4 k/uL (1.3-7.7); Neutrophils % (A) 55 %; RBC 3.46 m/uL (3.80-5.40); WBC 11.6 k/uL (3.8-10.6); WBC (Perox) 11.81
[2016-08-09 19:59] LABS: INR 1.3 (<1.1); Partial Thromboplastin Time 25.3 sec (22.0-30.0); Prothrombin Time 12.6 sec (9.0-12.0)
[2016-08-09 20:00] LABS: ALT 41 U/L (9-52); AST 57 U/L (14-36); Alkaline Phosphatase 73 U/L (38-126); Anion Gap 8 mmol/L; Blood Urea Nitrogen 14 mg/dL (7-17); Calcium 8.1 mg/dL (8.4-10.2); Carbon Dioxide 28 mmol/L (22-30); Chloride 100 mmol/L (98-107); Glucose 104 mg/dL (74-99); Magnesium 1.9 mg/dL (1.6-2.3); Non-African American GFR(MDRD) 58 (>60 ml/min/1.73 sqM); Potassium 4.5 mmol/L (3.5-5.1); Sodium 136 mmol/L (137-145); Total Bilirubin 0.6 mg/dL (0.2-1.3); Total Protein 5.8 g/dL (6.3-8.2)
[2016-08-09 20:11] LABS: Creatine Kinase <20 U/L (30-135)
[2016-08-09 20:18] LABS: Appearance,Urine Clear (Clear); Bacteria,Urine Rare /hpf; Bilirubin,Urine Negative (Negative); Glucose,Urine (UA) Negative (Negative); Ketones,Urine Negative (Negative); Leukocyte Esterase,Urine Moderate (Negative); Mucus,Urine Occasional /hpf; Nitrite,Urine Negative (Negative); PH, Urine 5.5 (5.0-8.0); Particle Count 3583; Protein,Urine Negative (Negative); RBC,Urine 2 /hpf (0-5); Specific Gravity,Urine 1.012 (1.001-1.035); Squamous Epithelial Cell,Urine 2 /hpf (0-4); UA Billing (MACRO vs. MICRO) MICRO; Urobilinogen,Urine <2.0 mg/dL (<2.0); WBC,Urine 14 /hpf (0-5)
[2016-08-09 20:24] LABS: Creatine Kinase MB 0.5 ng/mL (0.0-2.4); Troponin I <0.012 ng/mL (0.000-0.034)
--- NOTE | 2016-08-09 21:22 | XR ---
EXAMINATION TYPE: XR chest 2V DATE OF EXAM: 08/09/2016 9:14 PM COMPARISON: 07/10/2016 HISTORY: Chest pain TECHNIQUE: Frontal and lateral views of the chest are obtained. FINDINGS: Heart appears enlarged. There is no heart failure. There is very slight blunting of costop hrenic angles. There are chest leads. There are no hilar masses. Thoracic aorta is atheromatous. IMPRESSION: Cardiomegaly and small pleural effusions. There is clearing of the infiltrate and some o f the pleural fluid compared to old exam. No heart failure seen.
[2016-08-09] MEDS ORDERED: LEVOFLOXACIN 750MG-D5W PMX 750 MG in DEXTROSE/WATER 1 150ML.BAG IVPB STA (21:38)
[2016-08-09] MEDS ORDERED: RX INFO: IV CONTRAST WAS GIVEN 1 EACH MISC MISCELLANE PRN (21:42)
--- NOTE | 2016-08-09 22:27 | CT ---
EXAMINATION TYPE: CT chest angio for PE DATE OF EXAM: 08/09/2016 10:14 PM COMPARISON: 12/20/2014 HISTORY: Mid to right chest pain. CT DLP: 207.40 mGycm Automated exposure control for dose reduction was used. CONTRAST: CT Chest for pulmonary embolism performed with with IV Contrast, patient injected with 69 mL of Visip aque 320. FINDINGS: There are 3-D post processed images. The lungs are clear of consolidation. There is a mild right pleural effusion. There is mild atelectas is at the posterior lung bases. Heart is enlarged. Thoracic aorta is atheromatous. There are no filli ng defects in the pulmonary arteries. There is no pericardial effusion. There is no bony destructive process. There are spondylotic changes in the thoracic spine. There is no mediastinal adenopathy. The re are no hilar masses. There are calcified granulomata in the mediastinum. IMPRESSION: No evidence of pulmonary embolism. Cardiomegaly. There is a new right pleural effusion compared to ol d exam. There is bilateral patchy scarring and atelectasis at the lung bases that is slightly worse t vivar old exam. Old granulomatous disease.
[2016-08-09] MEDS ORDERED: PNEUMONIA PROTOCOL UTILIZED 1 EACH MISC PO PRN (23:05)
[2016-08-10 00:40] VITALS: BMI 27.1
--- NOTE | 2016-08-10 07:18 | XR ---
EXAMINATION TYPE: XR chest 2V DATE OF EXAM: 08/10/2016 6:26 AM COMPARISON: 08/09/2016 TECHNIQUE: PA and lateral views submitted. HISTORY: Pain FINDINGS: Right basilar infiltrate and small effusion noted. Cardiomegaly and findings suggestive of COPD. Arth ropathy of the shoulders and biapical pleural thickening. Degenerative change of the spine. IMPRESSION: 1. Right lower lobe infiltrate and tiny effusion 2. COPD and cardiomegaly.
[2016-08-10] MEDS: LEVOTHYROXINE 88 MCG TAB PO SCH ×2 (07:19→07:22)
[2016-08-10] MEDS: ASPIRIN 81 MG CHEW PO SCH ×2 (07:19→07:22)
[2016-08-10] MEDS: MECLIZINE 25 MG TAB PO SCH ×4 (07:20→20:52)
[2016-08-10] MEDS: METOPROLOL TARTRATE 50 MG TAB PO SCH ×2 (09:07→20:51)
[2016-08-10] MEDS: SODIUM CHLORIDE 0.9% 1,000 ML IV SCH ×3 (09:11→20:51)
--- NOTE | 2016-08-10 10:54 | P.HPIM ---
History of Present Illness H&P Date: 08/10/16 Chief Complaint: Chest discomfort 86-year-old female presented on the day of admission to the emergency room to be evaluated for shortness of breath with right-sided chest discomfort. Patient stated there was no nausea vomiting. Patient states that she had some tightness in the right side of the chest. Patient is a poor historian. Patient denies any recent fever or chills. The temp in the emergency room was documented 101. Chest x-ray in the emergency room showed right lower lobe infiltrate with a tiny effusion. with COPD. is denying any abdominal pain frequent stooling nausea vomiting or change in appetite denying any blurred vision dizziness or lightheadedness or shortness of breath Additionally the patient had a CAT scan of the chest to evaluate for pulmonary emboli it showed no evidence of a pulmonary emboli it did show a new right pleural effusion. Additionally patient states that she had abdominal surgery several months ago is not certain why was done at another facility patient underwent a right colectomy for ischemic right colon in June 2016. Patient was deconditioned and needed to be transferred to a rehab center. Patient reportedly completed rehab and currently is living with her daughter Patient does have a past medical history of atrial fibrillation, coronary artery disease, hypertension, hypothyroid and hyperlipidemia currently monitor showing atrial fibrillation rate controlled Review of Systems Essentially unremarkable except as mentioned in the present illness Past Medical History Past Medical History: Atrial Fibrillation, Coronary Artery Disease (CAD), Chest Pain / Angina, Hyperlipidemia, Hypertension, Thyroid Disorder Additional Past Medical History / Comment(s): Pt has IBS. 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 Bruising on skin. Cataract L eye. History of Any Multi-Drug Resistant Organisms: None Reported Past Surgical History: Appendectomy, Bowel Resection, Section, Heart Catheterization With Stent, Hernia Repair, Hysterectomy Additional Past Surgical History / Comment(s): Hx. of left breast biopsy, HEART CATH WITH STENT. RT FEMORAL endartrectomy,HEMATOMA REMOVAL. Past Anesthesia/Blood Transfusion Reactions: No Reported Reaction Additional Past Anesthesia/Blood Transfusion Reaction / Comment(s): Pt has received blood recently, without reaction. Date of Last Stent Placement:: 08-17-14 Past Psychological History: No Psychological Hx Reported Additional Psychological History / Comment(s): Patient resides with her son and his spouse. [facility]. . 2 adult children and her daughter is at her side. No tobacco use. retired. No recent travels. No animal exposures Smoking Status: Never smoker Past Alcohol Use History: None Reported Past Drug Use History: None Reported - Past Family History Son(s) Family Medical History: Hearing Disorder / Deafness Daughter(s) Family Medical History: Hearing Disorder / Deafness Father Family Medical History: Cancer Additional Family Medical History / Comment(s): Unknown Medications and Allergies Home Medications Medication Instructions Recorded Confirmed Type Atorvastatin [Lipitor] 20 mg PO HS 07/20/16 08/09/16 History Levothyroxine Sodium [Synthroid] 88 mcg PO DAILY 07/20/16 08/09/16 History Metoprolol Tartrate [Lopressor] 50 mg PO BID 07/20/16 08/09/16 History Allergies Allergy/AdvReac Type Severity Reaction Status Date / Time No Known Allergies Allergy Verified 08/09/16 19:41 Physical Exam Vitals: Vital Signs Temp Pulse Resp BP Pulse Ox 08/10/16 08:00 96.8 F L 85 16 111/58 98 08/10/16 04:00 76 16 136/75 97 08/10/16 00:44 96.7 F L 86 16 120/68 99 08/09/16 23:32 95.7 F L 78 16 120/72 99 Intake and Output 08/09/16 08/10/16 08/10/16 22:59 06:59 14:59 Intake Total 900 400 Balance 900 400 Intake: Amount of Fluid Infused ( 900 ml) Intake, IV Titration 400 Amount Levofloxacin 750Mg-D5w 100 Pmx 750 mg In Dextrose/ Water 1 150ml.bag @ 100 mls/hr IVPB Q24H ME[facility] Rx#: [id number] Sodium Chloride 0.9% 1, 300 000 ml @ 75 mls/hr IV . [id number] [id number] Rx#:[id number] Other: Voiding Method Toilet # Voids 1 Weight 73.9 kg GENERAL APPEARANCE: 86-year-old female patient is alert, oriented to self and place event, in no acute distress. VITAL SIGNS: Reviewed HEENT: Head is normocephalic and atraumatic. Pupils are equal and reactive. The nares are patent. Oropharynx is clear without lesions. NECK: Supple without lymphadenopathy. Traches midline. HEART: S1, S2. Irregular monitor atrial fibrillation rate in the 80s LUNGS: Posterior diminished at the bases right greater than the left upper airways bronchial breath sounds on room air no cough no conversational dyspnea noted ABDOMEN: Soft, nontender, nondistended with good bowel sounds. No peritoneal signs. No palpable organomegaly or masses. Well-healed surgical scar noted mid surgical site scant amount of serous drainage noted suture line approximated no redness around the suture line EXTREMITIES: Normal skin color and turgor. No cyanosis, rash, ulceration, clubbing or edema. Radial pedal pulses are 2/4 bilaterally. NEUROLOGICAL: No focal deficits. Strength and sensation are grossly intact. Results CBC & Chem 7: 08/09/16 19:25 08/09/16 19:25 Thrombosis Risk Factor Assmnt - Choose All That Apply Any of the Below Risk Factors Present?: No Other Risk Factors: No Thrombosis Risk Factor Assessment Level: Very Low Risk Assessment and Plan Plan: Impression Present on admission shortness of breath suspect due to new right pleural effusion with right lower lobe infiltrate per chest x-ray likely pneumonia Chronic atrial fibrillation persist rate controlled on elquist hypertension essential Hypothyroid on supplement Hyperlipidemia Known coronary artery disease with prior coronary stenting CAT scan of the chest shows no evidence of pulmonary emboli new right pleural effusion noted A recent June 2016 right colectomy for ischemic right colon Physical debility chronic Plan Consult pulmonology to evaluate the right pleural effusion Resume home meds as appropriate Monitor hemoglobin Repeat labs in the morning PT OT eval Continue bronchodilator 4 times a day DVT and GI prophylaxis Further recommendations pending Continue IV Levaquin and Rocephin until evaluated by pulmonary IV fluid at 75 an hour The above dictated assessment and findings were discussed with dr frazier . Impression and the plan of care have been dictated as directed. Jerica Snyder nurse practitioner acting as a scribe for dr frazier
[2016-08-10] MEDS: FAMOTIDINE 20 MG TAB PO SCH ×2 (12:31→20:52)
--- NOTE | 2016-08-10 12:40 | P.CNPUL ---
History of Present Illness Consult date: 08/10/16 Reason for consult: chest pain, pleural effusion Chief complaint: Right-sided chest pain History of present illness: 86-year-old female who presented to the emergency department on August 09 with complaints of right-sided chest pain. The patient states that she also has some mild shortness of breath. No sweating. No nausea or vomiting. The patient states that down she did not have any fever or chills. No nausea vomiting. She was seen in the emergency room admitted to the sixth floor. As I was seeing her up in the sixth floor, she was being transferred down to the fifth floor. The nurse tells me that her complaint was in her diagnosis was that of pneumonia. Again the patient denies any cough. No phlegm production. She she apparently did have a slight temperature elevation in the emergency department. Review of Systems A 12 point review of system is positive for right-sided chest discomfort. She also had some mild shortness of breath. No cough. No phlegm production. Slight temperature elevation. The rest of the 12 point review of system is unremarkable. Past Medical History Past Medical History: Atrial Fibrillation, Coronary Artery Disease (CAD), Chest Pain / Angina, Hyperlipidemia, Hypertension, Thyroid Disorder Additional Past Medical History / Comment(s): Pt has IBS. 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 Bruising on skin. Cataract L eye. History of Any Multi-Drug Resistant Organisms: None Reported Past Surgical History: Appendectomy, Bowel Resection, Section, Heart Catheterization With Stent, Hernia Repair, Hysterectomy Additional Past Surgical History / Comment(s): Hx. of left breast biopsy, HEART CATH WITH STENT. RT FEMORAL endartrectomy,HEMATOMA REMOVAL. Past Anesthesia/Blood Transfusion Reactions: No Reported Reaction Additional Past Anesthesia/Blood Transfusion Reaction / Comment(s): Pt has received blood recently, without reaction. Date of Last Stent Placement:: 08-17-14 Past Psychological History: No Psychological Hx Reported Additional Psychological History / Comment(s): Patient resides with her son and his spouse. Emigrated from the [place] 50 years ago. . 2 adult children and her daughter is at her side. No tobacco use. retired. No recent travels. No animal exposures Smoking Status: Never smoker Past Alcohol Use History: None Reported Past Drug Use History: None Reported - Past Family History Son(s) Family Medical History: Hearing Disorder / Deafness Daughter(s) Family Medical History: Hearing Disorder / Deafness Father Family Medical History: Cancer Additional Family Medical History / Comment(s): Unknown Medications and Allergies Home Medications Medication Instructions Recorded Confirmed Type Atorvastatin [Lipitor] 20 mg PO HS 07/20/16 08/09/16 History Levothyroxine Sodium [Synthroid] 88 mcg PO DAILY 07/20/16 08/09/16 History Metoprolol Tartrate [Lopressor] 50 mg PO BID 07/20/16 08/09/16 History Allergies Allergy/AdvReac Type Severity Reaction Status Date / Time No Known Allergies Allergy Verified 08/09/16 19:41 Physical Exam Osteopathic Statement: *. No significant issues noted on an osteopathic structural exam other than those noted in the History and Physical/Consult. Vitals: Vital Signs Temp Pulse Resp BP Pulse Ox 08/10/16 08:00 96.8 F L 85 16 111/58 98 08/10/16 04:00 76 16 136/75 97 08/10/16 00:44 96.7 F L 86 16 120/68 99 08/09/16 23:32 95.7 F L 78 16 120/72 99 Intake and Output 08/09/16 08/10/16 08/10/16 22:59 06:59 14:59 Intake Total 900 400 Balance 900 400 Intake: Amount of Fluid Infused ( 900 ml) Intake, IV Titration 400 Amount Levofloxacin 750Mg-D5w 100 Pmx 750 mg In Dextrose/ Water 1 150ml.bag @ 100 mls/hr IVPB Q24H [facility] Rx#: [id number] Sodium Chloride 0.9% 1, 300 000 ml @ 75 mls/hr IV . [id number] [facility] Rx#:[id number] Other: Voiding Method Toilet # Voids 1 Weight 73.9 kg No distress, oriented 3. Laying flat down in bed. HEENT examination is grossly unremarkable. Next memory to moist. No oral lesions. Neck supple. Full range of motion. No adenopathy. Cardiovascular examination reveals regular rhythm rate. S1-S2 normal. No S3- S4 or murmur. Lungs reveal a few scattered rhonchi. Some crackles at the bases. No wheezes. Abdomen soft bowel sounds are heard. Extremities are intact. Minimal to no edema. Results - Laboratory Findings CBC and BMP: 08/09/16 19:25 08/09/16 19:25 PT/INR, D-dimer PT 12.6 sec (9.0-12.0) H 08/09/16 19:25 INR 1.3 (<1.1) 08/09/16 19:25 - Diagnostic Findings Chest x-ray: image reviewed (Chest x-ray labs and medications are all reviewed.) Assessment and Plan (1) Chest pain Status: Acute (2) Pneumonia Status: Acute (3) Bilateral pleural effusion Status: Acute (4) Chronic a-fib Status: Acute (5) Hyperlipemia Status: Acute Plan: Plan X The patient being transferred down to the fifth floor. I will review the chest x-rays. Chest x-rays in my opinion show some very mild and small pleural effusions. I'm not impressed with the fact the patient has any infiltrate or pneumonia. Did not really have pneumonia type symptoms. Nonetheless labs medications x-rays are all reviewed. Please see my recommendations. Looks very stable. Time with Patient: Greater than 30
[2016-08-10] MEDS: ATORVASTATIN 20 MG TAB PO SCH (20:51)
[2016-08-10] MEDS: LEVOFLOXACIN 750MG-D5W PMX 750 MG in DEXTROSE/WATER 1 150ML.BAG IVPB SCH (20:51)
[2016-08-11 07:26] LABS: Anisocytosis Slight; Basophils % (A) 0 %; CH 29.5; CHCM 31.1; Eosinophils % (A) 0 %; HCT 30.9 % (34.0-46.0); HDW 2.94; HGB 9.4 gm/dL (11.4-16.0); Hypochromasia Moderate; Luc # (Auto) 0.26; Luc % (Auto) 3; Lymphocytes % (A) 31 %; MCH 28.9 pg (25.0-35.0); MCHC 30.3 g/dL (31.0-37.0); MCV 95.4 fL (80.0-100.0); Mean Platelet Volume 6.8; Monocytes # (A) 0.7 k/uL (0-1.0); Monocytes % (A) 8 %; Neutrophils # (A) 5.5 k/uL (1.3-7.7); Neutrophils % (A) 58 %; RBC 3.23 m/uL (3.80-5.40); WBC 9.6 k/uL (3.8-10.6); WBC (Perox) 9.88
[2016-08-11 07:41] LABS: ALT 34 U/L (9-52); AST 28 U/L (14-36); Alkaline Phosphatase 60 U/L (38-126); Anion Gap 6 mmol/L; Blood Urea Nitrogen 9 mg/dL (7-17); Calcium 7.9 mg/dL (8.4-10.2); Carbon Dioxide 29 mmol/L (22-30); Chloride 105 mmol/L (98-107); Glucose 87 mg/dL (74-99); Non-African American GFR(MDRD) >60 (>60 ml/min/1.73 sqM); Potassium 4.2 mmol/L (3.5-5.1); Sodium 140 mmol/L (137-145); Total Bilirubin 0.5 mg/dL (0.2-1.3); Total Protein 4.9 g/dL (6.3-8.2)
[2016-08-11] MEDS: FAMOTIDINE 20 MG TAB PO SCH ×2 (08:34→20:55)
[2016-08-11] MEDS: MECLIZINE 25 MG TAB PO SCH ×3 (08:34→20:55)
[2016-08-11] MEDS: METOPROLOL TARTRATE 50 MG TAB PO SCH ×2 (08:35→20:55)
--- NOTE | 2016-08-11 11:41 | P.PN ---
Subjective Progress note dated 08/11/2016 Patient is an 86-year-old female who presented to the emergency department on August 09 with complaints of chest pain and shortness of breath. Shortness of breath with mild. No fever no chills. No nausea vomiting or diarrhea. She was admitted to the sixth floor with a diagnosis of shortness of breath possibly secondary to pneumonia involving the right lower lobe. She had minimal infiltrate in the right lower lobe and a small right-sided effusion. Anyway the patient was discharged from the sixth floor down to the fifth floor yesterday. She was not thought to be a primary cardiac patient. Looks quite good. Feels better. No major complaints or issues today. No shortness of breath. Minimal cough. No additional chest pain or chest discomfort. Objective - Vital Signs Vital signs: Vital Signs Temp 98.1 F 08/11/16 07:00 Pulse 89 08/11/16 07:00 Resp 16 08/11/16 07:00 BP 135/61 08/11/16 07:00 Pulse Ox 96 08/11/16 07:00 Intake & Output 08/10/16 08/11/16 08/11/16 17:59 06:59 18:59 Intake Total Output Total Balance Intake: Intake, IV Titration Amount Levofloxacin 750Mg-D5w Pmx 750 mg In Dextrose/ Water 1 150ml.bag @ 100 mls/hr IVPB Q24H [facility] Rx#: [id number] Sodium Chloride 0.9% 1, 000 ml @ 75 mls/hr IV . [id number] [facility] Rx#:[id number] Oral Output: Urine Other: Voiding Method Toilet # Voids - Exam No acute distress, oriented 3 HEENT examination is unremarkable. Mixed membranes are moist. Neck supple full range of motion. No adenopathy or thyromegaly. Neck veins are flat. Cardiovascular examination reveals regular rhythm rate. S1-S2 normal. No murmur noted. Pulmonary examination reveals a few scattered rhonchi. No wheezes or crackles. Breath sounds are equal bilaterally. Abdomen soft bowel sounds are heard. Extremities are intact. - Labs CBC & Chem 7: 08/11/16 06:52 08/11/16 06:52 Labs: Abnormal Lab Results - Last 24 Hours (Table) 08/11/16 08/11/16 Range/Units 06:52 06:52 RBC 3.23 L (3.80-5.40) m/uL Hgb 9.4 L (11.4-16.0) gm/dL Hct 30.9 L (34.0-46.0) % MCHC 30.3 L (31.0-37.0) g/dL RDW 16.0 H (11.5-15.5) % Calcium 7.9 L (8.4-10.2) mg/dL Total Protein 4.9 L (6.3-8.2) g/dL Albumin 2.3 L (3.5-5.0) g/dL Microbiology - Last 24 Hours (Table) 08/10/16 10:40 Gram Stain - Preliminary Abdomen Wound Culture - Preliminary 08/10/16 10:40 Anaerobic Culture - Preliminary Abdomen Assessment and Plan (1) Chest pain Status: Acute (2) Pneumonia Status: Acute (3) Bilateral pleural effusion Status: Acute (4) Chronic a-fib Status: Acute (5) Hyperlipemia Status: Acute Plan: Plan X The patient being transferred down to the fifth floor. I will review the chest x-rays. Chest x-rays in my opinion show some very mild and small pleural effusions. I'm not impressed with the fact the patient has any infiltrate or pneumonia. Did not really have pneumonia type symptoms. Nonetheless labs medications x-rays are all reviewed. Please see my recommendations. Looks very stable. Plan 08/11/2016 Medications labs and x-rays are all reviewed. Patient seemed be doing better. No additional chest pain. Normal respiratory complaints. Could probably be discharged soon. No discharge recommendations are made at this time. Time with Patient: Less than 30
--- NOTE | 2016-08-11 12:29 | P.PN ---
Subjective 86-year-old being seen on rounds family at bedside updated on plan of care patient reports that the last several months has a constant dizziness sensation occurs "constant never goes away"patient is sitting up on the edge of the bed is being followed by pulmonology service chest x-ray suggest right lobe pneumoniathe temp last night 100.8 current temp 98 no cough noted no shortness of breath noted Objective - Vital Signs Vital signs: Vital Signs Temp 98.1 F 08/11/16 07:00 Pulse 89 08/11/16 07:00 Resp 16 08/11/16 07:00 BP 135/61 08/11/16 07:00 Pulse Ox 96 08/11/16 07:00 Intake & Output 08/10/16 08/11/16 08/11/16 17:59 06:59 18:59 Intake Total Output Total Balance Intake: Intake, IV Titration Amount Levofloxacin 750Mg-D5w Pmx 750 mg In Dextrose/ Water 1 150ml.bag @ 100 mls/hr IVPB Q24H [facility] Rx#: [id number] Sodium Chloride 0.9% 1, 000 ml @ 75 mls/hr IV . [id number] [facility] Rx#:[id number] Oral Output: Urine Other: Voiding Method Toilet # Voids - Exam physical exam 86-year-old female sitting up on the edge of the bed does not appear in any acute distress Lungs posterior dry crackles at the bases otherwise adequate air movement on room air no cough noted Heart S1-S2 audible regular Abdomen soft abdominal binder and place no drainage from the suture line has a well-healed scar urinating no difficulty no stooling not distended Extremities no edema noted - Labs CBC & Chem 7: 08/11/16 06:52 08/11/16 06:52 Labs: Abnormal Lab Results - Last 24 Hours (Table) 08/11/16 08/11/16 Range/Units 06:52 06:52 RBC 3.23 L (3.80-5.40) m/uL Hgb 9.4 L (11.4-16.0) gm/dL Hct 30.9 L (34.0-46.0) % MCHC 30.3 L (31.0-37.0) g/dL RDW 16.0 H (11.5-15.5) % Calcium 7.9 L (8.4-10.2) mg/dL Total Protein 4.9 L (6.3-8.2) g/dL Albumin 2.3 L (3.5-5.0) g/dL Microbiology - Last 24 Hours (Table) 08/10/16 10:40 Gram Stain - Preliminary Abdomen Wound Culture - Preliminary 08/10/16 10:40 Anaerobic Culture - Preliminary Abdomen Assessment and Plan Plan: Impression Present on admission shortness of breath suspect due to new right pleural effusion with right lower lobe infiltrate per chest x-ray likely pneumonia Not ruled out Chronic atrial fibrillation persist rate controlled on elquist hypertension essential Hypothyroid on supplement Hyperlipidemia Known coronary artery disease with prior coronary stenting CAT scan of the chest shows no evidence of pulmonary emboli new right pleural effusion noted A recent June 2016 right colectomy for ischemic right colon Physical debility chronic persistent dizziness suspect due to orthostasis Plan neurology indicates he did review the chest x-ray very mild small pleural effusion in the chest x-ray does not suggest pneumonia with no symptoms Resume home meds as appropriate Monitor hemoglobin Repeat labs in the morning PT OT eval Continue bronchodilator 4 times a day DVT and GI prophylaxis Further recommendations pending Continue IV Levaquin and Rocephin until evaluated by pulmonary IV fluid at 75 an hour check orthostatic blood pressures and record The above dictated assessment and findings were discussed with dr frazier . Impression and the plan of care have been dictated as directed. Jerica Snyder nurse practitioner acting as a scribe for dr frazier
[2016-08-11] MEDS: LEVOFLOXACIN 750MG-D5W PMX 750 MG in DEXTROSE/WATER 1 150ML.BAG IVPB SCH (20:23)
[2016-08-11] MEDS: ATORVASTATIN 20 MG TAB PO SCH (20:55)
[2016-08-12] MEDS: LEVOTHYROXINE 88 MCG TAB PO SCH (05:20)
[2016-08-12] MEDS: MECLIZINE 25 MG TAB PO SCH ×3 (11:01→20:39)
[2016-08-12] MEDS: METOPROLOL TARTRATE 50 MG TAB PO SCH ×2 (11:02→20:38)
[2016-08-12] MEDS: FAMOTIDINE 20 MG TAB PO SCH ×2 (11:02→20:38)
[2016-08-12] MEDS: ASPIRIN 81 MG CHEW PO SCH (11:02)
--- NOTE | 2016-08-12 12:14 | P.PN ---
Subjective 86-year-old female presented on the day of admission to the emergency room to be evaluated for shortness of breath with right-sided chest discomfort. Patient stated there was no nausea vomiting. Patient states that she had some tightness in the right side of the chest. Patient is a poor historian. Patient denies any recent fever or chills. The temp in the emergency room was documented 101. Chest x-ray in the emergency room showed right lower lobe infiltrate with a tiny effusion. with COPD. is denying any abdominal pain frequent stooling nausea vomiting or change in appetite denying any blurred vision dizziness or lightheadedness or shortness of breath Additionally the patient had a CAT scan of the chest to evaluate for pulmonary emboli it showed no evidence of a pulmonary emboli it did show a new right pleural effusion. On 08/12/2016 I'm seeing this patient in follow-up. The patient is doing well. No specific complaints. A follow-up chest x-ray was done yesterday and there is no evidence of any significant pleural effusion. The patient's antibiotic has been simplified to oral Levaquin and Zithromax has been discontinued. She is tolerating her diet. No chest pain. No nausea. No vomiting. She is awaiting home care services to be set and possible discharge in the next 24-48 hours. Objective - Vital Signs Vital signs: Vital Signs Temp 97.4 F L 08/12/16 07:00 Pulse 89 08/12/16 07:00 Resp 16 08/12/16 07:00 BP 137/61 08/12/16 07:00 Pulse Ox 97 08/12/16 07:00 Intake & Output 08/11/16 08/12/16 08/12/16 18:59 06:59 18:59 Intake Total 360 240 Output Total 500 Balance -140 240 Intake: Oral 360 240 Output: Urine 500 Other: Voiding Method Toilet Toilet Toilet # Voids 1 1 - Exam The patient appeared well nourished and normally developed. Vital signs as documented. Head exam is unremarkable. No scleral icterus or corneal arcus noted. Neck is without jugular venous distension, thyromegaly, or carotid bruits. Carotid upstrokes are brisk bilaterally. Lungs are clear to auscultation and percussion. Cardiac exam reveals the PMI to be normally sized and situated. Rhythm is regular. First and second heart sounds normal. No murmurs, rubs or gallops. Abdominal exam reveals normal bowel sounds, no masses , no organomegaly and no aortic enlargement. Extremities are nonedematous and both femoral and pedal pulses are normal. - Labs CBC & Chem 7: 08/11/16 06:52 08/11/16 06:52 Labs: Microbiology - Last 24 Hours (Table) 08/11/16 20:00 Urine Culture - Preliminary Urine,Clean Catch Assessment and Plan Plan: Assessment 1 shortness of breath secondary to a limited right lower lobe pneumonia along with a small right-sided pleural effusion, improving 2 chronic atrial fibrillation rate controlled and the patient is on long-term anticoagulation 3 hypertension 4 hypothyroidism 5 hyperlipidemia 6 coronary artery disease with previous coronary stenting 7 physical debility secondary to above-mentioned comorbidities Plan Agree on oral Levaquin. PTOT evaluation. Aggressive the medication will be kept unchanged. No need for thoracentesis and the pleural effusion is small. Aspiration precautions. We'll continue to follow.
--- NOTE | 2016-08-12 17:25 | P.PN ---
Subjective No events overnight Objective - Vital Signs Vital signs: Vital Signs Temp 97.4 F L 08/12/16 15:00 Pulse 80 08/12/16 15:00 Resp 16 08/12/16 15:00 BP 120/61 08/12/16 15:00 Pulse Ox 98 08/12/16 15:00 Intake & Output 08/11/16 08/12/16 08/12/16 18:59 06:59 18:59 Intake Total 360 480 Output Total 500 Balance -140 480 Intake: Oral 360 480 Output: Urine 500 Other: Voiding Method Toilet Toilet Toilet # Voids 1 1 1 - Exam General: The patient is awake and alert, in no distress Eye: there is normal conjunctiva bilaterally. Neck: The neck is supple, there is no JVD. Cardiovascular: Normal S1-S2, no S3-S4, no murmurs. Respiratory: Lungs with bibasilar crackles Gastrointestinal: Abdomen is soft, nontender Musculoskeletal: There is no pedal edema. Neurological:. Speech is normal. Skin: Skin is warm and dry - Labs CBC & Chem 7: 08/11/16 06:52 08/11/16 06:52 Labs: Microbiology - Last 24 Hours (Table) 08/10/16 10:40 Anaerobic Culture - Preliminary Abdomen 08/10/16 10:40 Gram Stain - Final Abdomen Wound Culture - Final 08/11/16 20:00 Urine Culture - Preliminary Urine,Clean Catch Assessment and Plan Plan: Impression Present on admission shortness of breath suspect due to new right pleural effusion with right lower lobe infiltrate per chest x-ray likely pneumonia Not ruled out Chronic atrial fibrillation persist rate controlled on elquist hypertension essential Hypothyroid on supplement Hyperlipidemia Known coronary artery disease with prior coronary stenting CAT scan of the chest shows no evidence of pulmonary emboli new right pleural effusion noted A recent June 2016 right colectomy for ischemic right colon Physical debility chronic persistent dizziness suspect due to orthostasis Plan Continue antibiotic as ordered Monitor hemoglobin Repeat labs in the morning PT OT eval Continue bronchodilator 4 times a day DVT and GI prophylaxis Further recommendations pending
[2016-08-12] MEDS: ATORVASTATIN 20 MG TAB PO SCH (20:38)
[2016-08-12] MEDS ORDERED: LEVOFLOXACIN 750 MG TAB PO SCH (21:00)
[2016-08-12] MEDS ORDERED: LEVOFLOXACIN 500 MG TAB PO SCH (21:00)
[2016-08-13] MEDS: LEVOTHYROXINE 88 MCG TAB PO SCH (06:11)
[2016-08-13 08:00] LABS: Anisocytosis Slight; Basophils % (A) 0 %; CH 29.2; CHCM 30.6; Eosinophils # (A) 0.1 k/uL (0-0.7); Eosinophils % (A) 1 %; HCT 30.7 % (34.0-46.0); HDW 3.01; HGB 9.4 gm/dL (11.4-16.0); Hypochromasia Moderate; Luc % (Auto) 3; Lymphocytes # (A) 2.7 k/uL (1.0-4.8); Lymphocytes % (A) 35 %; MCH 29.2 pg (25.0-35.0); MCHC 30.5 g/dL (31.0-37.0); MCV 95.8 fL (80.0-100.0); Mean Platelet Volume 6.9; Monocytes # (A) 0.5 k/uL (0-1.0); Monocytes % (A) 6 %; Neutrophils # (A) 4.3 k/uL (1.3-7.7); Neutrophils % (A) 55 %; RBC 3.21 m/uL (3.80-5.40); RDW 16.1 % (11.5-15.5); WBC 7.7 k/uL (3.8-10.6)
[2016-08-13 08:02] LABS: Anion Gap 8 mmol/L; Blood Urea Nitrogen 11 mg/dL (7-17); Calcium 8.1 mg/dL (8.4-10.2); Carbon Dioxide 28 mmol/L (22-30); Chloride 105 mmol/L (98-107); Glucose 87 mg/dL (74-99); Non-African American GFR(MDRD) >60 (>60 ml/min/1.73 sqM); Potassium 3.9 mmol/L (3.5-5.1); Sodium 141 mmol/L (137-145)
[2016-08-13] MEDS: ASPIRIN 81 MG CHEW PO SCH (08:16)
[2016-08-13] MEDS: FAMOTIDINE 20 MG TAB PO SCH (08:17)
[2016-08-13] MEDS: METOPROLOL TARTRATE 50 MG TAB PO SCH ×2 (08:17→20:17)
[2016-08-13] MEDS: MECLIZINE 25 MG TAB PO SCH ×3 (08:17→20:59)
--- NOTE | 2016-08-13 14:58 | P.PN ---
Subjective 86-year-old female presented on the day of admission to the emergency room to be evaluated for shortness of breath with right-sided chest discomfort. Patient stated there was no nausea vomiting. Patient states that she had some tightness in the right side of the chest. Patient is a poor historian. Patient denies any recent fever or chills. The temp in the emergency room was documented 101. Chest x-ray in the emergency room showed right lower lobe infiltrate with a tiny effusion. with COPD. is denying any abdominal pain frequent stooling nausea vomiting or change in appetite denying any blurred vision dizziness or lightheadedness or shortness of breath Additionally the patient had a CAT scan of the chest to evaluate for pulmonary emboli it showed no evidence of a pulmonary emboli it did show a new right pleural effusion. On 08/12/2016 I'm seeing this patient in follow-up. The patient is doing well. No specific complaints. A follow-up chest x-ray was done yesterday and there is no evidence of any significant pleural effusion. The patient's antibiotic has been simplified to oral Levaquin and Zithromax has been discontinued. She is tolerating her diet. No chest pain. No nausea. No vomiting. She is awaiting home care services to be set and possible discharge in the next 24-48 hours. The patient is seen again today 08/13/2016 in follow-up on the regular medical floor. She is sitting up in the chair at the bedside. She denies any worsening shortness of breath, cough or congestion. No fever, chills or night sweats. She is maintaining good O2 saturations in the mid to upper 90s on room air. She denies any chest pain, palpitations lightheadedness or dizziness. Objective - Vital Signs Vital signs: Vital Signs Temp 97.7 F 08/13/16 07:00 Pulse 82 08/13/16 07:00 Resp 17 08/13/16 07:00 BP 149/75 08/13/16 07:00 Pulse Ox 96 08/13/16 11:31 Intake & Output 08/12/16 08/13/16 08/13/16 18:59 06:59 18:59 Intake Total 480 340 360 Balance 480 340 360 Intake: Oral 480 340 360 Other: Voiding Method Toilet Toilet Toilet # Voids 1 1 - Exam The patient appeared well nourished and normally developed. Vital signs as documented. Head exam is unremarkable. No scleral icterus or corneal arcus noted. Neck is without jugular venous distension, thyromegaly, or carotid bruits. Carotid upstrokes are brisk bilaterally. Lungs are clear to auscultation and percussion. Cardiac exam reveals the PMI to be normally sized and situated. Rhythm is regular. First and second heart sounds normal. No murmurs, rubs or gallops. Abdominal exam reveals normal bowel sounds, no masses , no organomegaly and no aortic enlargement. Extremities are nonedematous and both femoral and pedal pulses are normal. - Labs CBC & Chem 7: 08/13/16 07:24 08/13/16 07:24 Labs: Abnormal Lab Results - Last 24 Hours (Table) 08/13/16 08/13/16 Range/Units 07:24 07:24 RBC 3.21 L (3.80-5.40) m/uL Hgb 9.4 L (11.4-16.0) gm/dL Hct 30.7 L (34.0-46.0) % MCHC 30.5 L (31.0-37.0) g/dL RDW 16.1 H (11.5-15.5) % Calcium 8.1 L (8.4-10.2) mg/dL Microbiology - Last 24 Hours (Table) 08/11/16 20:00 Urine Culture - Final Urine,Clean Catch 08/10/16 10:40 Anaerobic Culture - Preliminary Abdomen 08/10/16 10:40 Gram Stain - Final Abdomen Wound Culture - Final Assessment and Plan Plan: Assessment 1 shortness of breath secondary to a limited right lower lobe pneumonia along with a small right-sided pleural effusion, improving 2 chronic atrial fibrillation rate controlled and the patient is on long-term anticoagulation 3 hypertension 4 hypothyroidism 5 hyperlipidemia 6 coronary artery disease with previous coronary stenting 7 physical debility secondary to above-mentioned comorbidities Plan 1 The patient was seen and evaluated by Dr. Amezquita. She is stable from the pulmonary standpoint and could be discharged to an extended care facility for continued inpatient rehabilitation versus home. We'll continue with oral Levaquin to complete her course of antibiotics. We could see her in the office in follow-up in 1-2 weeks' time. We'll repeat a chest x-ray done. She is encouraged however to call sooner with any recurrence of symptoms or other questions or concerns.
[2016-08-13 15:06] VITALS: RESP 16
--- NOTE | 2016-08-13 15:07 | P.PN ---
Subjective Patient is doing fairly well today. No events overnight. Objective - Vital Signs Vital signs: Vital Signs Temp 97.4 F L 08/13/16 15:00 Pulse 70 08/13/16 15:00 Resp 16 08/13/16 15:00 BP 125/58 08/13/16 15:00 Pulse Ox 96 08/13/16 15:00 Intake & Output 08/12/16 08/13/16 08/13/16 18:59 06:59 18:59 Intake Total 480 340 720 Balance 480 340 720 Intake: Oral 480 340 720 Other: Voiding Method Toilet Toilet Toilet # Voids 1 1 - Exam General: The patient is awake and alert, in no distress Eye: there is normal conjunctiva bilaterally. Neck: The neck is supple, there is no JVD. Cardiovascular: Normal S1-S2, no S3-S4, no murmurs. Respiratory: Lungs with bibasilar crackles Gastrointestinal: Abdomen is soft, nontender Musculoskeletal: There is no pedal edema. Neurological:. Speech is normal. Skin: Skin is warm and dry - Labs CBC & Chem 7: 08/13/16 07:24 08/13/16 07:24 Labs: Abnormal Lab Results - Last 24 Hours (Table) 08/13/16 08/13/16 Range/Units 07:24 07:24 RBC 3.21 L (3.80-5.40) m/uL Hgb 9.4 L (11.4-16.0) gm/dL Hct 30.7 L (34.0-46.0) % MCHC 30.5 L (31.0-37.0) g/dL RDW 16.1 H (11.5-15.5) % Calcium 8.1 L (8.4-10.2) mg/dL Microbiology - Last 24 Hours (Table) 08/11/16 20:00 Urine Culture - Final Urine,Clean Catch 08/10/16 10:40 Anaerobic Culture - Preliminary Abdomen 08/10/16 10:40 Gram Stain - Final Abdomen Wound Culture - Final Assessment and Plan Plan: Impression Present on admission shortness of breath suspect due to new right pleural effusion with right lower lobe infiltrate per chest x-ray likely pneumonia Chronic atrial fibrillation persist rate controlled on elquist hypertension essential Hypothyroid on supplement Hyperlipidemia Known coronary artery disease with prior coronary stenting CAT scan of the chest shows no evidence of pulmonary emboli new right pleural effusion noted A recent June 2016 right colectomy for ischemic right colon Physical debility chronic Plan Continue antibiotic as ordered Monitor hemoglobin Repeat labs in the morning PT OT eval Continue bronchodilator 4 times a day DVT and GI prophylaxis Further recommendations pending Plan for discharge home tomorrow with home care.
[2016-08-13] MEDS: ATORVASTATIN 20 MG TAB PO SCH (20:17)
[2016-08-13] MEDS ORDERED: LEVOFLOXACIN 250 MG TAB PO SCH (21:00)
[2016-08-14] MEDS: LEVOTHYROXINE 88 MCG TAB PO SCH (06:13)
[2016-08-14 08:25] LABS: Basophils % (A) 0 %; CH 29.2; CHCM 30.9; Eosinophils # (A) 0.1 k/uL (0-0.7); Eosinophils % (A) 1 %; HDW 3.02; HGB 9.7 gm/dL (11.4-16.0); Hypochromasia Moderate; Luc # (Auto) 0.24; Luc % (Auto) 3; Lymphocytes # (A) 2.8 k/uL (1.0-4.8); Lymphocytes % (A) 35 %; MCH 29.7 pg (25.0-35.0); MCHC 31.4 g/dL (31.0-37.0); MCV 94.7 fL (80.0-100.0); Mean Platelet Volume 6.9; Monocytes # (A) 0.6 k/uL (0-1.0); Monocytes % (A) 8 %; Neutrophils # (A) 4.3 k/uL (1.3-7.7); Neutrophils % (A) 53 %; RBC 3.27 m/uL (3.80-5.40); RDW 15.9 % (11.5-15.5); WBC 8.1 k/uL (3.8-10.6); WBC (Perox) 8.38
[2016-08-14 08:32] LABS: Anion Gap 8 mmol/L; Blood Urea Nitrogen 10 mg/dL (7-17); Calcium 8.3 mg/dL (8.4-10.2); Carbon Dioxide 28 mmol/L (22-30); Chloride 105 mmol/L (98-107); Glucose 85 mg/dL (74-99); Non-African American GFR(MDRD) >60 (>60 ml/min/1.73 sqM); Sodium 141 mmol/L (137-145)
[2016-08-14] MEDS: MECLIZINE 25 MG TAB PO SCH (08:54)
[2016-08-14] MEDS: METOPROLOL TARTRATE 50 MG TAB PO SCH (08:54)
[2016-08-14] MEDS: ASPIRIN 81 MG CHEW PO SCH (08:55)
[2016-08-14] MEDS ORDERED: FAMOTIDINE 20 MG TAB PO SCH (09:00)
[2016-08-14 10:06] VITALS: BP 140/63; PULSE 87; TEMP 97.4
--- NOTE | 2016-08-14 15:09 | P.DS ---
Providers Date of admission: 08/09/16 23:05 Expected date of discharge: 08/14/16 Attending physician: Mik Daniel Consults: 08/10/16 10:36 Consult Physician Routine Consulting Provider: Kaz Smith Consult Reason/Comments: pleural effusion Do you want consulting provider notified?: Yes Primary care physician: Jennyfer Cabello Hospital Course: This is a 86-year-old female with past medical history noted below presented to the hospital with worsening shortness of breath and dyspnea. Patient was found to have evidence of pneumonia on chest x-ray and was admitted to the hospital and treated with IV Levaquin. She was seen and evaluated by pulmonology. Her overall condition is improving throughout her hospital stay. On the day of discharge she was breathing comfortably on room air. She was seen and evaluated by PT/OT. Plan to discharge home with home care. Will finish 5 days course of antibiotic at home. He does still her medical problems addressed during this hospitalization. 1. Underlying pneumonia, present on admission 2. Paroxysmal atrial fibrillation: On daily aspirin. Not a candidate for anticoagulation with history of GI bleed 3. Essential hypertension: Blood pressure well-controlled 4. Hypothyroidism maintained on Synthroid 5. Mild cognitive impairment Patient Condition at Discharge: Fair Plan - Discharge Summary New Discharge Prescriptions: Levofloxacin [Levaquin] 250 mg PO HS #5 tab Discharge Medication List Atorvastatin [Lipitor] 20 mg PO HS 07/20/16 [History] Levothyroxine Sodium [Synthroid] 88 mcg PO DAILY 07/20/16 [History] Metoprolol Tartrate [Lopressor] 50 mg PO BID 07/20/16 [History] Aspirin 81 mg PO DAILY chew 07/24/16 [Rx] Meclizine [Antivert] 25 mg PO TID #0 07/24/16 [Rx] Levofloxacin [Levaquin] 250 mg PO HS #5 tab 08/14/16 [Rx] Follow up Appointment(s)/Referral(s): Jennyfer Cabello MD [Primary Care Provider] - 3 Days Activity/Diet/Wound Care/Special Instructions: resume [facility] Discharge Disposition: HOME WITH HOME HEALTH SERVICES
== END 2016-08-14 17:05 | disposition home health service (06) | DRG 194 ==
LOC: EC 18:51 → 6SEL 23:05 → 5MS5E 08-10 11:40
PROVIDERS: ADMIT Internal Medicine; ATTEND Internal Medicine
DX: J18.9 Pneumonia, unspecified organism (principal); J90 Pleural effusion, not elsewhere classified; I27.2 Other secondary pulmonary hypertension; I48.1 Persistent atrial fibrillation; I48.0 Paroxysmal atrial fibrillation; I07.1 Rheumatic tricuspid insufficiency; I10 Essential (primary) hypertension; G31.84 Mild cognitive impairment of uncertain or unknown etiology; I25.10 Atherosclerotic heart disease of native coronary artery without angina pectoris; J44.9 Chronic obstructive pulmonary disease, unspecified; I48.2 Chronic atrial fibrillation; E03.9 Hypothyroidism, unspecified; R42 Dizziness and giddiness; R53.1 Weakness; H26.9 Unspecified cataract; E78.5 Hyperlipidemia, unspecified; K58.9 Irritable bowel syndrome, unspecified; Z79.899 Other long term (current) drug therapy; Z79.82 Long term (current) use of aspirin; Z95.5 Presence of coronary angioplasty implant and graft; Z90.49 Acquired absence of other specified parts of digestive tract; Z90.710 Acquired absence of both cervix and uterus; Z80.9 Family history of malignant neoplasm, unspecified; Z87.19 Personal history of other diseases of the digestive system; Z86.79 Personal history of other diseases of the circulatory system
CPT/HCPCS: 36415; 71020; 71275; 80048; 80053; 81001; 82550; 82553; 83605; 83735; 83880; 84484; 85025; 85610; 85730; 87040; 87070; 87075; 87086; 87205; 87502; 93005; 94760; 96361; 96365; 96366; 96367; 99285

== ENCOUNTER → 2016-09-26 | Outpatient (CLI) | payer MEDICARE, OTHER ==
[2016-09-26 12:06] LABS: Blood Urea Nitrogen 21 mg/dL (7-17); Non-African American GFR(MDRD) >60 (>60 ml/min/1.73 sqM)
--- NOTE | 2016-09-26 15:14 | CT ---
EXAMINATION TYPE: CT abdomen pelvis w con DATE OF EXAM: 09/26/2016 1:43 PM COMPARISON: NONE INDICATION: Abdominal pain, stomach pain DLP: 615.6 mGycm, Automated exposure control for dose reduction was used. CONTRAST: 100 mL of Omnipaque 300. Study performed with Oral Contrast TECHNIQUE: Axial images were obtained from above the diaphragm to the pubic rami in the axial plane a t 5 mm thick sections. Reconstructed images are reviewed on the computer in the coronal plane. FINDINGS: Limited CT sections are obtained the lung bases. Some minimal increased lung markings are in the ant erior right middle lobe near the lung base which are nonspecific could be some scarring or atelectasi s. Lung bases are otherwise clear.. CT ABDOMEN: Liver: There is diminished density in the liver in relation to the spleen compatible with mild fatty infiltration liver. No discrete masses or cysts are evident. Spleen: Normal Pancreas: Atrophic Adrenal glands: The adrenal glands are normal. Gallbladder: Normal Kidneys: No masses are evident. No hydronephrosis is present. No cysts are present. Delayed images were obtained through the kidneys, which remain unremarkable. Aorta: Vascular calcification is within the aorta. Inferior vena cava: Normal. CT PELVIS: Loops of bowel within the abdomen and pelvis are normal. There are loops of bowel which are incom pletely distended or lack oral contrast limiting their evaluation. Appendix: The appendix is not clearly identified. There are inflammatory changes adjacent to the cecu m. In the axial plane there may be a area of increased density. Correlate with the patient's surgical history. Acute appendicitis could be considered. Other etiologies including typhlitis should be cons idered. No suspicious diverticuli are identified although diverticulitis could be considered within t he differential. There is a diverticulum near the inflammatory changes. No free air is within this re gion. A focal abscess is not identified. Urinary bladder: Normal. Genitourinary structures: Uterus and ovaries are not identified. Osseous structures: No suspicious lytic or sclerotic lesions. IMPRESSIONS: 1. Inflammatory changes adjacent to the cecum. The appendix is not identified as small diverticulum is present. Acute diverticulitis should be considered. Appendicitis is not excluded. Typhlitis could be considered. 2. No adjacent abscess is evident. No free air is evident.
== END | disposition home or self-care (01) ==
LOC: RADCTMAIN 11:20
PROVIDERS: ATTEND Surgery
DX: R93.3 Abnormal findings on diagnostic imaging of other parts of digestive tract (principal); R10.84 Generalized abdominal pain; G89.18 Other acute postprocedural pain
CPT/HCPCS: 82565; 84520; 74177; 36415; Q9967

== ENCOUNTER 2016-10-14 08:23 | Day surgery (SDC) | payer MEDICARE, OTHER ==
[2016-10-10 11:27] VITALS: BMI 25.8
[~2016-10-14 08:23] MED LIST: LACTATED RINGERS 1,000 ML IV SCH
[2016-10-14 09:29] VITALS: TEMP 98
[2016-10-14] MEDS ORDERED: LIDOCAINE 1% INJ 10MG/ML (20 ML MDV) ONE (10:05)
[2016-10-14] MEDS ORDERED: PROPOFOL 10 MG/ML 20 ML VIAL IV ONE (10:05)
[2016-10-14] MEDS ORDERED: ePHEDrine 50 MG/ML 1 ML AMP ONE (10:05)
--- NOTE | 2016-10-14 10:16 | P.GSHP ---
History of Present Illness H&P Date: 10/14/16 Chief Complaint: Colitis This is a 86-year-old female who presents today for colonoscopy. Patient has had abdominal complaints. Her recent CAT scan shows possible colitis near her ileocolonic anastomosis. - Constitutional Constitutional: Reports as per HPI Past Medical History Past Medical History: Atrial Fibrillation, Coronary Artery Disease (CAD), Chest Pain / Angina, Hyperlipidemia, Hypertension, Thyroid Disorder Additional Past Medical History / Comment(s): Pt has IBS. 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 Bruising on skin. Cataract L eye. History of Any Multi-Drug Resistant Organisms: None Reported Past Surgical History: Appendectomy, Bowel Resection, Section, Heart Catheterization With Stent, Hernia Repair, Hysterectomy Additional Past Surgical History / Comment(s): Hx. of left breast biopsy, HEART CATH WITH STENT. RT FEMORAL endartrectomy,HEMATOMA REMOVAL, thyroidectomy Past Anesthesia/Blood Transfusion Reactions: No Reported Reaction Additional Past Anesthesia/Blood Transfusion Reaction / Comment(s): Pt has received blood recently, without reaction. Date of Last Stent Placement:: 08-17-14 Past Psychological History: No Psychological Hx Reported Additional Psychological History / Comment(s): Patient resides with her son and his spouse. Emigrated from the [facility] years ago. . 2 adult children and her daughter is at her side. retired. No recent travels. No animal exposures Smoking Status: Never smoker Past Alcohol Use History: None Reported Past Drug Use History: None Reported - Past Family History Son(s) Family Medical History: Hearing Disorder / Deafness Daughter(s) Family Medical History: Hearing Disorder / Deafness Father Family Medical History: Cancer Additional Family Medical History / Comment(s): Unknown Medications and Allergies Home Medications Medication Instructions Recorded Confirmed Type Atorvastatin [Lipitor] 20 mg PO HS 07/20/16 10/14/16 History Levothyroxine Sodium [Synthroid] 88 mcg PO DAILY 07/20/16 10/14/16 History Metoprolol Tartrate [Lopressor] 50 mg PO BID 07/20/16 10/14/16 History Aspirin 81 mg PO DAILY PRN 10/10/16 10/14/16 History Meclizine [Antivert] 25 mg PO TID PRN 10/10/16 10/14/16 History Allergies Allergy/AdvReac Type Severity Reaction Status Date / Time No Known Allergies Allergy Verified 10/10/16 11:06 Surgical - Exam Vital Signs Temp Pulse Resp BP Pulse Ox 98 F 94 16 152/80 99 10/14/16 09:18 10/14/16 09:18 10/14/16 09:18 10/14/16 09:18 10/14/16 09:18 - General well developed, no distress - Eyes PERRL - ENT normal pinna - Neck no masses - Respiratory normal expansion - Cardiovascular Rhythm: regular - Abdomen Abdomen: soft, non tender Assessment and Plan Plan: Colitis. We'll perform colonoscopy.
--- NOTE | 2016-10-14 10:37 | P.OP ---
Date of Procedure: 10/14/16 Preoperative Diagnosis: Colitis Postoperative Diagnosis: Sigmoid colon polyp Biopsy of colon next to ileocolonic anastomosis pathology pending Procedure(s) Performed: Colonoscopy Anesthesia: MAC Surgeon: Dex Butler Pathology: other (Polyp, transverse colon) Condition: stable Disposition: PACU Description of Procedure: The patient's placed on the endoscopy table in the lateral position. She received IV sedation. Digital rectal exam was performed which revealed no abnormalities. The flexible colonoscope was then placed patient anus passed throughout the entire colon. The ileocolonic anastomosis was visualized. The colon appeared to be minimal inflamed near the anastomosis. This area is biopsied. Scope was then withdrawn and the remainder of the transverse colon appeared normal. The descending colon appeared normal. The sigmoid colon was visualized and there was a small polyp seen this removed the forcep. The rectum appeared normal. The scope was withdrawn for patient.
[2016-10-14 11:00] VITALS: RESP 16
[2016-10-14 12:15] VITALS: BP 112/65; PULSE 87
== END 2016-10-14 12:38 | disposition home or self-care (01) ==
LOC: ORWHC2ENDO 08:23
PROVIDERS: ATTEND Surgery
DX: K62.1 Rectal polyp (principal); Z98.0 Intestinal bypass and anastomosis status; I25.119 Atherosclerotic heart disease of native coronary artery with unspecified angina pectoris; I10 Essential (primary) hypertension; I49.9 Cardiac arrhythmia, unspecified; I48.91 Unspecified atrial fibrillation; Z95.5 Presence of coronary angioplasty implant and graft; E78.5 Hyperlipidemia, unspecified; E07.9 Disorder of thyroid, unspecified; Z79.82 Long term (current) use of aspirin; Z79.899 Other long term (current) drug therapy
CPT/HCPCS: 88305; 45380; J2001; J2704

== ENCOUNTER → 2016-10-16 | Outpatient (CLI) | payer MEDICARE, OTHER ==
--- NOTE | 2016-10-17 08:27 | MM ---
Reason for exam: follow-up at short interval from prior study. Last mammogram was performed 6 months ago. History: Patient is postmenopausal and is nulliparous. Benign left breast needle localization of both breasts, October 20, 2012. Physical Findings: Nurse did not find any significant physical abnormalities on exam. MG 3D Diag Mammo W/Cad LT CC and MLO view(s) were taken of the left breast. Prior study comparison: April 16, 2016, bilateral MG 3d diag mammo w/cad CHAVO. July 22, 2013, CAD bilateral diagnostic mammogram. April 23, 2013, left diagnostic mammogram w/CAD. There are scattered fibroglandular densities. Finding #1: There is a stable architectural distortion in the lower quadrant of the left breast. Finding #2: There are typically benign vascular calcifications in the left breast. There is no discrete abnormality. These results were verbally communicated with the patient and result sheet given to the patient on 10/16/16. ASSESSMENT: Benign, BI-RAD 2 RECOMMENDATION: Routine screening mammogram of both breasts in 6 months. Back on schedule.
== END | disposition home or self-care (01) ==
LOC: RADMAMWWP 13:22
PROVIDERS: ATTEND Family Medicine
DX: R92.8 Other abnormal and inconclusive findings on diagnostic imaging of breast (principal)
CPT/HCPCS: G0206; G0279

== ENCOUNTER → 2016-10-17 | Outpatient (CLI) | payer MEDICARE, OTHER ==
[2016-10-17 16:51] LABS: ALT 25 U/L (9-52); AST 32 U/L (14-36); Alkaline Phosphatase 83 U/L (38-126); Anion Gap 11 mmol/L; Blood Urea Nitrogen 13 mg/dL (7-17); Calcium 8.9 mg/dL (8.4-10.2); Carbon Dioxide 25 mmol/L (22-30); Chloride 104 mmol/L (98-107); Glucose 92 mg/dL (74-99); Non-African American GFR(MDRD) >60 (>60 ml/min/1.73 sqM); Potassium 3.8 mmol/L (3.5-5.1); Sodium 140 mmol/L (137-145); Total Bilirubin 1.5 mg/dL (0.2-1.3); Total Protein 6.9 g/dL (6.3-8.2)
== END | disposition home or self-care (01) ==
LOC: LABWHC1 16:00
PROVIDERS: ATTEND Internal Medicine Interventional Cardiology
DX: I25.10 Atherosclerotic heart disease of native coronary artery without angina pectoris (principal)
CPT/HCPCS: 36415; 80053; 83880

== ENCOUNTER 2016-11-17 14:22 | Emergency (ER) | payer MEDICARE, OTHER ==
[2016-11-17] MEDS ORDERED: FUROSEMIDE 10 MG/ML 4 ML VIAL IV STA (15:05)
--- NOTE | 2016-11-17 15:10 | ED ---
General Adult HPI - General Chief complaint: Shortness of Breath Stated complaint: Swollen legs. Heart pt Time Seen by Provider: 11/17/16 14:45 Source: patient, RN notes reviewed Mode of arrival: wheelchair Limitations: no limitations - History of Present Illness Initial comments: This is an 86-year-old female who presents emergency Department with a past medical history significant for coronary artery disease which consists of having had stents in the past. Patient also has atrial fibrillation. Patient states over the last 3-4 weeks her legs becoming more swollen and she is becoming somewhat short of breath. Patient states position does not seem to make it worse or for. Patient states the main reason she came in today is because she dropped that her condition was worsening and so when she woke up she was anxious and came to the hospital. Patient denies any chest pain or palpitations. Patient denies any fever chills or cough. Patient denies any lightheadedness or dizziness. Patient denies any headache patient denies numbness weakness. Patient complains of bilateral leg swelling all into her thighs. - Related Data Home Medications Medication Instructions Recorded Confirmed Atorvastatin [Lipitor] 20 mg PO HS 07/20/16 11/17/16 Levothyroxine Sodium [Synthroid] 88 mcg PO DAILY 07/20/16 11/17/16 Metoprolol Tartrate [Lopressor] 50 mg PO BID 07/20/16 11/17/16 Meclizine [Antivert] 25 mg PO TID PRN 10/10/16 11/17/16 Atorvastatin [Lipitor] 20 mg PO HS 11/17/16 11/17/16 Ferrous Sulfate [Feosol] 325 mg PO DAILY 11/17/16 11/17/16 Furosemide [Lasix] 40 mg PO DAILY 11/17/16 11/17/16 Warfarin [Coumadin] 3 mg PO MOTUTHFRSA 11/17/16 11/17/16 Warfarin [Coumadin] 4.5 mg PO SUWE 11/17/16 11/17/16 Allergies Allergy/AdvReac Type Severity Reaction Status Date / Time No Known Allergies Allergy Verified 11/17/16 15:11 Review of Systems ROS Statement: Those systems with pertinent positive or pertinent negative responses have been documented in the HPI. ROS Other: All systems not noted in ROS Statement are negative. Past Medical History Past Medical History: Atrial Fibrillation, Coronary Artery Disease (CAD), Chest Pain / Angina, Heart Failure, Hyperlipidemia, Hypertension, Thyroid Disorder Additional Past Medical History / Comment(s): Pt has IBS. 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 Bruising on skin. Cataract L eye. History of Any Multi-Drug Resistant Organisms: None Reported Past Surgical History: Appendectomy, Bowel Resection, Section, Heart Catheterization With Stent, Hernia Repair, Hysterectomy Additional Past Surgical History / Comment(s): Hx. of left breast biopsy, HEART CATH WITH STENT. RT FEMORAL endartrectomy,HEMATOMA REMOVAL. Past Anesthesia/Blood Transfusion Reactions: No Reported Reaction Additional Past Anesthesia/Blood Transfusion Reaction / Comment(s): Pt has received blood recently, without reaction. Date of Last Stent Placement:: 08-17-14 Past Psychological History: No Psychological Hx Reported Smoking Status: Never smoker Past Alcohol Use History: None Reported Past Drug Use History: None Reported - Past Family History Son(s) Family Medical History: Hearing Disorder / Deafness Daughter(s) Family Medical History: Hearing Disorder / Deafness Father Family Medical History: Cancer Additional Family Medical History / Comment(s): Unknown General Exam - General Exam Comments Initial Comments: GENERAL: Patient is well-developed and well-nourished. Patient is nontoxic and well- hydrated and is in mild distress. ENT: Neck is soft and supple. No significant lymphadenopathy is noted. Oropharynx is clear. Moist mucous membranes. Neck has full range of motion without eliciting any pain. EYES: The sclera were anicteric and conjunctiva were pink and moist. Extraocular movements were intact and pupils were equal round and reactive to light. Eyelids were unremarkable. PULMONARY: Unlabored respirations. Good breath sounds bilaterally. Slight crackles in the bases bilaterally CARDIOVASCULAR: Patient has an irregular heartbeat. ABDOMEN: Soft and nontender with normal bowel sounds. No palpable organomegaly was noted. There is no palpable pulsatile mass. SKIN: Skin is clear with no lesions or rashes and otherwise unremarkable. NEUROLOGIC: Patient is alert and oriented x3. Cranial nerves II through XII are grossly intact. Motor and sensory are also intact. Normal speech, volume and content. Symmetrical smile. MUSCULOSKELETAL: Normal extremities with adequate strength and full range of motion. 2+ all the way up to her mid thigh LYMPHATICS: No significant lymphadenopathy is noted PSYCHIATRIC: Normal psychiatric evaluation. Normal interpersonal interactions appears functionally intact in deals appropriately with others. No signs of depression. No signs of anxiety. Limitations: no limitations Course Vital Signs 11/17/16 11/17/16 14:34 16:35 Temperature 97.5 F L 98.5 F Pulse Rate 82 80 Respiratory 20 18 Rate Blood Pressure 137/60 113/56 O2 Sat by Pulse 98 100 Oximetry Medical Decision Making - Medical Decision Making EKG shows atrial fibrillation at 90 bpm QRS is 122 QT interval 384 QTC is 474. Patient has a right bundle breanne LOC. I compared this EKG with old EKG and I see no acute changes. Chest x-ray shows no acute abnormality. Patient's lab work came back slightly improved in all areas. Patient was able to ambulate around the whole ER and her pulse ox after she was done was 97 and 98%. While back in to talk to the patient she stated that the main reason she came in was because of swelling in her legs and the shortness of breath occurred more in her dream that it didn't reality. - Lab Data Result diagrams: 11/17/16 15:07 11/17/16 15:07 Lab Results 11/17/16 11/17/16 11/17/16 Range/Units 15:07 15:07 15:07 WBC 6.2 (3.8-10.6) k/uL RBC 4.03 (3.80-5.40) m/uL Hgb 9.9 L (11.4-16.0) gm/dL Hct 31.1 L (34.0-46.0) % MCV 77.0 L D (80.0-100.0) fL MCH 24.6 L (25.0-35.0) pg MCHC 32.0 (31.0-37.0) g/dL RDW 17.8 H (11.5-15.5) % Plt Count 240 (150-450) k/uL Neutrophils % 58 % Lymphocytes % 28 % Monocytes % 9 % Eosinophils % 2 % Basophils % 0 % Neutrophils # 3.6 (1.3-7.7) k/uL Lymphocytes # 1.7 (1.0-4.8) k/uL Monocytes # 0.5 (0-1.0) k/uL Eosinophils # 0.1 (0-0.7) k/uL Basophils # 0.0 (0-0.2) k/uL Hypochromasia Marked Poikilocytosis Slight Anisocytosis Slight Microcytosis Slight PT (9.0-12.0) sec INR (<1.1) APTT (22.0-30.0) sec Sodium 139 (137-145) mmol/L Potassium 4.0 (3.5-5.1) mmol/L Chloride 99 (98-107) mmol/L Carbon Dioxide 30 (22-30) mmol/L Anion Gap 10 mmol/L BUN 24 H (7-17) mg/dL Creatinine 0.90 (0.52-1.04) mg/dL Est GFR (MDRD) Af Amer >60 (>60 ml/min/1.73 sqM) Est GFR (MDRD) Non-Af 59 (>60 ml/min/1.73 sqM) Glucose 106 H (74-99) mg/dL Calcium 8.7 (8.4-10.2) mg/dL Magnesium 2.1 (1.6-2.3) mg/dL Total Bilirubin 1.2 (0.2-1.3) mg/dL AST 47 H (14-36) U/L ALT 35 (9-52) U/L Alkaline Phosphatase 122 (38-126) U/L Total Creatine Kinase 37 (30-135) U/L CK-MB (CK-2) 0.8 (0.0-2.4) ng/mL CK-MB (CK-2) Rel Index 2.2 Troponin I <0.012 (0.000-0.034) ng/mL NT-Pro-B Natriuret Pep pg/mL Total Protein 6.8 (6.3-8.2) g/dL Albumin 3.6 (3.5-5.0) g/dL 11/17/16 11/17/16 Range/Units 15:07 15:07 WBC (3.8-10.6) k/uL RBC (3.80-5.40) m/uL Hgb (11.4-16.0) gm/dL Hct (34.0-46.0) % MCV (80.0-100.0) fL MCH (25.0-35.0) pg MCHC (31.0-37.0) g/dL RDW (11.5-15.5) % Plt Count (150-450) k/uL Neutrophils % % Lymphocytes % % Monocytes % % Eosinophils % % Basophils % % Neutrophils # (1.3-7.7) k/uL Lymphocytes # (1.0-4.8) k/uL Monocytes # (0-1.0) k/uL Eosinophils # (0-0.7) k/uL Basophils # (0-0.2) k/uL Hypochromasia Poikilocytosis Anisocytosis Microcytosis PT 29.8 H (9.0-12.0) sec INR 3.1 (<1.1) APTT 31.8 H (22.0-30.0) sec Sodium (137-145) mmol/L Potassium (3.5-5.1) mmol/L Chloride (98-107) mmol/L Carbon Dioxide (22-30) mmol/L Anion Gap mmol/L BUN (7-17) mg/dL Creatinine (0.52-1.04) mg/dL Est GFR (MDRD) Af Amer (>60 ml/min/1.73 sqM) Est GFR (MDRD) Non-Af (>60 ml/min/1.73 sqM) Glucose (74-99) mg/dL Calcium (8.4-10.2) mg/dL Magnesium (1.6-2.3) mg/dL Total Bilirubin (0.2-1.3) mg/dL AST (14-36) U/L ALT (9-52) U/L Alkaline Phosphatase (38-126) U/L Total Creatine Kinase (30-135) U/L CK-MB (CK-2) (0.0-2.4) ng/mL CK-MB (CK-2) Rel Index Troponin I (0.000-0.034) ng/mL NT-Pro-B Natriuret Pep 2040 pg/mL Total Protein (6.3-8.2) g/dL Albumin (3.5-5.0) g/dL Disposition Clinical Impression: Leg edema Disposition: HOME SELF-CARE Condition: Good Instructions: Leg Edema (ED) Additional Instructions: Patient should take 40 mg Lasix twice a day. Patient should keep her feet elevated above her heart when she is sitting or resting. Patient should wear compression stockings. Patient should also be on a low-sodium diet. Patient follow-up with her primary medical care doctor soon as possible. Patient to return to the emergency department if there are any new or worsening symptoms. Referrals: Jennyfer Cabello MD [Primary Care Provider] - 1-2 days Time of Disposition: 17:05
[2016-11-17 15:32] LABS: Anisocytosis Slight; Basophils % (A) 0 %; CH 24.1; CHCM 31.4; Eosinophils # (A) 0.1 k/uL (0-0.7); Eosinophils % (A) 2 %; HCT 31.1 % (34.0-46.0); HGB 9.9 gm/dL (11.4-16.0); Hypochromasia Marked; Luc # (Auto) 0.21; Luc % (Auto) 3; Lymphocytes # (A) 1.7 k/uL (1.0-4.8); Lymphocytes % (A) 28 %; MCH 24.6 pg (25.0-35.0); Mean Platelet Volume 6.8; Microcytosis Slight; Monocytes # (A) 0.5 k/uL (0-1.0); Monocytes % (A) 9 %; Neutrophils # (A) 3.6 k/uL (1.3-7.7); Neutrophils % (A) 58 %; Poikilocytosis Slight; RBC 4.03 m/uL (3.80-5.40); RDW 17.8 % (11.5-15.5); WBC 6.2 k/uL (3.8-10.6); WBC (Perox) 6.22
[2016-11-17 15:42] LABS: ALT 35 U/L (9-52); AST 47 U/L (14-36); Alkaline Phosphatase 122 U/L (38-126); Anion Gap 10 mmol/L; Blood Urea Nitrogen 24 mg/dL (7-17); Calcium 8.7 mg/dL (8.4-10.2); Carbon Dioxide 30 mmol/L (22-30); Chloride 99 mmol/L (98-107); Glucose 106 mg/dL (74-99); Magnesium 2.1 mg/dL (1.6-2.3); Non-African American GFR(MDRD) 59 (>60 ml/min/1.73 sqM); Sodium 139 mmol/L (137-145); Total Bilirubin 1.2 mg/dL (0.2-1.3); Total Protein 6.8 g/dL (6.3-8.2)
--- NOTE | 2016-11-17 15:49 | XR ---
EXAMINATION TYPE: XR chest 2V DATE OF EXAM: 11/17/2016 COMPARISON: 08/10/2016 INDICATION: Difficulty breathing short of breath TECHNIQUE: Frontal and lateral views of the chest are obtained. FINDINGS: The heart size is enlarged. The pulmonary vasculature is normal. The lungs are clear. IMPRESSION: 1. Cardiomegaly. 2. Previous right pleural effusion has resolved.
[2016-11-17 15:50] LABS: INR 3.1 (<1.1); Partial Thromboplastin Time 31.8 sec (22.0-30.0); Prothrombin Time 29.8 sec (9.0-12.0)
[2016-11-17 16:03] LABS: Creatine Kinase 37 U/L (30-135)
[2016-11-17 16:16] LABS: Troponin I <0.012 ng/mL (0.000-0.034)
[2016-11-17 16:30] LABS: Creatine Kinase MB 0.8 ng/mL (0.0-2.4)
[2016-11-17 16:36] VITALS: BP 113/56; PULSE 80; RESP 18; TEMP 98.5
== END 2016-11-17 17:08 | disposition home or self-care (01) ==
LOC: EC 14:22
DX: R60.0 Localized edema (principal); R06.02 Shortness of breath; I45.10 Unspecified right bundle-branch block; I48.91 Unspecified atrial fibrillation; I25.10 Atherosclerotic heart disease of native coronary artery without angina pectoris; I11.0 Hypertensive heart disease with heart failure; I50.9 Heart failure, unspecified; F41.9 Anxiety disorder, unspecified; E78.5 Hyperlipidemia, unspecified; E07.9 Disorder of thyroid, unspecified; Z95.5 Presence of coronary angioplasty implant and graft; Z79.01 Long term (current) use of anticoagulants; Z79.899 Other long term (current) drug therapy
CPT/HCPCS: 99285; 96374; 36415; 93005; 83880; 80053; 82550; 82553; 83735; 84484; 85025; 85610; 85730; 71020; J1940

== ENCOUNTER 2016-11-30 22:42 | Inpatient (IN) | payer MEDICARE, OTHER ==
[2016-11-30 23:41] LABS: Anisocytosis Moderate; Basophils % (A) 1 %; CH 25.2; CHCM 32.4; Eosinophils # (A) 0.1 k/uL (0-0.7); Eosinophils % (A) 1 %; HCT 32.3 % (34.0-46.0); HDW 3.05; HGB 10.4 gm/dL (11.4-16.0); Luc # (Auto) 0.25; Luc % (Auto) 4; Lymphocytes % (A) 31 %; MCH 25.1 pg (25.0-35.0); MCHC 32.2 g/dL (31.0-37.0); MCV 78.1 fL (80.0-100.0); Mean Platelet Volume 7.7; Microcytosis Moderate; Monocytes # (A) 0.7 k/uL (0-1.0); Monocytes % (A) 11 %; Neutrophils # (A) 3.4 k/uL (1.3-7.7); Neutrophils % (A) 53 %; RBC 4.14 m/uL (3.80-5.40); WBC 6.4 k/uL (3.8-10.6); WBC (Perox) 6.57
[2016-11-30 23:50] LABS: ALT 33 U/L (9-52); AST 43 U/L (14-36); Alkaline Phosphatase 142 U/L (38-126); Blood Urea Nitrogen 35 mg/dL (7-17); Calcium 9.3 mg/dL (8.4-10.2); Chloride 83 mmol/L (98-107); Glucose 92 mg/dL (74-99); Magnesium 1.9 mg/dL (1.6-2.3); Non-African American GFR(MDRD) 59 (>60 ml/min/1.73 sqM); Sodium 136 mmol/L (137-145); Total Bilirubin 1.5 mg/dL (0.2-1.3); Total Protein 7.1 g/dL (6.3-8.2)
[2016-11-30 23:56] LABS: Anion Gap 14 mmol/L; Carbon Dioxide 39 mmol/L (22-30)
--- NOTE | 2016-11-30 23:57 | ED ---
General Adult HPI - General Chief complaint: Chest Pain Stated complaint: Chest Pain/SOB Time Seen by Provider: 11/30/16 23:26 Source: patient, RN notes reviewed, old records reviewed Mode of arrival: wheelchair Limitations: language barrier - History of Present Illness Initial comments: THis is an 86 female in the ER for evaluation. Patient has 2 separate complaints are related. Patient has chest pain and also had an episode earlier today where she was unable to speak. Patient slurred speech and the fascia was talking to at that time could not understand her. This was about 6 hours prior to arrival. Patient has not had symptoms since the symptoms lasted for about 10 -15 minutes. Patient denies neurological complaints or deficit at This time although she is complaining of chest pain. Patient has what feels like a flat chest or heaviness on her chest. No shortness of breath no diaphoresis. No recent cough or congestion, patient was otherwise doing fine today. Patient does have history of heart disease, no prior history of CVA - Related Data Home Medications Medication Instructions Recorded Confirmed Atorvastatin [Lipitor] 20 mg PO HS 07/20/16 11/17/16 Levothyroxine Sodium [Synthroid] 88 mcg PO DAILY 07/20/16 11/17/16 Metoprolol Tartrate [Lopressor] 50 mg PO BID 07/20/16 11/17/16 Meclizine [Antivert] 25 mg PO TID PRN 10/10/16 11/17/16 Atorvastatin [Lipitor] 20 mg PO HS 11/17/16 11/17/16 Ferrous Sulfate [Feosol] 325 mg PO DAILY 11/17/16 11/17/16 Furosemide [Lasix] 40 mg PO DAILY 11/17/16 11/17/16 Warfarin [Coumadin] 3 mg PO MOTUTHFRSA 11/17/16 11/17/16 Warfarin [Coumadin] 4.5 mg PO SUWE 11/17/16 11/17/16 Allergies Allergy/AdvReac Type Severity Reaction Status Date / Time No Known Allergies Allergy Verified 11/17/16 15:11 Review of Systems ROS Statement: Those systems with pertinent positive or pertinent negative responses have been documented in the HPI. ROS Other: All systems not noted in ROS Statement are negative. Past Medical History Past Medical History: Atrial Fibrillation, Coronary Artery Disease (CAD), Chest Pain / Angina, Heart Failure, Hyperlipidemia, Hypertension, Thyroid Disorder Additional Past Medical History / Comment(s): Pt has IBS. 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 Bruising on skin. Cataract L eye. History of Any Multi-Drug Resistant Organisms: None Reported Past Surgical History: Appendectomy, Bowel Resection, Section, Heart Catheterization With Stent, Hernia Repair, Hysterectomy Additional Past Surgical History / Comment(s): Hx. of left breast biopsy, HEART CATH WITH STENT. RT FEMORAL endartrectomy,HEMATOMA REMOVAL. Past Anesthesia/Blood Transfusion Reactions: No Reported Reaction Additional Past Anesthesia/Blood Transfusion Reaction / Comment(s): Pt has received blood recently, without reaction. Date of Last Stent Placement:: 08-17-14 Past Psychological History: No Psychological Hx Reported Smoking Status: Never smoker Past Alcohol Use History: None Reported Past Drug Use History: None Reported - Past Family History Son(s) Family Medical History: Hearing Disorder / Deafness Daughter(s) Family Medical History: Hearing Disorder / Deafness Father Family Medical History: Cancer Additional Family Medical History / Comment(s): Unknown General Exam - General Exam Comments Initial Comments: NIH of 0 Limitations: language barrier General appearance: alert, in no apparent distress Head exam: Present: atraumatic, normocephalic, normal inspection Eye exam: Present: normal appearance, PERRL, EOMI. Absent: scleral icterus, conjunctival injection, periorbital swelling ENT exam: Present: normal exam, mucous membranes moist Neck exam: Present: normal inspection. Absent: tenderness, meningismus, lymphadenopathy Respiratory exam: Present: normal lung sounds bilaterally. Absent: respiratory distress, wheezes, rales, rhonchi, stridor Cardiovascular Exam: Present: regular rate, normal rhythm, normal heart sounds. Absent: systolic murmur, diastolic murmur, rubs, gallop, clicks GI/Abdominal exam: Present: soft, normal bowel sounds. Absent: distended, tenderness, guarding, rebound, rigid Extremities exam: Present: normal inspection, full ROM, normal capillary refill. Absent: tenderness, pedal edema, joint swelling, calf tenderness Back exam: Present: normal inspection Neurological exam: Present: alert, oriented X3, CN II-XII intact Psychiatric exam: Present: normal affect, normal mood Skin exam: Present: warm, dry, intact, normal color. Absent: rash Course Vital Signs 11/30/16 23:00 Temperature 98.7 F Pulse Rate 70 Respiratory 18 Rate Blood Pressure 138/65 O2 Sat by Pulse 98 Oximetry - Reevaluation(s) Reevaluation #1: 12/01/16 00:28 Patient is without neurological deficit at this time will she still complains of anterior chest pain, no significant shortness of breath. EKG Findings - EKG Comments: EKG Findings:: EKG shows A. fib rate of 69, QRS 142, QTc 522 Medical Decision Making - Medical Decision Making 86 female in the ER for evaluation. Patient has history of heart disease, CAD Patient has 2 separate complaints are related. Patient has chest pain and also had an episode earlier today where she was unable to speak. Patient slurred speech and the fascia was talking to at that time could not understand her. Patient without neurological deficit at this time, and a 20, PTT is negative. Patient continued with chest pain. We will hold anticoagulation secondary to documented chest pain with neurological symptoms earlier in the day. Patient again with her history of CAD, will admit for evaluation by cardiology and neurology, continue neuro checks and rechecking of troponin. - Lab Data Result diagrams: 11/30/16 23:02 11/30/16 23:02 Lab Results 11/30/16 11/30/16 11/30/16 Range/Units 23:02 23:02 23:02 WBC 6.4 (3.8-10.6) k/uL RBC 4.14 (3.80-5.40) m/uL Hgb 10.4 L (11.4-16.0) gm/dL Hct 32.3 L (34.0-46.0) % MCV 78.1 L (80.0-100.0) fL MCH 25.1 (25.0-35.0) pg MCHC 32.2 (31.0-37.0) g/dL RDW 23.0 H (11.5-15.5) % Plt Count 239 (150-450) k/uL Neutrophils % 53 % Lymphocytes % 31 % Monocytes % 11 % Eosinophils % 1 % Basophils % 1 % Neutrophils # 3.4 (1.3-7.7) k/uL Lymphocytes # 2.0 (1.0-4.8) k/uL Monocytes # 0.7 (0-1.0) k/uL Eosinophils # 0.1 (0-0.7) k/uL Basophils # 0.0 (0-0.2) k/uL Anisocytosis Moderate Microcytosis Moderate PT (9.0-12.0) sec INR (<1.1) APTT (22.0-30.0) sec Sodium 136 L (137-145) mmol/L Potassium 2.9 L* (3.5-5.1) mmol/L Chloride 83 L (98-107) mmol/L Carbon Dioxide 39 H (22-30) mmol/L Anion Gap 14 mmol/L BUN 35 H (7-17) mg/dL Creatinine 0.90 (0.52-1.04) mg/dL Est GFR (MDRD) Af Amer >60 (>60 ml/min/1.73 sqM) Est GFR (MDRD) Non-Af 59 (>60 ml/min/1.73 sqM) Glucose 92 (74-99) mg/dL Calcium 9.3 (8.4-10.2) mg/dL Magnesium 1.9 (1.6-2.3) mg/dL Total Bilirubin 1.5 H (0.2-1.3) mg/dL AST 43 H (14-36) U/L ALT 33 (9-52) U/L Alkaline Phosphatase 142 H (38-126) U/L Total Creatine Kinase 38 (30-135) U/L CK-MB (CK-2) 0.6 (0.0-2.4) ng/mL CK-MB (CK-2) Rel Index 1.6 Troponin I 0.013 (0.000-0.034) ng/mL NT-Pro-B Natriuret Pep pg/mL Total Protein 7.1 (6.3-8.2) g/dL Albumin 3.9 (3.5-5.0) g/dL Lipase 263 (23-300) U/L 11/30/16 11/30/16 Range/Units 23:02 23:02 WBC (3.8-10.6) k/uL RBC (3.80-5.40) m/uL Hgb (11.4-16.0) gm/dL Hct (34.0-46.0) % MCV (80.0-100.0) fL MCH (25.0-35.0) pg MCHC (31.0-37.0) g/dL RDW (11.5-15.5) % Plt Count (150-450) k/uL Neutrophils % % Lymphocytes % % Monocytes % % Eosinophils % % Basophils % % Neutrophils # (1.3-7.7) k/uL Lymphocytes # (1.0-4.8) k/uL Monocytes # (0-1.0) k/uL Eosinophils # (0-0.7) k/uL Basophils # (0-0.2) k/uL Anisocytosis Microcytosis PT 19.5 H (9.0-12.0) sec INR 2.0 (<1.1) APTT 30.3 H (22.0-30.0) sec Sodium (137-145) mmol/L Potassium (3.5-5.1) mmol/L Chloride (98-107) mmol/L Carbon Dioxide (22-30) mmol/L Anion Gap mmol/L BUN (7-17) mg/dL Creatinine (0.52-1.04) mg/dL Est GFR (MDRD) Af Amer (>60 ml/min/1.73 sqM) Est GFR (MDRD) Non-Af (>60 ml/min/1.73 sqM) Glucose (74-99) mg/dL Calcium (8.4-10.2) mg/dL Magnesium (1.6-2.3) mg/dL Total Bilirubin (0.2-1.3) mg/dL AST (14-36) U/L ALT (9-52) U/L Alkaline Phosphatase (38-126) U/L Total Creatine Kinase (30-135) U/L CK-MB (CK-2) (0.0-2.4) ng/mL CK-MB (CK-2) Rel Index Troponin I (0.000-0.034) ng/mL NT-Pro-B Natriuret Pep 1780 pg/mL Total Protein (6.3-8.2) g/dL Albumin (3.5-5.0) g/dL Lipase (23-300) U/L - Radiology Data Radiology results: report reviewed (Chest x-ray negative for acute disease, CT brain negative for acute disease), image reviewed Critical Care Time Critical Care Time: Yes Total Critical Care Time: 31 Disposition Clinical Impression: Chest pain, CAD (coronary artery disease), TIA (transient ischemic attack), Hypokalemia Disposition: ADMITTED IP TO THIS HOSP Condition: Fair Referrals: Jennyfer Cabello MD [Primary Care Provider] - 1-2 days
[2016-11-30 23:58] LABS: Partial Thromboplastin Time 30.3 sec (22.0-30.0); Prothrombin Time 19.5 sec (9.0-12.0)
[2016-11-30 23:59] LABS: Potassium 2.9 mmol/L (3.5-5.1)
[2016-12-01 00:15] LABS: Creatine Kinase MB 0.6 ng/mL (0.0-2.4); Troponin I 0.013 ng/mL (0.000-0.034)
[2016-12-01] MEDS ORDERED: POTASSIUM BICARB-CITRIC ACID 25 MEQ TABLET.EFF PO STA (00:23)
[2016-12-01] MEDS ORDERED: ASPIRIN 325 MG TAB PO STA (00:24)
--- NOTE | 2016-12-01 00:28 | XR ---
INDICATION: Chest pain COMPARISON: CXR 11/17/16. FINDINGS: AP and lateral views of the chest are obtained. There is stable cardiomegaly and thoracic aortic atherosclerosis. Pulmonary vascularity is normal. No airspace consolidation, pleural effusion, or pneumothorax. Osteopenia without evidence of acute osseous abnormality. IMPRESSION: Stable cardiomegaly. No radiographic evidence of acute cardiopulmonary disease.
--- NOTE | 2016-12-01 00:45 | CT ---
INDICATION: Headache TECHNIQUE: Noncontrast CT acquisition is performed through the brain from the posterior fossa to the cranial vault. Coronal and sagittal reformatted images are provided. DOSE INFORMATION: CTDIvol 57.40 mGy; DLP 978.20 mGy-cm. One or more of the following dose reduction techniques were used: automated exposure control, adjustment of the mA and/or kV according to patient size, use of iterative reconstruction technique. COMPARISON: CT head 07/21/16. FINDINGS: There is no evidence of acute intracranial hemorrhage or abnormal extra-axial fluid collection. There is no mass effect or midline shift. There are involutional changes with prominence of the sulci and basal cisterns, similar to prior exam. Minimal cerebral white matter hypoattenuation is also unchanged, likely chronic small vessel ischemic disease. The shafer-white matter differentiation appears preserved. No evidence of skull fracture. Ethmoid air cell mucosal thickening. Clear mastoid air cells. IMPRESSION: 1. No CT evidence of acute intracranial process.
[2016-12-01] MEDS: SODIUM CHLORIDE 0.9% 1,000 ML IV SCH ×3 (02:10→21:24)
[2016-12-01] MEDS: POTASSIUM CHLORIDE 20 MEQ, LIDOCAINE 2% INJ 20 MG in SODIUM CHLORIDE 0.9% 100 ML IVPB SCH ×3 (02:12→07:24)
[2016-12-01 03:08] VITALS: BMI 27.8
--- NOTE | 2016-12-01 10:11 | US ---
EXAMINATION TYPE: US carotid duplex BILAT DATE OF EXAM: 12/01/2016 COMPARISON: 07/20/2014 CLINICAL HISTORY: Stenosis. Speech impairment, no hx if TIA EXAM MEASUREMENTS: RIGHT: Peak Systolic Velocity (PSV) cm/sec ----- Right CCA: 60.1 ----- Right ICA: 109.9 ----- Right ECA: 69.7 ICA/CCA ratio: 1.8 RIGHT: End Diastole cm/sec ----- Right CCA: 15.6 ----- Right ICA: 36.1 ----- Right ECA: 0.0 LEFT: Peak Systolic Velocity (PSV) cm/sec ----- Left CCA: 67.1 ----- Left ICA: 83.4 ----- Left ECA: 64.5 ICA/CCA ratio: 1.2 LEFT: End Diastole cm/sec ----- Left CCA: 16.5 ----- Left ICA: 25.2 ----- Left ECA: 6.9 VERTEBRALS (direction of flow): Right Vertebral: Antegrade Left Vertebral: Antegrade Bilateral wall thickening. Plaque seen in bilateral bulbs and in Right CCA. No elevated velocities o r significant stenosis. Atheromatous plaquing is present within the right carotid bulb. Some mild turbulent flow is within th e internal carotid artery on the right. Atheromatous plaque is within the left carotid bulb. Some tur dominique flow within the distal left internal carotid artery is present. Previous elevated velocities are not evident on the current exam. IMPRESSION: 1. Atheromatous plaquing without evidence of significant flow-limiting stenosis. 2. Velocities are diminished from the comparison study 2014 Criteria for Assigning % of Stenosis / Diameter reduction (Estimation based on the indirect measurements of the internal carotid artery velocities (ICA PSV). 1. Normal (no stenosis)=ICA PSV < 125 cm/s: ratio < 2.0: ICA EDV<40 cm/s. 2. Less than 50% stenosis=ICA PSV < 125 cm/s: ratio < 2.0: ICA EDV<40 cm/s. 3. 50 to 69% stenosis=ICA PSV of 125 to 230 cm/s: ration 2.0 ? 4.0: ICA EDV 40-100 cm/s. 4. Greater than 70% stenosis to near occlusion= ICA PSV > 230 cm/s: ratio > 4.0: ICA EDV > 100 cm/s. 5. Near occlusion= ICA PSV velocities may be low or undetectable: variable ratio and ICA EDV. 6. Total occlusion=unable to detect flow.
[2016-12-01 10:27] LABS: Anisocytosis Moderate; Basophils % (A) 1 %; CH 24.8; Eosinophils # (A) 0.1 k/uL (0-0.7); Eosinophils % (A) 2 %; HCT 32.1 % (34.0-46.0); HDW 2.94; HGB 10.1 gm/dL (11.4-16.0); Hypochromasia Moderate; Luc # (Auto) 0.11; Luc % (Auto) 2; Lymphocytes # (A) 1.5 k/uL (1.0-4.8); Lymphocytes % (A) 32 %; MCH 25.4 pg (25.0-35.0); MCHC 31.5 g/dL (31.0-37.0); MCV 80.5 fL (80.0-100.0); Mean Platelet Volume 8.4; Microcytosis Slight; Monocytes # (A) 0.5 k/uL (0-1.0); Monocytes % (A) 11 %; Neutrophils # (A) 2.5 k/uL (1.3-7.7); Neutrophils % (A) 52 %; RBC 3.98 m/uL (3.80-5.40); RDW 22.9 % (11.5-15.5); WBC 4.8 k/uL (3.8-10.6); WBC (Perox) 4.91
--- NOTE | 2016-12-01 10:31 | P.HPIM ---
History of Present Illness H&P Date: 12/01/16 Chief Complaint: Chest pain and slurred speech Patient is an 86-year-old female, who presented to [facility] emergency room with 2 separate complaints. Patient was having episodes of chest pain, she states that she has been having those episodes on and off for several weeks, however on the day of admission she was having a more severe episode of chest pain. Separately she had an episode of slurred speech where she was trying to talk, however words were not coming out and people were not able to understand her. This lasted about 15 minutes, she was brought in to [facility] emergency room by her son, she was evaluated in the emergency room and admitted to telemetry floor for further evaluation and treatment. Computed tomography scan of the brain without consult on presentation was negative. First troponin was 0.013 EKG did not reveal any acute ischemic changes. Past Medical History Past Medical History: Atrial Fibrillation, Coronary Artery Disease (CAD), Chest Pain / Angina, Heart Failure, Hyperlipidemia, Hypertension, Thyroid Disorder Additional Past Medical History / Comment(s): Pt has IBS. 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 Bruising on skin. Cataract L eye. History of Any Multi-Drug Resistant Organisms: None Reported Past Surgical History: Appendectomy, Bowel Resection, Section, Heart Catheterization With Stent, Hernia Repair, Hysterectomy Additional Past Surgical History / Comment(s): Hx. of left breast biopsy, HEART CATH WITH STENT. RT FEMORAL endartrectomy,HEMATOMA REMOVAL. Past Anesthesia/Blood Transfusion Reactions: No Reported Reaction Additional Past Anesthesia/Blood Transfusion Reaction / Comment(s): Pt has received blood recently, without reaction. Date of Last Stent Placement:: 08-17-14 Past Psychological History: No Psychological Hx Reported Additional Psychological History / Comment(s): Patient resides with her son and his spouse. Emigrated from the [place] 50 years ago. . 2 adult children and her daughter is at her side. No tobacco use. retired. No recent travels. No animal exposures Smoking Status: Never smoker Past Alcohol Use History: None Reported Past Drug Use History: None Reported - Past Family History Son(s) Family Medical History: Hearing Disorder / Deafness Daughter(s) Family Medical History: Hearing Disorder / Deafness Father Family Medical History: Cancer Additional Family Medical History / Comment(s): Unknown Medications and Allergies Home Medications Medication Instructions Recorded Confirmed Type Atorvastatin [Lipitor] 20 mg PO HS 07/20/16 12/01/16 History Levothyroxine Sodium [Synthroid] 88 mcg PO DAILY 07/20/16 12/01/16 History Metoprolol Tartrate [Lopressor] 50 mg PO BID 07/20/16 12/01/16 History Meclizine [Antivert] 25 mg PO TID PRN 10/10/16 12/01/16 History Atorvastatin [Lipitor] 20 mg PO HS 11/17/16 12/01/16 History Ferrous Sulfate [Feosol] 325 mg PO DAILY 11/17/16 12/01/16 History Furosemide [Lasix] 40 mg PO DAILY 11/17/16 12/01/16 History Warfarin [Coumadin] 3 mg PO MOTUTHFRSA 11/17/16 12/01/16 History Warfarin [Coumadin] 4.5 mg PO SUWE 11/17/16 12/01/16 History Allergies Allergy/AdvReac Type Severity Reaction Status Date / Time No Known Allergies Allergy Verified 11/17/16 15:11 Physical Exam Vitals: Vital Signs Temp Pulse Pulse Resp BP BP Pulse Ox 12/01/16 07:46 97 F L 76 16 95/62 98 12/01/16 04:00 97.4 F L 80 16 104/64 98 12/01/16 02:13 97.6 F 73 16 109/72 100 12/01/16 01:34 97.4 F L 80 16 104/64 98 11/30/16 23:00 98.7 F 70 18 138/65 98 Intake and Output 11/30/16 12/01/16 12/01/16 22:59 06:59 14:59 Intake Total 550 Output Total 400 Balance 150 Intake: IV 550 Potassium Chloride 20 meq 200 Lidocaine 2% Inj 20 mg In Sodium Chloride 0.9% 100 ml @ 55.5 mls/hr IVPB Q2H MEGHNA Rx#:[id number] Sodium Chloride 0.9% 1, 350 000 ml @ 100 mls/hr IV . Q10H MEGHNA Rx#:[id number] Output: Urine 400 Other: Voiding Method Toilet Toilet # Voids 1 Weight 78.4 kg In general patient is alert and oriented 3 in no apparent distress HEENT head normocephalic and atraumatic Neck is supple no JVD no goiter no lymphadenopathy Chest exam reveals a few scattered crackles in both bases no wheezing Cardiac exam reveals regular heart sounds no gallops no murmurs Abdomen is soft nontender no organomegaly with normal bowel sounds Extremity exam reveals no edema no cyanosis or clubbing Results CBC & Chem 7: 11/30/16 23:02 11/30/16 23:02 Labs: Abnormal Lab Results - Last 24 Hours (Table) 11/30/16 11/30/16 11/30/16 Range/Units 23:02 23:02 23:02 Hgb 10.4 L (11.4-16.0) gm/dL Hct 32.3 L (34.0-46.0) % MCV 78.1 L (80.0-100.0) fL RDW 23.0 H (11.5-15.5) % PT 19.5 H (9.0-12.0) sec APTT 30.3 H (22.0-30.0) sec Sodium 136 L (137-145) mmol/L Potassium 2.9 L* (3.5-5.1) mmol/L Chloride 83 L (98-107) mmol/L Carbon Dioxide 39 H (22-30) mmol/L BUN 35 H (7-17) mg/dL Total Bilirubin 1.5 H (0.2-1.3) mg/dL AST 43 H (14-36) U/L Alkaline Phosphatase 142 H (38-126) U/L Thrombosis Risk Factor Assmnt - Choose All That Apply Any of the Below Risk Factors Present?: No Other Risk Factors: Yes Each Risk Factor Represents 3 Points: Age 75 years or older Thrombosis Risk Factor Assessment Total Risk Factor Score: 3 Thrombosis Risk Factor Assessment Level: Moderate Risk Assessment and Plan Plan: #1 episode of chest pain, troponin 0.013 and 0.018 EKG revealing atrial fibrillation with T-wave abnormality in the lateral leads, cardiology consultation was requested #2 episode of slurred speech computed tomography scan of the brain is negative, neurology consultation is requested #3 underlying history of atrial fibrillation maintained on Coumadin INR therapeutic at 2 on presentation will continue with Coumadin #4 will check echocardiogram and carotid Doppler #5 for GI prophylaxis Will use Protonix for DVT prophylaxis patient is on Coumadin Awaiting testing results, and cardiology and neurology input will follow in a.m.
[2016-12-01] MEDS ORDERED: MECLIZINE 25 MG TAB PO PRN (10:32)
[2016-12-01 10:38] LABS: ALT 26 U/L (9-52); AST 34 U/L (14-36); Alkaline Phosphatase 126 U/L (38-126); Anion Gap 12 mmol/L; Blood Urea Nitrogen 32 mg/dL (7-17); Calcium 8.9 mg/dL (8.4-10.2); Chloride 85 mmol/L (98-107); Glucose 94 mg/dL (74-99); Non-African American GFR(MDRD) >60 (>60 ml/min/1.73 sqM); Potassium 3.1 mmol/L (3.5-5.1); Sodium 137 mmol/L (137-145); Total Bilirubin 1.7 mg/dL (0.2-1.3); Total Protein 6.6 g/dL (6.3-8.2)
[2016-12-01 10:52] LABS: Carbon Dioxide 40 mmol/L (22-30)
[2016-12-01] MEDS ORDERED: Potassium Replacement Protocol 1 EACH MISC MISCELLANE PRN ×2 (10:54→15:31)
[2016-12-01 11:19] LABS: INR 2.1 (<1.1); Prothrombin Time 20.1 sec (9.0-12.0)
[2016-12-01] MEDS: METOPROLOL TARTRATE 50 MG TAB PO SCH ×2 (11:33→21:24)
[2016-12-01] MEDS: FUROSEMIDE 40 MG TAB PO SCH (11:33)
[2016-12-01] MEDS: LEVOTHYROXINE 88 MCG TAB PO SCH (11:33)
[2016-12-01] MEDS: POTASSIUM CHLORIDE ER 20 MEQ TAB.ER PO SCH ×2 (11:36→12:12)
--- NOTE | 2016-12-01 12:14 | P.CNNES ---
History of Present Illness Consult date: 12/01/16 Reason for Consult: Patient admitted with possible TIA. History of Present Illness: This patient is a 86-year-old right-handed white female who was in her usual state of health until yesterday. Patient states that she was talking on the telephone with several of her friends who noticed that her speech was just not normal. Apparently she was slurring her words and had some degree of speech arrest. The episode lasted at least 15-20 minutes in duration and slowly seem to improve. The patient also was complaining of chest heaviness and chest pain. For these reasons the son decided to bring her to the emergency room at [facility] for further evaluation. She was seen in the ER by Dr. Cesar yesterday evening. She was sent for a computed tomography scan of the brain which revealed no evidence of acute stroke or hemorrhage. She does have a history of chronic atrial fibrillation. She has been taking Coumadin at home on a regular basis. Her INR yesterday was 2.0. The patient states that she has had difficulty with speech problems previously a few years ago. Her chest pain has improved and resolved today. We are waiting further evaluation from cardiology. Patient states that during this episode she felt some heaviness in the chest and abdominal area. Apparently she could not catch her breath. This may have been related to the cardiac findings at the time. We're waiting further evaluation from cardiology today. The patient states she is now back to her baseline. She has had no further episodes of speech impairment. Her repeat INR today is 2.1. Neurology is now been consulted for further evaluation and recommendations. Review of Systems Constitutional: Denies chills, Denies fever Eyes: denies blurred vision, denies pain Ears, nose, mouth and throat: Denies headache, Denies sore throat Cardiovascular: Denies chest pain, Denies shortness of breath Respiratory: Denies cough Gastrointestinal: Denies abdominal pain, Denies diarrhea, Denies nausea, Denies vomiting Genitourinary: Denies dysuria, Denies hematuria Musculoskeletal: Denies myalgias Integumentary: Denies pruritus, Denies rash Neurological: Reports aphasia, Reports change in speech, Denies numbness, Denies weakness Psychiatric: Denies anxiety, Denies depression Endocrine: Denies fatigue, Denies weight change Past Medical History Past Medical History: Atrial Fibrillation, Coronary Artery Disease (CAD), Chest Pain / Angina, Heart Failure, Hyperlipidemia, Hypertension, Thyroid Disorder Additional Past Medical History / Comment(s): Pt has IBS. 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 Bruising on skin. Cataract L eye. History of Any Multi-Drug Resistant Organisms: None Reported Past Surgical History: Appendectomy, Bowel Resection, Section, Heart Catheterization With Stent, Hernia Repair, Hysterectomy Additional Past Surgical History / Comment(s): Hx. of left breast biopsy, HEART CATH WITH STENT. RT FEMORAL endartrectomy,HEMATOMA REMOVAL. Past Anesthesia/Blood Transfusion Reactions: No Reported Reaction Additional Past Anesthesia/Blood Transfusion Reaction / Comment(s): Pt has received blood recently, without reaction. Date of Last Stent Placement:: 08-17-14 Past Psychological History: No Psychological Hx Reported Additional Psychological History / Comment(s): Patient resides with her son and his spouse. Emigrated from the [facility] 50 years ago. . 2 adult children and her daughter is at her side. No tobacco use. retired. No recent travels. No animal exposures Smoking Status: Never smoker Past Alcohol Use History: None Reported Past Drug Use History: None Reported - Past Family History Son(s) Family Medical History: Hearing Disorder / Deafness Daughter(s) Family Medical History: Hearing Disorder / Deafness Father Family Medical History: Cancer Additional Family Medical History / Comment(s): Unknown Medications and Allergies Home Medications Medication Instructions Recorded Confirmed Type Levothyroxine Sodium [Synthroid] 88 mcg PO DAILY 07/20/16 12/01/16 History Metoprolol Tartrate [Lopressor] 50 mg PO BID 07/20/16 12/01/16 History Meclizine [Antivert] 25 mg PO TID PRN 10/10/16 12/01/16 History Atorvastatin [Lipitor] 20 mg PO HS 11/17/16 12/01/16 History Ferrous Sulfate [Feosol] 325 mg PO DAILY 11/17/16 12/01/16 History Furosemide [Lasix] 40 mg PO DAILY 11/17/16 12/01/16 History Warfarin [Coumadin] 3 mg PO MOTUTHFRSA 11/17/16 12/01/16 History Warfarin [Coumadin] 4.5 mg PO SUWE 11/17/16 12/01/16 History Allergies Allergy/AdvReac Type Severity Reaction Status Date / Time No Known Allergies Allergy Verified 12/01/16 11:19 Physical Examination - Vital Signs Vital Signs: Vital Signs Temp Pulse Pulse Resp BP BP Pulse Ox 12/01/16 07:46 97 F L 76 16 95/62 98 12/01/16 04:00 97.4 F L 80 16 104/64 98 12/01/16 02:13 97.6 F 73 16 109/72 100 12/01/16 01:34 97.4 F L 80 16 104/64 98 11/30/16 23:00 98.7 F 70 18 138/65 98 Intake and Output 11/30/16 12/01/16 12/01/16 22:59 06:59 14:59 Intake Total 550 Output Total 400 Balance 150 Intake: IV 550 Potassium Chloride 20 meq 200 Lidocaine 2% Inj 20 mg In Sodium Chloride 0.9% 100 ml @ 55.5 mls/hr IVPB Q2H [facility] Rx#:[id number] Sodium Chloride 0.9% 1, 350 000 ml @ 100 mls/hr IV . Q10H [facility] Rx#:[id number] Output: Urine 400 Other: Voiding Method Toilet Toilet # Voids 1 Weight 78.4 kg - Constitutional General appearance: average body habitus, cooperative - EENT EENT: PERRL, mucous membranes moist - Respiratory Respiratory: lungs clear, normal breath sounds - Cardiovascular Cardiovascular: regular rate, normal S1, normal S2 Extremities: no peripheral edema bilaterally - Gastrointestinal Gastrointestinal: normoactive bowel sounds - Integumentary Integumentary: normal - Neurologic Cranial nerve examination: PERRL, EOMI, VFF, V1/V2/V3 grossly intact, face symmetric, tongue midline, intact gag reflex, intact corneal reflex, normal palatal elevation Speech examination: intact Sensorimotor examination: intact Detailed motor examination: grossly full strength in all extremities Motor examination - right side: 4/5: biceps, triceps, wrist flexion, wrist extension, solid fiber paster operator, hip flexors, knee extensors, dorsiflexion, toe extension (EHL) , plantarflexion Motor examination - left side: 4/5: biceps, triceps, wrist flexion, wrist extension, solid fiber paster operator, hip flexors, knee extensors, dorsiflexion, toe extension (EHL) , plantarflexion Detailed sensory examination: intact Reflex and gait examination: intact Reflexes: 1+: ankle, bicep, knee, tricep - Musculoskeletal Musculoskeletal: no pain - Psychiatric Psychiatric: mood/affect appropriate, cooperative Results - Laboratory Findings CBC and BMP: 12/01/16 04:20 12/01/16 04:20 Abnormal Lab Findings: Abnormal Labs 11/30/16 11/30/16 11/30/16 23:02 23:02 23:02 Hgb 10.4 L Hct 32.3 L MCV 78.1 L RDW 23.0 H PT 19.5 H APTT 30.3 H Sodium 136 L Potassium 2.9 L* Chloride 83 L Carbon Dioxide 39 H BUN 35 H Total Bilirubin 1.5 H AST 43 H Alkaline Phosphatase 142 H 12/01/16 04:20 Hgb 10.1 L Hct 32.1 L MCV RDW 22.9 H PT APTT Sodium Potassium Chloride Carbon Dioxide BUN Total Bilirubin AST Alkaline Phosphatase Assessment and Plan (1) TIA (transient ischemic attack) Status: Acute Code(s): G45.9 - TRANSIENT CEREBRAL ISCHEMIC ATTACK, UNSPECIFIED (2) CAD (coronary artery disease) Status: Acute Code(s): I25.10 - ATHSCL HEART DISEASE OF [place] CORONARY ARTERY W/O ANG PCTRS (3) Chest pain Status: Acute Code(s): R07.9 - CHEST PAIN, UNSPECIFIED (4) Hypokalemia Status: Acute Code(s): E87.6 - HYPOKALEMIA Plan: This patient is a 86-year-old female who was admitted to Hospital with symptoms of slurred speech and speech impairment at home yesterday. Apparently the episode happened while she was talking on the telephone in which she couldn't get her words out. She was also complaining of chest pain at the same time. The entire episode of speech impairment and slurring of her words occurred for at least 15 minutes in duration. It slowly seem to improve with time. She was brought into the emergency room for further evaluation. She was seen in the ER by Dr. Cesar. She was sent for a computed tomography scan of the brain which was reported negative for acute stroke or hemorrhage. She underwent carotid Doppler study today which reveals no significant carotid artery stenosis. There was some mild turbulent flow noted in the right internal carotid artery. The patient's speech impairment tends slurred speech have improved since admission to the hospital. She has had no further recurrence. We have recommended a complete stroke evaluation for the patient. Would also recommend MRI of the brain. She is currently on Coumadin for treatment of her atrial fibrillation. Would maintain her INR between 2-3 at all times. We will continue close neurological follow-up of this patient during this admission. Time with Patient: Greater than 30
[2016-12-01] MEDS ORDERED: ISOSORBIDE MONONITRATE ER 15 MG TAB PO STA (15:27)
[2016-12-01] MEDS ORDERED: POTASSIUM CHLORIDE ER 20 MEQ TAB.ER PO STA (15:29)
--- NOTE | 2016-12-01 15:32 | P.CRDCN ---
History of Present Illness Consult date: 12/01/16 History of present illness: This is a 86-year-old female with history of chronic atrial fibrillation on anticoagulation therapy, is admitted to the hospital with complaints of recurrent bouts of epigastric and lower sternal chest pain followed by difficulty with speech. It is not clear if she getting short of breath with these episodes. She has history of angina, heart failure, hyperlipidemia, hypertension and also thyroid disorder. There is also evidence of pulmonary hypertension and moderate to severe tricuspid regurgitation with ejection fraction of 55-60% in the past. Patient also has significant JVD. Apparently she was also having significant edema of the legs and was recently put on Lasix. Patient is also severely hypokalemic, which may also be contributing some weakness and speech difficulties. The hypokalemia is being corrected. Cardiac enzyme studies are borderline. EKG showed evidence of possible old inferior wall [place]. At this point I will continue correcting her potassium. I will also add small dose of oral nitrates. Further recommendations depend upon the clinical course. No aggressive cardiac workup is sized to accept echocardiogram Review of Systems As per the chart Past Medical History Past Medical History: Atrial Fibrillation, Coronary Artery Disease (CAD), Chest Pain / Angina, Heart Failure, Hyperlipidemia, Hypertension, Thyroid Disorder Additional Past Medical History / Comment(s): Pt has IBS. 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 Bruising on skin. Cataract L eye. History of Any Multi-Drug Resistant Organisms: None Reported Past Surgical History: Appendectomy, Bowel Resection, Section, Heart Catheterization With Stent, Hernia Repair, Hysterectomy Additional Past Surgical History / Comment(s): Hx. of left breast biopsy, HEART CATH WITH STENT. RT FEMORAL endartrectomy,HEMATOMA REMOVAL. Past Anesthesia/Blood Transfusion Reactions: No Reported Reaction Additional Past Anesthesia/Blood Transfusion Reaction / Comment(s): Pt has received blood recently, without reaction. Date of Last Stent Placement:: 08-17-14 Past Psychological History: No Psychological Hx Reported Additional Psychological History / Comment(s): Patient resides with her son and his spouse. Emigrated from the [place] 50 years ago. . 2 adult children and her daughter is at her side. No tobacco use. retired. No recent travels. No animal exposures Smoking Status: Never smoker Past Alcohol Use History: None Reported Past Drug Use History: None Reported - Past Family History Son(s) Family Medical History: Hearing Disorder / Deafness Daughter(s) Family Medical History: Hearing Disorder / Deafness Father Family Medical History: Cancer Additional Family Medical History / Comment(s): Unknown Medications and Allergies Home Medications Medication Instructions Recorded Confirmed Type Levothyroxine Sodium [Synthroid] 88 mcg PO DAILY 07/20/16 12/01/16 History Metoprolol Tartrate [Lopressor] 50 mg PO BID 07/20/16 12/01/16 History Meclizine [Antivert] 25 mg PO TID PRN 10/10/16 12/01/16 History Atorvastatin [Lipitor] 20 mg PO HS 11/17/16 12/01/16 History Ferrous Sulfate [Feosol] 325 mg PO DAILY 11/17/16 12/01/16 History Furosemide [Lasix] 40 mg PO DAILY 11/17/16 12/01/16 History Warfarin [Coumadin] 3 mg PO MOTUTHFRSA 11/17/16 12/01/16 History Warfarin [Coumadin] 4.5 mg PO SUWE 11/17/16 12/01/16 History Allergies Allergy/AdvReac Type Severity Reaction Status Date / Time No Known Allergies Allergy Verified 12/01/16 11:19 Physical Exam Vitals: Vital Signs Temp Pulse Pulse Resp BP BP Pulse Ox 12/01/16 12:00 97.5 F L 80 18 122/60 99 12/01/16 07:46 97 F L 76 16 95/62 98 12/01/16 04:00 97.4 F L 80 16 104/64 98 12/01/16 02:13 97.6 F 73 16 109/72 100 12/01/16 01:34 97.4 F L 80 16 104/64 98 11/30/16 23:00 98.7 F 70 18 138/65 98 Intake and Output 12/01/16 12/01/16 12/01/16 06:59 14:59 22:59 Intake Total 550 Output Total 400 800 Balance 150 -800 Intake: IV 550 Potassium Chloride 20 meq 200 Lidocaine 2% Inj 20 mg In Sodium Chloride 0.9% 100 ml @ 55.5 mls/hr IVPB Q2H [facility] Rx#:[id number] Sodium Chloride 0.9% 1, 350 000 ml @ 100 mls/hr IV . Q10H [facility] Rx#:[id number] Output: Urine 400 800 Other: Voiding Method Toilet Toilet # Voids 1 Weight 78.4 kg GENERAL EXAM: Patient is alert and oriented and doesn't appear to be in any acute distress HEENT: Normocephalic. Normal reaction of pupils, equal size, normal range of extraocular motion. No erythema or exudates in the throat. NECK: No masses, no nuchal rigidity. Significant JVD CHEST: No chest wall deformity. LUNGS: Equal air entry with no crackles or wheeze. HEART: S1 and S2 normal with no audible mumurs or gallops. Regular rhythm, femorals equal on both sides.. ABDOMEN: No hepatosplenomegaly, normal bowel sounds, no guarding or rigidity. SKIN: No rashes CENTRAL NERVOUS SYSTEM: No focal deficits. EXTREMITIES: No cyanosis, clubbing . Mild edema . Results 12/01/16 04:20 12/01/16 04:20 Cardiac Enzymes 11/30/16 11/30/16 12/01/16 Range/Units 23:02 23:02 04:20 AST 43 H (14-36) U/L CK-MB (CK-2) 0.6 (0.0-2.4) ng/mL Troponin I 0.013 0.018 (0.000-0.034) ng/mL 12/01/16 12/01/16 Range/Units 04:20 10:52 AST 34 (14-36) U/L CK-MB (CK-2) (0.0-2.4) ng/mL Troponin I <0.012 (0.000-0.034) ng/mL Coagulation 11/30/16 12/01/16 Range/Units 23:02 10:52 PT 19.5 H 20.1 H (9.0-12.0) sec APTT 30.3 H (22.0-30.0) sec CBC 11/30/16 12/01/16 Range/Units 23:02 04:20 WBC 6.4 4.8 (3.8-10.6) k/uL RBC 4.14 3.98 (3.80-5.40) m/uL Hgb 10.4 L 10.1 L (11.4-16.0) gm/dL Hct 32.3 L 32.1 L (34.0-46.0) % Plt Count 239 207 (150-450) k/uL Comprehensive Metabolic Panel 11/30/16 12/01/16 Range/Units 23:02 04:20 Sodium 136 L 137 (137-145) mmol/L Potassium 2.9 L* 3.1 L (3.5-5.1) mmol/L Chloride 83 L 85 L (98-107) mmol/L Carbon Dioxide 39 H 40 H* (22-30) mmol/L BUN 35 H 32 H (7-17) mg/dL Creatinine 0.90 0.84 (0.52-1.04) mg/dL Glucose 92 94 (74-99) mg/dL Calcium 9.3 8.9 (8.4-10.2) mg/dL AST 43 H 34 (14-36) U/L ALT 33 26 (9-52) U/L Alkaline Phosphatase 142 H 126 (38-126) U/L Total Protein 7.1 6.6 (6.3-8.2) g/dL Albumin 3.9 3.3 L (3.5-5.0) g/dL Current Medications Generic Name Dose Route Start Last Admin Trade Name Freq PRN Reason Stop Dose Admin Aspirin 325 mg 12/02/16 09:00 Aspirin PO DAILY [facility] Atorvastatin Calcium 20 mg 12/01/16 21:00 Lipitor PO HS [facility] Ferrous Sulfate 325 mg 12/02/16 09:00 Feosol PO DAILY [facility] Furosemide 40 mg 12/01/16 10:45 12/01/16 11:33 Lasix PO 40 mg DAILY [facility] Administration Sodium Chloride 1,000 mls @ 100 mls/hr 12/01/16 00:30 12/01/16 11:34 Saline 0.9% IV 100 mls/hr .Q10H [facility] Administration Isosorbide Mononitrate 15 mg 12/01/16 15:27 Imdur PO 12/01/16 15:28 ONCE STA Levothyroxine Sodium 88 mcg 12/01/16 10:45 12/01/16 11:33 Synthroid PO 88 mcg 0630 [facility] Administration Meclizine HCl 25 mg 12/01/16 10:32 Antivert PO TID PRN Vertigo Metoprolol Tartrate 50 mg 12/01/16 10:45 12/01/16 11:33 Lopressor PO 50 mg BID [facility] Administration Miscellaneous Information 1 each 12/01/16 10:54 Potassium Per Protocol MISCELLANE DAILY PRN Per Protocol Protocol Warfarin Sodium 3 mg 12/02/16 18:00 Coumadin PO [id number]@1800 [facility] Warfarin Sodium 4.5 mg 12/01/16 18:00 Coumadin PO SuWe@1800 [facility] Intake and Output 12/01/16 12/01/16 12/01/16 06:59 14:59 22:59 Intake Total 550 Output Total 400 800 Balance 150 -800 Intake: IV 550 Potassium Chloride 20 meq 200 Lidocaine 2% Inj 20 mg In Sodium Chloride 0.9% 100 ml @ 55.5 mls/hr IVPB Q2H [facility] Rx#:[id number] Sodium Chloride 0.9% 1, 350 000 ml @ 100 mls/hr IV . Q10H [facility] Rx#:[id number] Output: Urine 400 800 Other: Voiding Method Toilet Toilet # Voids 1 Weight 78.4 kg 12/01/16 04:20 12/01/16 04:20 EKG Interpretations (text) Sinus rhythm, intraventricular conduction delay, old inferior wall [place] Assessment and Plan (1) Chest pain Status: Acute (2) Hypokalemia Status: Acute (3) TIA (transient ischemic attack) Status: Acute (4) Chronic a-fib Status: Acute Plan: I will add small dose of nitrates. We'll continue correcting her potassium. Continue with the diuretic therapy and rest of the medication. Echocardiogram was ordered. Neurology consult is appreciated. Further recommendations depend upon clinical course.
[2016-12-01] MEDS ORDERED: POTASSIUM CHLORIDE ER 20 MEQ TAB.ER PO SCH (16:00)
[2016-12-01] MEDS ORDERED: WARFARIN 3 MG TAB PO SCH (18:00)
[2016-12-01] MEDS ORDERED: ATORVASTATIN 80 MG TAB PO SCH (21:00)
[2016-12-01] MEDS ORDERED: ATORVASTATIN 20 MG TAB PO SCH (21:00)
[2016-12-01] MEDS: ATORVASTATIN 20 MG TAB PO SCH (21:24)
[2016-12-02 06:45] LABS: INR 2.2 (<1.1); Prothrombin Time 21.1 sec (9.0-12.0)
[2016-12-02] MEDS: LEVOTHYROXINE 88 MCG TAB PO SCH (06:47)
[2016-12-02] MEDS: SODIUM CHLORIDE 0.9% 1,000 ML IV SCH ×2 (06:48→17:07)
[2016-12-02 06:50] LABS: Cholesterol 117 mg/dL (<200); HDL Cholesterol 37 mg/dL (40-60); Triglycerides 47 mg/dL (<150)
[2016-12-02 07:57] LABS: Anion Gap 10 mmol/L; Blood Urea Nitrogen 32 mg/dL (7-17); Calcium 8.6 mg/dL (8.4-10.2); Carbon Dioxide 34 mmol/L (22-30); Chloride 94 mmol/L (98-107); Glucose 92 mg/dL (74-99); Non-African American GFR(MDRD) 58 (>60 ml/min/1.73 sqM); Sodium 138 mmol/L (137-145)
[2016-12-02 08:05] LABS: Potassium 2.9 mmol/L (3.5-5.1)
[2016-12-02] MEDS: METOPROLOL TARTRATE 50 MG TAB PO SCH ×2 (09:05→19:44)
[2016-12-02] MEDS: FERROUS SULFATE 325 MG TAB PO SCH (09:05)
[2016-12-02] MEDS: ASPIRIN 325 MG TAB PO SCH (09:05)
[2016-12-02] MEDS: FUROSEMIDE 40 MG TAB PO SCH (09:05)
--- NOTE | 2016-12-02 12:07 | P.PN ---
Subjective Patient is an 86-year-old female, who presented to [facility] emergency room with 2 separate complaints. Patient was having episodes of chest pain, she states that she has been having those episodes on and off for several weeks, however on the day of admission she was having a more severe episode of chest pain. Separately she had an episode of slurred speech where she was trying to talk, however words were not coming out and people were not able to understand her. This lasted about 15 minutes, she was brought in to [facility] emergency room by her son, she was evaluated in the emergency room and admitted to telemetry floor for further evaluation and treatment. Computed tomography scan of the brain without consult on presentation was negative. Troponins were negative 3 sets. EKG did not reveal any acute ischemic changes. Vision has been chest pain-free. Her speech remains normal. Carotid Doppler was negative. Cardiology did give 1 dose of indoor yesterday. We are awaiting results on echo MRI of the brain and EEG. Her potassium level remains low at 2.9. She is receiving potassium supplement per protocol again today. Objective - Vital Signs Vital signs: Vital Signs Temp 97.7 F 12/02/16 08:02 Pulse 81 12/02/16 08:02 Resp 18 12/02/16 08:02 BP 127/69 12/02/16 08:02 Pulse Ox 97 12/02/16 08:13 Intake & Output 12/01/16 12/02/16 12/02/16 18:59 06:59 18:59 Intake Total 180 1100 180 Output Total 800 Balance -620 1100 180 Weight 77.5 kg Intake: IV 1100 Sodium Chloride 0.9% 1, 1100 000 ml @ 100 mls/hr IV . Q10H [facility] Rx#:[id number] Oral 180 180 Output: Urine 800 Other: Voiding Method Toilet Toilet # Voids 1 - Exam Head normocephalic Neck supple Lungs clear to auscultation bilaterally no wheezing or crackles Heart regular rate and rhythm S1-S2, no rub or gallop Abdomen is soft nontender nondistended positive bowel sounds no hepatosplenomegaly Extremities no edema Neuro alert and orientated to 3. No facial droop or slurred speech. Hand ore roaster and lower extremities strength equal bilaterally - Labs CBC & Chem 7: 12/01/16 04:20 12/02/16 06:08 Labs: Abnormal Lab Results - Last 24 Hours (Table) 12/02/16 12/02/16 12/02/16 Range/Units 06:08 06:08 06:14 PT 21.1 H (9.0-12.0) sec Potassium 2.9 L* (3.5-5.1) mmol/L Chloride 94 L (98-107) mmol/L Carbon Dioxide 34 H (22-30) mmol/L BUN 32 H (7-17) mg/dL HDL Cholesterol 37 L (40-60) mg/dL Assessment and Plan Plan: #1 episode of chest pain one troponins negative 3 sets. EKG revealing atrial fibrillation with T-wave abnormality in the lateral leads area and cardiology following dictated they did give imdur 1. Patient no longer having chest pain #2 TIA with episode of slurred speech. computed tomography scan of the brain is negative. Carotid Doppler negative for any significant hemodynamic stenosis. Awaiting echo and MRI of the brain and EEG results #3 underlying history of atrial fibrillation maintained on Coumadin INR therapeutic at 2 on presentation will continue with Coumadin #4 hypokalemia: Potassium 2.9. Patient receiving potassium supplement per protocol. She is on Lasix 40 mg daily at home this is a newer medication in which she has been on without a scheduled potassium supplement. Will Add K-Dur 20 milliequivalents by mouth daily #5 for GI prophylaxis Will use Protonix for DVT prophylaxis patient is on Coumadin
--- NOTE | 2016-12-02 12:25 | ECHOF ---
Referral Reason:Thrombus MEASUREMENTS -------- HEIGHT: 167.6 cm WEIGHT: 77.1 kg BP: 111/75 RVIDd: 3.9 cm (< 3.3) IVSd: 1.2 cm (0.6 - 1.1) LVIDd: 4.1 cm (3.9 - 5.3) LVPWd: 1.4 cm (0.6 - 1.1) IVSs: 1.5 cm LVIDs: 3.1 cm LVPWs: 1.6 cm Ao Diam: 2.8 cm (2.0 - 3.7) AV Cusp: 1.3 cm (1.5 - 2.6) LA Diam: 3.9 cm (2.7 - 3.8) MV EXCURSION: 11.453 mm (> 18.000) MV EF SLOPE: 92 mm/s (70 - 150) EPSS: 0.5 cm MV E Michael: 1.20 m/s MV DecT: 220 ms MV A Michael: 0.27 m/s MV E/A Ratio: 4.54 AV maxP.70 mmHg AV meanP.03 mmHg AR PHT: 1189 ms RAP: 20.00 mmHg RVSP: 39.97 mmHg FINDINGS -------- Sinus rhythm. This was a technically good study. There is mild concentric left ventricular hypertrophy. Overall left ventricular systolic function is normal with, an EF between 55 - 60 %. The right ventricle is moderately enlarged. The left atrium is normal in size. The right atrium is normal in size. There is mild aortic regurgitation. There is mild aortic stenosis present. Peak/mean gradient across the Aortic Valve is 23.70mmHg / 15.03mmHg. The mitral valve leaflets are mildly thickened. Mild mitral annular calcification present. Mild mitral regurgitation is present. Severe tricuspid regurgitation present. There is mild pulmonary hypertension. The right ventricular systolic pressure, as measured by Doppler, is 39.97mmHg. The tricuspid valve septal leaflet appears to be attached well below the mitral valve, with a heavily trabeculated right ventricle. 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 The aortic root size is normal. The pericardium is normal. CONCLUSIONS -------- 1. Sinus rhythm. 2. Peak/mean gradient across the Aortic Valve is 23.70mmHg / 15.03mmHg. 3. The mitral valve leaflets are mildly thickened. 4. Mild mitral annular calcification present. 5. Mild mitral regurgitation is present. 6. Severe tricuspid regurgitation present. 7. There is mild pulmonary hypertension. 8. The right ventricular systolic pressure, as measured by Doppler, is 39.97mmHg. 9. The tricuspid valve septal leaflet appears to be attached well below the mitral valve, with a heavily trabeculated right ventricle. 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 Pulmonic valve appears structurally normal. 11. The aortic root size is normal. 12. This was a technically good study. 13. The pericardium is normal. 14. There is mild concentric left ventricular hypertrophy. 15. Overall left ventricular systolic function is normal with, an EF between 55 - 60 %. 16. The right ventricle is moderately enlarged. 17. The left atrium is normal in size. 18. The right atrium is normal in size. 19. There is mild aortic regurgitation. 20. There is mild aortic stenosis present. POLY OPERATOR: Rosio Davey RDCS
[2016-12-02] MEDS: POTASSIUM CHLORIDE ER 20 MEQ TAB.ER PO SCH ×3 (13:06→16:28)
--- NOTE | 2016-12-02 15:57 | MR ---
EXAMINATION TYPE: MR brain wo con DATE OF EXAM: 12/02/2016 COMPARISON: NONE HISTORY: Speech problems, Left hemispheric TIA and Atrial Fib CONTRAST: Performed utilizing 0 mL intravenous MultiHance gadolinium contrast. TECHNIQUE: Multiplanar, multiecho imaging on a 3.0 Belinda magnet is performed through the brain. Stud y is performed within 24 hours of arrival to the hospital. The craniovertebral junction is normal. The pituitary is normal. Diffusion-weighted imaging is performed. No abnormal hyperintensity is present to suggest an acute i ntracranial infarct or acute ischemic change. Signal through the brain appears normal. There is some motion artifact present on T2-weighted sequenc es. Minimal periventricular white matter hyperintensity may be present on the inversion recovery weig hted sequences. A repeat T2 sequence has less motion artifact present. No suspicious signal abnormali ty is evident. Temporal lobes appear symmetrical. Normal vascular flow voids are present. Cerebellum is unremarkable. Ventricles and sulci are appropriate for the patient age. IMPRESSIONS: 1. Normal noncontrast MRI brain
--- NOTE | 2016-12-02 16:30 | P.PN ---
Subjective This patient is a 86-year-old right-handed white female who was seen yesterday neurology consultation for evaluation of TIA. Patient had episode of slurred speech and difficulty with speech and language it lasted over 15 minutes in duration. She underwent a carotid Doppler which came back negative for any carotid artery stenosis. She is being seen by cardiology as well and we are waiting there further recommendations. Patient underwent echocardiogram today results indicate ejection fraction of 55-60%. She is not experiencing any severe chest pain today. As noted troponins have been negative on 3 sets. Patient is undergone MRI of the brain today. Results are pending at this time. Patient's clinical symptoms suggest probable TIA possibly secondary to history of chronic atrial fibrillation. Would recommend to continue Coumadin at this time and await further recommendations from cardiology. She is being treated for hypokalemia as well. Patient underwent MRI of the brain today to rule out acute stroke. MRI results came back negative with no evidence of acute stroke. We reviewed the results today of the MRI with the patient. She may be discharged home later today. We recommend she follow up with her primary care physician and continue close monitoring of her atrial fibrillation and monitoring of the Coumadin levels. Recommend to maintain her INR always between 2-3. She may follow-up in the outpatient neurology clinic in 3-4 weeks. We will continue close neurological follow-up with this patient. Objective - Vital Signs Vital signs: Vital Signs Temp 97.7 F 12/02/16 08:02 Pulse 75 12/02/16 12:00 Resp 18 12/02/16 08:02 BP 127/69 12/02/16 08:02 Pulse Ox 97 12/02/16 08:13 Intake & Output 12/01/16 12/02/16 12/02/16 18:59 06:59 18:59 Intake Total 180 1100 180 Output Total 800 Balance -620 1100 180 Weight 77.5 kg Intake: IV 1100 Sodium Chloride 0.9% 1, 1100 000 ml @ 100 mls/hr IV . Q10H [facility] Rx#:[id number] Oral 180 180 Output: Urine 800 Other: Voiding Method Toilet Toilet # Voids 1 - Exam Physical examination: PHYSICAL EXAMINATION: Patient is resting comfortably in bed. VITAL SIGNS: Blood pressure is [127/69]. Heart rate is [81]. Respiration is [18] . Temperature is [97.7]. HEENT: Head is atraumatic, neck is supple, there were no carotid bruits. CHEST: Lungs are clear to auscultation and percussion. CARDIAC: S1, S2 normal rate and rhythm. There is no murmur. ABDOMEN: Soft and nontender. Bowel sounds are present. EXTREMITIES: There is no pedal edema. Peripheral pulses are present. Neurological examination: Patient has a nonfocal neurological exam. - Labs CBC & Chem 7: 12/01/16 04:20 12/02/16 06:08 Labs: Abnormal Lab Results - Last 24 Hours (Table) 12/02/16 12/02/16 12/02/16 Range/Units 06:08 06:08 06:14 PT 21.1 H (9.0-12.0) sec Potassium 2.9 L* (3.5-5.1) mmol/L Chloride 94 L (98-107) mmol/L Carbon Dioxide 34 H (22-30) mmol/L BUN 32 H (7-17) mg/dL HDL Cholesterol 37 L (40-60) mg/dL Assessment and Plan (1) TIA (transient ischemic attack) Status: Acute Code(s): G45.9 - TRANSIENT CEREBRAL ISCHEMIC ATTACK, UNSPECIFIED (2) CAD (coronary artery disease) Status: Acute Code(s): I25.10 - ATHSCL HEART DISEASE OF [place] CORONARY ARTERY W/O ANG PCTRS (3) Chest pain Status: Acute Code(s): R07.9 - CHEST PAIN, UNSPECIFIED (4) Hypokalemia Status: Acute Code(s): E87.6 - HYPOKALEMIA Plan: This patient is a 86-year-old female who was admitted to Hospital with symptoms of slurred speech and speech impairment at home yesterday. Apparently the episode happened while she was talking on the telephone in which she couldn't get her words out. She was also complaining of chest pain at the same time. The entire episode of speech impairment and slurring of her words occurred for at least 15 minutes in duration. It slowly seem to improve with time. She was brought into the emergency room for further evaluation. She was seen in the ER by Dr. Cesar. She was sent for a computed tomography scan of the brain which was reported negative for acute stroke or hemorrhage. She underwent carotid Doppler study today which reveals no significant carotid artery stenosis. There was some mild turbulent flow noted in the right internal carotid artery. The patient's speech impairment tends slurred speech have improved since admission to the hospital. She has had no further recurrence. We have recommended a complete stroke evaluation for the patient. Would also recommend MRI of the brain. Patient was able to complete MRI of the brain today. The results of this MRI came back negative with no evidence of acute stroke. We reviewed the results of the MRI today with the patient at bedside. She is being considered for discharge home later today. She should follow-up with her primary care physician in one week. Recommend close monitoring of her Coumadin levels. She is currently on Coumadin for treatment of her atrial fibrillation. Would maintain her INR between 2-3 at all times. Patient may follow-up in the outpatient neurology clinic in 3-4 weeks. We will continue close neurological follow-up of this patient during this admission.
--- NOTE | 2016-12-02 16:43 | CDI ---
In responding to this query, please exercise your independent professional judgment. The [facility] Coding Staff and Clinical Documentation Specialists appreciate your assistance in clarifying documentation, maintaining compliance with coding guidelines, accurately documenting patients condition and capturing severity of illness. The fact that a question is asked does not imply that any particular answer is desired or expected. Communication forms are a method of clarifying documentation and are not made part of the Legal Health Record. Thank you in advance for your clarification. Last Revision, July 2016 [facility] [address] [place] [address] Documentation Clarification Form Date: 12/02/2016 4:27:00 PM From: Radha Major RN CCDS Admit Date: 12/01/2016 12:24:00 AM Patient Name: Sonny Hess Visit Number: [id number] Discharge Date: Dr. Adrian Cantrell Heart failure is documented in the history of present illness and your consultation on 12/01/16. History/Risk Factors: Chronic atrial fibrillation, Angina, Heart failure, Hyperlipidemia, Hypertension Clinical Indicators: Complaints of recurrent bouts of epigastric and lower sternal chest pain followed by difficulty with speech. Patient also has significant JVD, edema of the legs and was recently put on Lasix. 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 BNP: 1780 Echocardiogram Results: EF 55-60 % right ventricle is moderately enlarged Chest x ray: Stable cardiomegaly Treatment: Lasix PO ASA Lopressor PO In your professional opinion, can you please clarify the acuity and type of CHF if known? Systolic Heart Failure: Acute Chronic Acute on Chronic Diastolic Heart Failure: Acute Chronic Acute on Chronic Systolic & Diastolic Heart Failure: Acute Chronic Acute on Chronic Unable to determine Other, please specify Please document in your progress notes in order to capture severity of illness and risk of mortality. Include clinical findings that support your diagnosis. FYI: Press F11 to launch patient chart. Place X here if this finding has no clinical significance, is not applicable or if you are not able to provide any additional documentation. PENNYD
--- NOTE | 2016-12-02 17:28 | P.PCN ---
Date of Procedure: 12/02/16 Preoperative Diagnosis: This patient is a 86-year-old female being evaluated for TIA versus stroke. Postoperative Diagnosis: Procedure(s) Performed: Routine EEG Implants: Indications for Procedure: This patient is a 86-year-old female who is being evaluated for episode of slurred speech and weakness. Patient with possible TIA versus stroke. Operative Findings: Description of Procedure: A routine 21 channel awake digital EEG recording was accomplished utilizing the 10-20 international system with bipolar and referential montages. The background activity in the most alert resting state consists of a low to medium amplitude fairly well developed and well sustained 8 Hz activity over the posterior head region. This posterior rhythm attenuates to eye opening. There is a small amount of low amplitude 1820 hertz beta activity seen maximally over the anterior head regions. Muscle and movement artifact was observed on a few occasions during the tracing. Hyperventilation was not performed. Photic stimulation at flash frequencies of 2-30 hertz produced a good symmetrical occipital driving response. No epileptiform discharges were seen. Impression: This EEG is within normal limits for the patient's age. The EEG failed to reveal any focal, lateralized, or epileptiform abnormalities. Clinical correlation is recommended. Marquita Estrella M.D.
[2016-12-02] MEDS ORDERED: WARFARIN 3 MG TAB PO SCH (18:00)
[2016-12-02] MEDS ORDERED: POTASSIUM CHLORIDE ER 20 MEQ TAB.ER PO SCH (19:00)
[2016-12-02] MEDS: ATORVASTATIN 20 MG TAB PO SCH (19:43)
[2016-12-02 21:57] VITALS: RESP 16
[2016-12-03] MEDS: SODIUM CHLORIDE 0.9% 1,000 ML IV SCH ×2 (02:41→12:39)
[2016-12-03] MEDS: LEVOTHYROXINE 88 MCG TAB PO SCH (06:06)
[2016-12-03 06:08] LABS: Anisocytosis Moderate; Basophils % (A) 1 %; CH 24.9; CHCM 31.4; Eosinophils # (A) 0.1 k/uL (0-0.7); Eosinophils % (A) 2 %; HCT 32.9 % (34.0-46.0); HDW 2.96; HGB 10.5 gm/dL (11.4-16.0); Hypochromasia Slight; Luc # (Auto) 0.16; Luc % (Auto) 3; Lymphocytes # (A) 1.9 k/uL (1.0-4.8); Lymphocytes % (A) 38 %; MCH 25.6 pg (25.0-35.0); Mean Platelet Volume 7.8; Microcytosis Slight; Monocytes # (A) 0.5 k/uL (0-1.0); Monocytes % (A) 10 %; Neutrophils # (A) 2.3 k/uL (1.3-7.7); Neutrophils % (A) 46 %; RBC 4.11 m/uL (3.80-5.40); RDW 22.8 % (11.5-15.5); WBC (Perox) 4.78
[2016-12-03 06:17] LABS: ALT 28 U/L (9-52); AST 41 U/L (14-36); Alkaline Phosphatase 155 U/L (38-126); Anion Gap 11 mmol/L; Blood Urea Nitrogen 31 mg/dL (7-17); Calcium 8.9 mg/dL (8.4-10.2); Carbon Dioxide 34 mmol/L (22-30); Chloride 94 mmol/L (98-107); Glucose 92 mg/dL (74-99); Non-African American GFR(MDRD) 57 (>60 ml/min/1.73 sqM); Potassium 3.2 mmol/L (3.5-5.1); Sodium 139 mmol/L (137-145); Total Bilirubin 1.5 mg/dL (0.2-1.3); Total Protein 6.9 g/dL (6.3-8.2)
[2016-12-03] MEDS ORDERED: Potassium Replacement Protocol 1 EACH MISC MISCELLANE PRN (06:33)
[2016-12-03 06:51] LABS: INR 2.5 (<1.1); Prothrombin Time 23.7 sec (9.0-12.0)
[2016-12-03] MEDS: FUROSEMIDE 40 MG TAB PO SCH (08:29)
[2016-12-03] MEDS: ASPIRIN 325 MG TAB PO SCH (08:29)
[2016-12-03] MEDS: FERROUS SULFATE 325 MG TAB PO SCH (08:29)
[2016-12-03] MEDS: POTASSIUM CHLORIDE ER 20 MEQ TAB.ER PO SCH ×2 (08:29→10:28)
[2016-12-03] MEDS: METOPROLOL TARTRATE 50 MG TAB PO SCH (08:29)
[2016-12-03 08:48] VITALS: TEMP 97.1
[2016-12-03] MEDS ORDERED: POTASSIUM CHLORIDE ER 20 MEQ TAB.ER PO SCH (09:00)
--- NOTE | 2016-12-03 11:10 | P.DS ---
Providers Date of admission: 12/01/16 00:24 Expected date of discharge: 12/03/16 Attending physician: Mik Daniel Consults: 12/01/16 00:24 Consult Physician Routine Consulting Provider: Laurence Tobar Consult Reason/Comments: cp Do you want consulting provider notified?: Yes 12/01/16 00:25 Consult Physician Routine Consulting Provider: Marquita Estrella Consult Reason/Comments: tia Do you want consulting provider notified?: Yes Primary care physician: Jennyfer [facility] Course: Diagnoses on discharge: #1 episode of chest pain one troponins negative 3 sets. EKG revealing atrial fibrillation with T-wave abnormality in the lateral leads area and cardiology following dictated they did give imdur 1. Patient no longer having chest pain #2 TIA with episode of slurred speech. computed tomography scan of the brain is negative. Carotid Doppler negative for any significant hemodynamic stenosis. Awaiting echo and MRI of the brain and EEG results #3 underlying history of atrial fibrillation maintained on Coumadin INR therapeutic at 2 on presentation will continue with Coumadin #4 hypokalemia: Potassium 2.9. Patient receiving potassium supplement per protocol. She is on Lasix 40 mg daily at home this is a newer medication in which she has been on without a scheduled potassium supplement. Will Add K-Dur 20 milliequivalents by mouth daily Hospital course: Patient is an 86-year-old female, who presented to [facility] emergency room with 2 separate complaints. Patient was having episodes of chest pain, she states that she has been having those episodes on and off for several weeks, however on the day of admission she was having a more severe episode of chest pain. Separately she had an episode of slurred speech where she was trying to talk, however words were not coming out and people were not able to understand her. This lasted about 15 minutes, she was brought in to [facility] emergency room by her son, she was evaluated in the emergency room and admitted to telemetry floor for further evaluation and treatment. Computed tomography scan of the brain without consult on presentation was negative. Troponins were negative 3 sets. EKG did not reveal any acute ischemic changes. Vision has been chest pain-free. Her speech remains normal. Carotid Doppler was negative. Cardiology did give 1 dose of indoor yesterday. Echocardiogram, MRI of the brain, and EEG did not reveal any significant abnormality. Her potassium level remains low at 3.3. She is receiving potassium supplement per protocol again today. K-dur 20 meq daily was added to medication regimen at the time of discharge. Follow up with primary care physician within 1 week. Patient Condition at Discharge: Fair Plan - Discharge Summary New Discharge Prescriptions: New Aspirin 325 mg PO DAILY tab Potassium Chloride ER [K-Dur 20] 20 meq PO DAILY #30 tab Warfarin [Coumadin] 4.5 mg PO SuWe@1800 tab Warfarin [Coumadin] 3 mg PO MoTuThFrSa@1800 tab Continue Metoprolol Tartrate [Lopressor] 50 mg PO BID Levothyroxine Sodium [Synthroid] 88 mcg PO DAILY Meclizine [Antivert] 25 mg PO TID PRN PRN Reason: Vertigo Atorvastatin [Lipitor] 20 mg PO HS Warfarin [Coumadin] 4.5 mg PO SUWE Warfarin [Coumadin] 3 mg PO MOTUTHFRSA Furosemide [Lasix] 40 mg PO DAILY Ferrous Sulfate [Iron (65 MG Elemental)] 325 mg PO DAILY Discharge Medication List Levothyroxine Sodium [Synthroid] 88 mcg PO DAILY 07/20/16 [History] Metoprolol Tartrate [Lopressor] 50 mg PO BID 07/20/16 [History] Meclizine [Antivert] 25 mg PO TID PRN 10/10/16 [History] Atorvastatin [Lipitor] 20 mg PO HS 11/17/16 [History] Ferrous Sulfate [Iron (65 MG Elemental)] 325 mg PO DAILY 11/17/16 [History] Furosemide [Lasix] 40 mg PO DAILY 11/17/16 [History] Warfarin [Coumadin] 3 mg PO MOTUTHFRSA 11/17/16 [History] Warfarin [Coumadin] 4.5 mg PO SUWE 11/17/16 [History] Aspirin 325 mg PO DAILY tab 12/03/16 [Rx] Potassium Chloride ER [K-Dur 20] 20 meq PO DAILY #30 tab 12/03/16 [Rx] Warfarin [Coumadin] 3 mg PO MoTuThFrSa@1800 tab 12/03/16 [Rx] Warfarin [Coumadin] 4.5 mg PO SuWe@1800 tab 12/03/16 [Rx] Follow up Appointment(s)/Referral(s): Jennyfer Cabello MD [Primary Care Provider] - 1-2 days [facility], [NON-STAFF] - 1 Week
[2016-12-03 12:37] VITALS: BP 120/58; PULSE 74
== END 2016-12-03 13:56 | disposition home health service (06) | DRG 69 ==
LOC: EC 22:42 → 6SEL 12-01 00:24
PROVIDERS: ADMIT Internal Medicine; ATTEND Internal Medicine
DX: G45.9 Transient cerebral ischemic attack, unspecified (principal); I11.0 Hypertensive heart disease with heart failure; I27.2 Other secondary pulmonary hypertension; I48.2 Chronic atrial fibrillation; R07.9 Chest pain, unspecified; E87.6 Hypokalemia; E78.5 Hyperlipidemia, unspecified; I25.2 Old myocardial infarction; I25.10 Atherosclerotic heart disease of native coronary artery without angina pectoris; K58.9 Irritable bowel syndrome, unspecified; I07.1 Rheumatic tricuspid insufficiency; H26.9 Unspecified cataract; Z95.5 Presence of coronary angioplasty implant and graft; Z90.710 Acquired absence of both cervix and uterus; Z79.01 Long term (current) use of anticoagulants; Z79.899 Other long term (current) drug therapy
CPT/HCPCS: 36415; 70450; 70551; 71020; 80048; 80053; 80061; 82550; 82553; 83690; 83735; 83880; 84132; 84484; 85025; 85610; 85730; 93005; 93306; 93880; 94760; 95819; 96365; 99291

== ENCOUNTER → 2017-08-12 | Outpatient (CLI) | payer MEDICARE, OTHER ==
--- NOTE | 2017-08-12 16:09 | CT ---
EXAMINATION TYPE: CT abdomen pelvis w con DATE OF EXAM: 08/12/2017 COMPARISON: 09/19/1716. HISTORY: Patient complains of gross hematuria. CT DLP: 856.6 mGycm CONTRAST: CT scan of the abdomen and pelvis is performed with Oral Contrast and with IV Contrast, patient injec margoth with 100 mL of Omnipaque 300. FINDINGS: LUNG BASES-: No visible nodule. No infiltrate. LIVER/GB: No calcified gallstones. There is mild hepatic steatosis. No space occupying hepatic les ion. Biliary tree is of normal caliber. PANCREAS: No inflammation. No distinct mass. SPLEEN: No splenic enlargement. No lesion seen. ADRENALS: No nodule. No thickening. KIDNEYS/BLADDER: No hydronephrosis. No nephrolithiasis. Subcentimeter right renal lesions are nonsp ecific. Poor distention of the urinary bladder although there may be mild wall thickening. Correlate clinically for cystitis. BOWEL: Partial right hemicolectomy. Ileocolic colonic anastomosis appears to be patent. Resolution pr eviously noted inflammatory change. Normal bowel caliber. No inflammation. GENITAL ORGANS: No gross abnormality. LYMPH NODES: No greater than 1cm abdominal or pelvic lymph nodes are appreciated. AORTA: No significant abnormality. OSSEOUS STRUCTURES: Degenerative changes lumbar spine. OTHER: [place] umbilical hernia measuring 4.9 cm in width and contains a short segment of colon. No evidence for incarceration or strangulation. No obstructive change. IMPRESSION: 1. Mild hepatic steatosis. 2. Subcentimeter right renal lesions are nonspecific. 3. Partial right hemicolectomy changes without recurrent disease. 4.[place] umbilical hernia measuring 4.9 cm in width and contains a short segment of colon. No evid ence for incarceration or strangulation.
== END | disposition home or self-care (01) ==
LOC: RADCTMAIN 13:23
PROVIDERS: ATTEND Nurse Practitioner
DX: K42.9 Umbilical hernia without obstruction or gangrene (principal); K76.0 Fatty (change of) liver, not elsewhere classified; N28.9 Disorder of kidney and ureter, unspecified; Z90.49 Acquired absence of other specified parts of digestive tract; Z87.19 Personal history of other diseases of the digestive system
CPT/HCPCS: 82565; 84520; 74177; Q9967

== ENCOUNTER → 2017-12-26 | Outpatient (CLI) | payer MEDICARE, OTHER ==
--- NOTE | 2017-12-26 16:31 | CT ---
EXAMINATION TYPE: CT abdomen pelvis w con DATE OF EXAM: 12/26/2017 COMPARISON: 08/12/2017 INDICATION: Patient complains of nausea, vomiting, bloating, and generalized pain. DLP: 963.5 mGycm, Automated exposure control for dose reduction was used. CONTRAST: 80 mL of Isovue 300. Study performed with Oral Contrast TECHNIQUE: Axial images were obtained from above the diaphragm to the pubic rami in the axial plane a t 5 mm thick sections. Reconstructed images are reviewed on the computer in the coronal plane. FINDINGS: Limited CT sections are obtained the lung bases. The lung bases are clear. CT ABDOMEN: Liver: Normal Spleen: Normal Pancreas: atrophic Adrenal glands: The adrenal glands are normal. Gallbladder: Normal Kidneys: No masses are evident. No hydronephrosis is present. No cysts are present. Delayed images were obtained through the kidneys. Small cortical renal cysts are likely present on the right kidney better visualized on the delayed contrast images. Aorta: Vascular calcification is within the aorta. Inferior vena cava: Normal. CT PELVIS: Loops of bowel within the abdomen and pelvis are normal. There are loops of bowel which are incom pletely distended or lack oral contrast limiting their evaluation. No bowel ischemia is evident on th e current exam. There is a history of a partial right hemicolectomy. Anastomosis appears unremarkable Appendix: Not identified. No suspicious inflammatory changes or dilated tubular structures are eviden t. Patient has had a partial right hemicolectomy Urinary bladder: Normal. Genitourinary structures: Uterus is not identified. Adnexal regions are clear. Osseous structures: No suspicious lytic or sclerotic lesions. IMPRESSIONS: 1. Postsurgical changes. No acute abdominal or pelvic process evident.
== END | disposition home or self-care (01) ==
LOC: RADCTMAIN 13:17
PROVIDERS: ATTEND Surgery
DX: K59.00 Constipation, unspecified (principal); R10.84 Generalized abdominal pain; Z98.890 Other specified postprocedural states
CPT/HCPCS: 82565; 84520; 74177; 36415; Q9967

== ENCOUNTER 2018-03-21 14:03 | Emergency (ER) | payer MEDICARE, OTHER ==
[2018-03-21] MEDS ORDERED: SODIUM CHLORIDE 0.9% 1,000 ML IV STA (14:34)
--- NOTE | 2018-03-21 14:44 | ED ---
Chest Pain HPI - General Chief Complaint: Chest Pain Stated Complaint: Chest pain Time Seen by Provider: 03/21/18 14:34 Source: patient, RN notes reviewed, old records reviewed Mode of arrival: ambulatory Limitations: no limitations - History of Present Illness Initial Comments: This is an 88-year-old female the ER for evaluation regards to chest pain. Patient recently started on metoprolol. Patient notices some exploding her chest or feeling of chest pain just prior to arrival now upon arrival to ER patient's pain is resolved feels mildly anxious over cause of pain. No shortness of breath no cough or congestion pain was sudden and now resolved MD Complaint: chest pain -: minutes(s) Onset: during rest Pain Location: substernal Pain Radiation: none, jaw/teeth Severity scale (1-10): 3 Quality: tightness, sharp Consistency: constant, now resolved Improves With: nothing Worsens With: nothing Treatments Prior to Arrival: none - Related Data Home Medications Medication Instructions Recorded Confirmed Levothyroxine Sodium [Synthroid] 88 mcg PO DAILY 07/20/16 12/01/16 Metoprolol Tartrate [Lopressor] 50 mg PO BID 07/20/16 12/01/16 Meclizine [Antivert] 25 mg PO TID PRN 10/10/16 12/01/16 Atorvastatin [Lipitor] 20 mg PO HS 11/17/16 12/01/16 Ferrous Sulfate [Iron (65 MG 325 mg PO DAILY 11/17/16 12/01/16 Elemental)] Furosemide [Lasix] 40 mg PO DAILY 11/17/16 12/01/16 Warfarin [Coumadin] 3 mg PO MOTUTHFRSA 11/17/16 12/01/16 Warfarin [Coumadin] 4.5 mg PO SUWE 11/17/16 12/01/16 Previous Rx's Medication Instructions Recorded Aspirin 325 mg PO DAILY tab 12/03/16 Potassium Chloride ER [K-Dur 20] 20 meq PO DAILY #30 tab 12/03/16 Warfarin [Coumadin] 3 mg PO MoTuThFrSa@1800 tab 12/03/16 Warfarin [Coumadin] 4.5 mg PO SuWe@1800 tab 12/03/16 Allergies Allergy/AdvReac Type Severity Reaction Status Date / Time No Known Allergies Allergy Verified 03/21/18 14:21 Review of Systems ROS Statement: Those systems with pertinent positive or pertinent negative responses have been documented in the HPI. ROS Other: All systems not noted in ROS Statement are negative. EKG Findings - EKG Comments: EKG Findings:: EKG shows A. fib rate of 7070 QRS 126 QTC 470 Past Medical History Past Medical History: Atrial Fibrillation, Coronary Artery Disease (CAD), Chest Pain / Angina, Heart Failure, Hyperlipidemia, Hypertension, Thyroid Disorder Additional Past Medical History / Comment(s): Pt has IBS. 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 Bruising on skin. Cataract L eye. History of Any Multi-Drug Resistant Organisms: None Reported Past Surgical History: Appendectomy, Bowel Resection, Section, Heart Catheterization With Stent, Hernia Repair, Hysterectomy Additional Past Surgical History / Comment(s): Hx. of left breast biopsy, HEART CATH WITH STENT. RT FEMORAL endartrectomy,HEMATOMA REMOVAL. Past Anesthesia/Blood Transfusion Reactions: No Reported Reaction Additional Past Anesthesia/Blood Transfusion Reaction / Comment(s): Pt has received blood recently, without reaction. Date of Last Stent Placement:: 08-17-14 Past Psychological History: No Psychological Hx Reported Smoking Status: Never smoker Past Alcohol Use History: None Reported Past Drug Use History: None Reported - Past Family History Son(s) Family Medical History: Hearing Disorder / Deafness Daughter(s) Family Medical History: Hearing Disorder / Deafness Father Family Medical History: Cancer Additional Family Medical History / Comment(s): Unknown General Exam Limitations: no limitations General appearance: anxious Head exam: Present: atraumatic, normocephalic, normal inspection Eye exam: Present: normal appearance, PERRL, EOMI. Absent: scleral icterus, conjunctival injection, periorbital swelling ENT exam: Present: normal exam, mucous membranes moist Neck exam: Present: normal inspection. Absent: tenderness, meningismus, lymphadenopathy Respiratory exam: Present: normal lung sounds bilaterally. Absent: respiratory distress, wheezes, rales, rhonchi, stridor Cardiovascular Exam: Present: regular rate, normal rhythm, normal heart sounds. Absent: systolic murmur, diastolic murmur, rubs, gallop, clicks GI/Abdominal exam: Present: soft, normal bowel sounds. Absent: distended, tenderness, guarding, rebound, rigid Extremities exam: Present: normal inspection, full ROM, normal capillary refill. Absent: tenderness, pedal edema, joint swelling, calf tenderness Back exam: Present: normal inspection Neurological exam: Present: alert, oriented X3, CN II-XII intact Psychiatric exam: Present: normal affect, normal mood Skin exam: Present: warm, dry, intact, normal color. Absent: rash Course Vital Signs 03/21/18 03/21/18 03/21/18 14:16 16:52 18:00 Temperature 97.9 F 98 F Pulse Rate 84 67 68 Respiratory 18 17 18 Rate Blood Pressure 111/74 116/69 116/69 O2 Sat by Pulse 95 99 98 Oximetry - Reevaluation(s) Reevaluation #1: Record is reviewed Patient is without chest pain, patient can be discharged home to care of family Chest Pain MDM - MDM 88-year-old female the ER with evaluation of chest pain. Chest pain is resolved and is remained resolved upon arrival to ER CT chest and pelvis negative for acute disease troponin and EKG are negative patient can be discharged Disposition Clinical Impression: Chest pain Disposition: HOME SELF-CARE Condition: Good Instructions: Chest Pain (ED) Is patient prescribed a controlled substance at d/c from ED?: No Referrals: Jennyfer Cabello MD [Primary Care Provider] - 1-2 days
[2018-03-21 14:58] LABS: Glucose,Whole Blood 104 mg/dL (75-99)
--- NOTE | 2018-03-21 16:26 | CT ---
EXAMINATION TYPE: CT angio chest DATE OF EXAM: 03/21/2018 COMPARISON: 12/20/2014 HISTORY: 88-year-old female Chest pain. TECHNIQUE: Contiguous axial scanning of the chest performed with IV Contrast, patient injected with 8 2ml mL of Isovue 370. Coronal/sagittal MIP reconstructions performed. CT DLP: 314.3 mGycm Automated exposure control for dose reduction was used. FINDINGS: Heart upper limits of normal in size without pericardial effusion. No abnormal flattening of the inte rventricular septum though there is reflux of contrast into the hepatic veins and IVC distention. Cor onary vessel calcifications are present. Aorta normal caliber with mild to moderate arch calcifications and conventional arch vessel branching anatomy. No thoracic lymphadenopathy by CT size criteria. Calcified lymph nodes right hilum and subcarinal re gion compatible with prior granulomatous disease. Satisfactory opacification of pulmonary arterial system No evidence for pulmonary embolus though there is some limitation due to breathing motion. Biapical pleural-parenchymal scarring. Mild diffuse interstitial prominence. Stable focal scarring in localized bronchiectasis anterior medial right midlung. Strandy scarring at the inferior lingula. Some increased atelectasis is present just adjacent. Stable 5 mm pulmonary nodule right midlung, axial image 88. Stable 3 mm pulmonary nodule left mid alex g along the major fissure, axial image 71. No consolidation or pleural effusion. Slight mosaic attenu ation is noted such as in the left upper lobe. No consolidation or pleural effusion. Visualized upper abdomen shows a stable 8 mm fat density lesion posterior upper pole right kidney sug gestive of a small AML. Moderate atherosclerotic calcifications continue into the abdominal aorta. Bones: Mild to moderate multilevel degenerative disc disease. IMPRESSION: 1. NO EVIDENCE FOR PULMONARY EMBOLUS. SOME LIMITATION DUE TO MOTION ARTIFACTS. 2. REFLUX OF CONTRAST INTO THE HEPATIC VEINS AND BORDERLINE HEART SIZE. CORRELATE FOR INCREASED CARDI AC PRESSURES. 3. PERIBRONCHIAL CUFFING. CORRELATE FOR BRONCHITIS OR ASTHMA.
--- NOTE | 2018-03-21 16:32 | CT ---
EXAMINATION TYPE: CT abdomen pelvis w con DATE OF EXAM: 03/21/2018 COMPARISON: 12/26/2017 HISTORY: 88-year-old female Chest pain. TECHNIQUE: Contiguous axial scanning of the abdomen and pelvis following administration of 82 ml Isov ue 370 IV contrast. Delayed images through the kidneys and coronal/sagittal reconstructions performe d. CT DLP: 841.8 mGycm Automated exposure control for dose reduction was used. FINDINGS: Heart upper limits of normal in size. Moderate atherosclerotic calcifications continue along the abdo alysha aorta. No aneurysm. Overall degree of enhancement is limited of the solid organs. No definite focal liver lesion. Gallbladder, adrenal glands, left kidney, spleen, atrophic pancreas show no gross abnormality. Couple subcentimeter hypodensities in the right kidney too small for accurate CT characterization, pr esent on prior exam, suggestive of cysts. No dilated small bowel, free fluid, or free air. Some prominent fold. Small bowel loops are present in the midabdomen. Mild overall stool burden. Ther e is staple line from prior small bowel anastomosis in the mid abdomen and a right-sided ileocolonic anastomosis. Rectus diastases with bulging anterior convexity at the linea alba and separation by 5.5 cm. No mesenteric or retroperitoneal lymphadenopathy. Mild circumferential bladder wall thickening. Uterus surgically absent. Multiple pelvic phleboliths. No abnormal fluid collection in the pelvis or pelvic lymphadenopathy seen. Bones: Degenerative changes at the hips and lower lumbar spine. No osseous destructive process. IMPRESSION: 1. SOME PROMINENT FLUID-FILLED SMALL BOWEL LOOPS IN THE MID ABDOMEN COULD REPRESENT ENTERITIS. 2. PRIOR SMALL BOWEL SURGERY IN THE MIDABDOMEN AND A RIGHT-SIDED ILEOCOLONIC ANASTOMOSIS. 3. SIMILAR RECTUS DIASTASES MEASURING 5.5 CM WIDE. 4. MILD CERVICAL INTERVERTEBRAL BLADDER WALL THICKENING. CORRELATE FOR POSSIBLE CYSTITIS.
[2018-03-21 16:34] LABS: Basophils % (A) 0 %; Eosinophils # (A) 0.2 k/uL (0-0.7); Eosinophils % (A) 2 %; HCT 42.7 % (34.0-46.0); Lymphocytes # (A) 2.4 k/uL (1.0-4.8); Lymphocytes % (A) 30 %; MCH 32.3 pg (25.0-35.0); MCHC 32.9 g/dL (31.0-37.0); MCV 98.4 fL (80.0-100.0); Mean Platelet Volume 8.1; Monocytes # (A) 0.5 k/uL (0-1.0); Monocytes % (A) 6 %; Neutrophils # (A) 4.6 k/uL (1.3-7.7); Neutrophils % (A) 59 %; Platelet Count 161 k/uL (150-450); RBC 4.34 m/uL (3.80-5.40); WBC 7.9 k/uL (3.8-10.6)
[2018-03-21 16:43] LABS: INR 3.6 (<1.2); Partial Thromboplastin Time 35.1 sec (22.0-30.0); Prothrombin Time 32.6 sec (9.0-12.0)
[2018-03-21 16:47] LABS: Albumin 3.7 g/dL (3.5-5.0); Calcium 9.3 mg/dL (8.4-10.2); Magnesium 2.1 mg/dL (1.6-2.3); Phosphorus 3.6 mg/dL (2.5-4.5); Potassium 4.7 mmol/L (3.5-5.1); Total Bilirubin 1.1 mg/dL (0.2-1.3); Total Protein 6.9 g/dL (6.3-8.2)
[2018-03-21 16:49] LABS: Creatine Kinase 37 U/L (30-135)
[2018-03-21 17:00] LABS: Creatine Kinase MB 0.9 ng/mL (0.0-2.4); Troponin I <0.012 ng/mL (0.000-0.034)
[2018-03-21 17:08] VITALS: BP 116/69
[2018-03-21 17:13] LABS: Appearance,Urine Clear (Clear); Bilirubin,Urine Negative (Negative); Blood,Urine Negative (Negative); Color,Urine Yellow; Glucose,Urine (UA) Negative (Negative); Ketones,Urine Negative (Negative); Leukocyte Esterase,Urine Negative (Negative); Nitrite,Urine Negative (Negative); PH, Urine 7.5 (5.0-8.0); Protein,Urine Negative (Negative); Specific Gravity,Urine 1.011 (1.001-1.035); Urobilinogen,Urine <2.0 mg/dL (<2.0)
[2018-03-21 18:23] VITALS: PULSE 68; RESP 18; TEMP 98
== END 2018-03-21 18:22 | disposition home or self-care (01) ==
LOC: EC 14:03
DX: R07.89 Other chest pain (principal); I48.91 Unspecified atrial fibrillation; E78.5 Hyperlipidemia, unspecified; I25.10 Atherosclerotic heart disease of native coronary artery without angina pectoris; I11.0 Hypertensive heart disease with heart failure; I50.9 Heart failure, unspecified; E07.9 Disorder of thyroid, unspecified; Z79.01 Long term (current) use of anticoagulants; Z79.899 Other long term (current) drug therapy; Z86.79 Personal history of other diseases of the circulatory system; Z95.5 Presence of coronary angioplasty implant and graft
CPT/HCPCS: 36415; 93005; 80053; 82550; 82553; 83735; 84100; 84484; 85025; 85610; 85730; 81003; 87086; 71275; 74177; 99285; 96360; Q9967

== ENCOUNTER 2018-05-12 10:21 | Emergency (ER) | payer MEDICARE, OTHER ==
[2018-05-12 10:33] VITALS: RESP 18
[2018-05-12] MEDS ORDERED: SODIUM CHLORIDE 0.9% 1,000 ML IV STA (10:48)
--- NOTE | 2018-05-12 10:52 | ED ---
GI Bleed HPI - General Chief complaint: GI Bleed Stated complaint: NAUSEA, PAIN, WEAKNESS, DIZZINESS, RECTAL BLEEDING Time Seen by Provider: 05/12/18 10:39 Source: patient, RN notes reviewed Mode of arrival: wheelchair Limitations: no limitations - History of Present Illness Initial comments: This 87-year-old female history of GI bleeding in the past history of colitis among other medical issues who presents with complaints of weakness black colored stools some abdominal pain is been going on for quite some time. Here today because she has exertional dyspnea as well as fatigue when she tries to do activities. No fevers chills nausea vomiting sweats he does admit that she' s been having a lot of black colored stools. No other modifying factors at this time MD complaint: melena - Related Data Home Medications Medication Instructions Recorded Confirmed Furosemide [Lasix] 60 mg PO DAILY 05/12/18 05/12/18 Levothyroxine Sodium [Synthroid] 88 mcg PO DAILY 05/12/18 05/12/18 Metoprolol Tartrate [Lopressor] 12.5 mg PO BID 05/12/18 05/12/18 Spironolactone 25 mg PO DAILY 05/12/18 05/12/18 Warfarin [Coumadin] 3 mg PO SUMOTUWETHSA 05/12/18 05/12/18 Warfarin [Coumadin] 6 mg PO FR 05/12/18 05/12/18 Previous Rx's Medication Instructions Recorded Potassium Chloride ER [K-Dur 20] 20 meq PO DAILY #30 tab 12/03/16 Pantoprazole Sodium [Protonix] 20 mg PO DAILY #15 tablet. 05/12/18 Allergies Allergy/AdvReac Type Severity Reaction Status Date / Time No Known Allergies Allergy Verified 03/21/18 14:21 Review of Systems ROS Statement: Those systems with pertinent positive or pertinent negative responses have been documented in the HPI. ROS Other: All systems not noted in ROS Statement are negative. Past Medical History Past Medical History: Atrial Fibrillation, Coronary Artery Disease (CAD), Chest Pain / Angina, Heart Failure, Hyperlipidemia, Hypertension, Thyroid Disorder Additional Past Medical History / Comment(s): Pt has IBS. 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 Bruising on skin. Cataract L eye. History of Any Multi-Drug Resistant Organisms: None Reported Past Surgical History: Appendectomy, Bowel Resection, Section, Heart Catheterization With Stent, Hernia Repair, Hysterectomy Additional Past Surgical History / Comment(s): Hx. of left breast biopsy, HEART CATH WITH STENT. RT FEMORAL endartrectomy,HEMATOMA REMOVAL. Past Anesthesia/Blood Transfusion Reactions: No Reported Reaction Additional Past Anesthesia/Blood Transfusion Reaction / Comment(s): Pt has received blood recently, without reaction. Date of Last Stent Placement:: 08-17-14 Past Psychological History: No Psychological Hx Reported Smoking Status: Never smoker Past Alcohol Use History: None Reported Past Drug Use History: None Reported - Past Family History Son(s) Family Medical History: Hearing Disorder / Deafness Daughter(s) Family Medical History: Hearing Disorder / Deafness Father Family Medical History: Cancer Additional Family Medical History / Comment(s): Unknown General Exam - General Exam Comments Initial Comments: This is a well-developed well-nourished awake alert oriented 3 female Limitations: no limitations General appearance: alert, anxious Head exam: Present: atraumatic, normocephalic, normal inspection Eye exam: Present: normal appearance, PERRL, EOMI. Absent: scleral icterus, conjunctival injection, periorbital swelling ENT exam: Present: normal exam, mucous membranes moist Neck exam: Present: normal inspection. Absent: tenderness, meningismus, lymphadenopathy Respiratory exam: Present: normal lung sounds bilaterally. Absent: respiratory distress, wheezes, rales, rhonchi, stridor Cardiovascular Exam: Present: irregular rhythm. Absent: systolic murmur, diastolic murmur, rubs, gallop, clicks GI/Abdominal exam: Present: soft, tenderness (Lower abdominal tenderness no guarding rebound masses or bruits), normal bowel sounds. Absent: distended, guarding, rebound, rigid Rectal exam: Present: normal inspection, heme (-) stool (Heme-negative brown stool), other (Dark-colored stools gross blood) Extremities exam: Present: normal inspection, full ROM, normal capillary refill. Absent: tenderness, pedal edema, joint swelling, calf tenderness Back exam: Present: normal inspection Neurological exam: Present: alert, oriented X3, CN II-XII intact Psychiatric exam: Present: normal affect, normal mood Skin exam: Present: warm, dry, intact, pallor. Absent: rash Course Vital Signs 05/12/18 05/12/18 05/12/18 10:27 11:30 13:00 Temperature 98.5 F Pulse Rate 79 72 69 Respiratory 18 18 18 Rate Blood Pressure 131/73 123/61 111/60 O2 Sat by Pulse 98 96 97 Oximetry - Reevaluation(s) Reevaluation #1: 05/12/18 11:44 Second attempted EKG atrial fibrillation rate is 71 QRS 134 QT since QTC 4:30/ 469 left exodeviation right bundle-branch block LVH nonspecific inferior changes. Medical Decision Making - Medical Decision Making I did discuss the findings with the patient and family member was present. Patient currently is not demonstrating any evidence of GI bleeding. She will be discharged with follow-up with her Dr. she'll return when necessary - Lab Data Result diagrams: 05/12/18 11:23 05/12/18 11:23 Lab Results 05/12/18 05/12/18 05/12/18 Range/Units 11:23 11:23 11:23 WBC 7.4 (3.8-10.6) k/uL RBC 4.71 (3.80-5.40) m/uL Hgb 14.8 (11.4-16.0) gm/dL Hct 44.8 (34.0-46.0) % MCV 95.2 (80.0-100.0) fL MCH 31.4 (25.0-35.0) pg MCHC 33.0 (31.0-37.0) g/dL RDW 12.8 (11.5-15.5) % Plt Count 214 (150-450) k/uL Neutrophils % 60 % Lymphocytes % 28 % Monocytes % 7 % Eosinophils % 3 % Basophils % 1 % Neutrophils # 4.5 (1.3-7.7) k/uL Lymphocytes # 2.0 (1.0-4.8) k/uL Monocytes # 0.5 (0-1.0) k/uL Eosinophils # 0.2 (0-0.7) k/uL Basophils # 0.0 (0-0.2) k/uL PT (9.0-12.0) sec INR (<1.2) APTT (22.0-30.0) sec Sodium 140 (137-145) mmol/L Potassium 4.4 (3.5-5.1) mmol/L Chloride 102 (98-107) mmol/L Carbon Dioxide 31 H (22-30) mmol/L Anion Gap 7 mmol/L BUN 23 H (7-17) mg/dL Creatinine 0.90 (0.52-1.04) mg/dL Est GFR (CKD-EPI)AfAm 66 (>60 ml/min/1.73 sqM) Est GFR (CKD-EPI)NonAf 57 (>60 ml/min/1.73 sqM) Glucose 114 H (74-99) mg/dL Calcium 9.2 (8.4-10.2) mg/dL Magnesium 1.9 (1.6-2.3) mg/dL Total Bilirubin 1.3 (0.2-1.3) mg/dL AST 38 H (14-36) U/L ALT 20 (9-52) U/L Alkaline Phosphatase 75 (38-126) U/L Total Creatine Kinase 22 L (30-135) U/L CK-MB (CK-2) 0.5 (0.0-2.4) ng/mL CK-MB (CK-2) Rel Index 2.3 Troponin I <0.012 (0.000-0.034) ng/mL Total Protein 7.4 (6.3-8.2) g/dL Albumin 3.9 (3.5-5.0) g/dL Amylase 60 (30-110) U/L Lipase 82 (23-300) U/L Stool Occult Blood (Negative) Blood Type Blood Type Recheck Antibody Screen Spec Expiration Date 05/12/18 05/12/18 05/12/18 Range/Units 11:23 11:23 12:21 WBC (3.8-10.6) k/uL RBC (3.80-5.40) m/uL Hgb (11.4-16.0) gm/dL Hct (34.0-46.0) % MCV (80.0-100.0) fL MCH (25.0-35.0) pg MCHC (31.0-37.0) g/dL RDW (11.5-15.5) % Plt Count (150-450) k/uL Neutrophils % % Lymphocytes % % Monocytes % % Eosinophils % % Basophils % % Neutrophils # (1.3-7.7) k/uL Lymphocytes # (1.0-4.8) k/uL Monocytes # (0-1.0) k/uL Eosinophils # (0-0.7) k/uL Basophils # (0-0.2) k/uL PT 11.2 (9.0-12.0) sec INR 1.1 (<1.2) APTT 25.6 (22.0-30.0) sec Sodium (137-145) mmol/L Potassium (3.5-5.1) mmol/L Chloride (98-107) mmol/L Carbon Dioxide (22-30) mmol/L Anion Gap mmol/L BUN (7-17) mg/dL Creatinine (0.52-1.04) mg/dL Est GFR (CKD-EPI)AfAm (>60 ml/min/1.73 sqM) Est GFR (CKD-EPI)NonAf (>60 ml/min/1.73 sqM) Glucose (74-99) mg/dL Calcium (8.4-10.2) mg/dL Magnesium (1.6-2.3) mg/dL Total Bilirubin (0.2-1.3) mg/dL AST (14-36) U/L ALT (9-52) U/L Alkaline Phosphatase (38-126) U/L Total Creatine Kinase (30-135) U/L CK-MB (CK-2) (0.0-2.4) ng/mL CK-MB (CK-2) Rel Index Troponin I (0.000-0.034) ng/mL Total Protein (6.3-8.2) g/dL Albumin (3.5-5.0) g/dL Amylase (30-110) U/L Lipase (23-300) U/L Stool Occult Blood Negative (Negative) Blood Type A Positive Blood Type Recheck No Antibody Screen NEGATIVE Spec Expiration Date 05/15/20182322 - EKG Data -: EKG Interpreted by Me (Defibrillator rate is 71 QRS 134 QT since QTC 432/469 left axis deviation r) - Radiology Data Radiology results: report reviewed, image reviewed Disposition Clinical Impression: Feared condition not demonstrated, History of GI bleed, Abdominal pain Disposition: HOME SELF-CARE Condition: Good Instructions: Gastrointestinal Bleeding (ED), Abdominal Pain (ED) Prescriptions: Pantoprazole Sodium [Protonix] 20 mg PO DAILY #15 tablet.dr Is patient prescribed a controlled substance at d/c from ED?: No Referrals: Jennyfer Cabello MD [Primary Care Provider] - 1-2 days Enrrique Gong MD [STAFF PHYSICIAN] - 1-2 days
[2018-05-12 11:40] LABS: Basophils % (A) 1 %; Eosinophils # (A) 0.2 k/uL (0-0.7); Eosinophils % (A) 3 %; HCT 44.8 % (34.0-46.0); HGB 14.8 gm/dL (11.4-16.0); Lymphocytes % (A) 28 %; MCH 31.4 pg (25.0-35.0); MCV 95.2 fL (80.0-100.0); Mean Platelet Volume 7.7; Monocytes # (A) 0.5 k/uL (0-1.0); Monocytes % (A) 7 %; Neutrophils # (A) 4.5 k/uL (1.3-7.7); Neutrophils % (A) 60 %; Platelet Count 214 k/uL (150-450); RBC 4.71 m/uL (3.80-5.40); RDW 12.8 % (11.5-15.5); WBC 7.4 k/uL (3.8-10.6)
[2018-05-12 11:49] LABS: Albumin 3.9 g/dL (3.5-5.0); Calcium 9.2 mg/dL (8.4-10.2); Total Bilirubin 1.3 mg/dL (0.2-1.3); Total Protein 7.4 g/dL (6.3-8.2)
[2018-05-12 11:53] LABS: Magnesium 1.9 mg/dL (1.6-2.3); Potassium 4.4 mmol/L (3.5-5.1)
[2018-05-12] MEDS ORDERED: SODIUM CHLORIDE 0.9% 500 ML 500 ML IV STA (11:54)
[2018-05-12 11:58] LABS: Creatine Kinase 22 U/L (30-135)
[2018-05-12 12:11] LABS: Creatine Kinase MB 0.5 ng/mL (0.0-2.4); Troponin I <0.012 ng/mL (0.000-0.034)
--- NOTE | 2018-05-12 12:17 | XR ---
EXAMINATION TYPE: XR chest 2V DATE OF EXAM: 05/12/2018 COMPARISON: Chest x-ray December 26, 2016. CTA chest March 21, 2018 HISTORY: Cough per order. TECHNIQUE: Frontal and lateral views of the chest are obtained. FINDINGS: There is some chronic minimal change without suspicious new focal air space opacity, pleur al effusion, or pneumothorax seen. The cardiac silhouette size is remains enlarged with atherosclero tic thoracic aorta. The osseous structures remain demineralized. IMPRESSION: Chronic changes and cardiomegaly without acute pulmonary process.
--- NOTE | 2018-05-12 12:24 | XR ---
Abdomen HISTORY: Rectal bleeding, pain Frontal view of the abdomen on 2 images Correlated to prior exam 07/10/2016 Heart is enlarged. There is no pneumoperitoneum or bowel obstruction evident. Surgical biju have b een removed in the interval. Degenerative disc changes in the visualized spine. Arthropathy suspected within the hips. Probable vascular calcifications within the pelvis. IMPRESSION: Nonobstructive bowel gas pattern. Cardiomegaly. Degenerative disc disease.
[2018-05-12 13:24] LABS: INR 1.1 (<1.2); Partial Thromboplastin Time 25.6 sec (22.0-30.0); Prothrombin Time 11.2 sec (9.0-12.0)
--- NOTE | 2018-05-12 13:24 | CT ---
EXAMINATION TYPE: CT abdomen pelvis wo con DATE OF EXAM: 05/12/2018 COMPARISON: 03/21/2018 INDICATION: mid abd pain, rectal bleeding, nausea DLP: 522.4 mGycm, Automated exposure control for dose reduction was used. CONTRAST: 0 mL of Isovue 300. Study performed without Oral Contrast TECHNIQUE: Axial images were obtained from above the diaphragm to the pubic rami in the axial plane a t 5 mm thick sections. Reconstructed images are reviewed on the computer in the coronal plane. FINDINGS: Limited CT sections are obtained the lung bases. The lung bases are clear. Coronary artery calcific ation is noted. Vascular calcification is in in the descending thoracic aorta. CT ABDOMEN: Liver: Normal Spleen: Normal Pancreas: Atrophic Adrenal glands: The adrenal glands are normal. Gallbladder: Subtle debris may is not excluded from the gallbladder. Kidneys: No masses are evident. No hydronephrosis is present. A 0.8 cm cortical renal cyst in the p osterior lateral superior pole right kidney may be present. Mild right hydronephrosis and hydroureter may be present. No obstructing renal or ureteral stone is evident Delayed images were obtained thro ugh the kidneys, which remain unremarkable. Aorta: Vascular calcification is within the aorta. Inferior vena cava: Normal. CT PELVIS: Loops of bowel within the abdomen and pelvis are normal. There appears to be prior right hemicolect jason. Study is without oral contrast limiting bowel evaluation. Couple of diverticuli may be present. Appendix: Not visualized. There appears to be resection of a portion of the descending colon suggesti ng prior resection. Urinary bladder: Normal. Genitourinary structures: Vaginal cuff appears unremarkable. Uterus and ovaries are not identified. Osseous structures: No suspicious lytic or sclerotic lesions. No significant interval change from the comparison is evident IMPRESSIONS: 1. Mild right hydronephrosis and hydroureter of uncertain etiology. 2. There may be some subtle debris within the gallbladder. Hyperdense gallstones are not identified. 3. Postsurgical changes within the ascending colon
[2018-05-12 14:08] VITALS: BP 118/59; PULSE 75
[2018-05-12 14:18] VITALS: TEMP 97.6
== END 2018-05-12 14:18 | disposition home or self-care (01) ==
LOC: EC 10:21
DX: R10.9 Unspecified abdominal pain (principal); R42 Dizziness and giddiness; R53.1 Weakness; R11.0 Nausea; K92.1 Melena; R06.09 Other forms of dyspnea; R53.83 Other fatigue; I48.91 Unspecified atrial fibrillation; I25.10 Atherosclerotic heart disease of native coronary artery without angina pectoris; I11.0 Hypertensive heart disease with heart failure; I50.9 Heart failure, unspecified; I27.20 Pulmonary hypertension, unspecified; K58.9 Irritable bowel syndrome, unspecified; E07.9 Disorder of thyroid, unspecified; Z90.49 Acquired absence of other specified parts of digestive tract; Z98.890 Other specified postprocedural states; Z90.710 Acquired absence of both cervix and uterus; Z95.5 Presence of coronary angioplasty implant and graft; Z79.01 Long term (current) use of anticoagulants; Z79.899 Other long term (current) drug therapy
CPT/HCPCS: 36415; 71046; 74018; 74176; 80053; 82150; 82272; 82550; 82553; 83690; 83735; 84484; 85025; 85610; 85730; 86850; 86900; 86901; 93005; 96360; 96361; 99285